=== PATIENT | male | born 1950 | race Caucasian/White ===

== ENCOUNTER → 2017-12-06 10:11 | Outpatient (CLI) | payer MEDICARE, OTHER, SELFPAY ==
[2017-12-06 12:35] LABS: Absolute Lymphocyte Count 1.95 X10^3/ul (0.83-4.51); Absolute Neutrophil Count 5.1 X10^3/uL (2.0-7.7); Basophil# 0.02 X10^3/uL; Basophil% 0.3 % (0-1); Eosinophil# 0.15 X10^3/uL; Eosinophils% 1.9 % (0-5); Hematocrit 46.5 % (40-54); Lymphocyte # 1.95 X10^3/ul (4.0); Lymphocyte % 24.8 % (19-41); Mean Corp Hgb Conc 34.4 g/gl (32-36); Mean Corpuscular Hgb 31.6 pg (27.0-32.0); Mean Corpuscular Volume 91.7 fL (80-94); Mean Platelet Vol. 9.8 fl (6.2-12.0); Monocyte# 0.65 X10^3/uL; Monocyte% 8.3 % (0-10); Neutrophil # 5.06 X10^3/uL (2.7-7.7); Neutrophil % 64.4 % (47-70); Platelet Count 223 K/mm3 (150-450); RBC Distribution Width CV 13.1 % (11.6-14.6); RBC Distribution Width SD 43.1 fl (35.1-43.9); Red Blood Count 5.07 M/mm3 (4.6-6.2); White Blood Count 7.9 K/mm3 (4.4-11.0)
[2017-12-06 12:36] LABS: POSITIVE COUNT NO; POSITIVE DIFFERENTIAL NO; POSITIVE MORPHOLOGY NO
[2017-12-06 13:27] LABS: Anion Gap 11 (5-15); BUN 14 mg/dL (7-18); BUN/Creat Ratio 10.4 RATIO (10-20); Chloride 105 mmol/L (98-107); Creatinine, Serum 1.35 mg/dL (0.70-1.30); EST Glomerular Filtration Rate 56 mL/min (>60); Est Glom Filt Rate - Afr Amer 68 mL/min (>60); Glucose 169 mg/dL (74-106); Potassium 3.3 mmol/L (3.5-5.1); Sodium Level 140 mmol/L (136-145)
== END ==
PROVIDERS: Family Provider Family Medicine; PCP Family Medicine; Visit Provider Family Medicine
DX: I10 Essential (primary) hypertension (principal); E87.6 Hypokalemia; F41.9 Anxiety disorder, unspecified
CPT/HCPCS: 36415; 80048; 84443; 85025

== ENCOUNTER → 2017-12-28 10:31 | Outpatient (CLI) | payer MEDICARE, OTHER, SELFPAY ==
[2017-12-28 12:27] LABS: Anion Gap 7 (5-15); BUN 14 mg/dL (7-18); BUN/Creat Ratio 11.6 RATIO (10-20); Calcium,Total 8.7 mg/dL (8.5-10.1); Chloride 104 mmol/L (98-107); Creatinine, Serum 1.21 mg/dL (0.70-1.30); EST Glomerular Filtration Rate 64 mL/min (>60); Est Glom Filt Rate - Afr Amer 77 mL/min (>60); Glucose 127 mg/dL (74-106); Potassium 3.7 mmol/L (3.5-5.1); Sodium Level 138 mmol/L (136-145)
== END ==
PROVIDERS: Family Provider Family Medicine; PCP Family Medicine; Visit Provider Family Medicine
DX: E87.6 Hypokalemia (principal)
CPT/HCPCS: 36415; 80048

== ENCOUNTER → 2018-03-26 09:56 | Outpatient (CLI) | payer MEDICARE, OTHER, SELFPAY ==
[2018-03-26 12:13] LABS: Absolute Lymphocyte Count 1.78 X10^3/ul (0.83-4.51); Absolute Neutrophil Count 5.9 X10^3/uL (2.0-7.7); Basophil# 0.01 X10^3/uL; Basophil% 0.1 % (0-1); Eosinophil# 0.16 X10^3/uL; Eosinophils% 1.8 % (0-5); Hematocrit 46.6 % (40-54); Hemoglobin 15.9 g/dl (13.0-16.5); Lymphocyte # 1.78 X10^3/ul (4.0); Lymphocyte % 20.3 % (19-41); Mean Corp Hgb Conc 34.1 g/gl (32-36); Mean Corpuscular Hgb 31.2 pg (27.0-32.0); Mean Corpuscular Volume 91.4 fL (80-94); Mean Platelet Vol. 9.7 fl (6.2-12.0); Monocyte% 10.2 % (0-10); Neutrophil # 5.91 X10^3/uL (2.7-7.7); Neutrophil % 67.3 % (47-70); Platelet Count 228 K/mm3 (150-450); RBC Distribution Width CV 12.6 % (11.6-14.6); RBC Distribution Width SD 41.7 fl (35.1-43.9); White Blood Count 8.8 K/mm3 (4.4-11.0)
[2018-03-26 12:24] LABS: POSITIVE COUNT NO; POSITIVE DIFFERENTIAL NO; POSITIVE MORPHOLOGY NO
[2018-03-26 13:00] LABS: Anion Gap 11 (5-15); BUN 16 mg/dL (7-18); BUN/Creat Ratio 11.9 RATIO (10-20); Calcium,Total 9.2 mg/dL (8.5-10.1); Chloride 100 mmol/L (98-107); Cholesterol 152 mg/dL (200); Creatinine, Serum 1.34 mg/dL (0.70-1.30); EST Glomerular Filtration Rate 57 mL/min (>60); Est Glom Filt Rate - Afr Amer 68 mL/min (>60); Glucose 116 mg/dL (74-106); High Density Lipoprotein 35 mg/dL; Potassium 3.5 mmol/L (3.5-5.1); Sodium Level 139 mmol/L (136-145); Thyroid Stim Hormone (TSH) 1.18 uIU/mL (0.358-3.74); Triglycerides 138 mg/dL; Very Low Density Lipoprotein 28 mg/dL (5-40)
== END ==
PROVIDERS: Family Provider Family Medicine; PCP Family Medicine; Visit Provider Family Medicine
DX: I12.9 Hypertensive chronic kidney disease with stage 1 through stage 4 chronic kidney disease, or unspecified chronic kidney disease (principal); N18.9 Chronic kidney disease, unspecified; R25.1 Tremor, unspecified
CPT/HCPCS: 36415; 80048; 80061; 84443; 85025

== ENCOUNTER → 2018-12-16 13:08 | Outpatient (CLI) | payer MEDICARE, OTHER, SELFPAY | PROVIDERS: Family Provider Family Medicine; PCP Family Medicine; Visit Provider Family Medicine | DX: N39.0 Urinary tract infection, site not specified (principal); N40.0 Benign prostatic hyperplasia without lower urinary tract symptoms | CPT/HCPCS: 87086; 87088 ==

== ENCOUNTER → 2019-04-21 | Outpatient (CLI) | payer MEDICARE, OTHER, SELFPAY ==
[2019-04-21 12:35] LABS: Absolute Lymphocyte Count 1.81 X10^3/ul (0.83-4.51); Absolute Neutrophil Count 3.9 X10^3/uL (2.0-7.7); Basophil# 0.01 X10^3/uL; Basophil% 0.2 % (0-1); Eosinophil# 0.21 X10^3/uL; Eosinophils% 3.2 % (0-5); Hematocrit 46.1 % (40-54); Hemoglobin 15.6 g/dl (13.0-16.5); Lymphocyte # 1.81 X10^3/ul (4.0); Lymphocyte % 27.9 % (19-41); Mean Corp Hgb Conc 33.8 g/gl (32-36); Mean Corpuscular Hgb 30.5 pg (27.0-32.0); Mean Corpuscular Volume 90.2 fL (80-94); Mean Platelet Vol. 9.9 fl (6.2-12.0); Monocyte# 0.54 X10^3/uL; Monocyte% 8.3 % (0-10); Neutrophil # 3.91 X10^3/uL (2.7-7.7); Neutrophil % 60.2 % (47-70); Platelet Count 245 K/mm3 (150-450); RBC Distribution Width CV 12.6 % (11.6-14.6); RBC Distribution Width SD 40.6 fl (35.1-43.9); Red Blood Count 5.11 M/mm3 (4.6-6.2); White Blood Count 6.5 K/mm3 (4.4-11.0)
[2019-04-21 12:36] LABS: ALB/GLOB Ratio 0.8 RATIO (0.9-2.4); AST(SGOT) 20 U/L (15-37); Alanine Aminotransfer ALT/SGPT 28 U/L (16-61); Albumin, Serum 3.4 g/dL (3.2-5.0); Alkaline Phosphatase 90 U/L (45-117); Anion Gap 12 (5-15); BUN 18 mg/dL (7-18); BUN/Creat Ratio 14.5 RATIO (10-20); Calcium,Total 9.1 mg/dL (8.5-10.1); Chloride 103 mmol/L (98-107); Creatinine, Serum 1.24 mg/dL (0.70-1.30); EST Glomerular Filtration Rate 62 mL/min (>60); Est Glom Filt Rate - Afr Amer 75 mL/min (>60); Globulin 4.1 g/dL (2.2-4.2); Glucose 117 mg/dL (74-106); Magnesium 2.1 mg/dL (1.6-2.6); Potassium 3.4 mmol/L (3.5-5.1); Protein, Total 7.5 g/dL (6.4-8.2); Sodium Level 140 mmol/L (136-145); T4 Free Direct 1.17 ng/dL (0.76-1.46); Thyroid Stim Hormone (TSH) 0.99 uIU/mL (0.358-3.74)
[2019-04-21 12:46] LABS: POSITIVE COUNT NO; POSITIVE DIFFERENTIAL NO; POSITIVE MORPHOLOGY NO
== END | disposition home or self-care (01) ==
LOC: BFHLAB 09:36
PROVIDERS: Family Provider Family Medicine; PCP Family Medicine; Visit Provider Family Medicine
DX: R73.01 Impaired fasting glucose (principal); I10 Essential (primary) hypertension; R00.2 Palpitations
CPT/HCPCS: 36415; 80053; 83735; 84439; 84443; 85025

== ENCOUNTER → 2019-06-11 | Outpatient (CLI) | payer MEDICARE, OTHER, SELFPAY ==
--- NOTE | 2019-06-11 11:49 | RAD_ITS ---
STUDY: X-RAY - ABDOMEN/PELVIS REASON FOR EXAM: Male, 69 years old. Severe constipation TECHNIQUE: Two AP supine views of the abdomen and pelvis. COMPARISON: January 29, 2015 FINDINGS: Normal visualized lung bases. There is a moderate amount of colonic fecal material. There is no demonstrated free abdominal air. The visualized liver, spleen and kidneys are grossly normal in size and morphology. Normal soft tissue structures. There are diffuse degenerative changes of the visualized lumbar spine. RAD/Abdomen Single View IMPRESSION: Moderate constipation. No evidence of free air. Electronically Signed: Finesse Joe DO at 12:16 EDT Tel , Service support ,
== END | disposition home or self-care (01) ==
PROVIDERS: Family Provider Family Medicine; PCP Family Medicine; Referring Provider Family Medicine; Visit Provider Family Medicine
DX: K59.09 Other constipation (principal); K62.89 Other specified diseases of anus and rectum
CPT/HCPCS: 74018

== ENCOUNTER 2019-06-14 15:20 | Emergency (ER) | payer MEDICARE, OTHER, SELFPAY ==
[2019-06-14 15:21] VITALS: BP 152/69; PULSE 62; RESP 17; TEMP 36.8; O2SAT 98; BMI 29.9
--- NOTE | 2019-06-14 15:42 | CT_ITS ---
STUDY: CT ABDOMEN AND PELVIS WITHOUT CONTRAST REASON FOR EXAM: Male, 69 years old. Lower abdominal pain and constipation for 9 days. RADIATION DOSAGE (If Supplied By Facility): CTDIvol = ( 11.06 ) mGy, DLP = ( 566.31 ) mGycm TECHNIQUE: Transaxial images were obtained from the dome of the diaphragm to the symphysis pubis without oral contrast, and without intravenous contrast. Sagittal and coronal images were reconstructed. Individualized dose optimization techniques were used for this CT. COMPARISON: Prior abdomen and pelvic CT exam of January 26, 2015 FINDINGS: Mild areas of interstitial prominence at the bases that are probably chronic in nature. Since 2014 a fatty mass of the posterior right pleura has been apparently removed. Normal liver. Normal gallbladder and extrahepatic biliary system. There are multiple benign calcified granulomata of the spleen. Normal pancreas. Normal bilateral adrenal glands. Normal size of the right kidney without hydronephrosis or stones. Stable cysts and one nonobstructing calcification in the upper pole of the left kidney. Otherwise normal left kidney without hydronephrosis. Normal visualized stomach. Normal small intestine. Generalized wall thickening of the proximal sigmoid colon with minimal pericolonic stranding not apparent on prior exam the same area. There does not appear to be proximal distention or a substantial amount of proximal solid stool. The appendix is visualized and appears normal. Mild calcified plaque of the aorta. Normal inferior vena cava. Normal retroperitoneum. Normal urinary bladder. Normal abdominal wall. There are diffuse degenerative changes of the visualized lumbar spine. CT/Abdomen/Pelvis without Cont IMPRESSION: Generalized wall thickening of the proximal sigmoid colon with minimal pericolonic edema with extensive diverticulosis in the area. Findings support earlier mild diverticulitis. Otherwise negative for evidence of perforation or bowel obstruction. A normal appendix is identified. No additional acute abdominal or pelvic findings. Calcified granulomata of the spleen. Simple cysts and one small nonobstructing calcification in the upper pole of the left kidney without hydronephrosis. Normal right kidney without hydronephrosis or stones. Unremarkable liver, gallbladder, pancreas. Electronically Signed: Marylin Bianchi MD at 17:06 EDT , Service support ,
[2019-06-14 15:58] LABS: Absolute Lymphocyte Count 2.06 X10^3/uL (0.83-4.51); Basophil# 0.02 X10^3/uL; Basophil% 0.2 % (0-1); Hematocrit 45.2 % (40-54); Hemoglobin 15.4 g/dL (13.0-16.5); Lymphocyte # 2.06 X10^3/ul (4.0); Lymphocyte % 20.5 % (19-41); Mean Corp Hgb Conc 34.1 g/dL (32-36); Mean Corpuscular Hgb 31.2 pg (27.0-32.0); Mean Corpuscular Volume 91.7 fL (80-94); Mean Platelet Vol. 9.2 fl (6.2-12.0); Monocyte# 0.81 X10^3/uL; Monocyte% 8.1 % (0-10); NRBC Flagged by Analyzer 0 % (0-5); Neutrophil # 7.03 X10^3/uL (2.7-7.7); Neutrophil % 69.9 % (47-70); Platelet Count 221 K/mm3 (150-450); RBC Distribution Width CV 12.2 % (11.6-14.6); RBC Distribution Width SD 41.1 fl (35.1-43.9); Red Blood Count 4.93 M/mm3 (4.6-6.2); White Blood Count 10.1 K/mm3 (4.4-11.0)
[2019-06-14] MEDS: 0.9% Normal Saline 1,000 ML 1000 ML IV (15:59)
[2019-06-14 16:25] LABS: Anion Gap 8 (5-15); BUN 19 mg/dL (7-18); Calcium,Total 8.7 mg/dL (8.5-10.1); Chloride 106 mmol/L (98-107); Creatinine, Serum 1.27 mg/dL (0.70-1.30); EST Glomerular Filtration Rate 60 mL/min (>60); Est Glom Filt Rate - Afr Amer 73 mL/min (>60); Estimated Creatinine Clearance 50.24 ml/min; Glucose 154 mg/dL (74-106); Sodium Level 138 mmol/L (136-145)
--- NOTE | 2019-06-14 17:11 | ED.DCSUM_ITS ---
- ER Visit Summary Date of Service: 06/14/19 Chief Complaint: Constipation History of Present Illness: The patient is a [address] Don Rodriguez. He reports that he has had constipation since June 05. When asked further about this he reports he has not had a solid bowel movement since then. He is having liquid stools 6 times in the morning daily since then. He also reports that he is on multiple different stool softeners and stimulants. States these had similar problems for 30 years. He does have a history of diverticulitis. Patient reports that he has aching lower abdominal pain is 9 to 10 hours and 4- 10 currently. Is worsened by nothing included by passing gas. He had nausea without vomiting. Physical Examination: Vitals: Stable. Afebrile. General: Well-nourished and well-developed. Head: Normocephalic atraumatic. Neck: Supple, no lymphadenopathy. No JVD. Nontender. Cardiovascular: Regular rate and rhythm. No murmurs. Respiratory: No respiratory distress. Clear to auscultation bilaterally. Abdominal: Soft, mild diffuse lower abdominal tenderness to palpation, nondistended, normal bowel sounds. No guarding, rebound, or peritoneal signs. Back: Nontender. Extremities: Nontender, no edema. Skin: Normal color, no rash. Neurologic: Alert and oriented ?3. Cranial nerves II through XII are intact. Normal strength and sensation. Psych: Normal affect. Test Results: CBC is normal. Chem-7 shows a glucose of 154 and BUN of 19. Clinical Impression(s) from Imaging Studies Abdomen/Pelvis CT 06/14/19 15:42 IMPRESSION: Generalized wall thickening of the proximal sigmoid colon with minimal pericolonic edema with extensive diverticulosis in the area. Findings support earlier mild diverticulitis. Otherwise negative for evidence of perforation or bowel obstruction. A normal appendix is identified. No additional acute abdominal or pelvic findings. Calcified granulomata of the spleen. Simple cysts and one small nonobstructing calcification in the upper pole of the left kidney without hydronephrosis. Normal right kidney without hydronephrosis or stones. Unremarkable liver, gallbladder, pancreas. Electronically Signed: Marylin Bianchi MD at 17:06 EDT , Service support , Emergency Department Course and Treatment: Patient was treated with Augmentin p.o. He refused pain and nausea medications. Treatment Plan: Patient reports he has an appointment to office copy selector, whose name he cannot remember, and 10 days. He is will be discharged on Augmentin. Instructed to follow-up with Dr. Don Rodriguez in a week for another exam. Return to the emergency department for any worsening symptoms. Disposition: To home in improved and stable condition. Impression: 1. Diverticulitis. This note was generated with [employer] dictation software. It may contain incorrect words, spelling, and punctuation that were not noted in review of the chart prior to signing ED Disposition - Plan for ED Patient: Disposition: Home or Assisted Living Instructions: Diverticulitis Prescriptions: Amox/Clavulanate Tablet [Augmentin Tablet] 875 mg PO Q12H #20 tab Prescription Printed Referrals: Don Rodriguez MD [Primary Care Provider] - 1 Week
[2019-06-14] MEDS: Amox/Clavulanate 875 MG Tablet PO (17:20)
[2019-06-14 17:26] VITALS: BP 121/69; PULSE 84; RESP 18
== END 2019-06-14 17:28 | disposition home or self-care (01) ==
LOC: ED 17:08
PROVIDERS: Emergency Provider Emergency Medicine; Family Provider Family Medicine; PCP Family Medicine
DX: K57.32 Diverticulitis of large intestine without perforation or abscess without bleeding (principal); I10 Essential (primary) hypertension
CPT/HCPCS: 74176; 80048; 85025; 96360; 99284; J7030; A4216

== ENCOUNTER 2019-09-03 00:58 | Inpatient (IN) | payer MEDICARE, OTHER, SELFPAY ==
[2019-09-03] VITALS (9 sets, daily range): BP systolic 136–174; BP diastolic 81–91; PULSE 75–94; RESP 18–24; TEMP 32–37.1; O2SAT 95–98; BMI 31.8; BMI 31.3
--- NOTE | 2019-09-03 01:36 | ED.VIS.GEN ---
History of Present Illness Chief Complaint: Complaint Informant: Patient Onset: Today Context: Gradual Onset Narrative: Patient is a 69-year-old male with history of chronic neck pain and BPH presenting with decreased urination. Patient notes all day today he is not peeing very much. He states the last time he remembers urinating was earlier this afternoon. Since then patient does drink at least 28 ounces of fluid. He states he does not really feel the need to urinate. He states he feels bloated in his flanks. He denies any history of kidney failure. He notes he had a neck injection of steroids earlier today for pain management. He notes his neck is feeling fine. He denies any other complaints at this time. Past Medical History - Allergies and Home Meds Allergies/Adverse Reactions: Allergies gabapentin [From Neurontin] Adverse Reaction (Verified 09/03/19 04:15) muscle stiffness ofloxacin [From Floxin] Adverse Reaction (Verified 09/03/19 04:15) Unknown pt is not sure - states this was a long time ago Past Medical History: - - Hypertension, chronic pain, GERD, BPH, anxiety, Surgical History: - - c-scope [address] Patterson he notes, no marked findings. Lives: With Family Smoking Status: Never smoker - Family History Maternal Family History: Reports: Cancer - Mother w/ brain CA 62 y/o. Paternal Family History: Reports: Cancer - Father w/ prostate CA 67 y/o. Review of Systems All systems negative except as indicated Gastrointestinal: Reports: - - Flank discomfort Genitourinary: Reports: - - Increased urine output Musculoskeletal: Reports: - Physical Exam Vital Signs/Narrative: Vital Signs Temp Pulse Resp BP Pulse Ox 09/03/19 01:00 89.6 F L 84 18 174/88 H 98 Inital Vital Signs reviewed: Yes General: Well nourished, Well developed, No Acute Distress Head: Normocephalic, Atraumatic Eyes: Perrl, EOMI ENT: No rhinorrhea, Dry mucous membranes Neck: Supple, Nontender Cardiovascular: Regular rate, Regular rhythm, No murmurs Respiratory: No distress, CTA bilaterally, Chest nontender Abdomen: Soft, Nontender, Nondistended, Normal bowel sounds, - - No palpable/distended bladder appreciated. Negative for: Tender Back: Nontender, Normal Inspection. Negative for: CVA tenderness Extremities: Nontender, No edema Skin: Normal color, No rash Neurological: Alert, Oriented x3, Cranial nerves II-XII grossly intact, Normal Strength, Normal Sensation, - - Patient has mildly stuttering speech which appears to be his baseline, mild tremor present Psychological: Normal affect, Normal Mood Diagnostic/Tx/Re-eval Clinical Impression(s) from Imaging Studies Abdomen/Pelvis CT 09/03/19 03:06 IMPRESSION: Mild chronic bilateral perinephric fat infiltration is slightly accentuated compared to previous studies and might represent an active inflammatory process. No other visible evidence for acute pathology of the kidneys. Small renal cysts. Small nonobstructive left renal calculus. No demonstrated ureteral calculus or hydronephrosis. Colonic diverticulosis. Mild chronic fatty infiltration adjacent to the sigmoid colon there is an residual from previous diverticulitis. Recurrent acute diverticulitis is thought to be less likely. Contracted gallbladder, probably due to the patient's nonfasting state. Electronically Signed: Kartik Molina MD at 4:07 EST , Service support , Laboratory Data 09/03/19 09/03/19 09/03/19 01:35 01:35 01:53 WBC 15.6 H RBC 4.88 Hgb 15.3 Hct 44.3 MCV 90.8 MCH 31.4 MCHC 34.5 RDW Std Deviation 40.3 RDW Coeff of Leonel 12.2 Plt Count 217 MPV 9.2 Immature Gran % (Auto) 0.500 Neut % (Auto) 85.6 H Lymph % (Auto) 6.6 [place] % (Auto) 7.2 Eos % (Auto) 0.0 Baso % (Auto) 0.1 Absolute Neuts (auto) 13.3 H Absolute Lymphs (auto) 1.02 Nucleated RBC % 0 Sodium 136 Potassium 4.8 Chloride 104 Carbon Dioxide 23.0 Anion Gap 9 BUN 43 H Creatinine 2.92 H Estim Creat Clear Calc 21.85 Est GFR (MDRD) Af Amer 28 L Est GFR (MDRD) Non-Af 23 L BUN/Creatinine Ratio 14.7 Glucose 216 H Calcium 9.0 Urine Color Yellow Urine Clarity Sl. Cloudy Urine pH 6.0 Ur Specific [place] 1.005 Urine Protein 30 H Urine Glucose (UA) Normal Urine Ketones Negative Urine Occult Blood 50 H Urine Nitrite Negative Urine Bilirubin Negative Urine Urobilinogen Normal Ur Leukocyte Esterase Negative Urine RBC 0-5 SEEN Urine WBC 0-5 SEEN Ur Squamous Epith Cells 0-5 SEEN Amorphous Sediment 1+ Urine Bacteria RARE Urine Mucus 0 SEEN - Medical Decision Making Patient is evaluated for decreased urine output. He does not have symptoms consistent with acute urinary retention is not having pain or the sensation that he needs to urinate. Bladder scan performed which shows 75 mL's of urine. Patient is able to urinate out a small amount. No signs of infection in the urine. CBC does show leukocytosis however patient has had multiple steroid shots within the last 2 weeks which could have raised it. He does not have any other symptoms consistent with infection such as fever, myalgias or malaise. Patient's creatinine is significantly elevated. It is more than doubled his baseline. Patient is given IV fluids. I suspect his decreased urine output has been from acute kidney injury. Patient is on triamterene/HCTZ and was n.p.o. yesterday for a procedure. It is possible that that pushed him into acute kidney injury. Patient will be admitted for further evaluation of this. He is agreeable to this plan. Patient is given IV Ativan as he is very anxious about being admitted and normally takes it at home. Patient is accepted by medicine physician, Dr. Khanna. As patient's BUN/creatinine ratio is less than [address] he [address] a [address] the abdomen pelvis to rule out signs of obstructive uropathy. This is obtained but does not show signs of obstruction. Patient is stable for the general medical floor at time of disposition. ED Disposition - Plan for ED Patient: Disposition: Acute Care Hospital [facility] Diagnosis: PALMIRA (acute kidney injury)
[2019-09-03 01:45] LABS: Absolute Lymphocyte Count 1.02 X10^3/uL (0.83-4.51); Absolute Neutrophil Count 13.3 X10^3/uL (2.0-7.7); Basophil# 0.02 X10^3/uL; Basophil% 0.1 % (0-1); Hematocrit 44.3 % (40-54); Hemoglobin 15.3 g/dL (13.0-16.5); Lymphocyte # 1.02 X10^3/ul (4.0); Lymphocyte % 6.6 % (19-41); Mean Corp Hgb Conc 34.5 g/dL (32-36); Mean Corpuscular Hgb 31.4 pg (27.0-32.0); Mean Corpuscular Volume 90.8 fL (80-94); Mean Platelet Vol. 9.2 fl (6.2-12.0); Monocyte# 1.12 X10^3/uL; Monocyte% 7.2 % (0-10); NRBC Flagged by Analyzer 0 % (0-5); Neutrophil # 13.31 X10^3/uL (2.7-7.7); Neutrophil % 85.6 % (47-70); Platelet Count 217 K/mm3 (150-450); RBC Distribution Width CV 12.2 % (11.6-14.6); RBC Distribution Width SD 40.3 fl (35.1-43.9); Red Blood Count 4.88 M/mm3 (4.6-6.2); White Blood Count 15.6 K/mm3 (4.4-11.0)
[2019-09-03 01:57] LABS: Mucous, Urine 0 SEEN /hpf (<or=2+)
[2019-09-03 02:00] LABS: Color, Urine Yellow (Yellow); Glucose, Dipstick Normal (Normal); Ketone-Dipstick Negative (Negative); Leukocyte Esterase-Dipstick Negative /ul (Negative); Nitrite-Dipstick Negative (Negative); Occult Blood-Urine 50 /ul (Negative); Protein-Dipstick 30 mg/dl (Negative); Specific Gravity, Urine 1.005 (1.002-1.030); Urine Bilirubin Dipstick Negative (Negative); Urine Clarity Sl. Cloudy (Clear); Urine Urobilinogen Normal (Normal)
[2019-09-03 02:02] LABS: Anion Gap 9 (5-15); BUN 43 mg/dL (7-18); BUN/Creat Ratio 14.7 RATIO (10-20); Chloride 104 mmol/L (98-107); Creatinine, Serum 2.92 mg/dL (0.70-1.30); EST Glomerular Filtration Rate 23 mL/min (>60); Est Glom Filt Rate - Afr Amer 28 mL/min (>60); Estimated Creatinine Clearance 21.85 ml/min; Glucose 216 mg/dL (74-106); Potassium 4.8 mmol/L (3.5-5.1); Sodium Level 136 mmol/L (136-145)
[2019-09-03 02:06] LABS: Amorphous Sediment 1+; Bacteria RARE /hpf (None Seen); Red Blood Cells-Urine 0-5 SEEN /hpf (0-5); Squamous Epithelial Cells - UA 0-5 SEEN /hpf (0-5); White Blood Cells 0-5 SEEN /hpf (0-5)
--- NOTE | 2019-09-03 02:51 | HP.PCM_ITS ---
Problem List (1) PALMIRA (acute kidney injury) Status: Acute History of Present Illness Date of Admission: 09/03/19 Chief Complaint: Decreased urine output The patient is a 69 year old M with a significant history of GERD; BPH; hypertension; chronic pain and anxiety who presented to emergency department with decreased urine output that started a day before his presentation. Patient was kept n.p.o. for cortisone shot in his neck. After the cortisone shots he did not urinate except when his bowels was moving at which time he also urinated. At the the Emergency department his creatinine was elevated likewise his white count. He reported typically his creatinine and other labs has been elevated after he receives cortisone shots. Two weeks ago he also received cortisone shot in his bilateral hips. Bladder scanned at the emergency department showed only 75 mL of urine. Past Medical History Past Medical History (Chronic Problems): Chronic Problems Hypertension (Chronic) GERD (gastroesophageal reflux disease) (Chronic) Obesity (BMI 30.0-34.9) (Chronic) Chronic constipation (Chronic) BPH (benign prostatic hyperplasia) (Chronic) Allergies gabapentin [From Neurontin] Adverse Reaction (Verified 06/14/19 15:20) Unknown ofloxacin [From Floxin] Adverse Reaction (Verified 06/14/19 15:20) Unknown Home Medications: Ambulatory Orders Medication Instructions Recorded Lorazepam [Ativan] 0.5 mg PO DAILY 03/09/14 Metoprolol Tartrate [Lopressor 50 mg PO BID 03/09/14 (Beta Alejandro)] Potassium Chloride [K-Dur] 20 meq PO BID 03/09/14 Prelief 2 tab PO DAILY 03/09/14 Tamsulosin HCl [Flomax] 0.4 mg PO DAILY 01/26/15 Docusate Sodium [Colace] 200 mg PO QHS 01/27/15 Dexlansoprazole [Dexilant] 30 mg PO DAILY 09/03/19 Triamterene/Hydrochlorothiazid 1 tab PO DAILY 09/03/19 [Triamterene-Hctz 75-50 mg Tab] traMADol [Ultram (G)] 50 mg PO BID PRN PRN 09/03/19 Surgical History: - - c-scope [address] Patterson he notes, no marked findings. Psychiatric History: No pertinent psych hx Lives: Alone Smoking Status: Current some day smoker Tobacco Use: Cigars - *Family History Maternal History Items: Cancer - Mother w/ brain CA 62 y/o. Paternal History Items: Cancer - Father w/ prostate CA 67 y/o. Review of Systems Constitutional: Denies: Fever, Fatigue HEENT: Denies: Head Aches, Sinus Congestion, Sinus Drainage Cardiovascular: Denies: Chest Pain, Palpitations Respiratory: Denies: Cough, Shortness of breath at rest, Sputum production Gastrointestinal: Denies: Abdominal Pain, Nausea, Vomiting Genitourinary: Reports: Frequency - Decreased frequency of urination. Denies: Dysuria Musculoskeletal: Reports: Joint Pain, Neck Pain. Denies: Joint Tenderness Skin: Denies: Rash, Wounds Neurological: Denies: Numbness, Tingling, Focal weakness Psychiatric: Reports: Anxiety, Depression. Denies: Homicidal Ideations, Suicidal Ideations Hematologic/ Lymphatic: Denies: Easy Bruising, Easy Bleeding VTE Information - Inpt Only VTE Present on Admission: No VTE Mechan Device Prophylaxis: None VTE Pharm Prophylaxis ordered?: Yes Patient Problems: Active and Suspected Problems PALMIRA (acute kidney injury) (Acute) - Physical Exam Vitals/I&O's: Vital Signs Temp Pulse Resp BP Pulse Ox 89.6 F L 84 18 174/88 H 98 09/03/19 01:00 09/03/19 01:00 09/03/19 01:00 09/03/19 01:00 09/03/19 01:00 Oxygen Delivery Method Room Air Weight: 89.6 kg Body Mass Index (BMI) 31.8 Intake and Output for Last 24 Hours 09/01/19 09/02/19 09/03/19 23:59 23:59 23:59 Output Total 70 / 70 Balance -70 / -70 General: Alert, Oriented x3, Cooperative HEENT: Atraumatic, PERRLA, EOMI, Normocephalic Neck: Supple, No JVD, Negative Carotid Bruits Lungs: Clear to auscultation, Normal air movement Cardiovascular: Regular rate, No murmurs Abdomen: Bowel Sounds Present, Soft, Non Tender Extremities: No edema, Capillary Refill Less than 3 Seconds Skin: No rashes, No breakdown Musculoskeletal: No Tenderness to Palpation of Joints or Extremities Neurological: Cranial nerves II-XII grossly intact Psych/Mental Status: Normal Affect, Appropriate Laboratory Results 09/03/19 01:35: WBC 15.6 H, RBC 4.88, Hgb 15.3, Hct 44.3, MCV 90.8, MCH 31.4, MCHC 34.5, RDW Std Deviation 40.3, RDW Coeff of Leonel 12.2, Plt Count 217, MPV 9.2, Immature Gran % (Auto) 0.500, Neut % (Auto) 85.6 H, Lymph % (Auto) 6.6 L, [place] % (Auto) 7.2, Eos % (Auto) 0.0, Baso % (Auto) 0.1, Absolute Neuts (auto) 13.3 H, Absolute Lymphs (auto) 1.02, Nucleated RBC % 0 09/03/19 01:35: Sodium 136, Potassium 4.8, Chloride 104, Carbon Dioxide 23.0, Anion Gap 9, BUN 43 H, Creatinine 2.92 H, Estim Creat Clear Calc 21.85, Est GFR (MDRD) Af Amer 28 L, Est GFR (MDRD) Non-Af 23 L, BUN/Creatinine Ratio 14.7, Glucose 216 H, Calcium 9.0 09/03/19 01:53: Urine Color Yellow, Urine Clarity Sl. Cloudy, Urine pH 6.0, Ur Specific [place] 1.005, Urine Protein 30 H, Urine Glucose (UA) Normal, Urine Ketones Negative, Urine Occult Blood 50 H, Urine Nitrite Negative, Urine Bilirubin Negative, Urine Urobilinogen Normal, Ur Leukocyte Esterase Negative, Urine RBC 0-5 SEEN, Urine WBC 0-5 SEEN, Ur Squamous Epith Cells 0-5 SEEN, Amorphous Sediment 1+, Urine Bacteria RARE, Urine Mucus 0 SEEN Assessment/Plan All Active Problems PALMIRA (acute kidney injury) (Acute) The patient is a 69 year old M with a significant history of GERD; BPH; hypertension; chronic pain and anxiety who presented to emergency department with decreased urine output and found to have severely elevated creatinine consistent with PALMIRA. PALMIRA On presentation was 2.92. Review of old records shows a creatinine baseline around 1.24-1.37. His BUN was also severely elevated at 43. BUN over creatinine is 14.7. Pointing towards intrinsic renal; or post renal. Discussed emergency department doctor to get a CAT scan of his abdomen and pelvis without contrast. Received normal saline bolus in the emergency department. Continue patient on normal saline infusion. Trend BMP. Avoid nephrotoxins. Hold home triamterene/hydrochlorothiazide. Hold home potassium supplementation. Check urine electrolytes. Hypertension Presentation his blood pressure was not within goal Lopressor continued Treatment triamterene/hydrochlorothiazide held secondary to PALMIRA. PRN hydralazine ordered. Chronic pain Ultram continued GERD PPI continued Anxiety disorder Lorazepam continued Tobacco abuse Counselled DVT prophylaxis Subcutaneous Lovenox Code Visit Inpatient E&M: 31608 Init Hosp L3
--- NOTE | 2019-09-03 03:06 | CT_ITS ---
STUDY: CT ABDOMEN AND PELVIS WITHOUT CONTRAST REASON FOR EXAM: Male, 69 years old. Difficulty urinating. Abdominal pressure.. New onset renal failure with elevated creatinine. History of hypertension and diverticulosis. RADIATION DOSAGE (If Supplied By Facility): CTDIvol = ( 13.86 ) mGy, DLP = ( 734.00 ) mGycm TECHNIQUE: Transaxial images were obtained from the dome of the diaphragm to the symphysis pubis without oral contrast, and without intravenous contrast. Sagittal and coronal images were reconstructed. Individualized dose optimization techniques were used for this CT. COMPARISON: 06/14/2019. 01/26/2015. FINDINGS: There is mild chronic atelectasis or fibrosis in the visualized lung bases. There is partial demonstration of an approximately 5 cm subpleural lipoma in the posterior right lower lung field. There is a calcified granuloma in the visualized lower left hilar region. The visualized portions of the heart are within normal limits. Normal liver. The gallbladder is contracted, which is probably due to the patient's nonfasting state, but which might be due to gallbladder disease. There calcified granulomas in the spleen. Normal pancreas. Normal bilateral adrenal glands. There is mild chronic bilateral perinephric fat infiltration which is slightly increased compared to the previous studies and may represent an active inflammatory process. There is a small peripelvic cyst in the lower pole of the right kidney. Otherwise, normal right kidney, with no demonstrated urinary calculus or hydronephrosis.. There is a 6 mm nonobstructive left upper pole renal calculus. There are left renal cortical cysts. Otherwise, normal left kidney with no demonstrated ureteral calculus or hydronephrosis. Normal visualized stomach. Normal small intestine. There are multiple colonic diverticula consistent with diverticulosis. There is mild infiltration of fat around the mid sigmoid colon which was also present on previous study and may represent residual changes from previous diverticulitis. Acute/active diverticulitis is thought to be less likely. The appendix is visualized on axial images 105-118 and it appears normal. There is minimal atherosclerotic calcification of the abdominal aorta, without a demonstrated aneurysm. Normal inferior vena cava. There is no demonstrated retroperitoneal lymphadenopathy. Normal urinary bladder. Normal abdominal wall. There are diffuse degenerative changes of the visualized lumbar spine. CT/Abdomen/Pelvis without Cont IMPRESSION: Mild chronic bilateral perinephric fat infiltration is slightly accentuated compared to previous studies and might represent an active inflammatory process. No other visible evidence for acute pathology of the kidneys. Small renal cysts. Small nonobstructive left renal calculus. No demonstrated ureteral calculus or hydronephrosis. Colonic diverticulosis. Mild chronic fatty infiltration adjacent to the sigmoid colon there is an residual from previous diverticulitis. Recurrent acute diverticulitis is thought to be less likely. Contracted gallbladder, probably due to the patient's nonfasting state. Electronically Signed: Kartik Molina MD at 4:07 EST , Service support ,
[2019-09-03] MEDS: 0.9% Normal Saline 1,000 ML 999 ML IV (03:15)
[2019-09-03] MEDS: LORazepam 2 MG/ML Syringe 0.5 MG IV (03:40)
[2019-09-03] MEDS: 0.9% Normal Saline 1,000 ML 75 ML IV (04:20)
[2019-09-03 04:39] LABS: Urine Sodium 46 mmol/L (Not Establ.)
[2019-09-03 08:31] LABS: Urine Chloride 46 mmol/L (Not Establ.); Urine Sodium 48 mmol/L (Not Establ.)
[2019-09-03 08:43] LABS: Protein:Creat Ratio 363 mg/g CRE (0-200)
[2019-09-03] MEDS: Tamsulosin HCl 0.4 MG Capsule PO (09:22)
[2019-09-03] MEDS: Pantoprazole Sodium 20 MG Tablet PO (09:23)
[2019-09-03] MEDS: Docusate Sodium 100 MG Capsule 200 MG PO (09:23)
[2019-09-03] MEDS: Metoprolol Tartrate 50 MG Tablet PO ×2 (09:23→21:24)
[2019-09-03] MEDS: LORazepam 0.5 MG Tablet PO (09:24)
[2019-09-03] MEDS: Enoxaparin 30 MG/0.3 ML Syringe SC (09:25)
--- NOTE | 2019-09-03 09:25 | CASEMGMT ---
RN EVI Face to Face with patient for initial transition planning/care coordination assessment. RN CM introduced self and role at [facility]. Patient lying in bed, alert and oriented. Patient willing to participate in assessment and is able to answer all questions appropriately. Care providers, pharmacy, and demographics verified. Patient wishes to discharge home, denies need for home health at this time. Patient states he has no further needs or concerns at this time. CM to follow for discharge planning needs that may arise. PCP: Michael Specialists: laure Lawson [facility] Pres[facility] Benefit: yes Living Will/HPOA: yes but would like to update LNOK: Friend Yamilka Living Arrangements: Patient lives alone in 2 story home and is able to ambulate stairs and is independent. Transportation: self/friend DME/HHC: Patient denies any DME or previous HHC. Disposition Plan: Patient to discharge home with support from friend and follow-up plans in place. Kae GRAYSON, RN, CM
--- NOTE | 2019-09-03 11:35 | PN_ITS ---
Patient Problems: Active and Suspected Problems PALMIRA (acute kidney injury) (Acute) Subjective: The patient had about 3-4 times loose bowel movement after taking laxative. 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 Denies prior history of kidney failure, fever or chills, bilateral renal angle pain or lower enteric symptoms. Denies previous history of kidney stones or urology procedure Vitals/I&O's: Vital Signs Temp Pulse Resp BP Pulse Ox 98.2 F 94 18 148/87 H 98 09/03/19 09:09 09/03/19 09:23 09/03/19 09:09 09/03/19 09:09 09/03/19 09:09 Oxygen Delivery Method Room Air Weight: 194 lb 0.108 oz Body Mass Index (BMI) 31.3 Intake and Output for Last 24 Hours 09/01/19 09/02/19 09/03/19 23:59 23:59 23:59 Intake Total 1423.75 / 1423.75 Output Total 270 / 270 Balance 1153.75 / 1153.75 General: Alert, Oriented x3, Cooperative HEENT: Atraumatic, PERRLA, EOMI, Normocephalic Neck: Supple, No JVD, Negative Carotid Bruits Lungs: Clear to auscultation, Normal air movement, No rhonchi, No wheeze, No rales Cardiovascular: Regular rate, Regular Rhythm, Normal S1, Normal S2, No murmurs Abdomen: Bowel Sounds Present, Soft, Non Tender, Non-Distended, - - No renal angle pain. No suprapubic tenderness. Extremities: No edema, Capillary Refill Less than 3 Seconds Skin: No rashes, No breakdown Musculoskeletal: No Tenderness to Palpation of Joints or Extremities Neurological: Cranial nerves II-XII grossly intact, Deep Tendon Reflexes 2+/4 and Symmetrical, Neuro grossly intact Psych/Mental Status: Normal Affect, Appropriate Laboratory Results 09/03/19 01:35: WBC 15.6 H, RBC 4.88, Hgb 15.3, Hct 44.3, MCV 90.8, MCH 31.4, MCHC 34.5, RDW Std Deviation 40.3, RDW Coeff of Leonel 12.2, Plt Count 217, MPV 9.2, Immature Gran % (Auto) 0.500, Neut % (Auto) 85.6 H, Lymph % (Auto) 6.6 L, [place] % (Auto) 7.2, Eos % (Auto) 0.0, Baso % (Auto) 0.1, Absolute Neuts (auto) 13.3 H, Absolute Lymphs (auto) 1.02, Nucleated RBC % 0 09/03/19 01:35: Sodium 136, Potassium 4.8, Chloride 104, Carbon Dioxide 23.0, Anion Gap 9, BUN 43 H, Creatinine 2.92 H, Estim Creat Clear Calc 21.85, Est GFR (MDRD) Af Amer 28 L, Est GFR (MDRD) Non-Af 23 L, BUN/Creatinine Ratio 14.7, Glucose 216 H, Calcium 9.0 09/03/19 01:53: Urine Color Yellow, Urine Clarity Sl. Cloudy, Urine pH 6.0, Ur Specific [place] 1.005, Urine Protein 30 H, Urine Glucose (UA) Normal, Urine Ketones Negative, Urine Occult Blood 50 H, Urine Nitrite Negative, Urine Bilirubin Negative, Urine Urobilinogen Normal, Ur Leukocyte Esterase Negative, Urine RBC 0-5 SEEN, Urine WBC 0-5 SEEN, Ur Squamous Epith Cells 0-5 SEEN, Amorphous Sediment 1+, Urine Bacteria RARE, Urine Mucus 0 SEEN 09/03/19 04:15: Ur Random Sodium 46 09/03/19 07:56: Urine Creatinine 50.20 09/03/19 07:56: U Random Total Protein 18.0 H, Urine Creatinine 49.60, Protein/Creatinin Ratio 363 H 09/03/19 07:56: Ur Random Sodium 48, Urine Potassium 23.0, Urine Chloride 46 Current Medications Acetaminophen (Tylenol) 650 mg PO Q6H PRN PRN PRN Reason: Pain Score 1-3/Temp > 100.7 F Dextrose (D50w Syringe) 0 gm IV X1 PRN; Protocol PRN Reason: Hypoglycemia Docusate Sodium (Colace) 200 mg PO QHS [facility] Last Admin: 09/03/19 09:23 Dose: 200 mg Documented by: Enoxaparin Sodium (Lovenox) 30 mg SC DAILY@1000 [facility] Last Admin: 09/03/19 09:25 Dose: 30 mg Documented by: Glucagon () 1 mg IM .X1 PRN PRN Reason: Hypoglycemia Hydralazine HCl (Apresoline Iv) 10 mg IV Q4H PRN PRN PRN Reason: SBP > 160 Sodium Chloride () 1,000 mls @ 125 mls/hr IV .Q8H [facility] Stop: 09/04/19 04:05 Last Infusion: 09/03/19 08:39 Dose: 125 mls/hr Documented by: Ceftriaxone Sodium (Rocephin) 1 gm in 50 mls @ 100 mls/hr IV Q24 [facility] Lorazepam (Ativan) 0.5 mg PO DAILY [facility] Last Admin: 09/03/19 09:24 Dose: 0.5 mg Documented by: Metoprolol Tartrate (Lopressor (Beta Alejandro)) 50 mg PO BID [facility] Last Admin: 09/03/19 09:23 Dose: 50 mg Documented by: Ondansetron HCl (Zofran) 4 mg IV Q8H PRN PRN PRN Reason: NAUSEA/VOMITING Pantoprazole Sodium (Protonix) 20 mg PO DAILY [facility] Last Admin: 09/03/19 09:23 Dose: 20 mg Documented by: Polyethylene Glycol (Miralax) 17 gm PO DAILY@1600 [facility] Sodium Chloride () 10 - 40 ml IV UD PRN PRN Reason: SALINE FLUSH Sodium Chloride ([place] Nasal [place]) 2 spray NASAL TID [facility] Tamsulosin HCl (Flomax) 0.4 mg PO DAILY [facility] Last Admin: 09/03/19 09:22 Dose: 0.4 mg Documented by: Tramadol HCl (Ultram) 50 mg PO BID PRN PRN PRN Reason: Pain Score 1-10/10 STROKE Vital Signs/Narrative: Vital Signs Temp Pulse Resp BP Pulse Ox 09/03/19 09:23 94 09/03/19 09:09 98.2 F 94 18 148/87 H 98 Medical Necessity - Tobacco Use Smoking Status: Current some day smoker Tobacco Use: Cigars Assessment/Plan All Active Problems PALMIRA (acute kidney injury) (Acute) The patient is a 69 year old M with a significant history of GERD; BPH; hypertension; chronic pain and anxiety was admitted with oliguria, elevated creatinine, BUN/creatinine 43/2.92 consistent with acute kidney injury. Denies lower urinary tract symptoms. No renal angle pain. Acute kidney injury, multiple etiologies: Urine lites were ordered. creatinine baseline around 1.24-1.37. Currently BUN/creatinine 43/2.92. It seems patient did not had significant diarrhea to account for hypovolemia related prerenal acute kidney injury and BUN/creatinine ratio not more than 20/1. Urine sodium 48. Patient also on triamterene/HCTZ 75-50 mg 1 tablet daily at home. This all points to multiple etiologies of acute kidney injury, prerenal/diuretic/ATN. Patient also has acute on chronic bilateral perinephric stranding reported on CT abdomen. UA shows microscopic hematuria and proteinuria got no significant leukocytes. Urine protein creatinine ratio 330 mg/g of creatinine. Diuretic is being held. Hypertension Pressure 148/87. Lopressor continued Treatment triamterene/hydrochlorothiazide held secondary to PALMIRA. PRN hydralazine ordered. Chronic pain Ultram continued GERD PPI continued Anxiety disorder Lorazepam continued Tobacco abuse Counselled DVT prophylaxis Subcutaneous Lovenox
[2019-09-03] MEDS: Ceftriaxone 1 GM/50 ML BAG IV (11:41)
--- NOTE | 2019-09-03 11:58 | CON.PCM_ITS ---
Problem List (1) PALMIRA (acute kidney injury) Status: Acute Consultation - Renal 09/03/19 PCP/ Referring MD: Requesting physician: Dr Martin Primary care physician: Don Rodriguez MD Reason for Consultation:: PALMIRA - History of Present Illness History of Present Illness: The patient is a 69 year old M who presented to the hospital with complaints of decreased urine output. Renal consulted for acute renal failure. He has no known history of kidney disease. Baseline creatinine is around 1.2. Apparently he did not void at all all day yesterday and presented to the ER. Was found to have acute renal failure with a creatinine of 2.9. Denies any urinary complaints. He did have constipation few days ago and took a laxative. Had multiple bowel movements yesterday. Denies taking any NSAIDs. Breathing is acceptable. No respiratory complaints. - Allergies Allergies: Allergies gabapentin [From Neurontin] Adverse Reaction (Verified 09/03/19 04:15) muscle stiffness ofloxacin [From Floxin] Adverse Reaction (Verified 09/03/19 04:15) Unknown pt is not sure - states this was a long time ago - Current Medications Current Medications: Current Medications Acetaminophen (Tylenol) 650 mg PO Q6H PRN PRN PRN Reason: Pain Score 1-3/Temp > 100.7 F Dextrose (D50w Syringe) 0 gm IV X1 PRN; Protocol PRN Reason: Hypoglycemia Docusate Sodium (Colace) 200 mg PO QHS [facility] Last Admin: 09/03/19 09:23 Dose: 200 mg Documented by: Enoxaparin Sodium (Lovenox) 30 mg SC DAILY@1000 [facility] Last Admin: 09/03/19 09:25 Dose: 30 mg Documented by: Glucagon () 1 mg IM .X1 PRN PRN Reason: Hypoglycemia Hydralazine HCl (Apresoline Iv) 10 mg IV Q4H PRN PRN PRN Reason: SBP > 160 Sodium Chloride () 1,000 mls @ 125 mls/hr IV .Q8H [facility] Stop: 09/04/19 04:05 Last Infusion: 09/03/19 11:44 Dose: 0 mls/hr Documented by: Ceftriaxone Sodium (Rocephin) 1 gm in 50 mls @ 100 mls/hr IV Q24 [facility] Last Admin: 09/03/19 11:41 Dose: 100 mls/hr Documented by: Lorazepam (Ativan) 0.5 mg PO DAILY [facility] Last Admin: 09/03/19 09:24 Dose: 0.5 mg Documented by: Metoprolol Tartrate (Lopressor (Beta Alejandro)) 50 mg PO BID [facility] Last Admin: 09/03/19 09:23 Dose: 50 mg Documented by: Ondansetron HCl (Zofran) 4 mg IV Q8H PRN PRN PRN Reason: NAUSEA/VOMITING Pantoprazole Sodium (Protonix) 20 mg PO DAILY [facility] Last Admin: 09/03/19 09:23 Dose: 20 mg Documented by: Polyethylene Glycol (Miralax) 17 gm PO DAILY@1600 [facility] Sodium Chloride () 10 - 40 ml IV UD PRN PRN Reason: SALINE FLUSH Sodium Chloride ([place] Nasal [place]) 2 spray NASAL TID [facility] Tamsulosin HCl (Flomax) 0.4 mg PO DAILY [facility] Last Admin: 09/03/19 09:22 Dose: 0.4 mg Documented by: Tramadol HCl (Ultram) 50 mg PO BID PRN PRN PRN Reason: Pain Score 1-10/10 - Past Medical History Past Medical History (Chronic Problems): Chronic Problems Hypertension (Chronic) GERD (gastroesophageal reflux disease) (Chronic) Obesity (BMI 30.0-34.9) (Chronic) Chronic constipation (Chronic) BPH (benign prostatic hyperplasia) (Chronic) - Past Surgical History Surgical History: - - c-scope [address] Patterson he notes, no marked findings. - Social History Smoking Status: Current some day smoker - Family History Maternal History Items: Cancer - Mother w/ brain CA 62 y/o. Paternal History Items: Cancer - Father w/ prostate CA 67 y/o. Review of Systems Constitutional: Denies: Chills, Fever, Weight Change HEENT: Denies: Head Aches, Sinus Congestion, Sinus Drainage Cardiovascular: Denies: Chest Pain, Palpitations Respiratory: Denies: Cough, Shortness of breath at rest, Sputum production Gastrointestinal: Denies: Abdominal Pain, Nausea, Vomiting Genitourinary: Denies: Dysuria Musculoskeletal: Denies: Joint Pain, Joint Tenderness Skin: Denies: Rash, Wounds Neurological: Denies: Numbness, Tingling, Focal weakness Psychiatric: Denies: Anxiety, Depression, Homicidal Ideations, Suicidal Ideations Hematologic/ Lymphatic: Denies: Easy Bruising, Easy Bleeding Patient Problems: Active and Suspected Problems PALMIRA (acute kidney injury) (Acute) - Physical Exam Vitals/I&O's: Vital Signs Temp Pulse Resp BP Pulse Ox 98.2 F 94 18 148/87 H 98 09/03/19 09:09 09/03/19 09:23 09/03/19 09:09 09/03/19 09:09 09/03/19 09:09 Oxygen Delivery Method Room Air Weight: 88 kg Body Mass Index (BMI) 31.3 Intake and Output for Last 24 Hours 09/01/19 09/02/19 09/03/19 23:59 23:59 23:59 Intake Total 1809.17 / 1809.17 Output Total 1230 / 1230 Balance 579.17 / 579.17 General: Alert, Oriented x3, Cooperative HEENT: Atraumatic, PERRLA, EOMI, Normocephalic Neck: Supple, No JVD, Negative Carotid Bruits Lungs: Clear to auscultation, Normal air movement Cardiovascular: Regular rate, No murmurs Abdomen: Bowel Sounds Present, Soft, Non Tender Extremities: No edema, Capillary Refill Less than 3 Seconds Skin: No rashes, No breakdown Musculoskeletal: No Tenderness to Palpation of Joints or Extremities Neurological: Cranial nerves II-XII grossly intact Psych/Mental Status: Normal Affect, Appropriate Laboratory Results 09/03/19 01:35: WBC 15.6 H, RBC 4.88, Hgb 15.3, Hct 44.3, MCV 90.8, MCH 31.4, MCHC 34.5, RDW Std Deviation 40.3, RDW Coeff of Leonel 12.2, Plt Count 217, MPV 9.2, Immature Gran % (Auto) 0.500, Neut % (Auto) 85.6 H, Lymph % (Auto) 6.6 L, [place] % (Auto) 7.2, Eos % (Auto) 0.0, Baso % (Auto) 0.1, Absolute Neuts (auto) 13.3 H, Absolute Lymphs (auto) 1.02, Nucleated RBC % 0 09/03/19 01:35: Sodium 136, Potassium 4.8, Chloride 104, Carbon Dioxide 23.0, Anion Gap 9, BUN 43 H, Creatinine 2.92 H, Estim Creat Clear Calc 21.85, Est GFR (MDRD) Af Amer 28 L, Est GFR (MDRD) Non-Af 23 L, BUN/Creatinine Ratio 14.7, Glucose 216 H, Calcium 9.0 09/03/19 01:53: Urine Color Yellow, Urine Clarity Sl. Cloudy, Urine pH 6.0, Ur Specific [place] 1.005, Urine Protein 30 H, Urine Glucose (UA) Normal, Urine Ketones Negative, Urine Occult Blood 50 H, Urine Nitrite Negative, Urine Bilirubin Negative, Urine Urobilinogen Normal, Ur Leukocyte Esterase Negative, Urine RBC 0-5 SEEN, Urine WBC 0-5 SEEN, Ur Squamous Epith Cells 0-5 SEEN, Amorphous Sediment 1+, Urine Bacteria RARE, Urine Mucus 0 SEEN 09/03/19 04:15: Ur Random Sodium 46 09/03/19 07:56: Urine Creatinine 50.20 09/03/19 07:56: U Random Total Protein 18.0 H, Urine Creatinine 49.60, Protein/Creatinin Ratio 363 H 09/03/19 07:56: Ur Random Sodium 48, Urine Potassium 23.0, Urine Chloride 46 Current Medications Acetaminophen (Tylenol) 650 mg PO Q6H PRN PRN PRN Reason: Pain Score 1-3/Temp > 100.7 F Dextrose (D50w Syringe) 0 gm IV X1 PRN; Protocol PRN Reason: Hypoglycemia Docusate Sodium (Colace) 200 mg PO QHS [facility] Last Admin: 09/03/19 09:23 Dose: 200 mg Documented by: Enoxaparin Sodium (Lovenox) 30 mg SC DAILY@1000 [facility] Last Admin: 09/03/19 09:25 Dose: 30 mg Documented by: Glucagon () 1 mg IM .X1 PRN PRN Reason: Hypoglycemia Hydralazine HCl (Apresoline Iv) 10 mg IV Q4H PRN PRN PRN Reason: SBP > 160 Sodium Chloride () 1,000 mls @ 125 mls/hr IV .Q8H [facility] Stop: 09/04/19 04:05 Last Infusion: 09/03/19 11:44 Dose: 0 mls/hr Documented by: Ceftriaxone Sodium (Rocephin) 1 gm in 50 mls @ 100 mls/hr IV Q24 [facility] Last Admin: 09/03/19 11:41 Dose: 100 mls/hr Documented by: Lorazepam (Ativan) 0.5 mg PO DAILY [facility] Last Admin: 09/03/19 09:24 Dose: 0.5 mg Documented by: Metoprolol Tartrate (Lopressor (Beta Alejandro)) 50 mg PO BID [facility] Last Admin: 09/03/19 09:23 Dose: 50 mg Documented by: Ondansetron HCl (Zofran) 4 mg IV Q8H PRN PRN PRN Reason: NAUSEA/VOMITING Pantoprazole Sodium (Protonix) 20 mg PO DAILY [facility] Last Admin: 09/03/19 09:23 Dose: 20 mg Documented by: Polyethylene Glycol (Miralax) 17 gm PO DAILY@1600 [facility] Sodium Chloride () 10 - 40 ml IV UD PRN PRN Reason: SALINE FLUSH Sodium Chloride ([place] Nasal [place]) 2 spray NASAL TID [facility] Tamsulosin HCl (Flomax) 0.4 mg PO DAILY [facility] Last Admin: 09/03/19 09:22 Dose: 0.4 mg Documented by: Tramadol HCl (Ultram) 50 mg PO BID PRN PRN PRN Reason: Pain Score 1-10/10 Assessment/Plan All Active Problems PALMIRA (acute kidney injury) (Acute) Acute renal failure. Baseline creatinine is around 1.2. Urinalysis shows microscopic hematuria. No significant leukocytes. Urine protein creatinine ratio is around 330 mg/g of creatinine. CT of the abdomen without any hydronephrosis. Continue fluids for now. Depending on creatinine levels tomorrow, we will order further work-up. ? Pyelonephritis. CT abdomen shows bilateral perinephric stranding. No hydronephrosis. Urine culture sent. Currently on ceftriaxone.
[2019-09-03] MEDS: Sodium Chloride 0.65% 1 SPRAY SPRAY.BTL 2 SPRAY NASAL ×2 (12:50→21:24)
[2019-09-03] MEDS: 0.9% Normal Saline 1,000 ML 125 ML IV ×2 (14:31→22:13)
[2019-09-03] MEDS: Polyethylene Glycol 3350 17 GM PACKET PO (15:07)
--- NOTE | 2019-09-03 16:25 | CASEMGMT ---
Social Work Note SW received referral for advanced directives. SW will follow up with pt tomorrow regarding advanced directives. 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
[2019-09-03] MEDS: Senna/Docusate Sodium 1 Tablet 2 TABLET PO (22:12)
[2019-09-04] VITALS (8 sets, daily range): BP systolic 115–155; BP diastolic 71–93; PULSE 80–93; RESP 16–18; TEMP 36.6–37.1; O2SAT 95–100
[2019-09-04 05:49] LABS: Absolute Lymphocyte Count 1.53 X10^3/uL (0.83-4.51); Absolute Neutrophil Count 7.2 X10^3/uL (2.0-7.7); Eosinophil# 0.01 X10^3/uL; Eosinophils% 0.1 % (0-5); Hematocrit 38.7 % (40-54); Lymphocyte # 1.53 X10^3/ul (4.0); Lymphocyte % 16.3 % (19-41); Mean Corp Hgb Conc 33.6 g/dL (32-36); Mean Corpuscular Hgb 31.3 pg (27.0-32.0); Mean Platelet Vol. 9.5 fl (6.2-12.0); Monocyte# 0.63 X10^3/uL; Monocyte% 6.7 % (0-10); NRBC Flagged by Analyzer 0 % (0-5); Neutrophil # 7.16 X10^3/uL (2.7-7.7); Neutrophil % 76.5 % (47-70); Platelet Count 175 K/mm3 (150-450); RBC Distribution Width CV 12.9 % (11.6-14.6); RBC Distribution Width SD 43.8 fl (35.1-43.9); Red Blood Count 4.16 M/mm3 (4.6-6.2); White Blood Count 9.4 K/mm3 (4.4-11.0)
[2019-09-04] MEDS: Sodium Chloride 0.65% 1 SPRAY SPRAY.BTL 2 SPRAY NASAL ×2 (06:05→11:20)
[2019-09-04 06:15] LABS: Anion Gap 6 (5-15); BUN 34 mg/dL (7-18); BUN/Creat Ratio 19.4 RATIO (10-20); Calcium,Total 8.3 mg/dL (8.5-10.1); Chloride 110 mmol/L (98-107); Creatinine, Serum 1.75 mg/dL (0.70-1.30); EST Glomerular Filtration Rate 41 mL/min (>60); Est Glom Filt Rate - Afr Amer 50 mL/min (>60); Estimated Creatinine Clearance 36.46 ml/min; Glucose 132 mg/dL (74-106); Potassium 3.6 mmol/L (3.5-5.1); Sodium Level 144 mmol/L (136-145)
--- NOTE | 2019-09-04 09:10 | PN.RENAL_ITS ---
Patient Problems: Active and Suspected Problems PALMIRA (acute kidney injury) (Acute) Subjective: no new complaints no abdomen pain some sinus congestion which he says is from dry air - Physical Exam Vitals/I&O's: Vital Signs Temp Pulse Resp BP Pulse Ox 98.7 F 86 18 146/93 H 96 09/04/19 04:00 09/04/19 04:00 09/04/19 04:00 09/04/19 04:00 09/04/19 07:23 Oxygen Delivery Method Room Air Weight: 88 kg Body Mass Index (BMI) 31.3 Intake and Output for Last 24 Hours 09/02/19 09/03/19 09/04/19 23:59 23:59 23:59 Intake Total 3102.92 / 3702.92 2100 / 2100 Output Total 2430 / 3280 1300 / 1300 Balance 672.92 / 422.92 800 / 800 General: Alert, Oriented x3, Cooperative HEENT: Atraumatic, PERRLA, EOMI, Normocephalic Neck: Supple, No JVD, Negative Carotid Bruits Lungs: Clear to auscultation, Normal air movement Cardiovascular: Regular rate, No murmurs Abdomen: Bowel Sounds Present, Soft, Non Tender Extremities: No edema, Capillary Refill Less than 3 Seconds Skin: No rashes, No breakdown Musculoskeletal: No Tenderness to Palpation of Joints or Extremities Neurological: Cranial nerves II-XII grossly intact Psych/Mental Status: Normal Affect, Appropriate Laboratory Results 09/04/19 05:00: WBC 9.4, RBC 4.16 L, Hgb 13.0, Hct 38.7 L, MCV 93.0, MCH 31.3, MCHC 33.6, RDW Std Deviation 43.8, RDW Coeff of [place]onel 12.9, Plt Count 175, MPV 9.5, Immature Gran % (Auto) 0.400, Neut % (Auto) 76.5 H, Lymph % (Auto) 16.3 L, [place] % (Auto) 6.7, Eos % (Auto) 0.1, Baso % (Auto) 0.0, Absolute Neuts (auto) 7.2, Absolute Lymphs (auto) 1.53, Nucleated RBC % 0 09/04/19 05:00: Sodium 144, Potassium 3.6, Chloride 110 H, Carbon Dioxide 28.0, Anion Gap 6, BUN 34 H, Creatinine 1.75 H, Estim Creat Clear Calc 36.46, Est GFR (MDRD) Af Amer 50 L, Est GFR (MDRD) Non-Af 41 L, BUN/Creatinine Ratio 19.4, Glucose 132 H, Calcium 8.3 L Current Medications Acetaminophen (Tylenol) 650 mg PO Q6H PRN PRN PRN Reason: Pain Score 1-3/Temp > 100.7 F Dextrose (D50w Syringe) 0 gm IV X1 PRN; Protocol PRN Reason: Hypoglycemia Docusate Sodium (Colace) 200 mg PO QHS [facility] Last Admin: 09/03/19 09:23 Dose: 200 mg Documented by: Enoxaparin Sodium (Lovenox) 30 mg SC DAILY@1000 [facility] Last Admin: 09/03/19 09:25 Dose: 30 mg Documented by: Glucagon () 1 mg IM .X1 PRN PRN Reason: Hypoglycemia Hydralazine HCl (Apresoline Iv) 10 mg IV Q4H PRN PRN PRN Reason: SBP > 160 Hydralazine HCl (Apresoline) 50 mg PO TID [facility] Hydralazine HCl (Apresoline) 50 mg PO X1 [facility] Stop: 09/04/19 09:16 Ceftriaxone Sodium (Rocephin) 1 gm in 50 mls @ 100 mls/hr IV Q24 [facility] Last Infusion: 09/03/19 12:15 Dose: Infused Documented by: Lorazepam (Ativan) 0.5 mg PO DAILY [facility] Last Admin: 09/03/19 09:24 Dose: 0.5 mg Documented by: Metoprolol Tartrate (Lopressor (Beta Alejandro)) 50 mg PO BID [facility] Last Admin: 09/03/19 21:24 Dose: 50 mg Documented by: Ondansetron HCl (Zofran) 4 mg IV Q8H PRN PRN PRN Reason: NAUSEA/VOMITING Pantoprazole Sodium (Protonix) 20 mg PO DAILY [facility] Last Admin: 09/03/19 09:23 Dose: 20 mg Documented by: Polyethylene Glycol (Miralax) 17 gm PO DAILY@1600 [facility] Last Admin: 09/03/19 15:07 Dose: 17 gm Documented by: Senna/Docusate Sodium (Senokot-S, Sravanthi-Colace) 2 tablet PO DAILY PRN PRN PRN Reason: Constipation Last Admin: 09/03/19 22:12 Dose: 2 tablet Documented by: Sodium Chloride () 10 - 40 ml IV UD PRN PRN Reason: SALINE FLUSH Sodium Chloride ([place] Nasal [place]) 2 spray NASAL TID [facility] Last Admin: 09/04/19 06:05 Dose: 2 spray Documented by: Tamsulosin HCl (Flomax) 0.4 mg PO DAILY [facility] Last Admin: 09/03/19 09:22 Dose: 0.4 mg Documented by: Tramadol HCl (Ultram) 50 mg PO BID PRN PRN PRN Reason: Pain Score 1-10/10 Medical Necessity - Tobacco Use Smoking Status: Current some day smoker Tobacco Use: Cigars Assessment/Plan All Active Problems PALMIRA (acute kidney injury) (Acute) Acute renal failure. Baseline creatinine is around 1.2. Urinalysis shows microscopic hematuria. No significant leukocytes. Urine protein creatinine ratio is around 330 mg/g of creatinine. CT of the abdomen without any hydronephrosis. creatinine is significantly better. patient says he has been voiding quite a bit. PALMIRA was likely volume depletion mediated. no further work up needed ? Pyelonephritis. CT abdomen shows bilateral perinephric stranding. No hydronephrosis. Urine culture sent. Currently on ceftriaxone. d/w Dr Martin
[2019-09-04] MEDS: LORazepam 0.5 MG Tablet PO (09:27)
[2019-09-04] MEDS: hydrALAZINE 50 MG Tablet PO ×2 (09:27→14:41)
[2019-09-04] MEDS: Pantoprazole Sodium 20 MG Tablet PO (09:28)
[2019-09-04] MEDS: 0.9% Saline Lock 10 ML Syringe IV (09:28)
[2019-09-04] MEDS: Tamsulosin HCl 0.4 MG Capsule PO (09:28)
[2019-09-04] MEDS: Metoprolol Tartrate 50 MG Tablet PO (09:28)
--- NOTE | 2019-09-04 09:38 | DCINST_ITS ---
- Discharge Diagnoses Current Active Problems: Current Active and Chronic Problems PALMIRA (acute kidney injury) (Acute) You will use the following diet at home:: Cardiac Your food should be the consistency of: Regular Discharge Activity: Return to Normal Activity Call your doctor if you observe: Fever of 101 or Higher, Numbness or Tingling, Inability to urinate, Shortness of breath, Dizziness, Fainting spells, Swelling in the ankles, Chest pain, Increased palpitations (irregular heartbeat), Calf discomfort, Uncontrolled pain Allergies/Adverse Reactions: Allergies gabapentin [From Neurontin] Adverse Reaction (Verified 09/03/19 04:15) muscle stiffness ofloxacin [From Floxin] Adverse Reaction (Verified 09/03/19 04:15) Unknown pt is not sure - states this was a long time ago Medications to take at Discharge Lorazepam [Ativan] 0.5 mg PO DAILY 03/09/14 Metoprolol Tartrate [Lopressor (beta alicia)] 50 mg PO BID 03/09/14 Prelief 2 tab PO DAILY 03/09/14 Tamsulosin HCl [Flomax] 0.4 mg PO DAILY 01/26/15 Docusate Sodium [Colace] 200 mg PO QHS 01/27/15 Dexlansoprazole [Dexilant] 30 mg PO DAILY 09/03/19 Sennosides/Docusate Sodium [Docusate Sodium-Senna Tablet] 2 tablet PO DAILY PRN 09/03/19 traMADol [Ultram] 50 mg PO BID PRN PRN 09/03/19 Polyethylene Glycol 3350 [Miralax] 17 gm PO DAILY@1600 packet 09/04/19 Potassium Chloride [K-Dur] 20 meq PO BID #0 09/04/19 Triamterene/Hydrochlorothiazid [Triamterene-Hctz 75-50 mg Tab] 1 tab PO DAILY #0 09/04/19 hydrALAZINE [Apresoline] 50 mg PO TID #30 tab 09/04/19 The following prescriptions were given: hydrALAZINE [Apresoline] 50 mg PO TID #30 tab Transmission Status: Pending to [id number] Orders to be completed after discharge: Basic Metabolic Profile (BMP) Time Frame: 09/08/19, Location: Laboratory Primary Care Physician: Don Rodriguez MD [Primary Care Provider] - Please follow up with your Primary Care Physician in: [place] 1-2 week Test Results: Test results from this visit will be discussed in further detail at your follow- up appointment, if applicable. Please Follow Up With: Kevin Holm MD When: with BMP on 09/08/19
--- NOTE | 2019-09-04 09:43 | NURSING ---
Patient very anxious screaming while trying to restart IV. Contacted MD after 1 IV start failed attempt, Dr. Martin says to leave the IV out and will switch antibiotics to PO.
--- NOTE | 2019-09-04 10:21 | CASEMGMT ---
Social Work Note SW met with pt to complete advanced directives. Pt state that he would like to take documents home to complete as he is not sure who he wants to put as HCPOA. SW provided pt with advanced directives documents and social service rac card. Pt denied additional needs or concerns at this time. Kae Escobedo FIBERGLASS BONDING MACHINE TENDER, SLABBER LIGHT
[2019-09-04] MEDS: Cephalexin 500 MG Capsule PO (11:19)
--- NOTE | 2019-09-04 11:42 | PCM.DC.SUM ---
Discharge Date and Diagnosis - Problem List Patient Problems: Active and Suspected Problems PALMIRA (acute kidney injury) (Acute) Date of Admission: 09/03/19 Date of Discharge: 09/04/19 - Primary Discharge Diagnosis Active and Suspected Problems PALMIRA (acute kidney injury) (Acute) - Secondary Discharge Diagnosis Chronic Problems Hypertension (Chronic) GERD (gastroesophageal reflux disease) (Chronic) Obesity (BMI 30.0-34.9) (Chronic) Chronic constipation (Chronic) BPH (benign prostatic hyperplasia) (Chronic) Hospital Course and Treatment Summary of Care Provided: T [] The patient is a 69 year old M with a significant history of GERD; BPH; hypertension; chronic pain and anxiety was admitted with oliguria, elevated creatinine, BUN/creatinine 43/2.92 consistent with acute kidney injury. Denies lower urinary tract symptoms. No renal angle pain. Acute kidney injury, multiple etiologies: Patient was admitted on MedSurg floor. Patient baseline creatinine around 1.24-1.37. During hospital course BUN/creatinine 43/2.92 improved to 34/1.75. It seems patient did not had significant diarrhea to account for hypovolemia related prerenal acute kidney injury and BUN/creatinine ratio not more than 20/1. Urine sodium 48. Patient also on triamterene/HCTZ 75-50 mg 1 tablet daily at home. This all points to multiple etiologies of acute kidney injury, prerenal/diuretic/ATN. CT abdomen reported acute on chronic bilateral perinephric stranding but clinically it seems chronic bilateral perinephric stranding as patient does not have fever, renal angle pain or UTI symptoms. UA shows microscopic hematuria and proteinuria got no significant leukocytes. Urine protein creatinine ratio 330 mg/g of creatinine. 09/04/2019: Preliminary urine culture no growth. Empiric antibiotic ceftriaxone discontinued. Kidney function improved as mentioned above. Seen by spice room worker. Advised to hold triamterene/HCTZ until renal function returns to normal. Repeat BMP on 09/08/2019 as an outpatient and follow-up with spice room worker. Hypertension Pressure 148/87. Lopressor continued Hydralazine 50 mg p.o. 3 times daily replaced for HCTZ/triamterene. Advised to hold hydralazine if systolic blood pressure less than 120 mmHg. Hold HCTZ/triamterene until kidney function returns to baseline and he STAYS stable. It was discussed with the patient in the room in detail. Chronic pain Ultram continued GERD PPI continued Anxiety disorder Lorazepam continued Tobacco abuse Counselled DVT prophylaxis Subcutaneous Lovenox Discharge medication reconciliation done. Discharge follow-up instructions completed. Discharge process discussed with the patient and all questions were answered to patient's satisfaction . patient was admitted as inpatient but was discharged because of sooner recovery than expected. UTI/pyelonephritis ruled out. Patient wants to go home Total time spent, exact 35 minutes on discharge meds reconciliation, examination, review of imaging and blood test and discussion with the patient on follow-up instructions. Patient Problems: Active and Suspected Problems PALMIRA (acute kidney injury) (Acute) Subjective: No fever or chills. Patient does not have dysuria/burning micturition or with her lower ureter symptoms. No renal angle pain. Preliminary urine culture negative. Objective: General: Alert, Oriented x3, Cooperative HEENT: Atraumatic, PERRLA, EOMI, Normocephalic Neck: Supple, No JVD, Negative Carotid Bruits Lungs: Clear to auscultation, Normal air movement, No rhonchi, No wheeze, No rales Cardiovascular: Regular rate, Regular Rhythm, Normal S1, Normal S2, No murmurs Abdomen: Bowel Sounds Present, Soft, Non Tender, Non-Distended, - - No renal angle pain. No suprapubic tenderness. Extremities: No edema, Capillary Refill Less than 3 Seconds Skin: No rashes, No breakdown Musculoskeletal: No Tenderness to Palpation of Joints or Extremities Neurological: Cranial nerves II-XII grossly intact, Deep Tendon Reflexes 2+/4 and Symmetrical, Neuro grossly intact Psych/Mental Status: Normal affect appropriate, mild anxiety - Physical Exam Vitals/I&O's: Vital Signs Temp Pulse Resp BP Pulse Ox 98.7 F 93 18 140/77 H 95 09/04/19 09:25 09/04/19 09:28 09/04/19 09:25 09/04/19 09:25 09/04/19 09:25 Oxygen Delivery Method Room Air Weight: 194 lb 0.108 oz Body Mass Index (BMI) 31.3 Intake and Output for Last 24 Hours 09/02/19 09/03/19 09/04/19 23:59 23:59 23:59 Intake Total 3102.92 / 3702.92 2100 / 2100 Output Total 2430 / 3280 1300 / 1300 Balance 672.92 / 422.92 800 / 800 General: Alert, Oriented x3, Cooperative HEENT: Atraumatic, PERRLA, EOMI, Normocephalic Neck: Supple, No JVD, Negative Carotid Bruits Lungs: Clear to auscultation, Normal air movement, No rhonchi, No wheeze, No rales Cardiovascular: Regular rate, Regular Rhythm, Normal S1, Normal S2, No murmurs Abdomen: Bowel Sounds Present, Soft, Non Tender, Non-Distended Extremities: No edema, Capillary Refill Less than 3 Seconds Skin: No rashes, No breakdown Musculoskeletal: No Tenderness to Palpation of Joints or Extremities Neurological: Cranial nerves II-XII grossly intact Psych/Mental Status: Normal Affect, Appropriate Laboratory Results 09/04/19 05:00: WBC 9.4, RBC 4.16 L, Hgb 13.0, Hct 38.7 L, MCV 93.0, MCH 31.3, MCHC 33.6, RDW Std Deviation 43.8, RDW Coeff of Leonel 12.9, Plt Count 175, MPV 9.5, Immature Gran % (Auto) 0.400, Neut % (Auto) 76.5 H, Lymph % (Auto) 16.3 L, Overton % (Auto) 6.7, Eos % (Auto) 0.1, Baso % (Auto) 0.0, Absolute Neuts (auto) 7.2, Absolute Lymphs (auto) 1.53, Nucleated RBC % 0 09/04/19 05:00: Sodium 144, Potassium 3.6, Chloride 110 H, Carbon Dioxide 28.0, Anion Gap 6, BUN 34 H, Creatinine 1.75 H, Estim Creat Clear Calc 36.46, Est GFR (MDRD) Af Amer 50 L, Est GFR (MDRD) Non-Af 41 L, BUN/Creatinine Ratio 19.4, Glucose 132 H, Calcium 8.3 L Current Medications Acetaminophen (Tylenol) 650 mg PO Q6H PRN PRN PRN Reason: Pain Score 1-3/Temp > 100.7 F Dextrose (D50w Syringe) 0 gm IV X1 PRN; Protocol PRN Reason: Hypoglycemia Docusate Sodium (Colace) 200 mg PO QHS [facility] Last Admin: 09/03/19 09:23 Dose: 200 mg Documented by: Enoxaparin Sodium (Lovenox) 30 mg SC DAILY@1000 [facility] Last Admin: 09/04/19 09:30 Dose: Not Given Documented by: Glucagon () 1 mg IM .X1 PRN PRN Reason: Hypoglycemia Hydralazine HCl (Apresoline Iv) 10 mg IV Q4H PRN PRN PRN Reason: SBP > 160 Hydralazine HCl (Apresoline) 50 mg PO TID [facility] Ceftriaxone Sodium (Rocephin) 1 gm in 50 mls @ 100 mls/hr IV Q24 [facility] Last Admin: 09/04/19 09:27 Dose: 100 mls/hr Documented by: Lorazepam (Ativan) 0.5 mg PO DAILY [facility] Last Admin: 09/04/19 09:27 Dose: 0.5 mg Documented by: Metoprolol Tartrate (Lopressor (Beta Alejandro)) 50 mg PO BID [facility] Last Admin: 09/04/19 09:28 Dose: 50 mg Documented by: Ondansetron HCl (Zofran) 4 mg IV Q8H PRN PRN PRN Reason: NAUSEA/VOMITING Pantoprazole Sodium (Protonix) 20 mg PO DAILY [facility] Last Admin: 09/04/19 09:28 Dose: 20 mg Documented by: Polyethylene Glycol (Miralax) 17 gm PO DAILY@1600 [facility] Last Admin: 09/03/19 15:07 Dose: 17 gm Documented by: Senna/Docusate Sodium (Senokot-S, Sravanthi-Colace) 2 tablet PO DAILY PRN PRN PRN Reason: Constipation Last Admin: 09/03/19 22:12 Dose: 2 tablet Documented by: Sodium Chloride () 10 - 40 ml IV UD PRN PRN Reason: SALINE FLUSH Last Admin: 09/04/19 09:28 Dose: 10 ml Documented by: Sodium Chloride ([place] Nasal [place]) 2 spray NASAL TID [facility] Last Admin: 09/04/19 06:05 Dose: 2 spray Documented by: Tamsulosin HCl (Flomax) 0.4 mg PO DAILY [facility] Last Admin: 09/04/19 09:28 Dose: 0.4 mg Documented by: Tramadol HCl (Ultram) 50 mg PO BID PRN PRN PRN Reason: Pain Score 1-10/10 Discharge Activity: Return to Normal Activity Call your doctor if you observe: Fever of 101 or Higher, Numbness or Tingling, Inability to urinate, Shortness of breath, Dizziness, Fainting spells, Swelling in the ankles, Chest pain, Increased palpitations (irregular heartbeat), Calf discomfort, Uncontrolled pain Home Medications: Medications to take at Discharge Lorazepam [Ativan] 0.5 mg PO DAILY 03/09/14 Metoprolol Tartrate [Lopressor (beta alejandro)] 50 mg PO BID 03/09/14 Prelief 2 tab PO DAILY 03/09/14 Tamsulosin HCl [Flomax] 0.4 mg PO DAILY 01/26/15 Docusate Sodium [Colace] 200 mg PO QHS 01/27/15 Dexlansoprazole [Dexilant] 30 mg PO DAILY 09/03/19 Sennosides/Docusate Sodium [Docusate Sodium-Senna Tablet] 2 tablet PO DAILY PRN 09/03/19 traMADol [Ultram] 50 mg PO BID PRN PRN 09/03/19 Polyethylene Glycol 3350 [Miralax] 17 gm PO DAILY@1600 packet 09/04/19 Potassium Chloride [K-Dur] 20 meq PO BID #0 09/04/19 Triamterene/Hydrochlorothiazid [Triamterene-Hctz 75-50 mg Tab] 1 tab PO DAILY #0 09/04/19 hydrALAZINE [Apresoline] 50 mg PO TID #30 tab 09/04/19 Following Prescrptions Were Given to Patient: hydrALAZINE [Apresoline] 50 mg PO TID #30 tab Transmission Status: Received by [id number] Other Amb Orders: Basic Metabolic Profile (BMP) Time Frame: 09/08/19, Location: Laboratory Primary Care Physician: Don Rodriguez MD [Primary Care Provider] - Please follow up with your Primary Care Physician in: [place] 1-2 week Please Follow Up With: Kevin Holm MD When: with BMP on 09/08/19 Medical Necessity - Tobacco Use Smoking Status: Current some day smoker Tobacco Use: Cigars Meaningful Use Info Meaningful Use Diagnoses (Choose all that apply): None applicable Code Visit Inpatient E&M: 64265 [facility]
--- NOTE | 2019-09-04 16:10 | NURSING ---
Dr. Martin updated and aware that per [facility] office- states Dr. Heredia does not have any office in [place] on Sunday. Dr. Martin states that next week is fine. Said nurse transfered to Brunilda at office voicemail indicates she handles office appointments for discharged hospital patients. Voicemail message left to call [facility] with number provided and also pt home number which was provided. requested call back tonight before offices closes otherwise will need to call pt home number as pt is being discharge tonight.
--- NOTE | 2019-09-04 16:42 | NURSING ---
spoke with Brunilda at [employer] office- states she will call pt home number tomorrow to set up md appt.
== END 2019-09-04 18:01 | disposition home or self-care (01) | DRG 684 ==
LOC: ED 01:58 → MS3 03:50
PROVIDERS: Admitting Provider Hospitalist; Emergency Provider Emergency Medicine; Family Provider Family Medicine; PCP Family Medicine; Visit Provider Internal Medicine
DX: N17.9 Acute kidney failure, unspecified (principal); I10 Essential (primary) hypertension; K21.9 Gastro-esophageal reflux disease without esophagitis; E66.9 Obesity, unspecified; K59.09 Other constipation; N40.0 Benign prostatic hyperplasia without lower urinary tract symptoms; G89.29 Other chronic pain; F41.9 Anxiety disorder, unspecified; D72.829 Elevated white blood cell count, unspecified; Z79.899 Other long term (current) drug therapy; F17.290 Nicotine dependence, other tobacco product, uncomplicated; Z68.31 Body mass index [BMI] 31.0-31.9, adult
CPT/HCPCS: 36415; 74176; 80048; 81001; 82436; 82570; 84133; 84156; 84300; 85025; 87086; 97161; 99285; J7030; A4216

== ENCOUNTER → 2019-09-08 | Outpatient (CLI) | payer MEDICARE, OTHER, SELFPAY ==
[2019-09-03 04:13] VITALS: BMI 31.3
[2019-09-08 12:08] LABS: Anion Gap 8 (5-15); BUN 24 mg/dL (7-18); BUN/Creat Ratio 21.6 RATIO (10-20); Calcium,Total 8.8 mg/dL (8.5-10.1); Chloride 113 mmol/L (98-107); Creatinine, Serum 1.11 mg/dL (0.70-1.30); EST Glomerular Filtration Rate 70 mL/min (>60); Est Glom Filt Rate - Afr Amer 85 mL/min (>60); Glucose 141 mg/dL (74-106); Potassium 3.7 mmol/L (3.5-5.1); Sodium Level 144 mmol/L (136-145)
== END | disposition home or self-care (01) ==
LOC: LAB 10:43
PROVIDERS: Family Provider Family Medicine; PCP Family Medicine; Referring Provider Internal Medicine; Visit Provider Internal Medicine
DX: N17.9 Acute kidney failure, unspecified (principal)
CPT/HCPCS: 36415; 80048

== ENCOUNTER → 2019-11-18 14:08 | Outpatient (CLI) | payer MEDICARE, OTHER, SELFPAY ==
[2019-09-03 04:13] VITALS: BMI 31.3
[2019-11-18 15:23] LABS: Color, Urine Yellow (Yellow); Glucose, Dipstick Normal (Normal); Ketone-Dipstick Negative (Negative); Leukocyte Esterase-Dipstick Negative /ul (Negative); Nitrite-Dipstick Negative (Negative); Occult Blood-Urine Negative /ul (Negative); Protein-Dipstick Negative (Negative); Urine Bilirubin Dipstick Negative (Negative); Urine Clarity Clear (Clear); Urine Urobilinogen Normal (Normal)
[2019-11-18 15:33] LABS: Protein, Urine (Random) 15.8 mg/dL (<11.9); Protein:Creat Ratio 163 mg/g CRE (0-200)
[2019-11-18 15:42] LABS: Anion Gap 7 (5-15); BUN 20 mg/dL (7-18); BUN/Creat Ratio 12.5 RATIO (10-20); CPK Total, Creatine Kinase 112 U/L (39-308); Calcium,Total 9.4 mg/dL (8.5-10.1); Chloride 102 mmol/L (98-107); EST Glomerular Filtration Rate 46 mL/min (>60); Est Glom Filt Rate - Afr Amer 56 mL/min (>60); Glucose 93 mg/dL (74-106); Potassium 3.3 mmol/L (3.5-5.1); Sodium Level 136 mmol/L (136-145)
[2019-11-21 12:08] LABS: PROEL- A/G Ratio 0.9 (0.7-1.7); PROEL- Albumin 3.5 g/dL (2.9-4.4); PROEL- Alpha-1 Globulin 0.2 g/dL (0.0-0.4); PROEL- Beta Globulin 1.1 g/dL (0.7-1.3); PROEL- Gamma Globulin 1.4 g/dL (0.4-1.8); PROEL- Globulin, Total 3.7 g/dL (2.2-3.9); PROEL- TOTAL PROTEIN 7.2 g/dL (6.0-8.5); PROELU- Alpha-1-Globulin,Ur 6.4 % (.); PROELU- Alpha-2-Globulin,Ur 17.5 % (.); PROELU- Beta Globulin, Ur 20.1 % (.); Total Protein, Ur 7.5 mg/dL (Not Estab.)
[2019-11-21 13:21] LABS: Myoglobin, Serum 46 ng/mL (28-72)
== END ==
PROVIDERS: PCP Family Medicine; Referring Provider Internal Medicine; Visit Provider Internal Medicine
DX: N18.2 Chronic kidney disease, stage 2 (mild) (principal); R80.9 Proteinuria, unspecified; M79.10 Myalgia, unspecified site
CPT/HCPCS: 36415; 80048; 81002; 82550; 82570; 83874; 84156; 84165; 84166

== ENCOUNTER → 2019-11-21 08:33 | Outpatient (CLI) | payer MEDICARE, OTHER, SELFPAY ==
[2019-09-03 04:13] VITALS: BMI 31.3
[2019-11-21 09:06] LABS: 24HR. UA Prot. Total Volume 2500 mL; Urine Protein (24 Hour) 11.4 mg/dL (<11.9)
[2019-11-21 09:38] LABS: Creatinine, Serum 1.35 mg/dL (0.70-1.30); EST Glomerular Filtration Rate 56 mL/min (>60); Est Glom Filt Rate - Afr Amer 68 mL/min (>60)
[2019-11-21 09:46] LABS: Creat.Clear Total Volume 2500 mL; Creatinine Clearance 77 ml/min (100-200); Creatinine Serum Creat 1.4 mg/dL (0.8-1.3); Creatinine Urine 59.6 mg/dL (NO RANGE EST.); EST Glomerular Filtration Rate 56 mL/min (>60); Est Glom Filt Rate - Afr Amer 68 mL/min (>60)
== END ==
LOC: LAB 08:35
PROVIDERS: PCP Family Medicine; Referring Provider Internal Medicine; Visit Provider Internal Medicine
DX: N18.2 Chronic kidney disease, stage 2 (mild) (principal); R80.9 Proteinuria, unspecified; M79.10 Myalgia, unspecified site
CPT/HCPCS: 36415; 81050; 82565; 82575; 84156

== ENCOUNTER → 2019-11-25 09:43 | Outpatient (CLI) | payer MEDICARE, OTHER, SELFPAY ==
[2019-09-03 04:13] VITALS: BMI 31.3
[2019-11-10 13:03] LABS: Anion Gap 6 (5-15); BUN 16 mg/dL (7-18); Calcium,Total 9.1 mg/dL (8.5-10.1); Chloride 110 mmol/L (98-107); Creatinine, Serum 1.14 mg/dL (0.70-1.30); EST Glomerular Filtration Rate 68 mL/min (>60); Est Glom Filt Rate - Afr Amer 82 mL/min (>60); Glucose 100 mg/dL (74-106); Potassium 3.8 mmol/L (3.5-5.1); Sodium Level 140 mmol/L (136-145)
--- NOTE | 2019-11-25 09:47 | US_ITS ---
STUDY: RENAL ULTRASOUND - COMPLETE REASON FOR EXAM: Male, 69 years old. RENAL CYSTS TECHNIQUE: Ultrasound evaluation of the kidneys was performed with real-time and static franco-scale imaging. COMPARISON: CT abdomen and pelvis dated 09/03/2019. Renal ultrasound dated 12/25/2015 FINDINGS: RIGHT KIDNEY: Normal location of the right kidney, which is normal in size. The right kidney measures 12.1 cm. There is a normal cortex of the right kidney. The renal cortex measures 1.2 cm. Stable simple appearing midpole cyst measuring 1.2 x 1.2 x 0.9 cm. There are no right renal calculi. There is no right hydronephrosis. DISTAL RIGHT URETER: There is non-visualization of the distal right ureter. There is no demonstrated right ureterovesical junction calculus. There is a visualized right ureteral jet. LEFT KIDNEY: Normal location of the left kidney, which is normal in size. The left kidney measures 10.4 cm. There is diffuse thinning of the renal cortex. The renal cortex measures 0.9 cm. Several simple-appearing cysts, largest measuring 1.7 x 1.7 x 1.9 cm. There are no left renal calculi. There is no left hydronephrosis. DISTAL LEFT URETER: There is non-visualization of the distal left ureter. There is no demonstrated left ureterovesical junction calculus. There is a visualized left ureteral jet. BLADDER: Grossly within normal limits US/Kidney and Bladder IMPRESSION: Simple appearing bilateral renal cysts. Mild parenchymal thinning of the left kidney. No acute findings. Electronically Signed: Finesse Joe DO at 11:46 EST Tel , Service support ,
== END ==
PROVIDERS: Family Provider Family Medicine; PCP Family Medicine; Referring Provider Internal Medicine; Visit Provider Internal Medicine
DX: N28.1 Cyst of kidney, acquired (principal); N18.2 Chronic kidney disease, stage 2 (mild)
CPT/HCPCS: 36415; 76770; 80048

== ENCOUNTER → 2020-02-18 14:41 | Outpatient (CLI) | payer MEDICARE, OTHER, SELFPAY ==
[2019-09-03 04:13] VITALS: BMI 31.3
[2020-02-18 15:52] LABS: Hematocrit 45.1 % (40-54); Hemoglobin 15.3 g/dL (13.0-16.5); Mean Corp Hgb Conc 33.9 g/dL (32-36); Mean Corpuscular Hgb 29.6 pg (27.0-32.0); Mean Corpuscular Volume 87.2 fL (80-94); Mean Platelet Vol. 8.9 fl (6.2-12.0); Platelet Count 275 K/mm3 (150-450); RBC Distribution Width CV 12.2 % (11.6-14.6); Red Blood Count 5.17 M/mm3 (4.6-6.2); White Blood Count 9.4 K/mm3 (4.4-11.0)
[2020-02-18 16:04] LABS: Protein, Urine (Random) 13.6 mg/dL (<11.9); Protein:Creat Ratio 142 mg/g CRE (0-200)
[2020-02-18 16:33] LABS: Albumin, Serum 3.2 g/dL (3.2-5.0); BUN 14 mg/dL (7-18); BUN/Creat Ratio 10.9 RATIO (10-20); Calcium,Total 8.9 mg/dL (8.5-10.1); Chloride 103 mmol/L (98-107); Creatinine, Serum 1.29 mg/dL (0.70-1.30); EST Glomerular Filtration Rate 59 mL/min (>60); Est Glom Filt Rate - Afr Amer 71 mL/min (>60); Glucose 132 mg/dL (74-106); Phosphorus 3.4 mg/dL (2.5-4.9); Potassium 3.2 mmol/L (3.5-5.1); Sodium Level 137 mmol/L (136-145)
[2020-02-18 16:35] LABS: PTHIN 48.8 pg/mL (18.4-80.1)
== END ==
PROVIDERS: PCP Family Medicine; Referring Provider Internal Medicine Nephrology; Visit Provider Internal Medicine Nephrology
DX: N18.2 Chronic kidney disease, stage 2 (mild) (principal)
CPT/HCPCS: 36415; 80069; 82306; 82570; 83970; 84156; 85027

== ENCOUNTER → 2020-07-27 11:57 | Outpatient (CLI) | payer MEDICARE, OTHER, SELFPAY ==
[2019-09-03 04:13] VITALS: BMI 31.3
[2020-07-27 12:57] LABS: Hematocrit 47.2 % (40-54); Mean Corp Hgb Conc 33.9 g/dL (32-36); Mean Corpuscular Hgb 30.8 pg (27.0-32.0); Mean Corpuscular Volume 90.8 fL (80-94); Mean Platelet Vol. 9.1 fl (6.2-12.0); Platelet Count 264 K/mm3 (150-450); RBC Distribution Width CV 12.4 % (11.6-14.6); White Blood Count 8.7 K/mm3 (4.4-11.0)
[2020-07-27 13:19] LABS: PTHIN 19.3 pg/mL (18.4-80.1)
[2020-07-27 13:24] LABS: Vitamin D,25 Hydroxy 42.2 ng/mL
[2020-07-27 13:36] LABS: Protein, Urine (Random) 15.8 mg/dL (<11.9); Protein:Creat Ratio 204 mg/g CRE (0-200)
[2020-07-27 13:37] LABS: Albumin, Serum 3.3 g/dL (3.2-5.0); BUN 18 mg/dL (7-18); Calcium,Total 9.5 mg/dL (8.5-10.1); Chloride 103 mmol/L (98-107); EST Glomerular Filtration Rate 64 mL/min (>60); Est Glom Filt Rate - Afr Amer 77 mL/min (>60); Glucose 119 mg/dL (74-106); PSA,Total - Annual Screen 0.98 ng/mL (0.00-4.00); Phosphorus 2.7 mg/dL (2.5-4.9); Potassium 3.2 mmol/L (3.5-5.1); Sodium Level 136 mmol/L (136-145)
== END ==
PROVIDERS: PCP Family Medicine; Referring Provider Internal Medicine Nephrology; Visit Provider Internal Medicine Nephrology
DX: R53.83 Other fatigue (principal); R68.82 Decreased libido; N52.9 Male erectile dysfunction, unspecified; N18.2 Chronic kidney disease, stage 2 (mild); Z80.42 Family history of malignant neoplasm of prostate; Z12.5 Encounter for screening for malignant neoplasm of prostate
CPT/HCPCS: 36415; 80069; 82306; 82570; 83970; 84153; 84156; 84403; 85027; G0103

== ENCOUNTER 2020-11-24 13:00 | Outpatient (RCR) | payer MEDICARE, OTHER, SELFPAY ==
[2019-09-03 04:13] VITALS: BMI 31.3
== END 2020-11-28 23:59 ==
LOC: DC 13:00
PROVIDERS: PCP Family Medicine; Visit Provider Family Medicine
DX: Z71.3 Dietary counseling and surveillance (principal); E11.9 Type 2 diabetes mellitus without complications
CPT/HCPCS: G0108

== ENCOUNTER 2020-12-23 13:00 | Outpatient (RCR) | payer MEDICARE, OTHER, SELFPAY ==
[2019-09-03 04:13] VITALS: BMI 31.3
== END 2020-12-23 23:59 | disposition home or self-care (01) ==
LOC: DC 13:00
PROVIDERS: PCP Family Medicine; Visit Provider Family Medicine
DX: E11.9 Type 2 diabetes mellitus without complications (principal)
CPT/HCPCS: 97802; 97803; G0108

== ENCOUNTER → 2021-01-20 12:19 | Outpatient (CLI) | payer MEDICARE, OTHER, SELFPAY ==
[2021-01-20 10:55] VITALS: BMI 31.2
[2021-01-20 13:39] LABS: Hematocrit 48.3 % (40-54); Mean Corp Hgb Conc 33.1 g/dL (32-36); Mean Corpuscular Volume 90.6 fL (80-94); Mean Platelet Vol. 9.3 fl (6.2-12.0); Platelet Count 300 K/mm3 (150-450); RBC Distribution Width CV 12.4 % (11.6-14.6); RBC Distribution Width SD 40.4 fl (35.1-43.9); Red Blood Count 5.33 M/mm3 (4.6-6.2); White Blood Count 9.1 K/mm3 (4.4-11.0)
[2021-01-20 13:51] LABS: Protein, Urine (Random) 17.6 mg/dL (<11.9); Protein:Creat Ratio 217 mg/g CRE (0-200)
[2021-01-20 14:30] LABS: ALB/GLOB Ratio 0.8 RATIO (0.9-2.4); AST(SGOT) 26 U/L (15-37); Alanine Aminotransfer ALT/SGPT 47 U/L (16-61); Albumin, Serum 3.5 g/dL (3.2-5.0); Alkaline Phosphatase 85 U/L (45-117); Anion Gap 7 (5-15); BUN 22 mg/dL (7-18); BUN/Creat Ratio 18.2 RATIO (10-20); Calcium,Total 9.3 mg/dL (8.5-10.1); Chloride 103 mmol/L (98-107); Creatinine, Serum 1.21 mg/dL (0.70-1.30); EST Glomerular Filtration Rate 63 mL/min (>60); Est Glom Filt Rate - Afr Amer 76 mL/min (>60); Globulin 4.5 g/dL (2.2-4.2); Glucose 103 mg/dL (74-106); Potassium 3.2 mmol/L (3.5-5.1); Sodium Level 136 mmol/L (136-145); Thyroid Stim Hormone (TSH) 1.24 uIU/mL (0.358-3.74)
[2021-01-20 16:17] LABS: Vitamin B12 294 pg/mL (211-911)
[2021-01-22 20:07] LABS: Free Kappa Light Chains 32.2 mg/L (3.3-19.4); Free Lambda Light Chains 17.8 mg/L (5.7-26.3)
== END ==
PROVIDERS: PCP Family Medicine; Referring Provider Psychiatry & Neurology Neurology; Visit Provider Psychiatry & Neurology Neurology
DX: I12.9 Hypertensive chronic kidney disease with stage 1 through stage 4 chronic kidney disease, or unspecified chronic kidney disease (principal); N18.31 Chronic kidney disease, stage 3a; G62.9 Polyneuropathy, unspecified; N17.9 Acute kidney failure, unspecified; G25.0 Essential tremor
CPT/HCPCS: 80053; 82570; 82607; 82746; 83883; 84156; 84443; 85027

== ENCOUNTER → 2021-02-28 15:49 | Outpatient (CLI) | payer MEDICARE, OTHER, SELFPAY ==
[2021-01-20 10:55] VITALS: BMI 31.2
[2021-02-28 17:06] LABS: Vitamin B12 427 pg/mL (211-911)
[2021-02-28 17:18] LABS: Thyroid Stim Hormone (TSH) 0.91 uIU/mL (0.358-3.74)
[2021-03-02 16:09] LABS: Free Kappa Light Chains 28.5 mg/L (3.3-19.4); Free Lambda Light Chains 15.6 mg/L (5.7-26.3)
== END ==
PROVIDERS: PCP Family Medicine; Referring Provider Psychiatry & Neurology Neurology; Visit Provider Psychiatry & Neurology Neurology
DX: G62.9 Polyneuropathy, unspecified (principal); G25.0 Essential tremor
CPT/HCPCS: 36415; 82607; 82746; 83883; 84443

== ENCOUNTER → 2021-03-16 13:48 | Outpatient (CLI) | payer MEDICARE, OTHER, SELFPAY ==
[2021-01-20 10:55] VITALS: BMI 31.2
[2021-03-21 16:08] LABS: Albumin 3.5 g/dL (2.9-4.4); Alpha-1-Globulins 0.2 g/dL (0.0-0.4); Gamma Globulin 1.2 g/dL (0.4-1.8); Immunoglobulin A 225 mg/dL (61-437); Immunoglobulin G 1222 mg/dL (603-1613); Immunoglobulin M 54 mg/dL (20-172)
== END ==
PROVIDERS: PCP Family Medicine; Referring Provider Psychiatry & Neurology Neurology; Visit Provider Psychiatry & Neurology Neurology
DX: G62.9 Polyneuropathy, unspecified (principal)
CPT/HCPCS: 36415; 82784; 84165; 86334; 86335

== ENCOUNTER → 2021-04-06 12:45 | Outpatient (CLI) | payer MEDICARE, OTHER, SELFPAY ==
[2021-01-20 10:55] VITALS: BMI 31.2
--- NOTE | 2021-04-06 13:00 | RAD_ITS ---
EXAM: XR BONE SURVEY, COMPLETE : 1950 CLINICAL INDICATION: SKELETAL SURVEY TECHNIQUE: Multiple views of the bones of the axial and appendicular skeleton. This report was created using [employer] report [employer] technology. COMPARISON: None. FINDINGS: BONES/JOINTS: There are degenerative changes in the cervical spine with disc space narrowing and osteophyte formation. There are degenerative changes in the lumbar spine with disc space narrowing and osteophyte formation. SOFT TISSUES: Unremarkable. OTHER FINDINGS: There is an ill-defined opacity in the right mid lung which may represent pneumonia however a mass lesion cannot be excluded. RAD/Bone Survey Comp(Axial&Append) IMPRESSION: 1. Ill-defined opacity in the right mid lung and the possibility of a mass cannot be excluded. Further evaluation with CT scan of the chest may be beneficial. 2. Degenerative changes in the spine with disc space narrowing and osteophyte formation. No acute osseous abnormalities are identified. at 0925 Reported and signed by: Anselmo Dooley MD Electronically Signed: Anselmo Dooley MD at 9:24 EDT Tel , Service support ,
== END ==
PROVIDERS: PCP Family Medicine; Referring Provider Family Medicine; Visit Provider Family Medicine
DX: R80.3 Bence Jones proteinuria (principal); R77.1 Abnormality of globulin
CPT/HCPCS: 77075

== ENCOUNTER 2021-12-27 15:05 | Outpatient (CLI) | payer MEDICARE, OTHER, SELFPAY ==
[2021-12-27 16:53] LABS: Hematocrit 46.4 % (40-54); Hemoglobin 16.3 g/dL (13.0-16.5); Mean Corp Hgb Conc 35.1 g/dL (32-36); Mean Corpuscular Volume 88.2 fL (80-94); Mean Platelet Vol. 9.3 fl (6.2-12.0); Platelet Count 267 K/mm3 (150-450); RBC Distribution Width CV 12.2 % (11.6-14.6); RBC Distribution Width SD 39.1 fl (35.1-43.9); Red Blood Count 5.26 M/mm3 (4.6-6.2); White Blood Count 11.3 K/mm3 (4.4-11.0)
[2021-12-27 17:15] LABS: Protein, Urine (Random) 9.6 mg/dL (<11.9); Protein:Creat Ratio 132 mg/g CRE (0-200)
[2021-12-27 17:24] LABS: Anion Gap 8 (5-15); BUN 20 mg/dL (7-18); BUN/Creat Ratio 16.3 RATIO (10-20); Calcium,Total 9.4 mg/dL (8.5-10.1); Chloride 102 mmol/L (98-107); Creatinine, Serum 1.23 mg/dL (0.70-1.30); EST Glomerular Filtration Rate 62 mL/min (>60); Est Glom Filt Rate - Afr Amer 75 mL/min (>60); Glucose 127 mg/dL (74-106); Potassium 3.4 mmol/L (3.5-5.1); Sodium Level 136 mmol/L (136-145)
[2021-12-27 17:29] LABS: Vitamin D,25 Hydroxy 28.9 ng/mL
[2021-12-28 08:48] LABS: PTHIN 34.5 pg/mL (18.4-80.1)
== END 2021-12-27 23:59 | disposition home or self-care (01) ==
LOC: LAB 15:07
PROVIDERS: PCP Family Medicine; Visit Provider Internal Medicine Nephrology
DX: N18.31 Chronic kidney disease, stage 3a (principal)
CPT/HCPCS: 36415; 80048; 82306; 82570; 83970; 84156; 85027

== ENCOUNTER → 2022-12-07 | Outpatient (CLI) | payer MEDICARE, OTHER, SELFPAY ==
[2022-12-07 16:53] LABS: Absolute Lymphocyte Count 2.89 X10^3/uL (0.83-4.51); Basophil# 0.03 X10^3/uL; Basophil% 0.3 % (0-1); Eosinophil# 0.22 X10^3/uL; Eosinophils% 2.2 % (0-5); Hematocrit 45.6 % (40-54); Hemoglobin 15.6 g/dL (13.0-16.5); Lymphocyte # 2.89 X10^3/ul (0.83-4.51); Lymphocyte % 28.6 % (19-41); Mean Corp Hgb Conc 34.2 g/dL (32-36); Mean Corpuscular Hgb 30.8 pg (27.0-32.0); Mean Corpuscular Volume 89.9 fL (80-94); Monocyte# 0.88 X10^3/uL; Monocyte% 8.7 % (0-10); NRBC Flagged by Analyzer 0 % (0-5); Neutrophil # 6.04 X10^3/uL (2.7-7.7); Neutrophil % 59.8 % (47-70); Platelet Count 276 K/mm3 (150-450); RBC Distribution Width CV 12.3 % (11.6-14.6); RBC Distribution Width SD 40.1 fl (35.1-43.9); Red Blood Count 5.07 M/mm3 (4.6-6.2); White Blood Count 10.1 K/mm3 (4.4-11.0)
[2022-12-07 18:18] LABS: ALB/GLOB Ratio 0.8 RATIO (0.9-2.4); AST(SGOT) 27 U/L (15-37); Alanine Aminotransfer ALT/SGPT 39 U/L (16-61); Albumin, Serum 3.3 g/dL (3.2-5.0); Alkaline Phosphatase 93 U/L (45-117); Anion Gap 10 (5-15); BUN 21 mg/dL (7-18); BUN/Creat Ratio 17.4 RATIO (10-20); Calcium,Total 9.2 mg/dL (8.5-10.1); Chloride 102 mmol/L (98-107); Creatinine, Serum 1.21 mg/dL (0.70-1.30); EST Glomerular Filtration Rate 63 mL/min (>60); Est Glom Filt Rate - Afr Amer 76 mL/min (>60); Globulin 4.1 g/dL (2.2-4.2); Glucose 125 mg/dL (74-106); PSA,Total - Annual Screen 2.66 ng/mL (0.00-4.00); Potassium 3.8 mmol/L (3.5-5.1); Protein, Total 7.4 g/dL (6.4-8.2); Sodium Level 137 mmol/L (136-145)
[2022-12-07 18:40] LABS: Hepatitis C Antibody Non-Reactive (Nonreactive); Vitamin D,25 Hydroxy 32.7 ng/mL
== END | disposition home or self-care (01) ==
LOC: POLAB3 16:38
PROVIDERS: PCP Family Medicine; Visit Provider Family Medicine Geriatric Medicine
DX: R53.83 Other fatigue (principal); E55.9 Vitamin D deficiency, unspecified; Z12.5 Encounter for screening for malignant neoplasm of prostate
CPT/HCPCS: 36415; 80053; 82306; 84153; 84443; 85025; 86803; G0103

== ENCOUNTER → 2023-01-16 | Outpatient (CLI) | payer MEDICARE, OTHER, SELFPAY ==
--- NOTE | 2023-01-16 16:26 | RAD_ITS ---
INDICATION: NECK PAIN EXAMINATION/TECHNIQUE: X-RAY - XR Spine Cervical 4 or 5 Views COMPARISON: None. FINDINGS: VERTEBRAE: Preserved vertebral body height. No fracture. 3 mm C7-T1 anterolisthesis. Straightening of the typical cervical lordosis. Mild mid to lower cervical facet arthrosis. DISCS: Endplate disease and disc space narrowing at all levels. NECK SOFT TISSUES: No prevertebral soft tissue widening. LUNG APICES: Clear. RAD/Cerv Spine 2 or 3 Views IMPRESSION: Diffuse degenerative change detailed above, including 3 mm C7-T1 anterolisthesis. Electronically Signed: Abdon Valencia MD at 20:43 EDT ,
--- NOTE | 2023-01-16 16:47 | RAD_ITS ---
INDICATION: CONSTIPATION EXAMINATION/TECHNIQUE: X-RAY - XR Abdomen W/ Decub and/or Erect Views COMPARISON: 09/03/2019 CT abdomen/pelvis FINDINGS: BOWEL GAS PATTERN: Non-obstructive. Gas projects over the rectum. No bowel or stomach distention. FREE AIR: None. ORGANOMEGALY: Not seen. CALCIFICATIONS: No abnormal calcifications observed. LOWER CHEST: No acute abnormal finding. RAD/Abd Inc Decub and/or Erect IMPRESSION: Non-obstructive bowel gas pattern. Electronically Signed: Abdon Valencia MD at 20:51 EDT ,
== END | disposition home or self-care (01) ==
LOC: RAD 16:25
PROVIDERS: PCP Family Medicine Geriatric Medicine; Visit Provider Family Medicine Geriatric Medicine
DX: K59.00 Constipation, unspecified (principal); M54.2 Cervicalgia
CPT/HCPCS: 72040; 74019

== ENCOUNTER → 2023-03-05 | Outpatient (CLI) | payer MEDICARE, OTHER, SELFPAY ==
[2023-03-05 18:07] LABS: Absolute Neutrophil Count 8.9 X10^3/uL (2.0-7.7); Basophil# 0.02 X10^3/uL; Basophil% 0.2 % (0-1); Eosinophil# 0.08 X10^3/uL; Eosinophils% 0.6 % (0-5); Hemoglobin 14.8 g/dL (13.0-16.5); Lymphocyte % 19.3 % (19-41); Mean Corp Hgb Conc 32.9 g/dL (32-36); Mean Corpuscular Hgb 30.3 pg (27.0-32.0); Mean Corpuscular Volume 92.2 fL (80-94); Mean Platelet Vol. 9.4 fl (6.2-12.0); Monocyte# 1.01 X10^3/uL; Monocyte% 8.1 % (0-10); NRBC Flagged by Analyzer 0 % (0-5); Neutrophil # 8.87 X10^3/uL (2.7-7.7); Neutrophil % 71.4 % (47-70); Platelet Count 246 K/mm3 (150-450); RBC Distribution Width CV 12.9 % (11.6-14.6); RBC Distribution Width SD 43.5 fl (35.1-43.9); Red Blood Count 4.88 M/mm3 (4.6-6.2); White Blood Count 12.4 K/mm3 (4.4-11.0)
[2023-03-05 18:57] LABS: ALB/GLOB Ratio 0.8 RATIO (0.9-2.4); AST(SGOT) 24 U/L (15-37); Alanine Aminotransfer ALT/SGPT 37 U/L (16-61); Albumin, Serum 3.4 g/dL (3.2-5.0); Alkaline Phosphatase 85 U/L (45-117); Anion Gap 11 (5-15); BUN 21 mg/dL (7-18); BUN/Creat Ratio 18.8 RATIO (10-20); Calcium,Total 8.7 mg/dL (8.5-10.1); Chloride 100 mmol/L (98-107); Cholesterol 153 mg/dL (200); Creatinine, Serum 1.12 mg/dL (0.70-1.30); EST Glomerular Filtration Rate 69 mL/min (>60); Est Glom Filt Rate - Afr Amer 83 mL/min (>60); Globulin 4.3 g/dL (2.2-4.2); Glucose 120 mg/dL (74-106); High Density Lipoprotein 41 mg/dL; Potassium 3.1 mmol/L (3.5-5.1); Protein, Total 7.7 g/dL (6.4-8.2); Sodium Level 134 mmol/L (136-145); Thyroid Stim Hormone (TSH) 1.26 uIU/mL (0.358-3.74); Triglycerides 146 mg/dL; Very Low Density Lipoprotein 29 mg/dL (5-40)
== END | disposition home or self-care (01) ==
LOC: POLAB3 14:32
PROVIDERS: PCP Family Medicine Geriatric Medicine; Visit Provider Family Medicine Geriatric Medicine
DX: E11.65 Type 2 diabetes mellitus with hyperglycemia (principal); I10 Essential (primary) hypertension; E55.9 Vitamin D deficiency, unspecified; E78.5 Hyperlipidemia, unspecified
CPT/HCPCS: 36415; 80053; 80061; 82306; 84443; 85025

== ENCOUNTER → 2023-03-19 | Outpatient (CLI) | payer MEDICARE, OTHER, SELFPAY ==
--- NOTE | 2023-03-19 11:37 | RAD_ITS ---
INDICATION: OVERFLOW DIARRHEA EXAMINATION/TECHNIQUE: X-RAY - XR Abdomen W/ Decub and/or Erect Views: 4 image upright and supine abdominal radiograph COMPARISON: CT September 03, 2019, June 14, 2019, January 26, 2015 FINDINGS: BOWEL GAS PATTERN: General paucity of small bowel gas which is commonly seen when fluid-filled. Air-filled transverse colon with multiple small air-fluid levels on upright imaging, measuring up to 6.8 cm at the distal transverse colon. [Rectal gas is also noted.. No significant dense colonic stool. FREE AIR: No pneumoperitoneum. ORGANOMEGALY: Not seen. CALCIFICATIONS: No concerning calcifications. LOWER CHEST: No acute pathology. BONES AND SOFT TISSUES: No acute pathology. Moderate lumbar spondylosis with dextrocurvature RAD/Abd Inc Decub and/or Erect IMPRESSION: Nonspecific bowel gas pattern, compatible with diffuse fluid and dysmotility. Findings can be seen with infectious or inflammatory enteritis or colitis with diarrhea or developing ileus. CT could evaluate for recurrent diverticulitis or acute process as clinically indicated. Otherwise radiographic follow-up is recommended. Electronically Signed: Frederick Oliveira MD at 9:46 EDT ,
[2023-03-19 13:33] LABS: Absolute Lymphocyte Count 1.81 X10^3/uL (0.83-4.51); Basophil# 0.05 X10^3/uL; Basophil% 0.5 % (0-1); Eosinophil# 0.12 X10^3/uL; Eosinophils% 1.3 % (0-5); Hematocrit 48.8 % (40-54); Hemoglobin 15.8 g/dL (13.0-16.5); Lymphocyte # 1.81 X10^3/ul (0.83-4.51); Lymphocyte % 19.9 % (19-41); Mean Corp Hgb Conc 32.4 g/dL (32-36); Mean Corpuscular Hgb 30.4 pg (27.0-32.0); Mean Corpuscular Volume 93.8 fL (80-94); Mean Platelet Vol. 9.5 fl (6.2-12.0); Monocyte# 1.04 X10^3/uL; Monocyte% 11.4 % (0-10); NRBC Flagged by Analyzer 0 % (0-5); Neutrophil # 6.04 X10^3/uL (2.7-7.7); Neutrophil % 66.4 % (47-70); Platelet Count 238 K/mm3 (150-450); RBC Distribution Width SD 44.6 fl (35.1-43.9); White Blood Count 9.1 K/mm3 (4.4-11.0)
[2023-03-19 13:56] LABS: ALB/GLOB Ratio 0.6 RATIO (0.9-2.4); AST(SGOT) 18 U/L (15-37); Alanine Aminotransfer ALT/SGPT 28 U/L (16-61); Albumin, Serum 3.1 g/dL (3.2-5.0); Alkaline Phosphatase 110 U/L (45-117); Anion Gap 9 (5-15); BUN 16 mg/dL (7-18); BUN/Creat Ratio 13.2 RATIO (10-20); Calcium,Total 9.3 mg/dL (8.5-10.1); Chloride 104 mmol/L (98-107); Creatinine, Serum 1.21 mg/dL (0.70-1.30); EST Glomerular Filtration Rate 63 mL/min (>60); Est Glom Filt Rate - Afr Amer 76 mL/min (>60); Glucose 184 mg/dL (74-106); Potassium 3.4 mmol/L (3.5-5.1); Protein, Total 8.1 g/dL (6.4-8.2); Sodium Level 135 mmol/L (136-145)
== END | disposition home or self-care (01) ==
PROVIDERS: PCP Family Medicine Geriatric Medicine; Visit Provider Family Medicine Geriatric Medicine
DX: R10.9 Unspecified abdominal pain (principal); R19.7 Diarrhea, unspecified; E87.6 Hypokalemia
CPT/HCPCS: 36415; 74019; 80053; 85025

== ENCOUNTER → 2023-03-20 | Outpatient (CLI) | payer MEDICARE, OTHER, SELFPAY | END | disposition home or self-care (01) | LOC: LAB 12:03 → LABSPEC 12:03 | PROVIDERS: PCP Family Medicine Geriatric Medicine; Referring Provider Family Medicine Geriatric Medicine; Visit Provider Family Medicine Geriatric Medicine | DX: R19.7 Diarrhea, unspecified (principal) | CPT/HCPCS: 82274; 83630; 87177; 87209; 87493 ==

== ENCOUNTER → 2023-03-21 | Outpatient (CLI) | payer MEDICARE, OTHER, SELFPAY ==
--- NOTE | 2023-03-21 09:53 | CT_ITS ---
STUDY: CT ABDOMEN AND PELVIS WITH CONTRAST REASON FOR EXAM: Male, 72 years old. ABD PAIN, history of diverticulitis RADIATION DOSAGE (If Supplied By Facility): CTDIvol = ( 15.77 ) mGy, DLP = ( 1069.91 ) mGycm TECHNIQUE: Transaxial images were obtained from the dome of the diaphragm to the symphysis pubis with oral contrast. Oral and amp; IV Gastrografin and amp; 100mL Isovue-370 was administered. Sagittal and coronal images were reconstructed. Individualized dose optimization techniques were used for this CT. COMPARISON: 09.03 CT scan abdomen and pelvis on the CT scan abdomen and pelvis with IV contrast January 26, 2015. FINDINGS: Since prior study there is a focus of greater groundglass opacity and interstitial thickening in the right lung base. There is a small subpleural bleb. The visualized portions of the heart are within normal limits. There is a small benign-appearing cyst within the caudate measuring 4.7 mm stable since prior studies. Normal gallbladder and extrahepatic biliary system. There are multiple benign calcified granulomata of the spleen. Normal pancreas. Normal bilateral adrenal glands. Right renal cortical thinning. There are multiple small cysts right kidney. There is a small cyst lower pole right kidney measuring 7.8 mm. There is a cyst measuring 7.1 mm. There is a cyst measuring 3 mm. It is similar to prior allowing for the interval passage of time of over 8 years since January 26, 2015. There is visualized left renal cortical thinning. There are cysts of the left kidney measuring 2 and 1.3 cm. There are at least 2 punctate nonobstructive calcifications. In the lower pole there are cysts measuring 8.3 and 6.6 mm. These are all similar to the prior study allowing for differences in technique and time passage. There is a undigested tablet within the distal stomach. There is contrast within the small bowel and normal caliber loops. There is contrast within the colon. There is a tortuous appearance of the descending colon and sigmoid. There is diverticulosis. There is mild wall thickening of a diverticulum within the left side of the sigmoid colon which may represent mild diverticulitis. . The appendix is visualized and appears normal. There is minimal calcification of the aorta. Normal inferior vena cava. Normal retroperitoneum. The bladder is partially decompressed. Normal visualized prostate gland. Normal abdominal wall. There is advanced degenerative change of the thoracolumbar spine. There is a relative straightening of the physiologic lordosis. There is multilevel disc space narrowing endplate sclerosis spondylosis vacuum phenomenon and posterior osteophytosis. At the level of L1-L2 there is disc space narrowing left lateral disc osteophyte moderate neural foramina narrowing mild central stenosis. At L2-3, L3-L4, L4-L5, and L5-S1 there is a broad disc osteophyte moderate neural foramina narrowing moderate to severe central stenosis. CT/Abdomen/Pelvis WITH Contrast IMPRESSION: There is mild inflammation/edema of the diverticula within the left lateral sigmoid colon suggesting mild diverticulitis. There are air-fluid levels present suggesting the patient may have diarrhea. Stable bilateral kidneys bilateral renal cortical thinning. Bilateral renal cysts. Stable small hepatic cysts. Advanced degenerative change of the lower lumbar spine as detailed above. Electronically Signed: Emma Toribio MD at 12:34 EDT ,
== END | disposition home or self-care (01) ==
LOC: CT 09:49
PROVIDERS: PCP Family Medicine Geriatric Medicine; Referring Provider Family Medicine Geriatric Medicine; Visit Provider Family Medicine Geriatric Medicine
DX: R10.9 Unspecified abdominal pain (principal)
CPT/HCPCS: 74177; Q9967

== ENCOUNTER → 2023-04-05 | Outpatient (CLI) | payer MEDICARE, OTHER, SELFPAY ==
--- NOTE | 2023-04-05 11:40 | RAD_ITS ---
STUDY: X-RAY - ABDOMEN/PELVIS REASON FOR EXAM: Male, 72 years old. OVERFLOW DIARRHEA TECHNIQUE: 3 AP supine views of the abdomen and pelvis. COMPARISON: Abdominal x-ray dated March 19, 2023 FINDINGS: Normal visualized lung bases. There is an unremarkable bowel gas pattern. Normal soft tissue structures. There are diffuse degenerative changes of the visualized lumbar spine. RAD/Abd Inc Decub and/or Erect IMPRESSION: 1. No demonstrated acute process of the abdomen and pelvis. Electronically Signed: Albert Malloy MD at 12:54 EDT ,
== END | disposition home or self-care (01) ==
LOC: RAD 11:25
PROVIDERS: PCP Family Medicine Geriatric Medicine; Referring Provider Family Medicine Geriatric Medicine; Visit Provider Family Medicine Geriatric Medicine
DX: R19.7 Diarrhea, unspecified (principal)
CPT/HCPCS: 74019

== ENCOUNTER → 2023-05-24 | Outpatient (CLI) | payer MEDICARE, OTHER, SELFPAY | END | disposition home or self-care (01) | LOC: POLAB3 14:39 | PROVIDERS: PCP Family Medicine Geriatric Medicine; Visit Provider Family Medicine Geriatric Medicine | DX: N39.0 Urinary tract infection, site not specified (principal) | CPT/HCPCS: 87086 ==

== ENCOUNTER → 2023-06-04 | Outpatient (CLI) | payer MEDICARE, OTHER, SELFPAY ==
[2023-06-04 17:58] LABS: Absolute Lymphocyte Count 1.87 X10^3/uL (0.83-4.51); Absolute Neutrophil Count 7.8 X10^3/uL (2.0-7.7); Basophil# 0.02 X10^3/uL; Basophil% 0.2 % (0-1); Eosinophil# 0.08 X10^3/uL; Eosinophils% 0.8 % (0-5); Hematocrit 45.6 % (40-54); Hemoglobin 15.6 g/dL (13.0-16.5); Lymphocyte # 1.87 X10^3/ul (0.83-4.51); Lymphocyte % 17.8 % (19-41); Mean Corp Hgb Conc 34.2 g/dL (32-36); Mean Corpuscular Hgb 30.7 pg (27.0-32.0); Mean Corpuscular Volume 89.8 fL (80-94); Mean Platelet Vol. 9.1 fl (6.2-12.0); Monocyte# 0.72 X10^3/uL; Monocyte% 6.8 % (0-10); NRBC Flagged by Analyzer 0 % (0-5); Neutrophil # 7.79 X10^3/uL (2.7-7.7); Platelet Count 218 K/mm3 (150-450); RBC Distribution Width CV 12.3 % (11.6-14.6); RBC Distribution Width SD 40.9 fl (35.1-43.9); Red Blood Count 5.08 M/mm3 (4.6-6.2); White Blood Count 10.5 K/mm3 (4.4-11.0)
[2023-06-04 18:18] LABS: Vitamin D,25 Hydroxy 30.2 ng/mL
[2023-06-04 18:33] LABS: ALB/GLOB Ratio 0.7 RATIO (0.9-2.4); AST(SGOT) 17 U/L (15-37); Alanine Aminotransfer ALT/SGPT 27 U/L (16-61); Albumin, Serum 2.9 g/dL (3.2-5.0); Alkaline Phosphatase 90 U/L (45-117); Anion Gap 6 (5-15); BUN 21 mg/dL (7-18); BUN/Creat Ratio 17.6 RATIO (10-20); Calcium,Total 8.7 mg/dL (8.5-10.1); Chloride 96 mmol/L (98-107); Cholesterol 162 mg/dL (200); Creatinine, Serum 1.19 mg/dL (0.70-1.30); EST Glomerular Filtration Rate 64 mL/min (>60); Est Glom Filt Rate - Afr Amer 77 mL/min (>60); Globulin 4.2 g/dL (2.2-4.2); Glucose 235 mg/dL (74-106); High Density Lipoprotein 47 mg/dL; Protein, Total 7.1 g/dL (6.4-8.2); Sodium Level 132 mmol/L (136-145); Thyroid Stim Hormone (TSH) 0.94 uIU/mL (0.358-3.74); Triglycerides 193 mg/dL; Very Low Density Lipoprotein 39 mg/dL (5-40)
== END | disposition home or self-care (01) ==
PROVIDERS: PCP Family Medicine Geriatric Medicine; Visit Provider Family Medicine Geriatric Medicine
DX: E11.65 Type 2 diabetes mellitus with hyperglycemia (principal); E55.9 Vitamin D deficiency, unspecified; I10 Essential (primary) hypertension
CPT/HCPCS: 36415; 80053; 80061; 82306; 84443; 85025

== ENCOUNTER → 2023-08-24 | Outpatient (CLI) | payer MEDICARE, OTHER, SELFPAY ==
[2023-08-24 13:19] LABS: Absolute Neutrophil Count 6.7 X10^3/uL (2.0-7.7); Basophil# 0.03 X10^3/uL; Basophil% 0.3 % (0-1); Eosinophil# 0.18 X10^3/uL; Eosinophils% 1.8 % (0-5); Hematocrit 45.1 % (40-54); Hemoglobin 15.2 g/dL (13.0-16.5); Lymphocyte % 21.2 % (19-41); Mean Corp Hgb Conc 33.7 g/dL (32-36); Mean Corpuscular Hgb 31.1 pg (27.0-32.0); Mean Corpuscular Volume 92.2 fL (80-94); Mean Platelet Vol. 9.6 fl (6.2-12.0); Monocyte# 0.83 X10^3/uL; Monocyte% 8.4 % (0-10); NRBC Flagged by Analyzer 0 % (0-5); Neutrophil # 6.72 X10^3/uL (2.7-7.7); Neutrophil % 67.8 % (47-70); Platelet Count 276 K/mm3 (150-450); RBC Distribution Width CV 13.1 % (11.6-14.6); RBC Distribution Width SD 44.5 fl (35.1-43.9); Red Blood Count 4.89 M/mm3 (4.6-6.2); White Blood Count 9.9 K/mm3 (4.4-11.0)
[2023-08-24 13:33] LABS: ALB/GLOB Ratio 0.7 RATIO (0.9-2.4); AST(SGOT) 18 U/L (15-37); Alanine Aminotransfer ALT/SGPT 32 U/L (16-61); Albumin, Serum 3.3 g/dL (3.2-5.0); Alkaline Phosphatase 112 U/L (45-117); Anion Gap 7 (5-15); BUN 17 mg/dL (7-18); BUN/Creat Ratio 12.7 RATIO (10-20); Calcium,Total 9.4 mg/dL (8.5-10.1); Chloride 101 mmol/L (98-107); Creatinine, Serum 1.34 mg/dL (0.70-1.30); EST Glomerular Filtration Rate 56 mL/min (>60); Est Glom Filt Rate - Afr Amer 67 mL/min (>60); Globulin 4.7 g/dL (2.2-4.2); Glucose 285 mg/dL (74-106); Potassium 3.4 mmol/L (3.5-5.1); Sodium Level 134 mmol/L (136-145)
== END | disposition home or self-care (01) ==
LOC: POLAB3 11:34
PROVIDERS: PCP Family Medicine Geriatric Medicine; Visit Provider Family Medicine Geriatric Medicine
DX: K57.32 Diverticulitis of large intestine without perforation or abscess without bleeding (principal)
CPT/HCPCS: 36415; 80053; 85025

== ENCOUNTER → 2023-09-03 | Outpatient (CLI) | payer MEDICARE, OTHER, SELFPAY ==
[2023-09-03 15:43] LABS: Absolute Lymphocyte Count 2.44 X10^3/uL (0.83-4.51); Absolute Neutrophil Count 7.6 X10^3/uL (2.0-7.7); Basophil# 0.05 X10^3/uL; Basophil% 0.4 % (0-1); Eosinophil# 0.15 X10^3/uL; Eosinophils% 1.3 % (0-5); Hematocrit 43.4 % (40-54); Hemoglobin 14.7 g/dL (13.0-16.5); Lymphocyte # 2.44 X10^3/ul (0.83-4.51); Lymphocyte % 21.7 % (19-41); Mean Corp Hgb Conc 33.9 g/dL (32-36); Mean Corpuscular Hgb 31.1 pg (27.0-32.0); Mean Corpuscular Volume 91.9 fL (80-94); Mean Platelet Vol. 9.6 fl (6.2-12.0); Monocyte# 0.93 X10^3/uL; Monocyte% 8.3 % (0-10); NRBC Flagged by Analyzer 0 % (0-5); Neutrophil # 7.63 X10^3/uL (2.7-7.7); Neutrophil % 67.8 % (47-70); Platelet Count 267 K/mm3 (150-450); RBC Distribution Width CV 12.8 % (11.6-14.6); RBC Distribution Width SD 42.8 fl (35.1-43.9); Red Blood Count 4.72 M/mm3 (4.6-6.2); White Blood Count 11.3 K/mm3 (4.4-11.0)
[2023-09-03 16:03] LABS: Vitamin D,25 Hydroxy 38.2 ng/mL
[2023-09-03 16:08] LABS: ALB/GLOB Ratio 0.7 RATIO (0.9-2.4); AST(SGOT) 10 U/L (15-37); Alanine Aminotransfer ALT/SGPT 24 U/L (16-61); Albumin, Serum 3.1 g/dL (3.2-5.0); Alkaline Phosphatase 103 U/L (45-117); Anion Gap 10 (5-15); BUN 19 mg/dL (7-18); BUN/Creat Ratio 15.6 RATIO (10-20); Calcium,Total 8.8 mg/dL (8.5-10.1); Chloride 101 mmol/L (98-107); Cholesterol 168 mg/dL (200); Creatinine, Serum 1.22 mg/dL (0.70-1.30); EST Glomerular Filtration Rate 62 mL/min (>60); Est Glom Filt Rate - Afr Amer 75 mL/min (>60); Globulin 4.7 g/dL (2.2-4.2); Glucose 205 mg/dL (74-106); High Density Lipoprotein 35 mg/dL; Potassium 3.3 mmol/L (3.5-5.1); Protein, Total 7.8 g/dL (6.4-8.2); Sodium Level 136 mmol/L (136-145); Thyroid Stim Hormone (TSH) 1.28 uIU/mL (0.358-3.74); Triglycerides 303 mg/dL; Very Low Density Lipoprotein 61 mg/dL (5-40)
== END | disposition home or self-care (01) ==
LOC: POLAB3 14:17
PROVIDERS: PCP Family Medicine Geriatric Medicine; Visit Provider Family Medicine Geriatric Medicine
DX: E11.65 Type 2 diabetes mellitus with hyperglycemia (principal); E78.5 Hyperlipidemia, unspecified; E55.9 Vitamin D deficiency, unspecified; I10 Essential (primary) hypertension
CPT/HCPCS: 36415; 80053; 80061; 82306; 84443; 85025

== ENCOUNTER → 2023-09-10 | Outpatient (CLI) | payer MEDICARE, OTHER, SELFPAY ==
--- NOTE | 2023-09-10 15:30 | RAD_ITS ---
INDICATION: ABDOMINAL PAIN EXAMINATION/TECHNIQUE: X-RAY - XR Abdomen 1 View COMPARISON: None FINDINGS: BOWEL GAS PATTERN: Non-obstructive. No bowel or stomach distention. FREE AIR: Not assessed on a single supine view. ORGANOMEGALY: Not seen. CALCIFICATIONS: No abnormal calcifications observed. BONES AND SOFT TISSUES: No acute pathology. RAD/Abdomen Single View IMPRESSION: Non-obstructive bowel gas pattern. Electronically Signed: John Lin MD at 0:26 EST ,
[2023-09-10 16:36] LABS: Anion Gap 10 (5-15); BUN 18 mg/dL (7-18); BUN/Creat Ratio 13.7 RATIO (10-20); Calcium,Total 8.9 mg/dL (8.5-10.1); Chloride 104 mmol/L (98-107); Creatinine, Serum 1.31 mg/dL (0.70-1.30); EST Glomerular Filtration Rate 57 mL/min (>60); Est Glom Filt Rate - Afr Amer 69 mL/min (>60); Glucose 225 mg/dL (74-106); Potassium 3.4 mmol/L (3.5-5.1); Sodium Level 138 mmol/L (136-145)
== END | disposition home or self-care (01) ==
PROVIDERS: PCP Family Medicine Geriatric Medicine; Referring Provider Family Medicine Geriatric Medicine; Visit Provider Family Medicine Geriatric Medicine
DX: R10.9 Unspecified abdominal pain (principal); E87.6 Hypokalemia
CPT/HCPCS: 36415; 74018; 80048

== ENCOUNTER 2023-09-15 12:51 | Emergency (ER) | payer MEDICARE, OTHER, SELFPAY ==
[2023-09-15 12:53] VITALS: BP 138/85; PULSE 97; RESP 18; TEMP 36.6; O2SAT 100; BMI 31.0
--- NOTE | 2023-09-15 13:17 | CT_ITS ---
STUDY: CT ABDOMEN AND PELVIS WITH CONTRAST REASON FOR EXAM: Male, 73 years old. Upper and LLQ abd pain RADIATION DOSAGE (If Supplied By Facility): CTDIvol = ( 16.69 ) mGy, DLP = ( 898.65 ) mGycm TECHNIQUE: IV 100mL Isovue-370 was administered. Transaxial images were obtained from the dome of the diaphragm to the symphysis pubis. Multiplanar coronal and sagittal images were reformatted. Individualized Dose Optimization Techniques Were Used For This CT. COMPARISON: Prior study dated: 03/21/2023. FINDINGS: Mild stranding/scarring in the right lower lung unchanged. The visualized portions of the heart are within normal limits. 5 mm cyst in the caudate lobe unchanged. Normal gallbladder and extrahepatic biliary system. There are multiple benign calcified granulomata of the spleen. Normal pancreas. Normal bilateral adrenal glands. Density in the gastric pylorus is again seen unchanged. Normal in caliber small bowel loops. Calcific density which may represent undissolved pill or ingested material small bowel loops seen. Sensitive diverticulosis of segment of the sigmoid colon with thickening and mild adjacent stranding concerning for recurrent mild diverticulitis. Difficult to exclude underlying lesion. The colon otherwise is somewhat fluid-filled. The appendix is visualized and appears normal. There is mild atherosclerotic calcification of the abdominal aorta, without a demonstrated aneurysm. No retroperitoneal adenopathy. Bilateral renal cysts are again seen more and larger on the left side unchanged. Punctate calcifications/nonobstructing stones in the upper pole of the left kidney are again seen unchanged. No evidence of hydronephrosis. Normal urinary bladder. Slightly prominent prostate. Correlation with PSA level is recommended. Normal abdominal wall. Multilevel degenerative changes of the spine unchanged. CT/Abdomen/Pelvis W IV Cont ONLY IMPRESSION: 1. Extensive diverticulosis of short segment of the sigmoid colon with mild stranding suggestive of recurrent mild diverticulitis. Difficult to exclude underlying lesion. 2. Punctate nonobstructing stones in the upper pole of the left kidney without evidence of hydronephrosis. 3. Otherwise no focal acute inflammatory process. 4. Additional nonacute changes as described above. Electronically Signed: Louis Haney MD at 15:19 EST ,
--- NOTE | 2023-09-15 13:19 | EDS_ITS ---
HPI HPI - GI History of Present Illness Chief Complaint: Abd Pain Informant: patient and spouse/S.O. Narrative Narrative: This 73-year-old patient states he has been having abdominal pain for 1 to 2 months. He states when it started, he was having less bowel movements and having lower abdominal discomfort he saw his doctor and was clinically diagnosed with diverticulitis, which he has had before, placed on a 10-day course of antibiotics which helped. Shortly after that he started having upper abdominal discomfort, he states that has been the case now almost daily for the past month, within minutes of food and especially drinks like Pepsi hitting his stomach. He states this occurred last night as well as this morning. It is more stomach and upper abdomen, not lower. Denies any lower abdominal pains recently. States these are 2 different pains this does not feel like diverticulitis necessarily right now. Denies any fevers, chills, nausea, vomiting, bright red blood per rectum, melena. He states almost 1 week ago, he drank what sounds like a bottle of GoLytely, his bowels have been better since then and looser. No urinary issues. No history of any prior abdominal surgeries. Had a routine colonoscopy by Dr. Anton in the past, is scheduled for another routine follow-up about 1 month from now. [facility] Medical History (Updated 09/15/23 @ 15:[address] Chidi Baker MD) Anxiety CKD (chronic kidney disease) Degeneration of cervical intervertebral disc Diabetes Diastasis recti Diverticulitis ED (erectile dysfunction) Essential hypertension Hypokalemia Tremor Home Medications Prelief 2 tablet PO DAILY decrease acid in urine 03/09/14 [History Last Taken 09/02/19 08:00] metoprolol tartrate 50 mg tablet 50 mg PO BID hypertension 03/09/14 [History Last Taken 09/02/19 14:30] tamsulosin 0.4 mg capsule 0.4 mg PO DAILY urinary issues 01/26/15 [History Last Taken 09/02/19 14:30] docusate sodium 100 mg capsule 200 mg PO QHS constipation 01/27/15 [History Last Taken 09/02/19 23:00] dexlansoprazole 30 mg capsule,biphase delayed release 30 mg PO DAILY stomach 09/03/19 [History Last Taken 09/02/19 08:00] potassium chloride 20 mEq tablet,extended release(part/cryst) 20 meq PO BID supplement ##0 09/04/19 [Rx Last Taken 09/02/19 14:30] triamterene 75 mg-hydrochlorothiazide 50 mg tablet 1 tab PO DAILY hypertension ##0 09/04/19 [Rx Last Taken 09/02/19 08:00] linaclotide 290 mcg capsule (Linzess) 290 mcg PO DAILY 01/19/21 [History Last Taken Unknown] lorazepam 1 mg tablet (Ativan) 1 mg PO BID 01/19/21 [History Last Taken Unknown] melatonin 5 mg capsule 5 mg PO QHS 01/19/21 [History Last Taken Unknown] saw palmetto 450 mg capsule 450 mg PO BID 01/19/21 [History Last Taken Unknown] hydroxyzine pamoate 25 mg capsule 25 mg PO BID PRN itching #60 caps 02/28/21 [Rx Last Taken Unknown] loratadine 10 mg tablet 10 mg PO DAILY #30 tabs 02/28/21 [Rx Last Taken Unknown] amoxicillin 875 mg-potassium clavulanate 125 mg tablet 1 tab PO BID #20 tabs 09/15/23 [Rx Last Taken Unknown] dicyclomine 10 mg capsule 20 mg (2 x 10 mg) PO Q6H PRN PRN abdominal pain #20 CAPSULES 09/15/23 [Rx Last Taken Unknown] sucralfate 1 gram tablet 1 g PO TID 10 days #30 tabs 09/15/23 [Rx Last Taken Unknown] Allergy/AdvReac Type Severity Reaction Status Date / Time sulfamethoxazole AdvReac Unknown Headache Verified 09/15/23 12:52 [From Bactrim] trimethoprim [From Bactrim] AdvReac Unknown Headache Verified 09/15/23 12:52 gabapentin [From Neurontin] AdvReac muscle Verified 09/15/23 12:52 stiffness ofloxacin [From Floxin] AdvReac Unknown Verified 09/15/23 12:52 Family History Mother Brain cancer Father Colon cancer Diabetes Surgical History History of cataract surgery Social History Smoking Status: Current every day smoker tobacco type: cigarettes Tobacco: How many years used: 4 how long ago did patient quit smoking: has been about 6 years second hand exposure: No alcohol intake: current alcohol intake frequency: holidays/special occasions only substance use type: does not use ROS ROS ED Constitutional Constitutional ED: Denies chills or fever(s) Eyes Eyes: Denies change in vision or diplopia ENT ENT ED: Denies rhinorrhea or sore throat Cardiovascular Cardiovascular: Denies chest pain or palpitations Respiratory/Chest Respiratory/Chest: Denies cough or dyspnea Gastrointestinal Gastrointestinal: Reports as per HPI, abdominal pain and cramping; Denies eduardo rrhea, hematemesis, hematochezia, melena, nausea or vomiting Genitourinary Genitourinary ED: Denies dysuria or hematuria Musculoskeletal Musculoskeletal: Denies back pain or neck pain Integumentary Denies abscess or rash Neurologic Neurologic: Denies headache(s), paresthesias or weakness Psychiatric Psychiatric: Denies anxiety or suicidal thoughts EXAM Physical Exam Const Vital Signs: 09/15/23 12:53 Temperature 97.8 F Temperature Source Temporal Pulse Rate 97 Respiratory Rate 18 Blood Pressure 138/85 H Blood Pressure Mean 102 Pulse Ox 100 Oxygen Delivery Method Room Air Positive well nourished and well developed General Appearance ED: well developed and NAD HEENT Reports moist mucous membranes normocephalic and atraumatic Eyes PERRL and EOMs intact bilaterally Neck full ROM and supple Resp normal respiratory effort and clear to auscultation bilaterally Cardio regular rate, regular rhythm and no murmurs GI non-distended GI Narrative: Mild left upper quadrant and left lower quadrant abdominal tenderness without guarding or rebound Auscultation: normoactive bowel sounds Palpation: soft Back/Spine no CVA tenderness General Back: other FROM Extremity normal to inspection General Extremety ED: Negative for edema, pulses abnormal or tenderness General Extremity: Negative for edema or pulses abnormal Neuro oriented x3, CN's II-XII intact bilaterally and no sensory deficits noted Sensorium / Orientation: awake and alert Motor Exam: strength 5/5 throughout Skin no rashes or lesions noted and no wounds MDM MDM MDM Narrative Medical decision making narrative: Patient seems to be having pain in his upper abdomen in his lower abdomen, unknown if the 2 are related, certainly possible that they could be if he has extensive diverticulosis which is noted on the CT. I reviewed the images and the report, he has a mild leukocytosis I agree with the report of the CT, which shows possibly mild diverticulitis in the sigmoid colon, but otherwise negative for anything acute. Since he is having discomfort soon after meals, I think that is probably unrelated in the upper abdomen since he has no CT findings of anything colonic there. Given this I am going to add sucralfate to his Dexilant, and put him on another course of antibiotics to treat the mild diverticulitis. This does not sound like a diverticulitis outpatient failure to me. However, on further questioning, he states that after his initial course of antibiotics, he had several days where he was having trouble going to the bathroom still and told that his diverticulitis was persistent and then put on a 2 antibiotic regimen which I presume was Cipro and Flagyl. He does not remember the antibiotics, he is a fairly poor historian and difficult to get details and timing out of these events, but it sounds like this was all a month or so ago as an outpatient. He then states he is on Linzess, when I asked him if he has irritable bowel syndrome he states he thinks he does, he understands that emergent testing is unlikely to show anything acute when he comes irritable bowel syndrome, I am happy to put him on dicyclomine use as needed in addition to the above prescriptions. He is comfortable with that plan. Lab Data Attestation: I reviewed the patient's lab results. Labs: Laboratory Results - last 24 hr 09/15/23 13:35 WBC 11.5 H RBC 4.95 Hgb 15.1 Hct 46.0 MCV 92.9 MCH 30.5 MCHC 32.8 RDW Std Deviation 42.7 RDW Coeff of Leonel 12.6 Plt Count 285 MPV 9.0 Immature Gran % (Auto) 0.300 Neut % (Auto) 73.4 H Lymph % (Auto) 17.3 L [place] % (Auto) 7.1 Eos % (Auto) 1.6 Baso % (Auto) 0.3 Absolute Neuts (auto) 8.5 H Absolute Lymphs (auto) 2.00 Nucleated RBC % 0 Sodium 136 Potassium 3.4 L Chloride 103 Carbon Dioxide 25.0 Anion Gap 8 BUN 16 Creatinine 1.24 Estim Creat Clear Calc 48.59 Est GFR (MDRD) Af Amer 74 Est GFR (MDRD) Non-Af 61 BUN/Creatinine Ratio 12.9 Glucose 151 H Calcium 9.0 Total Bilirubin 0.30 AST 24 ALT 38 Alkaline Phosphatase 78 Total Protein 7.3 Albumin 3.1 L Globulin 4.2 Albumin/Globulin Ratio 0.7 L Lipase 47 Radiography Diagnostic Testing: Clinical Impression(s) from Imaging Studies Abdomen/Pelvis CT 09/15/23 13:17 IMPRESSION: 1. Extensive diverticulosis of short segment of the sigmoid colon with mild stranding suggestive of recurrent mild diverticulitis. Difficult to exclude underlying lesion. 2. Punctate nonobstructing stones in the upper pole of the left kidney without evidence of hydronephrosis. 3. Otherwise no focal acute inflammatory process. 4. Additional nonacute changes as described above. Electronically Signed: Louis Haney MD at 15:19 EST , Discharge Plan Triage Chief Complaint: Abd Pain ED Provider: Chidi Baker Dx/Rx/DC Orders Clinical Impression: Acute upper abdominal pain, Diverticulitis large intestine Instructions: Abdominal Pain Prescriptions: New sucralfate 1 gram tablet 1 g PO TID 10 Days Qty: 30 0RF amoxicillin-pot clavulanate 875-125 mg tablet 1 tab PO BID Qty: 20 0RF dicyclomine 10 mg capsule 20 mg PO Q6H PRN PRN (Reason: abdominal pain) Qty: 20 0RF No Action lorazepam [Ativan] 1 mg tablet 1 mg PO BID Linzess 290 mcg capsule 290 mcg PO DAILY melatonin 5 mg capsule 5 mg PO QHS saw palmetto 450 mg capsule 450 mg PO BID Rx Instructions: give with food (meal/snack) hydroxyzine pamoate 25 mg capsule 25 mg PO BID PRN (Reason: itching) Qty: 60 1RF loratadine 10 mg tablet 10 mg PO DAILY Qty: 30 1RF metoprolol tartrate 50 MG tablet 50 mg PO BID Patient Comments: Blood Pressure, Heart Prelief 2 tablet PO DAILY tamsulosin 0.4 MG capsule 0.4 mg PO DAILY Patient Comments: Enlarge prostate docusate sodium 100 MG capsule 200 mg PO QHS Patient Comments: stool softner, constipation dexlansoprazole 30 MG capsule,biphase delayed releas 30 mg PO DAILY triamterene-hydrochlorothiazid 75 MG-50MG tablet 1 tab PO DAILY Qty: 0 0RF Rx Instructions: Hold for 5-7 days until BUN/Cr stable and baseline. Repeat BMP on 09/04/19 potassium chloride 20 MEQ tablet 20 meq PO BID Qty: 0 0RF Patient Comments: potassium supplement Rx Instructions: hold now and start once HCTZ/triamterene is resumed. Repeat BMP on 09/04/19 Primary Care Provider: Stuart Hawkins Chi Referrals: Stuart Hawkins Chi, MD [Primary Care Provider] - 3-5 Days if not improving Babak Anton MD [Non-Staff] - Disposition Disposition: Home, Self Care
[2023-09-15 13:43] LABS: Absolute Neutrophil Count 8.5 X10^3/uL (2.0-7.7); Basophil# 0.04 X10^3/uL; Basophil% 0.3 % (0-1); Eosinophil# 0.18 X10^3/uL; Eosinophils% 1.6 % (0-5); Hemoglobin 15.1 g/dL (13.0-16.5); Lymphocyte % 17.3 % (19-41); Mean Corp Hgb Conc 32.8 g/dL (32-36); Mean Corpuscular Hgb 30.5 pg (27.0-32.0); Mean Corpuscular Volume 92.9 fL (80-94); Monocyte# 0.82 X10^3/uL; Monocyte% 7.1 % (0-10); NRBC Flagged by Analyzer 0 % (0-5); Neutrophil # 8.47 X10^3/uL (2.7-7.7); Neutrophil % 73.4 % (47-70); Platelet Count 285 K/mm3 (150-450); RBC Distribution Width CV 12.6 % (11.6-14.6); RBC Distribution Width SD 42.7 fl (35.1-43.9); Red Blood Count 4.95 M/mm3 (4.6-6.2); White Blood Count 11.5 K/mm3 (4.4-11.0)
[2023-09-15 13:59] LABS: ALB/GLOB Ratio 0.7 RATIO (0.9-2.4); AST(SGOT) 24 U/L (15-37); Alanine Aminotransfer ALT/SGPT 38 U/L (16-61); Albumin, Serum 3.1 g/dL (3.2-5.0); Alkaline Phosphatase 78 U/L (45-117); Anion Gap 8 (5-15); BUN 16 mg/dL (7-18); BUN/Creat Ratio 12.9 RATIO (10-20); Chloride 103 mmol/L (98-107); Creatinine, Serum 1.24 mg/dL (0.70-1.30); EST Glomerular Filtration Rate 61 mL/min (>60); Est Glom Filt Rate - Afr Amer 74 mL/min (>60); Estimated Creatinine Clearance 48.59 ml/min; Globulin 4.2 g/dL (2.2-4.2); Glucose 151 mg/dL (74-106); Lipase 47 U/L (13-75); Potassium 3.4 mmol/L (3.5-5.1); Protein, Total 7.3 g/dL (6.4-8.2); Sodium Level 136 mmol/L (136-145)
[2023-09-15 15:48] VITALS: BP 133/95; PULSE 81; RESP 16; O2SAT 97
== END 2023-09-15 15:50 | disposition home or self-care (01) ==
PROVIDERS: Emergency Provider Emergency Medicine; PCP Family Medicine Geriatric Medicine; Visit Provider Emergency Medicine
DX: R10.10 Upper abdominal pain, unspecified (principal); E11.22 Type 2 diabetes mellitus with diabetic chronic kidney disease; K57.32 Diverticulitis of large intestine without perforation or abscess without bleeding; N18.9 Chronic kidney disease, unspecified; F17.210 Nicotine dependence, cigarettes, uncomplicated; I12.9 Hypertensive chronic kidney disease with stage 1 through stage 4 chronic kidney disease, or unspecified chronic kidney disease; F41.9 Anxiety disorder, unspecified; Z79.899 Other long term (current) drug therapy
CPT/HCPCS: 74177; 80053; 83690; 85025; 99283; Q9967; A4216

== ENCOUNTER 2023-12-12 15:44 | Outpatient (CLI) | payer MEDICARE, OTHER, SELFPAY ==
[2023-12-12 16:23] LABS: Absolute Lymphocyte Count 2.58 X10^3/uL (0.83-4.51); Absolute Neutrophil Count 7.6 X10^3/uL (2.0-7.7); Basophil# 0.04 X10^3/uL; Basophil% 0.4 % (0-1); Eosinophil# 0.26 X10^3/uL; Eosinophils% 2.3 % (0-5); Hematocrit 44.3 % (40-54); Hemoglobin 14.8 g/dL (13.0-16.5); Lymphocyte # 2.58 X10^3/ul (0.83-4.51); Lymphocyte % 22.7 % (19-41); Mean Corp Hgb Conc 33.4 g/dL (32-36); Mean Corpuscular Volume 89.7 fL (80-94); Mean Platelet Vol. 9.6 fl (6.2-12.0); Monocyte# 0.79 X10^3/uL; Monocyte% 6.9 % (0-10); NRBC Flagged by Analyzer 0 % (0-5); Neutrophil # 7.64 X10^3/uL (2.7-7.7); Neutrophil % 67.2 % (47-70); Platelet Count 266 K/mm3 (150-450); RBC Distribution Width SD 42.4 fl (35.1-43.9); Red Blood Count 4.94 M/mm3 (4.6-6.2); White Blood Count 11.4 K/mm3 (4.4-11.0)
[2023-12-12 16:54] LABS: Vitamin D,25 Hydroxy 31.7 ng/mL
[2023-12-12 17:07] LABS: ALB/GLOB Ratio 0.8 RATIO (0.9-2.4); AST(SGOT) 16 U/L (15-37); Alanine Aminotransfer ALT/SGPT 34 U/L (16-61); Albumin, Serum 3.4 g/dL (3.2-5.0); Alkaline Phosphatase 90 U/L (45-117); Anion Gap 7 (5-15); BUN 22 mg/dL (7-18); BUN/Creat Ratio 16.8 RATIO (10-20); Calcium,Total 9.2 mg/dL (8.5-10.1); Chloride 102 mmol/L (98-107); Cholesterol 170 mg/dL (200); Creatinine, Serum 1.31 mg/dL (0.70-1.30); EST Glomerular Filtration Rate 57 mL/min (>60); Est Glom Filt Rate - Afr Amer 69 mL/min (>60); Globulin 4.4 g/dL (2.2-4.2); Glucose 132 mg/dL (74-106); High Density Lipoprotein 37 mg/dL; Potassium 3.6 mmol/L (3.5-5.1); Protein, Total 7.8 g/dL (6.4-8.2); Sodium Level 136 mmol/L (136-145); Thyroid Stim Hormone (TSH) 1.24 uIU/mL (0.358-3.74); Triglycerides 213 mg/dL; Very Low Density Lipoprotein 43 mg/dL (5-40)
--- OUTSIDE RECORDS SUMMARY | 2023-12-12 19:08 | XMS RPT_ITS | CCD ---
Author Name Unknown Address [address] [place] [address] Organization [facility] Care Team Providers Care Customer Service Teller Name Role Phone JAMMIE SHANNON Admitting Unavailable JAMMIE SHANNON Attending Unavailable JAMMIE SHANNON Primary Care Unavailable BEVERLY CHANDRA MD Referring Unavailable BEVERLY CHANDRA MD Consulting Unavailable PROVIDER, UNKNOWN Consulting Unavailable PROVIDER, UNKNOWN Consulting Unavailable Problems Problem Classification Problem Date Documented Date Episodic/Chronic E Codes: Machinery (1 source) Contact with other specified machinery, initial encounter; Translations: [Contact with other specified machinery, initial encounter] Onset: 3 Episodic Essential hypertension (1 source) Essential (primary) hypertension; Translations: [Essential (primary) hypertension] Onset: 3 Chronic Open wounds of extremities (3 sources) 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, initial encounter; Translations: [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, initial encounter] Onset: 3 Chronic Results Test Name Value Interpretation Reference Range Facil ity Encounters Encounter Date Encounter Type Care Provider Facility Start: 01-30-2023 End: 01-30-2023 Emergency department patient visit JAMMIE SHANNON [facility] Payers Date Payer Category Payer Unknown [id number] Medicare [id number] Medicare [id number] Summary Purpose Family History No Family History Records Found Advance Directives No Advanced Directives Records Found Additional Source Comments (unrecognized sect ion and content) No Status Records Found INFORMATION SOURCE (unrecogn ized section and content) FOR RECORDS PERTAINING TO PATIENTS WHO ARE OR HAVE BEEN ENROLLED IN A CHEMICAL DEPENDENCY/SUBSTANCEABUSE PROGRAM, SOME INFORMATION MAY BE OMITTED. This clinical summary was aggregated from multiple sources. Caution should be exercised in using it in the provision of clinical care. This summary normalizes information from multiple sources, and as a consequence, information in this document may materially change the coding, format and clinical context of patient data. In addition, data may be omitted in some cases. CLINICAL DECISIONS SHOULD BE BASED ON THE PRIMARY CLINICAL RECORDS. [facility] [employer] [facility]. provides no warranty or guarantee of the accuracy or completeness of information in this document.
== END 2023-12-12 23:59 | disposition home or self-care (01) ==
LOC: LAB 15:47
PROVIDERS: PCP Family Medicine Geriatric Medicine; Visit Provider Family Medicine Geriatric Medicine
DX: E11.65 Type 2 diabetes mellitus with hyperglycemia (principal); I10 Essential (primary) hypertension; E78.5 Hyperlipidemia, unspecified
CPT/HCPCS: 36415; 80053; 80061; 82306; 84443; 85025

== ENCOUNTER → 2024-01-08 | Outpatient (CLI) | payer MEDICARE, OTHER, SELFPAY ==
--- NOTE | 2024-01-08 16:51 | RAD_ITS ---
STUDY: X-RAY - LUMBAR SPINE REASON FOR EXAM: Male, 73 years old. LUMBAR DISC DISEASE LOW BACK PAIN TECHNIQUE: 5 view(s) of the lumbar spine were obtained. COMPARISON: None FINDINGS: There is reversal of the normal lumbar lordosis. Moderate dextroscoliosis is present. No visualized fracture or compression deformity. Moderate to severe disc space narrowing is present at all visualized levels with paravertebral and anterior endplate osteophytes. The soft tissue structures are unremarkable. RAD/L/S Spine Min 4 Views IMPRESSION: Degenerative changes of the spine, as detailed above. Electronically Signed: Albert Malloy MD at 9:48 EDT ,
== END | disposition home or self-care (01) ==
LOC: RAD 16:49
PROVIDERS: PCP Family Medicine Geriatric Medicine; Referring Provider Family Medicine Geriatric Medicine; Visit Provider Family Medicine Geriatric Medicine
DX: M51.9 Unspecified thoracic, thoracolumbar and lumbosacral intervertebral disc disorder (principal); M54.50 Low back pain, unspecified
CPT/HCPCS: 72110

== ENCOUNTER → 2024-03-26 | Outpatient (CLI) | payer MEDICARE, OTHER, SELFPAY ==
--- NOTE | 2024-03-26 10:58 | RAD_ITS ---
INDICATION: DIVERTICULITIS/ABD PAIN EXAMINATION/TECHNIQUE: X-RAY - XR Abdomen W/ Decub and/or Erect Views: 4 image upright and supine abdominal radiograph COMPARISON: September 15, 2023 CT FINDINGS: BOWEL GAS PATTERN: No gastric or small bowel distention. Large colonic stool and fluid burden with small layering air-fluid levels throughout the colon on upright view. . FREE AIR: No pneumoperitoneum. ORGANOMEGALY: Not seen. CALCIFICATIONS: No concerning calcifications. LOWER CHEST: No acute pathology. BONES AND SOFT TISSUES: Moderate spondylosis with lateral curvature of the thoracolumbar spine with scattered bridging osteophytes RAD/Abd Inc Decub and/or Erect IMPRESSION: Large colonic burden of stool and layering fluid without negrita distention. Cannot exclude acute infectious or inflammatory colitis. CT could further evaluate as clinically indicated. Nonobstructive bowel gas pattern. Electronically Signed: Frederick Oliveira MD at 18:55 EDT ,
[2024-03-26 11:39] LABS: Absolute Neutrophil Count 5.9 X10^3/uL (2.0-7.7); Basophil# 0.04 X10^3/uL; Basophil% 0.4 % (0-1); Eosinophil# 0.33 X10^3/uL; Eosinophils% 3.5 % (0-5); Hematocrit 43.8 % (40-54); Lymphocyte % 24.4 % (19-41); Mean Corpuscular Hgb 29.6 pg (27.0-32.0); Mean Corpuscular Volume 92.6 fL (80-94); Mean Platelet Vol. 9.1 fl (6.2-12.0); Monocyte# 0.83 X10^3/uL; Monocyte% 8.8 % (0-10); NRBC Flagged by Analyzer 0 % (0-5); Neutrophil # 5.89 X10^3/uL (2.7-7.7); Neutrophil % 62.4 % (47-70); Platelet Count 256 K/mm3 (150-450); RBC Distribution Width CV 12.8 % (11.6-14.6); RBC Distribution Width SD 43.5 fl (35.1-43.9); Red Blood Count 4.73 M/mm3 (4.6-6.2); White Blood Count 9.4 K/mm3 (4.4-11.0)
[2024-03-26 12:17] LABS: ALB/GLOB Ratio 0.7 RATIO (0.9-2.4); AST(SGOT) 30 U/L (15-37); Alanine Aminotransfer ALT/SGPT 29 U/L (16-61); Albumin, Serum 3.1 g/dL (3.2-5.0); Alkaline Phosphatase 84 U/L (45-117); Anion Gap 6 (5-15); BUN 18 mg/dL (7-18); BUN/Creat Ratio 12.4 RATIO (10-20); Calcium,Total 8.9 mg/dL (8.5-10.1); Chloride 101 mmol/L (98-107); Creatinine, Serum 1.45 mg/dL (0.70-1.30); EST Glomerular Filtration Rate 51 mL/min (>60); Est Glom Filt Rate - Afr Amer 61 mL/min (>60); Globulin 4.3 g/dL (2.2-4.2); Glucose 132 mg/dL (74-106); Potassium 3.9 mmol/L (3.5-5.1); Protein, Total 7.4 g/dL (6.4-8.2); Sodium Level 134 mmol/L (136-145)
== END | disposition home or self-care (01) ==
LOC: RAD 10:53
PROVIDERS: PCP Family Medicine Geriatric Medicine; Referring Provider Family Medicine Geriatric Medicine; Visit Provider Family Medicine Geriatric Medicine
DX: K57.32 Diverticulitis of large intestine without perforation or abscess without bleeding (principal); K56.41 Fecal impaction; R10.9 Unspecified abdominal pain; Z23 Encounter for immunization; I10 Essential (primary) hypertension
CPT/HCPCS: 36415; 74019; 80053; 85025

== ENCOUNTER → 2024-04-02 | Outpatient (CLI) | payer MEDICARE, OTHER, SELFPAY ==
--- NOTE | 2024-04-02 16:09 | CT_ITS ---
INDICATION: ABD PAIN EXAMINATION: CT ABDOMEN AND PELVIS WITH CONTRAST - CT Abdomen And Pelvis W/ Contrast Injection TECHNIQUE: Helically acquired images were obtained of the abdomen and pelvis following IV contrast. A radiation dose optimization technique was used for this scan. IV Contrast dosage and agent: 100 mL Isovue-370 Oral contrast: Gastrografin. COMPARISON: September 15, 2023, January 26, 2015. FINDINGS: LOWER CHEST: Patchy right lateral basilar groundglass attenuation. No effusion. No cardiomegaly or pericardial effusion. LIVER: Homogeneous. No focal mass. GALLBLADDER AND BILIARY TREE: No gallbladder distention. Minimal chronic gallbladder fundal wall mineralization without significant change from January 26, 2015 . No intra- or extrahepatic biliary ductal dilation. PANCREAS: No focal cystic or solid mass. SPLEEN: Calcified sequela of prior granulomatous disease. ADRENAL GLANDS: No nodules. KIDNEYS AND URETERS: 2 mm and 1 mm left renal nonobstructive stones. No hydronephrosis. Lobulated renal cortex with multiple bilateral renal cysts, no specific imaging follow-up required. No perinephric inflammation. PERITONEUM: No organized free fluid collection. No free air. BOWEL: No acute gastric finding. No small bowel distention or focal wall thickening. Normal appendix. Oral contrast extends to rectum. Sigmoid diverticulosis with surrounding colonic wall thickening and adjacent inflammatory stranding. . LYMPH NODES: No enlarged mesenteric or retroperitoneal lymph nodes. VESSELS: Aortic atherosclerosis without ectasia.. URINARY BLADDER: Unremarkable. REPRODUCTIVE ORGANS: No pelvic masses. ABDOMINAL WALL: No discrete abdominal or pelvic wall hernia. BONES: No lytic or blastic abnormality. Right lumbar facet arthropathy. Multilevel posterior disc protrusions and facet arthropathy, with up to moderate spinal canal stenosis at L3-4. CT/Abdomen/Pelvis WITH Contrast IMPRESSION: Acute uncomplicated diverticulitis at the sigmoid colon. CT or colonoscopy follow-up is recommended in 6 weeks after treatment to ensure resolution of wall thickening and exclude underlying neoplasm Chronic right lateral basilar atelectasis or scarring without significant interval change from prior exams Minimal chronic gallbladder fundal wall mineralization. Electronically Signed: Frederick Oliveira MD at 19:35 EDT ,
[2024-04-02 17:07] LABS: Absolute Lymphocyte Count 2.22 X10^3/uL (0.83-4.51); Basophil# 0.04 X10^3/uL; Basophil% 0.4 % (0-1); Eosinophil# 0.27 X10^3/uL; Eosinophils% 2.9 % (0-5); Hematocrit 43.3 % (40-54); Hemoglobin 14.2 g/dL (13.0-16.5); Lymphocyte # 2.22 X10^3/ul (0.83-4.51); Lymphocyte % 23.7 % (19-41); Mean Corp Hgb Conc 32.8 g/dL (32-36); Mean Corpuscular Hgb 29.9 pg (27.0-32.0); Mean Corpuscular Volume 91.2 fL (80-94); Mean Platelet Vol. 9.1 fl (6.2-12.0); Monocyte# 0.82 X10^3/uL; Monocyte% 8.8 % (0-10); NRBC Flagged by Analyzer 0 % (0-5); Neutrophil # 5.98 X10^3/uL (2.7-7.7); Neutrophil % 63.8 % (47-70); Platelet Count 268 K/mm3 (150-450); RBC Distribution Width CV 12.8 % (11.6-14.6); RBC Distribution Width SD 42.5 fl (35.1-43.9); Red Blood Count 4.75 M/mm3 (4.6-6.2); White Blood Count 9.4 K/mm3 (4.4-11.0)
[2024-04-02 17:31] LABS: ALB/GLOB Ratio 0.8 RATIO (0.9-2.4); AST(SGOT) 20 U/L (15-37); Alanine Aminotransfer ALT/SGPT 37 U/L (16-61); Albumin, Serum 3.3 g/dL (3.2-5.0); Alkaline Phosphatase 95 U/L (45-117); Anion Gap 8 (5-15); BUN 22 mg/dL (7-18); Calcium,Total 9.5 mg/dL (8.5-10.1); Chloride 100 mmol/L (98-107); Creatinine, Serum 1.57 mg/dL (0.70-1.30); EST Glomerular Filtration Rate 46 mL/min (>60); Est Glom Filt Rate - Afr Amer 56 mL/min (>60); Globulin 4.4 g/dL (2.2-4.2); Glucose 185 mg/dL (74-106); Potassium 3.9 mmol/L (3.5-5.1); Protein, Total 7.7 g/dL (6.4-8.2); Sodium Level 135 mmol/L (136-145)
== END | disposition home or self-care (01) ==
PROVIDERS: PCP Family Medicine Geriatric Medicine; Referring Provider Family Medicine Geriatric Medicine; Visit Provider Family Medicine Geriatric Medicine
DX: I10 Essential (primary) hypertension (principal); K57.32 Diverticulitis of large intestine without perforation or abscess without bleeding; R10.9 Unspecified abdominal pain
CPT/HCPCS: 36415; 74177; 80053; 85025; Q9967

== ENCOUNTER → 2024-04-09 | Outpatient (CLI) | payer MEDICARE, OTHER, SELFPAY | END | disposition home or self-care (01) | LOC: LABSPEC 17:11 | PROVIDERS: PCP Family Medicine Geriatric Medicine; Visit Provider Family Medicine Geriatric Medicine | DX: N39.0 Urinary tract infection, site not specified (principal); R33.9 Retention of urine, unspecified | CPT/HCPCS: 87086 ==

== ENCOUNTER → 2024-04-14 | Outpatient (CLI) | payer MEDICARE, OTHER, SELFPAY ==
[2024-04-14 15:27] LABS: Bacteria 0 SEEN /hpf (None Seen); Mucous, Urine 0 SEEN /hpf (<or=2+); Red Blood Cells-Urine 0 SEEN /hpf (0-5); Squamous Epithelial Cells - UA 0 SEEN /hpf (0-5); White Blood Cells 0 SEEN /hpf (0-5)
[2024-04-14 15:47] LABS: Absolute Lymphocyte Count 2.33 X10^3/uL (0.83-4.51); Absolute Neutrophil Count 9.4 X10^3/uL (2.0-7.7); Basophil# 0.04 X10^3/uL; Basophil% 0.3 % (0-1); Eosinophil# 0.26 X10^3/uL; Hematocrit 44.7 % (40-54); Hemoglobin 14.7 g/dL (13.0-16.5); Lymphocyte # 2.33 X10^3/ul (0.83-4.51); Lymphocyte % 17.9 % (19-41); Mean Corp Hgb Conc 32.9 g/dL (32-36); Mean Corpuscular Hgb 29.7 pg (27.0-32.0); Mean Corpuscular Volume 90.3 fL (80-94); Mean Platelet Vol. 8.8 fl (6.2-12.0); Monocyte# 0.97 X10^3/uL; Monocyte% 7.4 % (0-10); NRBC Flagged by Analyzer 0 % (0-5); Neutrophil # 9.35 X10^3/uL (2.7-7.7); Neutrophil % 71.8 % (47-70); Platelet Count 274 K/mm3 (150-450); RBC Distribution Width CV 13.1 % (11.6-14.6); RBC Distribution Width SD 42.6 fl (35.1-43.9); Red Blood Count 4.95 M/mm3 (4.6-6.2)
[2024-04-14 16:14] LABS: Color, Urine Yellow (Yellow); Glucose, Dipstick Normal (Normal); Ketone-Dipstick Negative (Negative); Leukocyte Esterase-Dipstick Negative /ul (Negative); Nitrite-Dipstick Negative (Negative); Occult Blood-Urine Negative /ul (Negative); Protein-Dipstick Negative (Negative); Urine Bilirubin Dipstick Negative (Negative); Urine Clarity Sl. Cloudy (Clear); Urine Urobilinogen Normal (Normal); Urine pH 6.5 (5.0 - 8.0)
[2024-04-14 20:37] LABS: ALB/GLOB Ratio 0.8 RATIO (0.9-2.4); AST(SGOT) 29 U/L (15-37); Alanine Aminotransfer ALT/SGPT 38 U/L (16-61); Albumin, Serum 3.3 g/dL (3.2-5.0); Alkaline Phosphatase 70 U/L (45-117); Anion Gap 9 (5-15); BUN 14 mg/dL (7-18); BUN/Creat Ratio 11.4 RATIO (10-20); CPK Total, Creatine Kinase 57 U/L (39-308); Calcium,Total 9.2 mg/dL (8.5-10.1); Chloride 97 mmol/L (98-107); Creatinine, Serum 1.23 mg/dL (0.70-1.30); EST Glomerular Filtration Rate 61 mL/min (>60); Est Glom Filt Rate - Afr Amer 74 mL/min (>60); Globulin 4.3 g/dL (2.2-4.2); Glucose 137 mg/dL (74-106); Potassium 4.1 mmol/L (3.5-5.1); Protein, Total 7.6 g/dL (6.4-8.2); Sodium Level 133 mmol/L (136-145); Troponin-I HS 5 pg/mL (3.0-78.0)
[2024-04-16 04:07] LABS: Myoglobin, Serum 43 ng/mL (28-72)
== END | disposition home or self-care (01) ==
LOC: LAB 14:45
PROVIDERS: PCP Family Medicine Geriatric Medicine; Referring Provider Family Medicine Geriatric Medicine; Visit Provider Family Medicine Geriatric Medicine
DX: E78.5 Hyperlipidemia, unspecified (principal); R07.9 Chest pain, unspecified; R35.0 Frequency of micturition; R33.9 Retention of urine, unspecified
CPT/HCPCS: 36415; 80053; 81001; 82550; 83874; 84484; 85025

== ENCOUNTER → 2024-04-16 | Outpatient (CLI) | payer MEDICARE, OTHER, SELFPAY ==
--- NOTE | 2024-04-16 12:26 | EKG12_ITS ---
Test Reason : CP Blood Pressure : / mmHG Vent. Rate : 079 BPM Atrial Rate : 079 BPM P-R Int : 146 ms QRS Dur : 074 ms QT Int : 376 ms P-R-T Axes : 055 016 050 degrees QTc Int : 431 ms Normal sinus rhythm Normal ECG Confirmed by YESSICA HUNG, CLAIR ([id number]), marketing editor OLIVIA MAXWELL ([id number]) on 04/17/2024 8:25:54 AM Referred By: Stuart Hawkins Confirmed By:CLAIR JAUN MD
== END | disposition home or self-care (01) ==
PROVIDERS: PCP Family Medicine Geriatric Medicine; Referring Provider Family Medicine Geriatric Medicine; Visit Provider Family Medicine Geriatric Medicine
DX: R07.9 Chest pain, unspecified (principal)
CPT/HCPCS: 93005

== ENCOUNTER → 2024-04-22 | Outpatient (CLI) | payer MEDICARE, OTHER, SELFPAY ==
--- NOTE | 2024-04-22 15:31 | US_ITS ---
STUDY: ULTRASOUND - URINARY BLADDER REASON FOR EXAM: Male, 73 years old. URINARY RETENTION TECHNIQUE: Ultrasound evaluation of the urinary bladder was performed with real-time and static ruano-scale imaging. COMPARISON: None. FINDINGS: There is no right UVJ calculus. There is a visualized right ureteral jet. There is no left UVJ calculus. There is a visualized left ureteral jet. The distended volume of the urinary bladder is 130.6 ml. The empty volume of the urinary bladder is 3.4 ml. The bladder wall is within normal limits. The bladder wall measures 3 mm. There is no demonstrated bladder wall mass lesion. There are no demonstrated bladder calculi. US/Post Void Residual Bladder IMPRESSION: Normal ultrasound of the urinary bladder. Electronically Signed: Deon Moses MD at 10:07 EDT ,
== END | disposition home or self-care (01) ==
LOC: US 15:28
PROVIDERS: PCP Family Medicine Geriatric Medicine; Referring Provider Family Medicine Geriatric Medicine; Visit Provider Family Medicine Geriatric Medicine
DX: R33.9 Retention of urine, unspecified (principal)
CPT/HCPCS: 51798

== ENCOUNTER → 2024-06-09 | Outpatient (CLI) | payer MEDICARE, OTHER, SELFPAY ==
[2024-06-09 14:11] LABS: Absolute Lymphocyte Count 2.19 X10^3/uL (0.83-4.51); Absolute Neutrophil Count 5.9 X10^3/uL (2.0-7.7); Basophil# 0.03 X10^3/uL; Basophil% 0.3 % (0-1); Eosinophil# 0.28 X10^3/uL; Eosinophils% 3.1 % (0-5); Hematocrit 43.3 % (40-54); Hemoglobin 14.5 g/dL (13.0-16.5); Lymphocyte # 2.19 X10^3/ul (0.83-4.51); Lymphocyte % 24.1 % (19-41); Mean Corp Hgb Conc 33.5 g/dL (32-36); Mean Corpuscular Hgb 30.2 pg (27.0-32.0); Mean Corpuscular Volume 90.2 fL (80-94); Monocyte# 0.72 X10^3/uL; Monocyte% 7.9 % (0-10); NRBC Flagged by Analyzer 0 % (0-5); Neutrophil # 5.86 X10^3/uL (2.7-7.7); Neutrophil % 64.4 % (47-70); Platelet Count 228 K/mm3 (150-450); RBC Distribution Width CV 12.8 % (11.6-14.6); RBC Distribution Width SD 42.5 fl (35.1-43.9); White Blood Count 9.1 K/mm3 (4.4-11.0)
[2024-06-09 14:51] LABS: ALB/GLOB Ratio 0.7 RATIO (0.9-2.4); AST(SGOT) 23 U/L (15-37); Alanine Aminotransfer ALT/SGPT 34 U/L (16-61); Albumin, Serum 3.1 g/dL (3.2-5.0); Alkaline Phosphatase 87 U/L (45-117); Anion Gap 7 (5-15); BUN 22 mg/dL (7-18); BUN/Creat Ratio 17.6 RATIO (10-20); Calcium,Total 9.1 mg/dL (8.5-10.1); Chloride 100 mmol/L (98-107); Creatinine, Serum 1.25 mg/dL (0.70-1.30); EST Glomerular Filtration Rate 60 mL/min (>60); Est Glom Filt Rate - Afr Amer 73 mL/min (>60); Globulin 4.5 g/dL (2.2-4.2); Glucose 125 mg/dL (74-106); Potassium 3.6 mmol/L (3.5-5.1); Protein, Total 7.6 g/dL (6.4-8.2); Sodium Level 133 mmol/L (136-145); Thyroid Stim Hormone (TSH) 1.07 uIU/mL (0.358-3.74)
[2024-06-09 15:00] LABS: Vitamin D,25 Hydroxy 39.4 ng/mL
== END | disposition home or self-care (01) ==
PROVIDERS: PCP Family Medicine Geriatric Medicine; Visit Provider Family Medicine Geriatric Medicine
DX: E11.65 Type 2 diabetes mellitus with hyperglycemia (principal); I10 Essential (primary) hypertension; E55.9 Vitamin D deficiency, unspecified
CPT/HCPCS: 36415; 80053; 82306; 84443; 85025

== ENCOUNTER → 2024-09-15 | Outpatient (CLI) | payer MEDICARE, OTHER, SELFPAY ==
--- NOTE | 2024-09-15 11:56 | MRI_ITS ---
STUDY: MRI LUMBAR SPINE WITHOUT CONTRAST REASON FOR EXAM: Male, 74 years old. LOW BACK PAIN,RT SCIATICA, worsening pain TECHNIQUE: Standardized fat and water weighted pulse sequences were obtained in the sagittal and axial planes. COMPARISON: None FINDINGS: Extensive rectosigmoid diverticulosis is present. No visualized acute fracture or compression deformity. No marrow edema or aggressive abnormality is seen. Numerous small left renal cysts are present which do not requiring additional imaging or assessment. Normal lumbar lordosis. There is no substantial scoliosis. Normal conus medullaris that terminates at the T12-L1 level. T12-L1: Mild to moderate disc space narrowing with diffuse disc desiccation and minimal annular bulging. Mild anterior endplate spurring. Normal bilateral facet joints. Normal central canal and bilateral lateral recesses. Normal bilateral intervertebral neural foramina. L1-2: Severe disc space narrowing with diffuse disc bulge/disc spur complex. Mild endplate degenerative changes. Small Schmorl''s node. Normal bilateral facet joints. Normal central canal and bilateral lateral recesses. Normal bilateral intervertebral neural foramina. L2-3: Moderate Modic endplate degenerative signal. Severe disc space narrowing with a diffuse disc bulge/osteophyte complex as well as a superimposed subligamentous midline disc extrusion contributing to mild central canal stenosis. Mild facet joint hypertrophy. Mild bilateral foraminal stenosis. L3-4: Diffuse disc desiccation with moderate disc space narrowing and Modic endplate degenerative signal. Diffuse disc bulge/spur complex with bilateral lateral recess stenosis and nerve root compression mild central canal stenosis. Mild to moderate asymmetric facet joint and ligamenta flava hypertrophy. Normal right neural foramen. Moderate left foraminal stenosis with nerve root compression. L4-5: Diffuse disc desiccation with moderate disc space narrowing and broad-based disc herniation combined with moderate facet joint and ligamenta flava hypertrophy causing mild central canal stenosis. Bilateral lateral recess stenosis with nerve root compression. Severe right foraminal stenosis with nerve root compression. Mild left foraminal stenosis L5-S1: Diffuse disc desiccation with mild posterior disc space narrowing and annular bulging. Superimposed right paracentral disc protrusion causing right lateral recess stenosis with nerve root compression. Mild left and moderate right facet joint hypertrophy and ligamenta flava hypertrophy. Right foraminal disc protrusion contributes to moderate right foraminal stenosis with nerve root compression. Mild central canal stenosis. Mild left foraminal stenosis. Normal visualized sacral ala. There is mild paraspinal muscular atrophy. MRI/Spine Lumbar (Routine) IMPRESSION: Multilevel degenerative changes, as described above. Electronically Signed: Albert Malloy MD at 9:58 EST ,
== END | disposition home or self-care (01) ==
LOC: MRI 11:29
PROVIDERS: PCP Family Medicine Geriatric Medicine; Referring Provider Family Medicine Geriatric Medicine; Visit Provider Family Medicine Geriatric Medicine
DX: M54.41 Lumbago with sciatica, right side (principal)
CPT/HCPCS: 72148

== ENCOUNTER → 2024-11-17 | Outpatient (CLI) | payer MEDICARE, OTHER, SELFPAY ==
--- NOTE | 2024-11-17 15:02 | CT_ITS ---
EXAM: CT ABDOMEN AND PELVIS WITH INTRAVENOUS CONTRAST CLINICAL INDICATION: ABD PAIN, PAIN ACROSS LOW ABD, HX-DIVERTICULITIS TECHNIQUE: Helically acquired images were obtained of the abdomen and pelvis with intravenous contrast. This CT exam was performed using one or more of the following dose reduction techniques: automated exposure control, adjustment of the mA and/or kV according to patient size, and/or use of iterative reconstruction technique. CONTRAST: 100ML ISOVUE 300 COMPARISON: 04/02/2024. FINDINGS: LOWER THORAX: Atelectasis right of the pneumonia in the bilateral lung bases. No cardiomegaly. No significant pericardial effusion. ABDOMEN: LIVER: No significant abnormality. Homogeneous. No focal mass. GALLBLADDER AND BILE DUCTS: No significant abnormality. No calcified gallstones. No gallbladder distention or wall edema. No intra- or extrahepatic biliary ductal dilation. PANCREAS: No significant abnormality. No focal cystic or solid mass. SPLEEN: Splenic granulomas. Otherwise, the spleen appears normal. ADRENALS: No significant abnormality. No nodules. KIDNEYS AND URETERS: Multiple bilateral renal cysts are present which no follow-up is indicated. Left upper pole renal calyceal stones measuring up to 3 mm are present without evidence of ureteral stone or hydronephrosis. Normal renal size and position. STOMACH AND BOWEL: Colonic diverticulosis. Mild sigmoid colon wall thickening and trace pericolonic inflammatory stranding is present suggesting acute sigmoid diverticulitis. Distention of the colon proximal to the sigmoid region with air-fluid levels. PELVIS: APPENDIX: No evidence of acute appendicitis. BLADDER: No significant abnormality. REPRODUCTIVE: Prostatomegaly with prostate calcifications. ABDOMEN and PELVIS: INTRAPERITONEAL SPACE: No significant abnormality. No evidence of abscess, perforation, free fluid, or free air. BONES/JOINTS: Osseous degenerative changes. Pmuf-jr-eldaymaj multilevel spinal canal and neural foraminal stenosis due to degenerative changes. No suspicious lytic or blastic abnormality. SOFT TISSUES: No significant abnormality. No discrete abdominal or pelvic wall hernia. VASCULATURE: No significant abnormality. Abdominal aorta is non-dilated. LYMPH NODES: No significant abnormality. No enlarged lymph nodes. CT/Abdomen/Pelvis WITH Contrast IMPRESSION: 1. Acute sigmoid diverticulitis. Given distention of the colon proximal to this location, an underlying mass cannot be entirely excluded. Consider direct visualization after resolution of acute symptoms. 2. Atelectasis right of the pneumonia in the bilateral lung bases. 3. Multiple bilateral renal cysts are present which no follow-up is indicated. Left upper pole renal calyceal stones measuring up to 3 mm are present without evidence of ureteral stone or hydronephrosis. 4. Prostatomegaly with prostate calcifications. 5. Svrb-ga-fjmfammd multilevel spinal canal and neural foraminal stenosis due to degenerative changes. Electronically Signed: Dev Garcia DO at 18:16 EST ,
== END | disposition home or self-care (01) ==
LOC: CT 15:00
PROVIDERS: PCP Family Medicine Geriatric Medicine; Referring Provider Family Medicine Geriatric Medicine; Visit Provider Family Medicine Geriatric Medicine
DX: R10.30 Lower abdominal pain, unspecified (principal)
CPT/HCPCS: 74177; Q9967

== ENCOUNTER → 2024-11-17 | Outpatient (CLI) | payer MEDICARE, OTHER, SELFPAY ==
--- NOTE | 2024-11-17 13:40 | RAD_ITS ---
EXAM: XR ABDOMEN, 2 VIEWS CLINICAL INDICATION: ABD PAIN TECHNIQUE: Frontal view of the abdomen/pelvis with upright view of the abdomen. COMPARISON: Lumbar spine, 11/07/[address] abdomen and pelvis, 11/17/2024. FINDINGS: LOWER THORAX: No acute pathology. INTRAPERITONEAL SPACE: No free air identified. GASTROINTESTINAL TRACT: Colonic gaseous distention correlated with prior CT to include colonic air-fluid levels. No distinct evidence of small bowel obstruction. ORGANS: Normal as visualized. No organomegaly. No abnormal calcifications. BONES/JOINTS: Degenerative changes in the spine with apex right curvature and degenerative changes of the hips. SOFT TISSUES: No acute pathology. RAD/Abd Inc Decub and/or Erect IMPRESSION: Colonic gaseous distention correlated with prior CT to include colonic air-fluid levels. No distinct evidence of small bowel obstruction. Electronically Signed: Dev Garcia DO at 21:58 EST ,
[2024-11-17 14:54] LABS: Absolute Lymphocyte Count 1.91 X10^3/uL (0.83-4.51); Absolute Neutrophil Count 6.4 X10^3/uL (2.0-7.7); Basophil# 0.03 X10^3/uL; Basophil% 0.3 % (0-1); Eosinophil# 0.14 X10^3/uL; Eosinophils% 1.5 % (0-5); Hematocrit 41.6 % (40-54); Hemoglobin 14.1 g/dL (13.0-16.5); Lymphocyte # 1.91 X10^3/ul (0.83-4.51); Lymphocyte % 20.7 % (19-41); Mean Corp Hgb Conc 33.9 g/dL (32-36); Mean Corpuscular Volume 91.4 fL (80-94); Mean Platelet Vol. 8.9 fl (6.2-12.0); Monocyte# 0.72 X10^3/uL; Monocyte% 7.8 % (0-10); NRBC Flagged by Analyzer 0 % (0-5); Neutrophil # 6.39 X10^3/uL (2.7-7.7); Neutrophil % 69.2 % (47-70); Platelet Count 284 K/mm3 (150-450); RBC Distribution Width CV 13.2 % (11.6-14.6); RBC Distribution Width SD 43.6 fl (35.1-43.9); Red Blood Count 4.55 M/mm3 (4.6-6.2); White Blood Count 9.2 K/mm3 (4.4-11.0)
[2024-11-17 16:03] LABS: ALB/GLOB Ratio 0.8 RATIO (0.9-2.4); AST(SGOT) 16 U/L (15-37); Alanine Aminotransfer ALT/SGPT 33 U/L (16-61); Albumin, Serum 3.3 g/dL (3.2-5.0); Alkaline Phosphatase 80 U/L (45-117); Anion Gap 9 (5-15); BUN 23 mg/dL (7-18); BUN/Creat Ratio 16.1 RATIO (10-20); Calcium,Total 9.4 mg/dL (8.5-10.1); Chloride 101 mmol/L (98-107); Creatinine, Serum 1.43 mg/dL (0.70-1.30); EST Glomerular Filtration Rate 52 mL/min (>60); Est Glom Filt Rate - Afr Amer 62 mL/min (>60); Glucose 171 mg/dL (74-106); Potassium 3.4 mmol/L (3.5-5.1); Protein, Total 7.3 g/dL (6.4-8.2); Sodium Level 135 mmol/L (136-145)
== END | disposition home or self-care (01) ==
PROVIDERS: PCP Family Medicine Geriatric Medicine; Referring Provider Family Medicine Geriatric Medicine; Visit Provider Family Medicine Geriatric Medicine
DX: R10.9 Unspecified abdominal pain (principal); I10 Essential (primary) hypertension
CPT/HCPCS: 36415; 74019; 80053; 85025

== ENCOUNTER → 2024-11-24 | Outpatient (CLI) | payer MEDICARE, OTHER, SELFPAY | END | disposition home or self-care (01) | LOC: POLAB3 15:25 | PROVIDERS: PCP Family Medicine Geriatric Medicine; Visit Provider Family Medicine Geriatric Medicine | DX: R68.83 Chills (without fever) (principal) | CPT/HCPCS: 87631 ==

== ENCOUNTER → 2024-11-27 | Outpatient (CLI) | payer MEDICARE, OTHER, SELFPAY ==
--- NOTE | 2024-11-27 10:44 | MRI_ITS ---
PROCEDURE: SPINE CERVICAL (ROUTINE) REASON FOR EXAM: Pain. TECHNIQUE: Cervical spine MRI without intravenous gadolinium-based contrast. COMPARISON: None. FINDINGS: Vertebrae: Cervical vertebral body heights are preserved. Bone marrow signal is unremarkable. Spinal Cord: Normal in signal. C2-3: Unremarkable C3-4: Disc bulging, facet and uncovertebral hypertrophy resulting in moderate bilateral neural foraminal stenosis. Partial effacement of the anterior thecal sac. C4-5: Grade 1 anterolisthesis, disc bulging, and facet and uncovertebral hypertrophy resulting in mild right moderate left neural foraminal stenosis as well as anterior contact of the cord. C5-6: Right paramidline disc protrusion indenting the anterior right hemicord. Facet and uncovertebral hypertrophy. Mild right and moderate left neural foraminal stenosis. C6-7: Disc bulging and facet/uncovertebral hypertrophy resulting in severe bilateral neural foraminal stenosis an effacement of the anterior thecal sac with anterior contact of the cord. C7-T1: Grade 1 anterolisthesis. No significant central or neural foraminal stenosis. Postcontrast images: No suspicious contrast enhancement. MRI/Spine Cervical (Routine) IMPRESSION: Multilevel spondylosis. Multilevel spondylolisthesis. Reading Location: [id number]
== END | disposition home or self-care (01) ==
LOC: MRI 10:40
PROVIDERS: PCP Family Medicine Geriatric Medicine; Referring Provider Orthopaedic Surgery Orthopaedic Surgery of the Spine; Visit Provider Orthopaedic Surgery Orthopaedic Surgery of the Spine
DX: G95.9 Disease of spinal cord, unspecified (principal)
CPT/HCPCS: 72141

== ENCOUNTER → 2024-12-03 | Outpatient (CLI) | payer MEDICARE, OTHER, SELFPAY | END | disposition home or self-care (01) | LOC: POLAB3 16:53 | PROVIDERS: PCP Family Medicine Geriatric Medicine; Visit Provider Family Medicine Geriatric Medicine | DX: N39.0 Urinary tract infection, site not specified (principal) | CPT/HCPCS: 87086 ==

== ENCOUNTER → 2024-12-15 | Outpatient (CLI) | payer MEDICARE, OTHER, SELFPAY ==
[2024-12-15 16:17] LABS: Absolute Lymphocyte Count 1.95 X10^3/uL (0.83-4.51); Absolute Neutrophil Count 7.9 X10^3/uL (2.0-7.7); Basophil# 0.03 X10^3/uL; Basophil% 0.3 % (0-1); Eosinophil# 0.13 X10^3/uL; Eosinophils% 1.2 % (0-5); Hemoglobin 14.3 g/dL (13.0-16.5); Lymphocyte # 1.95 X10^3/ul (0.83-4.51); Lymphocyte % 18.1 % (19-41); Mean Corp Hgb Conc 33.3 g/dL (32-36); Mean Corpuscular Hgb 30.4 pg (27.0-32.0); Mean Corpuscular Volume 91.5 fL (80-94); Mean Platelet Vol. 9.1 fl (6.2-12.0); Monocyte# 0.71 X10^3/uL; Monocyte% 6.6 % (0-10); NRBC Flagged by Analyzer 0 % (0-5); Neutrophil # 7.92 X10^3/uL (2.7-7.7); Neutrophil % 73.3 % (47-70); Platelet Count 270 K/mm3 (150-450); RBC Distribution Width CV 12.6 % (11.6-14.6); RBC Distribution Width SD 42.7 fl (35.1-43.9); White Blood Count 10.8 K/mm3 (4.4-11.0)
[2024-12-15 17:32] LABS: Vitamin D,25 Hydroxy 28.5 ng/mL
[2024-12-15 17:36] LABS: ALB/GLOB Ratio 0.7 RATIO (0.9-2.4); AST(SGOT) 21 U/L (15-37); Alanine Aminotransfer ALT/SGPT 30 U/L (16-61); Albumin, Serum 2.9 g/dL (3.2-5.0); Alkaline Phosphatase 40 U/L (45-117); Anion Gap 10 (5-15); BUN 16 mg/dL (7-18); BUN/Creat Ratio 11.9 RATIO (10-20); Calcium,Total 8.9 mg/dL (8.5-10.1); Chloride 100 mmol/L (98-107); Creatinine, Serum 1.34 mg/dL (0.70-1.30); EST Glomerular Filtration Rate 56 mL/min (>60); Est Glom Filt Rate - Afr Amer 67 mL/min (>60); Globulin 4.1 g/dL (2.2-4.2); Glucose 182 mg/dL (74-106); Potassium 3.5 mmol/L (3.5-5.1); Sodium Level 135 mmol/L (136-145)
== END | disposition home or self-care (01) ==
LOC: LAB 15:26
PROVIDERS: PCP Family Medicine Geriatric Medicine; Referring Provider Family Medicine Geriatric Medicine; Visit Provider Family Medicine Geriatric Medicine
DX: E11.69 Type 2 diabetes mellitus with other specified complication (principal); I10 Essential (primary) hypertension; E55.9 Vitamin D deficiency, unspecified
CPT/HCPCS: 36415; 80053; 82306; 84443; 85025

== ENCOUNTER → 2024-12-17 | Outpatient (CLI) | payer MEDICARE, OTHER, SELFPAY ==
--- NOTE | 2024-12-17 08:02 | RAD_ITS ---
PROCEDURE: BARIUM ENEMA NO AIR CONT REASON FOR EXAM: Incomplete colonoscopy. TECHNIQUE: A marketing analytics manager film was obtained. Following this, barium was introduced retrograde through the rectum. The entire colon was opacified imaging was performed. COMPARISON: None. FINDINGS: There is evidence of sigmoid diverticulosis. There is evidence of thickening of the wall of the sigmoid colon with findings suggestive of possible mucosal thickening. Mild diverticulitis should be ruled out. No evidence of obstruction. No mass lesion is seen. RAD/Barium Enema No Air Cont IMPRESSION: Sigmoid diverticulosis. Thickening of the sigmoid wall suggestive of possible mild diverticulitis. Reading Location: [facility]
== END | disposition home or self-care (01) ==
LOC: RAD 07:50
PROVIDERS: PCP Family Medicine Geriatric Medicine; Referring Provider Internal Medicine Gastroenterology; Visit Provider Internal Medicine Gastroenterology
DX: K56.690 Other partial intestinal obstruction (principal)
CPT/HCPCS: 74270

== ENCOUNTER → 2025-01-14 | Outpatient (CLI) | payer MEDICARE, OTHER, SELFPAY ==
[2025-01-14 15:25] LABS: Absolute Lymphocyte Count 1.89 X10^3/uL (0.83-4.51); Absolute Neutrophil Count 6.8 X10^3/uL (2.0-7.7); Basophil# 0.03 X10^3/uL; Basophil% 0.3 % (0-1); Eosinophil# 0.12 X10^3/uL; Eosinophils% 1.2 % (0-5); Hematocrit 40.1 % (40-54); Hemoglobin 13.9 g/dL (13.0-16.5); Lymphocyte # 1.89 X10^3/ul (0.83-4.51); Lymphocyte % 19.6 % (19-41); Mean Corp Hgb Conc 34.7 g/dL (32-36); Mean Corpuscular Hgb 31.2 pg (27.0-32.0); Mean Corpuscular Volume 90.1 fL (80-94); Mean Platelet Vol. 8.9 fl (6.2-12.0); Monocyte# 0.75 X10^3/uL; Monocyte% 7.8 % (0-10); NRBC Flagged by Analyzer 0 % (0-5); Neutrophil % 70.6 % (47-70); Platelet Count 269 K/mm3 (150-450); RBC Distribution Width CV 12.4 % (11.6-14.6); Red Blood Count 4.45 M/mm3 (4.6-6.2); White Blood Count 9.6 K/mm3 (4.4-11.0)
[2025-01-14 15:40] LABS: International Normalized Ratio 0.9; Prothrombin Time (Protime)PT. 12.1 SECONDS (11.7-14.9)
[2025-01-14 18:57] LABS: ALB/GLOB Ratio 1.2 RATIO (0.9-2.4); AST(SGOT) 19 U/L (<=37); Alanine Aminotransfer ALT/SGPT 19 U/L (<=46); Albumin, Serum 3.8 g/dL (3.4-4.8); Alkaline Phosphatase 81 U/L (40-129); Anion Gap 17 (5-15); BUN 17 mg/dL (4-19); BUN/Creat Ratio 15.7 RATIO (10-20); Calcium,Total 9.3 mg/dL (7.6-11.0); Chloride 97 mmol/L (98-108); Creatinine, Serum 1.05 mg/dL (0.70-1.20); EST Glomerular Filtration Rate 75 (>60); Globulin 3.2 g/dL (2.2-4.2); Glucose 123 mg/dL (70-99); Potassium 3.6 mmol/L (3.3-5.1); Sodium Level 135 mmol/L (133-145)
== END | disposition home or self-care (01) ==
LOC: POLAB3 15:05
PROVIDERS: PCP Family Medicine Geriatric Medicine; Visit Provider Family Medicine Geriatric Medicine
DX: Z01.818 Encounter for other preprocedural examination (principal); I10 Essential (primary) hypertension
CPT/HCPCS: 36415; 80053; 85025; 85610

== ENCOUNTER 2025-02-04 14:32 | Observation (INO) | payer MEDICARE, OTHER, SELFPAY ==
[2025-01-23 15:19] LABS: Partial Thromboplast Time 26.7 Seconds (24.1-36.2)
[2025-01-23 16:19] LABS: Magnesium 1.7 mg/dL (1.5-2.2)
[2025-01-23 16:34] LABS: Hepatitis B Surface Antibody Nonreactive; Hepatitis C Antibody Nonreactive (Nonreactive)
[2025-01-23 17:10] LABS: HIV Nonreactive (Nonreactive)
[2025-01-23 18:24] LABS: Hemoglobin A1c 7.2 % (<=5.6)
[2025-01-25 08:07] LABS: Hepatitis A AB, Total Negative (Negative)
[2025-02-04] VITALS (16 sets, daily range): BP systolic 119–164; BP diastolic 65–88; PULSE 74–97; RESP 16–18; TEMP 36.1–36.9; O2SAT 94–100; BMI 29.2; BMI 30.9
[2025-02-04] MEDS: 0.9% Normal Saline (1000mL) 1,000 ML 15 ML IV ×2 (10:13→14:25)
[2025-02-04] MEDS: Magnesium 2 GM for ERAS IV (10:13)
[2025-02-04] MEDS: Insulin Lispro 100 UNIT/ML INSULN.PEN SC ×3 (10:13→21:38)
[2025-02-04] MEDS: Acetaminophen 500 MG Tablet 1000 MG PO (10:14)
--- NOTE | 2025-02-04 10:40 | PRE.ANES_ITS ---
ASA Classification* ASA Classification ASA Classification: 2 Assessment & Plan Anesthesia* Anesthesia Assessment Anesthesia Assessment: Discussed sedation and/or anesthesia options, risks, benefits, and alternatives with patient/parents/legal guardian/POA. Questions invited. The patient/parents/legal guardian/POA seems to understand and agrees to proceed with anesthesia plan. Reviewed the physical assessment, medical history, allergy history and patient home medications list prior to surgery/procedure/anesthetic and documented any changes. Performed airway and anesthesia risk assessments. Anesthesia Type Anesthesia Type: General Anesthesia Focused Assessment* Temperature: 97.8 F Pulse Rate: 76 Blood Pressure: 141/88 Respiratory Rate: 17 Pulse Ox: 98 Airway Assessment Mouth opens: >3 cm Mallampati Score: II Focused Labs Anesthesia Preop lab: CBC WBC 9.6 K/mm3 (4.4-11.0) 01/14/25 15:10 01/14/25 RBC 4.45 M/mm3 (4.6-6.2) L 01/14/25 15:10 01/14/25 Hgb 13.9 g/dL (13.0-16.5) 01/14/25 15:10 01/14/25 Hct 40.1 % (40-54) 01/14/25 15:10 01/14/25 Plt Count 269 K/mm3 (150-450) 01/14/25 15:10 01/14/25 CHEMISTRY Potassium 3.6 mmol/L (3.3-5.1) 01/14/25 15:10 01/14/25 Sodium 135 mmol/L (133-145) 01/14/25 15:10 01/14/25 Magnesium 1.7 mg/dL (1.5-2.2) 01/23/25 14:28 01/23/25 Phosphorus 2.7 mg/dL (2.5-4.9) 07/27/20 12:04 07/27/20 BUN 17 mg/dL (4-19) 01/14/25 15:10 01/14/25 Creatinine 1.05 mg/dL (0.70-1.20) 01/14/25 15:10 01/14/25 Glucose 123 mg/dL (70-99) H 01/14/25 15:10 01/14/25 TSH 1.070 uIU/mL (0.358-3.740) 12/15/24 15:32 0205/22 COAG PT 12.1 SECONDS (11.7-14.9) 01/14/25 15:10 Pre-Assessment Diagnosis/Proposed Procedure Planned Operative Procedure(s): ANTERIOR CERVICAL DISC FUSION C4-5 C5-6 C6-7 Anesthesia History 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 When Was Last Pacemaker Check QUESTION #4 FULL TEXT: You/Your Family Experience fever (hyperthermia) with Anesthesia Last Oral Intake Last Oral intake: Last Oral Intake NPO since 07:00 02/04/25 10:19 Meds taken in AM with sips of No 02/04/25 10:19 water? Meds patient instructed to take am of surgery PONV PONV - landscape architect and planner: PONV - landscape architect and planner Female No 01/21/25 09:19 HX of Motion Sickness No 01/21/25 09:19 HX of N/V After Surgery No 01/21/25 09:19 Non-Smoker Yes 01/21/25 09:19 Duration of Surgery greater Yes 01/21/25 09:19 than 60 minutes Number of Risk Factors 2 01/21/25 09:19 PONV Score Moderate Risk 01/21/25 09:19 Height & Weight Height & Weight: Anesthesia: Height & Weight Height 5 ft 6 in 02/04/25 10:19 Weight: 82 kg 02/04/25 10:19 Body Mass Index (BMI) 29.2 02/04/25 10:19 Respiratory Assessment Respiratory Assessment - landscape architect and planner: Respiratory Tract Infection Hx - landscape architect and planner Hx Respiratory Tract Infection No 01/21/25 09:19 STOP Sleep Apnea STOP Sleep Apnea - landscape architect and planner: STOP Sleep Apnea - landscape architect and planner Hx Hypertension Yes: CONTROLLED WITH MED 01/21/25 09:19 Hx Sleep Apnea No 01/21/25 09:19 CPAP BIPAP Do you snore loudly (louder No 01/21/25 09:19 than talking or can be heard Do you often feel tired/ No 01/21/25 09:19 fatigued/ sleepy during daytime? Has anyone observed you stop No 01/21/25 09:19 breathing during sleep? STOP Results Negative 01/21/25 09:19 QUESTION #5 FULL TEXT : Do you snore loudly (louder than talking or can be heard through closed doors)? 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 Specify any problems Hx of Preganancy in last 3 N/A 01/21/25 09:19 Months Nurse Filling Out Transfusion DSCHRIBER 01/21/25 09:19 & Questions: Date: 01/21/25 01/21/25 09:19 Time: 09:21 01/21/25 09:19 Patient unable to answer at this time (ie. confused, unrespo /Reproduction History /Reproductive History - landscape architect and planner: /Reproductive Hx- landscape architect and planner Hx Now No 01/21/25 09:19 Gestational Age (in weeks): EDC: Hx Hx Para Hx Section SAB No 01/21/25 09:19 Active Medications Active Medications: Current Medications Generic Name Dose Route Start Last Admin Trade Name Freq PRN Reason Stop Dose Admin Acetaminophen 1,000 mg 02/04/25 11:50 02/04/25 10:14 Acetaminophen 500 Mg Tablet PO 02/04/25 11:51 1,000 mg X1 ONE Administration Dexamethasone Sodium Phosphate 8 mg 02/04/25 11:50 Dexamethasone 10 Mg/Ml Vial IV 02/04/25 11:51 X1 ONE Dexamethasone Sodium Phosphate 4 mg 02/04/25 11:50 Dexamethasone 4 Mg/Ml Vial IV 02/04/25 11:51 X1 ONE Cefazolin Sodium 2 gm/ N/A 20 mls @ 400 mls/hr 02/04/25 11:50 IV 02/04/25 11:52 PREOP ONE Tranexamic Acid 1,000 mg/ 110 mls @ 440 mls/hr 02/04/25 11:50 Sodium Chloride IV 02/04/25 12:04 X1 ONE Tranexamic Acid 1,000 mg/ 110 mls @ 440 mls/hr 02/04/25 11:50 Sodium Chloride IV 02/04/25 12:04 X1 ONE Magnesium Sulfate 2 gm/ 104 mls @ 208 mls/hr 02/04/25 11:50 02/04/25 10:13 Dextrose IV 02/04/25 12:19 208 mls/hr X1 ONE Administration Sodium Chloride 1,000 mls @ 15 mls/hr 02/04/25 09:50 02/04/25 10:13 IV 15 mls/hr .Q48H LEEANNE Administration Insulin Human Lispro 1 - 6 unit 02/04/25 11:50 02/04/25 10:13 Insulin Lispro 100 Unit/Ml Insuln.Pen SC 02/04/25 18:00 2 u Q4H PRN PRN Administration BG>/= 180, SEE PROTOCOL Protocol PFSH Medical History Stuttering Wears hearing aid Wears glasses Complete edentulism, class III Depression Alcohol use Walker as ambulation aid Arthritis Prostate disease Easy bruising Back pain Injury of head and neck Dietary restriction Difficulty swallowing Chronic constipation Gastric reflux Former smoker Leg cramps History of pain when walking History of edema Vertigo Diabetes Hypokalemia Tremor Degeneration of cervical intervertebral disc Diverticulitis Essential hypertension Anxiety Home Medications ?Medication ?Instructions ?Recorded ?Last Taken ?Type metoprolol tartrate 50 mg tablet 50 mg PO BID hyperten ike 03/09/14 02/04/25 History tamsulosin 0.4 mg capsule 0.8 mg PO QHS urinary issues 01/26/15 02/03/25 History dexlansoprazole 30 mg 30 mg PO DAILY stomach 09/0302/04/25 History capsule,biphase delayed release potassium chloride 20 mEq 20 meq PO BID supplement ##0 09/04/19 02/03/25 Rx tablet,extended release(part/cryst) linaclotide 290 mcg capsule 290 mcg PO DAILY 01/19/21 02/03/25 History (Linzess) lorazepam 1 mg tablet (Ativan) 1 mg PO BID 01/19/21 History melatonin 5 mg capsule 5 mg PO QHS 01/19/21 5 History saw palmetto 450 mg capsule 450 mg PO BID 01/19/2106/22 History lactulose 10 gram/15 mL oral 20 g PO BID 11/07/2406/22 History solution (Constulose) metformin 500 mg tablet 500 mg PO BID 11/07/2402/03 History polyethylene glycol 3350 17 4 g PO BID 11/07/24 History gram/dose oral powder (Miralax) primidone 125 mg tablet 125 mg PO QHS 11/07/2402/03 History tramadol 50 mg tablet 50 mg PO BID PRN pain Unknown History hydrocodone-acetaminophen 5-325mg 1 tab PO BID 5 02/03/25 History 5mg-325mg sennosides 8.6 mg-docusate sodium 4 tab-cap PO QHS 02/03/25 History 50 mg capsule (Senna Plus) triamterene 75 1 tab PO DAILY hypertension 02/04/25 02/03/25 History mg-hydrochlorothiazide 50 mg tablet Allergy/AdvReac Type Severity Reaction Status Date / Time sulfamethoxazole (From AdvReac Unknown Headache Verified 02/04/25 10:10 Bactrim) trimethoprim (From Bactrim) AdvReac Unknown Headache Verified 02/04/25 10:10 gabapentin (From Neurontin) AdvReac muscle Verified 02/04/25 10:10 stiffness ofloxacin (From Floxin) AdvReac Unknown Verified 02/04/25 10:10 Family History Mother Brain cancer Father Colon cancer Diabetes Surgical History Hx of colonoscopy History of cataract surgery Social History Smoking Status: Current every day smoker tobacco type: cigarettes Tobacco: How many years used: 4 how long ago did patient quit smoking: has been about 6 years second hand exposure: No alcohol intake: current alcohol intake frequency: holidays/special occasions only substance use type: does not use Review of Systems (Anesthesia) ROS Narrative System reviewed and no additional complaints, except as documented.
--- NOTE | 2025-02-04 10:46 | PCM.HP.BLA ---
History and Physical Date of Admission: 02/04/25 MR#: [id number] Acct: [id number] Name: BRIANA ARIZMENDI Rep #: [id number] : 1950 Provider: Dr. Jasbir Grullon MD Age/Sex: 74/M [place] [facility] [place] Status: Signed Intake Vital Signs 12/01/2508:29 01/02/2513:12 01/29/2513:13 Height 5 ft 6 in 5 ft 6 in 56 ft Weight: 183 lb 8 oz BMI 0.3 Intake Visit Reasons: cervical spine Chief Complaint: Pre op Accompanied by: fiance Is patient in pain?: Yes Pain scale (1-10): 6 Allergies sulfamethoxazole (From Bactrim) Adverse Reaction (Unknown, Verified 01/29/25 13:19) Headachetrimethoprim (From Bactrim) Adverse Reaction (Unknown, Verified 01/29/25 13:19) Headachegabapentin (From Neurontin) Adverse Reaction (Verified 01/29/25 13:19) muscle stiffnessofloxacin (From Floxin) Adverse Reaction (Verified 01/29/25 13:19) Unknown Medications ?Medication ?Instructions ?Recorded ?Confirmed ?Type metoprolol tartrate 50 mg tablet 50 mg PO BID hypertension 03/09/14 01/29/25 History tamsulosin 0.4 mg capsule 0.8 mg PO QHS urinary issues 01/26/15 01/29/25 History dexlansoprazole 30 mg 30 mg PO DAILY stomach 09/03/19 01/29/25 History capsule,biphase delayed release potassium chloride 20 mEq 20 meq PO BID supplement ##0 09/04/19 01/29/25 Rx tablet,extended release(part/cryst) triamterene 75 1 tab PO DAILY hypertension ##0 09/04/19 01/29/25 Rx mg-hydrochlorothiazide 50 mg tablet linaclotide 290 mcg capsule 290 mcg PO DAILY 01/19/21 01/29/25 History (Linzess) lorazepam 1 mg tablet (Ativan) 1 mg PO BID 01/19/21 01/29/25 History melatonin 5 mg capsule 5 mg PO QHS 01/19/21 01/29/25 History saw palmetto 450 mg capsule 450 mg PO BID 01/19/21 01/29/25 History lactulose 10 gram/15 mL oral 20 g PO BID 11/07/24 01/29/25 History solution (Constulose) metformin 500 mg tablet 500 mg PO BID 11/07/24 01/29/25 History polyethylene glycol 3350 17 4 g PO BID 11/07/24 01/29/25 History gram/dose oral powder (Miralax) primidone 125 mg tablet 125 mg PO QHS 11/07/24 01/29/25 History tramadol 50 mg tablet 50 mg PO BID PRN pain 11/07/24 01/29/25 History hydrocodone-acetaminophen 5-325mg 1 tab PO BID 01/21/25 01/29/25 History 5mg-325mg sennosides 8.6 mg-docusate sodium 4 tab-cap PO QHS 01/21/25 01/29/25 History 50 mg capsule (Senna Plus) Have you fallen in the past year?: No PFSH Medical History Stuttering Wears hearing aid Wears glasses Complete edentulism, class III Depression Alcohol use Walker as ambulation aid Arthritis Prostate disease Easy bruising Back pain Injury of head and neck Dietary restriction Difficulty swallowing Chronic constipation Gastric reflux Former smoker Leg cramps History of pain when walking History of edema Vertigo Diabetes Hypokalemia Tremor Degeneration of cervical intervertebral disc Diverticulitis Essential hypertension Anxiety Surgical History Hx of colonoscopy History of cataract surgery Family History Mother Brain cancerFather Colon cancer Diabetes Social History Smoking Status: Former smoker Tobacco: How many years used: 4 how long ago did patient quit smoking: has been about 6 years second hand exposure: No alcohol intake: current alcohol intake frequency: holidays/special occasions only substance use type: does not use HPI cervical spine Details: This documentation accurately reflects the service provided and the decisions made by me, Dr. Jasbir Grullon MD 01/29/25 5023. Part of today?s visit was documented by Yan Gaston MA, acting as scribe. BRIANA ARIZMENDI is a 74 year old M here today for pre op visit. Patient has surgery on 02/04/2025. He has some questions about the surgery, and what he can and can't do. 12/02/24: BRIANA ARIZMENDI is a 74 year old M here today for MRI review of the neck. Patient has noticed that he has been getting headaches more frequently and states he gets them at least 5 days a week. He takes Tylenol for pain with occasional Tramadol. He notes that his low back is more painful than his neck. Denies any recent falls, states his lumbar spine is starting to bother him more. Does not take any blood thinners. Denies heart problems. 11/07/24: BRIANA ARIZMENDI is a 74 year old M here today NEW patient referred by Dr. Hawkins for low back and right leg pain. He states that the pain originally started in 2002 then had done PT and had went away. The pain then came back about 12 years ago but the last few years it has gotten worse. He does see Dr. Lawson for injections and his last injection was in August of 2024. He states the last 2 injections haven't helped at all. He states that Dr. Lawson told him that he wouldn't do any more injections until he saw us. He did see his PCP for the pain and was given an injections and 3 medications which were gabapentin, baclofen, and prednisone which did help but only for a short period of time. The injection with Dr. Hawkins was on 10/19/24. He does have an MRI in the system that was done on 09/15/24. He said when the pain gets severe it feels like a hot lawanda coming up through the leg. He occasionally gets numbness in his right foot but none in either leg. He denies previous back surgery. Patient also notices neck pain that improves with epidural injections in the neck along with right upper extremity radiation along with difficulty with dexterity and balance. He has known tremors for which she takes medications. He denies any falls Ortho Exam General General: Yes no acute distress Neurologic: Yes alert and Yes oriented x3 Psychologic: Yes reasonable and appropriate Spine SPINE TESTING CERVICAL THORACIC LUMBAR Musculoskeletal Strength 0=absent - 5=normal Details: Examination of the neck and back shows midline paraspinal tenderness. Neurologic evaluation of upper and lower extremity shows 5 x 5 power normal shows normal sensations in all dermatomes. Nilesh's negative. Romberg's is positive. Tandem gait shows severe imbalance. 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 Scoliosis type: other secondary scoliosis Spinal stenosis of lumbar region with neurogenic claudication M48.062 Cervical myelopathy G95.9 Cervical radiculopathy M54.12 Time Spent (min) 35 Assessment and Plan Assessment and Plan (1) Lumbar scoliosis: Status: Acute Qualifiers: Scoliosis type: other secondary scoliosis Qualified Code(s): M41.56 - Other secondary scoliosis, lumbar region (2) Spinal stenosis of lumbar region with neurogenic claudication: Status: Acute (3) Cervical myelopathy: Status: Acute (4) Cervical radiculopathy: Status: Acute Plan Again reviewed imaging in detail today with patient. These show lumbar scoliosis with concavity to the left. Severe disc height loss and degeneration noticed especially from L2-S1 on MRI causing severe central and foraminal stenosis. Cervical MRI done recently shows C4-7 disc degeneration with severe stenosis and cord indentation without any cord signal changes. Again explained that the MRI does show spinal cord compression and he is showing signs of myelopathy with progressive dexterity and balance issues. Explained that he does have degenerative changes in the lumbar spine as well that may need surgical intervention. Due to the spinal cord pressure and his function that it is affected recommended he address the cervical spine problems prior to moving forward with the lumbar spine surgery. Recommend C4-7 ACDF for decompression. Discussed all the risks and benefits of the surgical procedure. The risks include but are not limited to infection, bleeding, hematoma formation, need for further surgery, dysphagia, dysphonia, recurrent laryngeal nerve injury, visceral injury, pneumonia, atelectasis, DVT, pulm embolism, cardiopulmonary event, hardware failure, pseudoarthrosis, adjacent segment degeneration, persistent pain, spinal cord injury, nerve root injury, persistent weakness and numbness, persistent difficulty with balance. Patient understands and agrees to proceed with surgery. Consent was signed. All restrictions after surgery were discussed. Goal of the surgery is to halt the progression of myelopathy and hopefully improve on the axial and radicular pain from the neck. Patient was in agreement.
--- NOTE | 2025-02-04 10:55 | PCM.POST.ANE ---
Anesthesia: Postop Eval I Current Vital Signs Temperature: 96.9 F Pulse Rate: 97 Blood Pressure: 130/77 Respiratory Rate: 16 Pulse Ox: 100 Oxygen Delivery Method: Venturi Mask Oxygen Flow Rate (L/min): 8 Assessment Airway patent: Yes Spontaneous unlabored respirations: Yes Mental status: Calm nausea: No Vomiting: No Anesthesia Complication: No Fluid Hydration Crystalloid volume administer (ml): 1,800 Total IV fluid infused: 1,800 Progress Note Anesthesia document: Postop Eval 1 completed: Yes
--- NOTE | 2025-02-04 11:02 | RAD_ITS ---
PROCEDURE: CERVICAL SPINE IN THE OR WITH MOBILE C-ARM 02/04/2025 REASON FOR EXAM: ANTERIOR FUSION C4-5,C5-6 AND C6-7 TECHNIQUE: 9 IMAGES of the cervical spine. COMPARISON: Cervical spine MR dated 11/27/2024. Plain films of the cervical spine dated 12/02/2024 FINDINGS: Vertebra: Limited. C2 through 6 are normal in height. Multilevel spondylosis. C1-C2: Atlantoaxial articulation is maintained. Alignment: Unremarkable. Discs: Disc space narrowing at C3-4, C4-5, and C5-6. A localizer needle is seen anteriorly at C4-C5. Facets: Unremarkable. Soft tissues: Prevertebral soft tissues are normal. Other: Images 2-9 show placement of anterior fusion plate and screws spanning the C4 through T1 levels. Interbody fusions have been performed at C4-5, C5-6, and C6-7. RAD/Cerv Spine 2 or 3 Views IMPRESSION: Status post ACDF as documented above with surgical instrumentation. For more c omplete detail of the procedure please see the operative reports. Reading Location: [place] [address]
[2025-02-04 11:07] LABS: Bedside Glucose 235 mg/dL (74-106)
[2025-02-04] MEDS: Cefazolin 2 GM in Syringe 10 ML IV ×2 (11:41→19:26)
[2025-02-04] MEDS: TRANEXAMIC ACID 1,000 MG in 0.9% Normal Saline (100mL Bag) 100 ML 440 MG IV ×2 (11:50→14:00)
[2025-02-04] MEDS: dexAMETHasone 10 MG/ML Vial 8 MG IV (12:05)
[2025-02-04 14:20] LABS: Bedside Glucose 167 mg/dL (74-106)
--- NOTE | 2025-02-04 14:32 | OP.PCM_ITS ---
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 [employer] Specialists: Louisa José Tasks completed by patient clerical assistant: Closing, Removing tissue, Implanting device, Hemostasis: Electrocautery and Retracting Type of Anesthesia: General RN Documented Start/Stop Times: Operation Date: 02/04/25 11:50 Case Time Into Pre-Op 02/04/25 09:47 Out of Pre-Op 02/04/25 11:28 Anesthesia Start 02/04/25 11:32 Into Room 02/04/25 11:32 Procedure Start 02/04/25 12:05 Procedure End 02/04/25 14:24 Procedure Start Time: 12:05 Procedure Stop Time: 14:24 Select all DRAINS/GRAFTS/IMPLANTS that apply: Drains Drain details: Sarah , Graft Graft details: Structural allograft corticocancellous strut and Implanted device Implanted device details: Medtronic Moorpark Elite plate instrumentation Estimated Blood Loss: 30 cc Specimen collected: No Description of surgery: Preoperative diagnosis: C4-7 disc degeneration with stenosis, radiculomyelopathy Postoperative diagnosis: Same Name of procedure: C4-7 anterior cervical discectomy and fusion with plate instrumentation - Anterior cervical fusion C4-5, CPT code 59707 - Anterior plate instrumentation C4-7, CPT code 40611/59 - Anterior cervical fusion C5-6, CPT code 62888/51 - Anterior cervical fusion C6-7, CPT code 60795/51 -C4-5 structural allograft bone with DBX, CPT code 59718 -C5-6 structural allograft bone with DBX, CPT code 47651 -C6-7 structural allograft bone with DBX, CPT code 11459 Attending surgeon: Jasbir Grullon M.D. Anesthesia: Gen. endotracheal Estimated blood loss: 30 mL Complications: None Instrumentation used: Medtronic Moorpark Elite plate, LASR corticocancellous block Indications: The patient is a pleasant 74-year-old gentleman who presented with neck pain, difficulty with dexterity and balance. MRI showed C4-7 disc degeneration with central and foraminal stenosis with cord compression without cord signal changes. In order to halt the progression of myelopathy, the patient requested surgical treatment. All risks and benefits of the procedure were explained to the patient. The risks include but are not limited to infection, bleeding, injury to nerves and vessels, vertebral artery injury, spinal cord injury, paralysis, vocal cord paralysis, injury to esophagus, pseudoarthrosis, need for further procedures, adjacent segment degeneration. Procedure: The patient was identified in the preoperative suite using unique patient identifiers. Skin was marked consent was taken and all questions were answered. The patient was then brought back to the operative room and a timeout was performed. General endotracheal anesthesia was given. Intraoperative neuro monitoring leads were applied. The patient was carefully positioned supine on a regular OR table. A lateral view with a C-arm was done to identify the level and to define the incision. The anterior neck was then prepped and draped in the usual fashion. A final timeout was then performed. A transverse skin incision was taken to the left of midline. Subcutaneous tissue was then divided with Bovie. Platysma was identified and cut along the incision with scissors. The fascial interval between the sternocleidomastoid and the larynx was developed. Omohyoid was identified and retracted. The esophagus with the larynx was retracted medially to reach the prevertebral fascia. Marker x-ray was performed with bent spinal needle and disc space and levels were confirmed. Longus coli muscle was elevated on both sides at and above and below C4-7 discs. Self-retaining retractors were then placed. A long handle knife was then used to perform annulotomy at C4-5. Disc fragments were removed with the pituitary. [place] pins were placed in C4 and C5 for disc distraction. Curettes and bur was utilized to remove cartilage from the endplates. Discectomy was performed laterally up to the uncovertebral joints. Posterior osteophytes were thinned down with the bur and adequate decompression in the central and foraminal areas were performed and PLL was thinned out. Once the disc space was prepared, trials of various sizes were utilized. Thorough irrigation was given. 6 mm LASR cortical cancellous allograft bone large footprint was then fashioned in such a way that concavities were burred out inferiorly and superiorly and half cc of DBX (demineralized bone matrix) was squeezed into the cancellous portion. The graft was then inserted into the C4-5 disc space. The retractors were then repositioned and the procedure was repeated for C5-6 and C6-7 discs with complete discectomy. Graft sizes were 6 mm at with large footprint at C5-6 and C6-7. The grafts were found to be in good apposition with good pullout strength. A 57 mm Medtronic Moorpark Elite plate was then fixed to C4-7 with 16 mm screws. A lateral x-ray was then taken to check the length of the screws. Both AP and lateral x-rays showed good positioning of plate and screws. The locking mechanism over the screw heads was then turned. Thorough irrigation was again given. Hemostasis was achieved. A Sarah drain was then inserted. Closure was done with 3-0 Vicryl for the platysma and subcutaneous tissue layers and 4-0 Monocryl for the skin. Closure was done around the drain. Steri-Strips were ap plied and dressing was done with 4 x 4 gauze and Tegaderm. A cervical collar was then applied. The patient was then woken up from anesthesia extubated and taken to PACU in stable condition. From here, the patient will be transitioned to the floor. Intraoperative neuro monitoring was performed throughout this procedure. Motor evoked potentials were run periodically. All potentials remained at baseline throughout the procedure. I was present for the entire surgery and performed the surgery myself. Client Relations Associate Louisa José PA-C. My physician assistant dean was a vital part of this case. They were important in appropriate retraction during the case, and protection of soft tissues during the procedure. Their intimate knowledge of the case and my steps aided in safe and expedient completion of the procedure as well as appropriate position of the patient during the surgery. They were also vital in assisting with closure under my direct supervision. Surgical Findings: See operative note Complications Complications: No
--- NOTE | 2025-02-04 14:49 | PCM.POST.ANE ---
Anesthesia: Postop Eval I Current Vital Signs Temperature: 97.6 F Pulse Rate: 74 Blood Pressure: 126/76 Respiratory Rate: 18 Pulse Ox: 97 Oxygen Delivery Method: Room Air Assessment Airway patent: Yes Spontaneous unlabored respirations: Yes Mental status: Awake nausea: No Vomiting: No Anesthesia Complication: No Fluid Hydration Crystalloid volume administer (ml): 800 Total IV fluid infused: 800 Progress Note Anesthesia document: Postop Eval 1 completed: Yes
[2025-02-04 15:40] LABS: Bedside Glucose 190 mg/dL (74-106)
[2025-02-04] MEDS: Ketorolac 15 MG/ML Vial IV (15:40)
--- NOTE | 2025-02-04 16:24 | POSTOPAN2_ITS ---
Anesthesia Postop Eval I Sum Postop Eval Completion status Anesthesia document: Postop Eval 1 completed: Yes Anesthesia Postop Eval I Summary Anesthesia Postop Eval I Summary: Anesthesia Postop Eval I: Assessment Summary Airway patent Yes 02/04/25 14:50 [email or web address] Spontaneous unlabored Yes 02/04/25 14:50 [email or web address] respirations Mental status Awake 02/04/25 14:50 [email or web address] nausea No 02/04/25 14:50 [email or web address] Vomiting No 02/04/25 14:50 [email or web address] Anesthesia Postop Eval I: Fluid Summary Crystalloid volume administer 800 02/04/25 14:50 [email or web address] (ml) Colloids volume administered ( ml) Blood Product volume administered (ml) Total IV fluid infused 800 02/04/25 14:50 [email or web address] Anesthesia Postop Eval I: Summary Notes Anesthesia Complication No 02/04/25 14:50 [email or web address] Anesthesia Complication Comment: Post-operative progress note Anesthesia: Postop Eval II Evaluation Mental status: Awake Pain Level: 0 nausea: No Vomiting: No
--- NOTE | 2025-02-04 16:24 | PCM.POSTANE2 ---
Anesthesia Postop Eval I Sum Postop Eval Completion status Anesthesia document: Postop Eval 1 completed: Yes Anesthesia Postop Eval I Summary Anesthesia Postop Eval I Summary: Anesthesia Postop Eval I: Assessment Summary Airway patent Yes 02/04/25 14:50 [email or web address] Spontaneous unlabored Yes 02/04/25 14:50 [email or web address] respirations Mental status Awake 02/04/25 14:50 [email or web address] nausea No 02/04/25 14:50 [email or web address] Vomiting No 02/04/25 14:50 [email or web address] Anesthesia Postop Eval I: Fluid Summary Crystalloid volume administer 800 02/04/25 14:50 [email or web address] (ml) Colloids volume administered ( ml) Blood Product volume administered (ml) Total IV fluid infused 800 02/04/25 14:50 [email or web address] Anesthesia Postop Eval I: Summary Notes Anesthesia Complication No 02/04/25 14:50 [email or web address] Anesthesia Complication Comment: Post-operative progress note Anesthesia: Postop Eval II Evaluation Mental status: Awake Pain Level: 0 nausea: No Vomiting: No
--- NOTE | 2025-02-04 16:31 | PN.HOSP_ITS ---
Subjective Subjective 74-year-old male presents to the hospital for an elective C4-7 ACDF for disc degeneration and stenosis with radiculomyelopathy. He is still waking up from anesthesia so is on 4 L nasal cannula this will be able to be weaned once he is upstairs. Objective Data Objective Data Vital Signs: Vital Signs Temp Pulse Resp BP Pulse Ox O2 Del Method O2 Flow Rate 98.4 F 84 16 123/72 H 99 Nasal Cannula 4 02/04/25 15:46 02/04/25 15:46 02/04/25 15:46 02/04/25 15:46 02/04/25 15:46 02/04/25 15:46 02/04/25 15:46 Oxygen Flow Rate (L/min) 4 Oxygen Delivery Method Nasal Cannula Weight: 180 lb 12.465 oz Body Mass Index (BMI) 29.2 Intake & Output: Intake and Output for Last 24 Hours 02/03/25 02/04/25 02/05/25 03:59 03:59 03:59 Intake Total 1240 / 1240 Balance 1240 / 1240 Lab / Micro Data Labs: Laboratory Results - last 24 hr 02/04/25 10:01: POC Glucose 235 H 02/04/25 14:02: POC Glucose 167 H 02/04/25 15:09: POC Glucose 190 H Micro: Microbiology 01/23/25 14:28 Swab (Method) Nasal Screen MRSA/MSSA - Final Radiography Diagnostic Testing: Radiology Impression Cervical Spine X-Ray 02/04/25 11:02 IMPRESSION: Status post ACDF as documented above with surgical instrumentation. For more complete detail of the procedure please see the operative reports. Reading Location: [place] [address] Physical Exam Narrative General: Alert but drowsy from anesthesia still, Oriented x3, Cooperative, No apparent distress HEENT: Atraumatic, PERRLA, EOMI, Normocephalic Oral: Moist Mucosa Neck: Supple, No JVD Lungs: Diminished, Normal air movement, No rhonchi, No wheeze, No rales Cardiovascular: Regular rate, Regular Rhythm, Normal S1, Normal S2, No murmurs Abdomen: Soft, Non Tender, Non-Distended, No Hepato-splenomegaly Extremities: No edema, Capillary Refill Less than 3 Seconds Skin: Anterior neck dressing intact Musculoskeletal: No Tenderness to Palpation of Joints or Extremities Neurological: No focal neurological deficits, Motor Exam 5/5 strength throughout, Sensory exam intact to light touch and pain Psych/Mental Status: Flat Assessment & Plan Assessment/Plan (1) Cervical radiculopathy: (2) Cervical myelopathy: PLAN: Plan 1. Cervical radiculopathy and myelopathy status post C4-7 ACDF on 02/04/2025 ? Pain management per primary ? PT/OT ? Discharge planning per primary 2. Essential hypertension ? Blood pressures are stable ? Resume his home blood pressure medications ? Will check a BMP in the morning 3. DM2 ? Hold metformin ? Continue with insulin ? Accu-Cheks ACHS ? Will monitor and make adjustments as necessary 4. GERD/chronic constipation ? Stable ? Continue with PPI ? Continue with lactulose 5. Anxiety/depression ? Stable ? Continue with Ativan 6. BPH with obstruction ? Stable ? Continue with Flomax DVT: Per primary Charges/Coding Visit Charges Office Visits / Consults: 67132 OV L3 New 30min
[2025-02-04] MEDS: HYDROcodone Bitartrate/Apap 5/325 Tablet PO ×2 (16:36→21:24)
[2025-02-04] MEDS: Methocarbamol 500 MG Tablet 1000 MG PO ×2 (19:26→22:53)
--- NOTE | 2025-02-04 20:29 | NURSING ---
Pt walked a full lap in the cutler. tolerated well.
[2025-02-04] MEDS: 0.9% Saline Lock 10 ML Syringe IV (21:25)
[2025-02-04] MEDS: dexAMETHasone 4 MG/ML Vial IV (21:25)
[2025-02-04] MEDS: Lactulose 20 GM/30 ML UDC PO (21:25)
[2025-02-04] MEDS: Tamsulosin HCl 0.4 MG Capsule 0.8 MG PO (21:27)
[2025-02-04] MEDS: Metoprolol Tartrate 50 MG Tablet PO (21:28)
[2025-02-04] MEDS: Senna/Docusate Sodium 1 Tablet 2 TABLET PO (21:28)
[2025-02-04 22:17] LABS: Bedside Glucose 249 mg/dL (74-106)
--- NOTE | 2025-02-04 22:52 | NURSING ---
Pt walked 3 laps in the cutler. tolerated well
[2025-02-05] MEDS: 0.9% Saline Lock 10 ML Syringe IV ×4 (00:36→13:53)
[2025-02-05] MEDS: Ketorolac 15 MG/ML Vial IV ×2 (00:36→06:34)
[2025-02-05 00:41] VITALS: BP 118/76; PULSE 76; RESP 18; TEMP 36.9; O2SAT 99
[2025-02-05 04:02] VITALS: BP 143/87; PULSE 82; RESP 18; TEMP 36.8; O2SAT 99
[2025-02-05] MEDS: Cefazolin 2 GM in Syringe 10 ML IV (04:04)
--- NOTE | 2025-02-05 04:22 | NURSING ---
pt walked 2 laps in the cutler. tolerated well
--- NOTE | 2025-02-05 05:00 | RAD_ITS ---
PROCEDURE: CERV SPINE 2 OR 3 VIEWS N/A REASON FOR EXAM: S/P CERVICAL FUSION TECHNIQUE: 2 views of the cervical spine. COMPARISON: None available FINDINGS: Vertebrae: Postsurgical changes status post C4-C7 with intervertebral disc spacer placement at C4-C5, C5-C6, and C6-C7. disc spaces: There is loss of intervertebral disc height at C3-C4. Alignment: Straightening of the normal lordosis of the cervical spine soft tissues: No overlying soft tissue swelling Other: None RAD/Cerv Spine 2 or 3 Views IMPRESSION: *Multilevel degenerative changes throughout the cervical spine. *Postsurgical changes status post C4-C7 with intervertebral disc spacer placeme nt at C4-C5, C5-C6, and C6-C7. *No acute fracture or traumatic malalignment. Reading Location: [id number]
[2025-02-05] MEDS: dexAMETHasone 4 MG/ML Vial IV ×2 (06:34→13:51)
[2025-02-05] MEDS: Insulin Lispro 100 UNIT/ML INSULN.PEN SC ×2 (06:39→12:28)
[2025-02-05 06:40] LABS: Hematocrit 37.8 % (40-54); Hemoglobin 12.9 g/dL (13.0-16.5); Mean Corp Hgb Conc 34.1 g/dL (32-36); Mean Corpuscular Hgb 31.2 pg (27.0-32.0); Mean Corpuscular Volume 91.3 fL (80-94); Platelet Count 250 K/mm3 (150-450); RBC Distribution Width CV 13.1 % (11.6-14.6); RBC Distribution Width SD 43.1 fl (35.1-43.9); Red Blood Count 4.14 M/mm3 (4.6-6.2); White Blood Count 11.2 K/mm3 (4.4-11.0)
[2025-02-05 07:00] LABS: Bedside Glucose 196 mg/dL (74-106)
[2025-02-05 07:03] LABS: Anion Gap 15 (5-15); BUN 13 mg/dL (4-19); BUN/Creat Ratio 11.3 RATIO (10-20); Calcium,Total 8.3 mg/dL (7.6-11.0); Carbon Dioxide 20.1 mmol/L (21.0-32.0); Chloride 99 mmol/L (98-108); Creatinine, Serum 1.12 mg/dL (0.70-1.20); EST Glomerular Filtration Rate 69 (>60); Estimated Creatinine Clearance 60.75 ml/min (50-250); Glucose 199 mg/dL (70-99); Potassium 3.4 mmol/L (3.3-5.1); Sodium Level 134 mmol/L (133-145)
[2025-02-05 07:23] VITALS: O2SAT 99
[2025-02-05 08:59] VITALS: PULSE 97
[2025-02-05] MEDS: Triamterene 75MG/Hctz 50MG Tablet 1 TABLET PO (08:59)
[2025-02-05] MEDS: Metoprolol Tartrate 50 MG Tablet PO (08:59)
[2025-02-05] MEDS: Methocarbamol 500 MG Tablet 1000 MG PO ×2 (08:59→13:51)
[2025-02-05] MEDS: Lactulose 20 GM/30 ML UDC PO (08:59)
[2025-02-05] MEDS: HYDROcodone Bitartrate/Apap 5/325 Tablet PO ×2 (08:59→13:50)
[2025-02-05] MEDS: Senna/Docusate Sodium 1 Tablet 2 TABLET PO (09:00)
[2025-02-05] MEDS: Meloxicam 15 MG Tablet PO (09:00)
[2025-02-05] MEDS: Pantoprazole Sodium 20 MG Tablet PO (09:02)
[2025-02-05 09:05] VITALS: BP 149/83; PULSE 96; RESP 18; TEMP 36.6; O2SAT 98
--- NOTE | 2025-02-05 11:48 | CASEMGMT ---
JESUS STEVE Assessment Face to Face with patient for initial transition planning/care coordination assessment. JESUS STEVE introduced self and role at [facility], pt voices understanding. Pt is A&Ox4 and is resting comfortably in the chair and is calm. Pt SO/Fiance @ bedside. Care providers, pharmacy, and demographics verified. Admitting dx: Anterior cervical Fusion C4-5, C5-6, and C6-7 LACE Strata: 2 PCP: Ross Specialists: Mitchel (Ortho), History with Dr Lawson (PM) Preferred Pharmacy: [facility] during this stay Insurance: [place] A/B, [employer] Commercial Prescription Benefit: Yes LNOK: Yamilka Goddard (SO/Fiance) Living Arrangements: Pt lives with his SO in a 2 story home with a FFSU and 2 steps to enter. Pt states that he plans to sleep in his recliner once he gets home ADLs/IADLs: Pt reports that he is independent. Pt has been cleared by PT, see notes. Transportation: Self, SO. Denies concerns DME: Functioning BGM with sufficient supplies. C-Collar. Rollator. Cane. Shower chair. Grab bars. BP Machine and pulse ox. Pt states that the orthopedic Dr is setting up a professional to come to the pt home after DC to set up a bone stimulater. Pt reports that he has the number to call to get this established and denies needs. HHC/SNF: Denies Hx or needs. Pt states that he has been to OP therapy before through [facility] (PT) Pt?s goal: Home Plan: home with pt SO and to f/u with Dr Grullon as an OP and start OP PT subsequently, if warranted. Pt states that he already has his f/u appt scheduled. Pt states that he feels safe with this plan and denies any acute HHC needs. Pt denies further questions or concerns at this time. Report given to MSSushil LEE CM. Tono Moran RN, CM
[2025-02-05 12:20] LABS: Bedside Glucose 198 mg/dL (74-106)
--- NOTE | 2025-02-05 13:30 | CASEMGMT ---
JESUS STEVE NOTE: DC order is in. JESUS STEVE to room. Pt sitting up in chair, jessie @ bedside. They are aware to f/u with Dr Grullon in 2 weeks. Per jessie, pt already has an appt w/Dr Grullon 02/19. They are aware Rx's have been sent to [facility] retail pharmacy and they will pick them up on the way out of the hospital. Pt had several medications about medications he has taken while @ [facility] and home meds. RNDeya, aware and will talk w/pt about questions. Pt and jessie deny having any further discharge questions/concern/needs. Estella GRAYSON RN CM
--- NOTE | 2025-02-05 13:46 | PN.ORTHO_ITS ---
Subjective Subjective POD 1 C4-7 ACDF. Patient is doing well postoperatively with his pain well- managed. Patient denies any new dressing changes throughout the night. Patient has been up and walking with physical therapy who has cleared him for home discharge. Patient denies any dysphagia. Seen with Dr. Grullon. Objective Data Objective Data Vital Signs: Vital Signs Temp Pulse Resp BP Pulse Ox O2 Del Method O2 Flow Rate 98 F 96 18 149/83 H 98 Room Air 4 02/05/25 09:05 02/05/25 09:05 02/05/25 09:05 02/05/25 09:05 02/05/25 09:05 02/05/25 09:05 02/04/25 15:46 Oxygen Flow Rate (L/min) 4 Oxygen Delivery Method Room Air Weight: 192 lb Body Mass Index (BMI) 30.9 Intake & Output: Intake and Output for Last 24 Hours 02/03/25 02/04/25 02/05/25 23:59 23:59 23:59 Intake Total 1864 / 1864 992.75 / 992.75 Output Total 300 / 300 Balance 1564 / 1564 992.75 / 992.75 Lab / Micro Data 02/05/25 05:36 02/05/25 05:36 Labs: Laboratory Results - last 24 hr 02/04/25 14:02: POC Glucose 167 H 02/04/25 15:09: POC Glucose 190 H 02/04/25 21:34: POC Glucose 249 H 02/05/25 05:36: WBC 11.2 H, RBC 4.14 L, Hgb 12.9 L, Hct 37.8 L, MCV 91.3, MCH 31.2, MCHC 34.1, RDW Std Deviation 43.1, RDW Coeff of Leonel 13.1, Plt Count 250, MPV 9.0, Sodium 134, Potassium 3.4, Chloride 99, Carbon Dioxide 20.1 L, Anion Gap 15, BUN 13, Creatinine 1.12, Estim Creat Clear Calc 60.75, Est GFR (MDRD) Non-Af 69, BUN/Creatinine Ratio 11.3, Glucose 199 H, Calcium 8.3 02/05/25 06:39: POC Glucose 196 H 02/05/25 12:02: POC Glucose 198 H Micro: Microbiology 01/23/25 14:28 Swab (Method) Nasal Screen MRSA/MSSA - Final Radiography Diagnostic Testing: Radiology Impression Cervical Spine X-Ray 02/04/25 11:02 IMPRESSION: Status post ACDF as documented above with surgical instrumentation. For more complete detail of the procedure please see the operative reports. Reading Location: [facility] Cervical Spine X-Ray 02/05/25 05:00 IMPRESSION: *Multilevel degenerative changes throughout the cervical spine. *Postsurgical changes status post C4-C7 with intervertebral disc spacer placement at C4-C5, C5-C6, and C6-C7. *No acute fracture or traumatic malalignment. Reading Location: [facility] Physical Exam Narrative Neurological exam of the upper extremities shows 5X5 power. Normal sensation across all dermatomes. Physical examination of the neck shows surgical dressing with mild saturation. Dressing removed and drain removed. New gauze and Tegaderm was applied over the incision. Cervical collar was reapplied. Const alert, oriented x3 and no apparent distress Assessment & Plan Assessment/Plan (1) Status post cervical spinal fusion: PLAN: Plan Postop day 1 C4-7 ACDF. Patient is doing well postoperatively with his pain well-managed. Obtained and reviewed x-rays today which show hardware and bone graft in good position. Patient has been up with therapy who is cleared him for home discharge. Reviewed how to adjust the cervical collar as well as how to adjust the height. Home meds include hydrocodone?acetaminophen, meloxicam, methocarbamol, senna. OARRS reviewed. Reviewed restrictions of no bending, lifting, twisting until 3 months postop. Encouraged the patient and the proper use of the incentive spirometer. He will follow-up in the clinic in 2 weeks. Patient is in agreement.
[2025-02-05 14:43] VITALS: BP 138/73; PULSE 88; RESP 18; TEMP 36.8; O2SAT 98
--- NOTE | 2025-02-18 15:09 | PCM.PN.ORT ---
Documented by User: JEN Corrales 02/18/25 15:15 Subjective Subjective Patient is 2 weeks out C4-7 ACDF. Obtained x-rays today which show hardware and bone graft in good position. Patient hospitalized on February 15 due to a bowel obstruction. Objective Data Objective Data Vital Signs: Vital Signs Temp Pulse Resp BP Pulse Ox O2 Del Method O2 Flow Rate 98.3 F 88 18 138/73 H 98 Room Air 4 02/05/25 14:43 02/05/25 14:43 02/05/25 14:43 02/05/25 14:43 02/05/25 14:43 02/05/25 14:43 02/04/25 15:46 Oxygen Flow Rate (L/min) 4 Oxygen Delivery Method Room Air Weight: 192 lb Body Mass Index (BMI) 30.9 Lab / Micro Data 02/05/25 05:36 02/05/25 05:36 Micro: Microbiology 01/23/25 14:28 Swab (Method) Nasal Screen MRSA/MSSA - Final Physical Exam Narrative Neurological exam of the upper extremities shows 5X5 power. Normal sensation across all dermatomes. Remove dressing from surgical incision. Okay to keep the incision open. Const alert, oriented x3 and no apparent distress Assessment & Plan Assessment/Plan (1) Status post cervical spinal fusion: PLAN: Plan 2 weeks postop C4-7 ACDF. Patient hospitalized for bowel obstruction. Obtained reviewed x-rays today which show hardware and bone graft in good position. No dysphagia. From an orthopedic standpoint, okay for the patient to have the collar removed for procedures, start weaning off over the next 2 weeks. Okay to keep the incision open and dry. No bending, lifting, twisting. Okay to start gentle range of motion of the neck. Patient to start outpatient physical therapy after discharge. Follow up in 4 weeks for 6-week follow-up in the clinic. Documented by User: Dr. Jasbir Grullon MD 02/18/25 15:40 Subjective Subjective Patient is 2 weeks out C4-7 ACDF. Obtained x-rays today which show hardware and bone graft in good position. Patient hospitalized on February 15 due to a bowel obstruction. Denies any neck pain. Has been n.p.o. for abdominal procedure, but says that there is no pain with swallowing. Has been able to walk around with good balance. Objective Data Lab / Micro Data 02/05/25 05:36 02/05/25 05:36 Physical Exam Narrative Neurological exam of the upper extremities shows 5X5 power. Normal sensation across all dermatomes. Removed dressing from surgical incision. Okay to keep the incision open. Assessment & Plan Assessment/Plan (1) Status post cervical spinal fusion:
== END 2025-02-05 14:57 | disposition home or self-care (01) ==
LOC: SDC 17:13 → MS3 17:13
PROVIDERS: Anesthesiology; Student in an Organized Health Care Education/Training Program; Admitting Provider Orthopaedic Surgery Orthopaedic Surgery of the Spine; PCP Family Medicine Geriatric Medicine; Referring Provider Orthopaedic Surgery Orthopaedic Surgery of the Spine; Visit Provider Orthopaedic Surgery Orthopaedic Surgery of the Spine
PROC: (CPT 22551; principal; 2025-02-04 11:20)
DX: M48.02 Spinal stenosis, cervical region (principal); E11.9 Type 2 diabetes mellitus without complications; M50.020 Cervical disc disorder with myelopathy, mid-cervical region, unspecified level; M50.120 Mid-cervical disc disorder, unspecified level; M41.56 Other secondary scoliosis, lumbar region; M48.062 Spinal stenosis, lumbar region with neurogenic claudication; I10 Essential (primary) hypertension; K21.9 Gastro-esophageal reflux disease without esophagitis; Z79.84 Long term (current) use of oral hypoglycemic drugs; Z79.899 Other long term (current) drug therapy; Z87.891 Personal history of nicotine dependence; N40.1 Benign prostatic hyperplasia with lower urinary tract symptoms; N13.8 Other obstructive and reflux uropathy
CPT/HCPCS: 22551; 22845; 22552 ×2; 20931; 00670; 36415; 72040; 76000; 80048; 82962; 83036; 83735; 85027; 85730; 86703; 86706; 86708; 86803; 86850; 86900; 86901; 87081; 94668; 96374; 96375; 96376; 97161; 97166; 99221; C1713; A4216; G0378; J2405

== ENCOUNTER → 2025-02-10 | Outpatient (CLI) | payer MEDICARE, OTHER, SELFPAY | END | disposition home or self-care (01) | PROVIDERS: PCP Family Medicine Geriatric Medicine; Referring Provider Family Medicine Geriatric Medicine; Visit Provider Family Medicine Geriatric Medicine | DX: R05.9 Cough, unspecified (principal); R06.2 Wheezing | CPT/HCPCS: 87631 ==

== ENCOUNTER 2025-02-15 08:04 | Inpatient (IN) | payer MEDICARE, OTHER, SELFPAY ==
[2025-02-15] VITALS (9 sets, daily range): BP systolic 129–169; BP diastolic 79–113; PULSE 94–114; RESP 16–20; TEMP 36.4–37.2; O2SAT 95–99; BMI 29.3; BMI 27.6
--- NOTE | 2025-02-15 08:18 | EKG12_ITS ---
Test Reason : ABD PAIN Blood Pressure : */* mmHG Vent. Rate : 95 BPM Atrial Rate : 95 BPM P-R Int : 150 ms QRS Dur : 76 ms QT Int : 364 ms P-R-T Axes : 61 12 71 degrees QTcB Int : 457 ms Sinus rhythm with Premature atrial complexes Otherwise normal ECG Confirmed by YESSICA HUNG, CLAIR ([id number]), television news video editor DAISY SURESH ([id number]) on 02/18/2025 7:57:01 AM Referred By: Confirmed By: CLAIR JUAN MD
--- NOTE | 2025-02-15 08:18 | CT_ITS ---
PROCEDURE: ABDOMEN/PELVIS W IV CONT ONLY 02/15/2025 REASON FOR EXAM: DISTENTION, NO FLATUS, PRIOR HX SBO TECHNIQUE: Abdomen and pelvis CT with intravenous contrast. Coronal and Sagittal reconstruction series were provided. PATIENT PREPARATION: Per protocol ORAL CONTRAST TYPE: None. CONTRAST: Isovue 370 VOLUME: 100 mL One or more dose reduction techniques were used (e.g., Automated exposure control, adjustment of the mA and/or kV according to patient size, use of iterative reconstruction technique. RADIATION DOSE SUMMARY: CTDlvol: 20 mGy DLP: 1000 mGycm COMPARISON: Barium enema fluoroscopic examination 12/17/2024. FINDINGS: Lung bases: Right posterior pleural lesion, most compatible with pleural lipoma. Bibasilar atelectasis. The heart is normal in size with coronary artery calcifications. Liver: The liver is normal in size with focal hepatic mass, likely a cyst. The major portal veins are patent. No biliary ductal dilation. Gallbladder: No radiopaque stones within the gallbladder. Spleen: Unremarkable. Pancreas: Unremarkable. Adrenals: No adrenal mass. Kidneys: Nonobstructing left upper pole renal calculi. Bilateral renal cysts and additional hypodensities, too small to characterize. No hydronephrosis. Bladder: Mildly distended and unremarkable. Reproductive Organs: Dystrophic calcifications within the prostate. Bowel: Diffuse dilation of the visualized lower esophagus. Diffuse dilation of the mid and distal small bowel and throughout the large bowel. No discrete transition point. No pneumatosis or ascites. Normal appendix. Mild distal colonic diverticulosis. Lymph nodes: No suspicious lymph node enlargement. Vasculature: Mild diffuse atherosclerotic calcifications are noted. Bones: Thoracolumbar spondylosis. Right inguinal hernia containing ascites and fat. CT/Abdomen/Pelvis W IV Cont ONLY IMPRESSION: 1. Small and large bowel dilation without discrete transition point, which may be secondary to recent reported surgery or developing bowel obstruction. No pneumatosis or ascites. 2. Nonobstructing left lower pole renal calculi. Reading Location: [id number]
--- NOTE | 2025-02-15 08:28 | EX.ED.DYSGE1 ---
HPI History of Present Illness Chief Complaint: Abd Pain Detail of Chief Complaint: Abdominal distention and discomfort Informant: patient and spouse/S.O. Onset/Context/Timing Onset: Yesterday Context: Sudden Onset Timing: Continuous Quality: Distention, discomfort, no BM x 3 days and no flatus x 24 hours Location: GI Current Severity: Moderate Maximum Severity: Moderate Worsened by: History of prior partial small bowel obstructions Relieved by: Nothing Associated Symptoms Associated Symptoms: Nausea and discomfort Narrative Narrative: Patient is a 74-year-old male. He has history of recurrent diverticulitis. He had recent surgery by Dr. Haile for cervical myopathy and underwent C4-C7 ACDF for decompression. Patient presents because of abdominal discomfort distention that has gotten worse since yesterday. He has not had a bowel movement or flatus for greater than 24 hours. He does have history of prior obstruction treated with NG. He has never had surgery. He reports he was referred to general surgery. I do not see any note authored by a general surgeon. 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 He denies fever, chills night sweats. He denies HEENT symptoms. He denies cardiac or respiratory symptoms. He does endorse nausea without vomiting. He denies dysuria, frequency, urgency or hematuria. He is presently in a c-collar. He has neck pain due to the recent surgery performed by Dr. Haile. Prior similar symptoms: Yes Recent Illness/Hospitalization: Yes [facility] Medical History Stuttering Wears hearing aid Wears glasses Complete edentulism, class III Depression Alcohol use Walker as ambulation aid Arthritis Prostate disease Easy bruising Back pain Injury of head and neck Dietary restriction Difficulty swallowing Chronic constipation Gastric reflux Former smoker Leg cramps History of pain when walking History of edema Vertigo Diabetes Hypokalemia Tremor Degeneration of cervical intervertebral disc Diverticulitis Essential hypertension Anxiety Home Medications ?Medication ?Instructions ?Recorded ?Last Taken ?Type metoprolol tartrate 50 mg tablet 50 mg PO BID hypertension 03/09/14 02/04/25 History tamsulosin 0.4 mg capsule 0.8 mg PO QHS urinary issues 01/26/15 02/03/25 History dexlansoprazole 30 mg 30 mg PO DAILY stomach 09/03/19 02/04/25 History capsule,biphase delayed release potassium chloride 20 mEq 20 meq PO BID supplement ##0 09/04/19 02/03/25 Rx tablet,extended release(part/cryst) linaclotide 290 mcg capsule 290 mcg PO DAILY 01/19/21 02/03/25 History (Linzess) lorazepam 1 mg tablet (Ativan) 1 mg PO BID 01/19/21 02/04/25 History melatonin 5 mg capsule 5 mg PO QHS 01/19/21 02/03/25 History saw palmetto 450 mg capsule 450 mg PO BID 01/19/21 02/03/25 History lactulose 10 gram/15 mL oral 20 g PO BID 11/07/24 02/03/25 History solution (Constulose) metformin 500 mg tablet 500 mg PO BID 11/07/24 02/03/25 History polyethylene glycol 3350 17 4 g PO BID 11/07/24 02/03/25 History gram/dose oral powder (Miralax) primidone 125 mg tablet 125 mg PO QHS 11/07/24 02/03/25 History triamterene 75 1 tab PO DAILY hypertension 02/04/25 02/03/25 History mg-hydrochlorothiazide 50 mg tablet hydrocodone-acetaminophen 5-325mg 1 tab PO Q6H PRN pain 7 days #28 02/05/25 Unknown Rx 5mg-325mg tabs meloxicam 15 mg tablet 15 mg PO DAILY #30 tabs 02/05/25 Unknown Rx methocarbamol 500 mg tablet 750 mg (1.5 x 500 mg) PO TID PRN 02/05/25 Unknown Rx pain/spasms #60 tabs sennosides 8.6 mg-docusate sodium 2 tab PO BID PRN constipation #30 02/05/25 Unknown Rx 50 mg tablet (Stimulant Laxative tabs Plus) Allergy/AdvReac Type Severity Reaction Status Date / Time sulfamethoxazole (From AdvReac Unknown Headache Verified 02/15/25 08:05 Bactrim) trimethoprim (From Bactrim) AdvReac Unknown Headache Verified 02/15/25 08:05 gabapentin (From Neurontin) AdvReac muscle Verified 02/15/25 08:05 stiffness ofloxacin (From Floxin) AdvReac Unknown Verified 02/15/25 08:05 Family History Mother Brain cancer Father Colon cancer Diabetes Surgical History Hx of colonoscopy History of cataract surgery Social History Smoking Status: Current every day smoker tobacco type: cigarettes Tobacco: How many years used: 4 how long ago did patient quit smoking: has been about 6 years second hand exposure: No alcohol intake: current alcohol intake frequency: holidays/special occasions only substance use type: does not use ROS ROS ED Constitutional Constitutional ED: Denies chills, fever(s), subjective, sweats or weight loss Eyes Eyes: Denies blurry vision or change in vision ENT ENT ED: Denies ear pain or rhinorrhea Cardiovascular Cardiovascular: Denies chest pain, orthopnea, palpitations or paroxysmal nocturnal dyspnea Respiratory/Chest Respiratory/Chest: Reports dyspnea; Denies cough, dyspnea on exertion, orthopnea or paroxysmal nocturnal dyspnea Gastrointestinal Gastrointestinal: Reports abdominal pain, constipation and nausea; Denies diarrhea, melena or vomiting Genitourinary Genitourinary ED: Denies dysuria, hematuria or urinary frequency Musculoskeletal Musculoskeletal: Reports neck pain; Denies back pain Integumentary Denies rash Neurologic Neurologic: Denies paresthesias Hematologic/Lymphatic Hematologic/Lymphatic: Reports systems reviewed and no addt'l complaints, except as documented EXAM Physical Exam Const Vital Signs: 02/15/25 08:06 Temperature 97.6 F L Temperature Source Oral Pulse Rate 114 H Respiratory Rate 18 Blood Pressure 150/113 H Blood Pressure Mean 125 Pulse Ox 98 Oxygen Delivery Method Room Air Positive well nourished and well developed Constitutional Narrative: BMI is 29.4. Blood pressure and heart rate are elevated 150/113 and 114 respectively. He is afebrile. He appears uncomfortable. His abdomen is quite prominent. General Appearance ED: well developed; Negative for pallor HEENT Reports dry mucous membranes Negative for trauma or tenderness Mouth ED: Yes dry mucous membranes Mouth: dry mucous membranes Eyes PERRL; Negative for EOMs intact bilaterally General Eye ED: Negative for pale conjunctiva or scleral icterus Neck No supple Neck Narrative: Patient c-collar was not removed. Trachea is midline. There is no dysphonia. Chest Wall inspection of chest normal and palpation of chest normal Resp normal respiratory effort and clear to auscultation bilaterally Cardio regular rhythm, S1 normal heart sound, S2 normal heart sound and no murmurs Rate: tachycardic GI GI Narrative: Abdomen is distended firm tympanitic with minimal discomfort. There is no guarding or peritoneal findings. Unable to appreciate hepatosplenomegaly or mass due to the amount of distention. Back/Spine no CVA tenderness Neuro oriented x3 and CN's II-XII intact bilaterally Sensorium / Orientation: alert Psych mental status grossly normal Skin no rashes or lesions noted and skin turgor normal General Skin Exam: Negative for jaundice or pallor MDM MDM MDM Narrative Medical decision making narrative: History and physical consistent with partial or complete obstruction. Will obtain CBC to assess H&H as well as white count. Electrolyte panel assess renal function, CO2 anion gap and glucose. CT of the abdomen pelvis was obtained to determine if he does have an obstruction versus an ileus and if there is a transition point. There is an office visit by Dr. Rustam Leach on January 02 for chronic constipation. Because of the anal stenosis recommendation was to follow-up with colorectal surgeon. He also has tortuosity of his colon. This then raises concern for volvulus. History & Record Review Additional record(s) reviewed:: Prior inpatient record (Documented HPI narrative), Prior outpatient record (Documented MDM narrative), Prior ED visit (His most recent ER visit was in 2008 teen. He was seen for constipation. Note authored by Dr. Goins was reviewed.) and Prior labs Lab Data Attestation: I reviewed the patient's lab results. Lab results narrative: Electrolyte panel reveals a sodium of 127 with a chloride of 88. Patient is not on a thiazide or loop diuretic. BUN and creatinine are 21 and 1.29. Glucose is elevated at 302 with a normal CO2. Anion gap slightly elevated. This would not explain a sodium of 127. 10 days ago his sodium and chloride were 134 and 99 respectively. He had a normal anion gap at that time. His creatinine is slightly elevated from baseline. It was 1.12. Since he is on no diuretic will obtain urine osmolarity, serum osmolality, Labs: Laboratory Results - last 24 hr 02/15/25 08:40 WBC 13.9 H RBC 4.92 Hgb 15.1 Hct 44.5 MCV 90.4 MCH 30.7 MCHC 33.9 RDW Std Deviation 43.8 RDW Coeff of Leonel 13.2 Plt Count 339 MPV 8.5 Immature Gran % (Auto) 0.600 Neut % (Auto) 80.2 H Lymph % (Auto) 11.5 L [place] % (Auto) 7.3 Eos % (Auto) 0.1 Baso % (Auto) 0.3 Absolute Neuts (auto) 11.2 H Absolute Lymphs (auto) 1.60 Nucleated RBC % 0 Sodium 127 L Potassium 4.3 Chloride 88 L Carbon Dioxide 21.7 Anion Gap 17 H BUN 21 H Creatinine 1.29 H Estim Creat Clear Calc 51.43 Est GFR (MDRD) Non-Af 59 L BUN/Creatinine Ratio 16.4 Glucose 302 H Calcium 9.8 Total Bilirubin 0.59 AST 20 ALT 11 Alkaline Phosphatase 107 Total Protein 7.5 Albumin 3.9 Globulin 3.6 Albumin/Globulin Ratio 1.1 Radiography Chest X-Ray - ED: 1 View and Read by ED Physician (NG is in proper position. There is no evidence of pneumoperitoneum. He has significant gas noted.) Diagnostic Testing: Clinical Impression(s) from Imaging Studies Abdomen/Pelvis CT 02/15/25 08:18 IMPRESSION: 1. Small and large bowel dilation without discrete transition point, which may be secondary to recent reported surgery or developing bowel obstruction. No pneumatosis or ascites. 2. Nonobstructing left lower pole renal calculi. Reading Location: [facility] CT of the abdomen pelvis reveals atelectasis lower lobes. Patient has what appears to be an obstruction distal small bowel. There are some narrowing near the sigmoid colon and evidence of diverticulosis without evidence of diverticulitis. Awaiting formal read, 0929. EKG Initial EKG: Attestation: I personally reviewed and interpreted this EKG as follows: Interpretation: Sinus Rhythm (Rate is 95. There is premature atrial beats noted. NM interval 250 ms. QS duration is 76 ms. QT durations 364 ms. [place] is normal. There is no ischemic changes noted.) Management Discussion w/another healthcare provider: Hospitalist (Case was discussed with Dr. Baca. He will admit with consult to surgery.) and Flap Maker (Case was discussed with surgeon on-call, Dr. Saldaña. He will be in to see patient. Recommends NG. I asked for the patient to be admitted to medicine.) Discharge Plan Dx/Rx/DC Orders Clinical Impression: Partial bowel obstruction, Essential tremor, Elevated serum creatinine, Acute hyponatremia, High anion gap metabolic acidosis, Sinus tachycardia seen on planograph operator Disposition Disposition: Acute Care Hospital [facility]
[2025-02-15] MEDS: Morphine 4 MG/ML Syringe IV ×2 (08:37→10:01)
[2025-02-15] MEDS: Ondansetron 4 MG/2 ML Vial IV ×2 (08:37→10:23)
[2025-02-15] MEDS: 0.9% Normal Saline (1000mL) 1,000 ML 250 ML IV (08:37)
[2025-02-15 09:04] LABS: ALB/GLOB Ratio 1.1 RATIO (0.9-2.4); AST(SGOT) 20 U/L (<=37); Alanine Aminotransfer ALT/SGPT 11 U/L (<=46); Albumin, Serum 3.9 g/dL (3.4-4.8); Alkaline Phosphatase 107 U/L (40-129); Anion Gap 17 (5-15); BUN 21 mg/dL (4-19); BUN/Creat Ratio 16.4 RATIO (10-20); Calcium,Total 9.8 mg/dL (7.6-11.0); Carbon Dioxide 21.7 mmol/L (21.0-32.0); Chloride 88 mmol/L (98-108); Creatinine, Serum 1.29 mg/dL (0.70-1.20); EST Glomerular Filtration Rate 59 (>60); Estimated Creatinine Clearance 51.43 ml/min (50-250); Globulin 3.6 g/dL (2.2-4.2); Glucose 302 mg/dL (70-99); Potassium 4.3 mmol/L (3.3-5.1); Protein, Total 7.5 g/dL (5.9-8.4); Sodium Level 127 mmol/L (133-145); Total Bilirubin 0.59 mg/dL (0.00-1.30)
[2025-02-15 09:06] LABS: Absolute Neutrophil Count 11.2 X10^3/uL (2.0-7.7); Basophil# 0.04 X10^3/uL; Basophil% 0.3 % (0-1); Eosinophil# 0.01 X10^3/uL; Eosinophils% 0.1 % (0-5); Hematocrit 44.5 % (40-54); Hemoglobin 15.1 g/dL (13.0-16.5); Lymphocyte % 11.5 % (19-41); Mean Corp Hgb Conc 33.9 g/dL (32-36); Mean Corpuscular Hgb 30.7 pg (27.0-32.0); Mean Corpuscular Volume 90.4 fL (80-94); Mean Platelet Vol. 8.5 fl (6.2-12.0); Monocyte# 1.01 X10^3/uL; Monocyte% 7.3 % (0-10); NRBC Flagged by Analyzer 0 % (0-5); Neutrophil # 11.17 X10^3/uL (2.7-7.7); Neutrophil % 80.2 % (47-70); Platelet Count 339 K/mm3 (150-450); RBC Distribution Width CV 13.2 % (11.6-14.6); RBC Distribution Width SD 43.8 fl (35.1-43.9); Red Blood Count 4.92 M/mm3 (4.6-6.2); White Blood Count 13.9 K/mm3 (4.4-11.0)
--- NOTE | 2025-02-15 10:20 | RAD_ITS ---
PROCEDURE: ABDOMEN SINGLE VIEW (PORTABLE) 02/15/2025 REASON FOR EXAM: NG INSERTION TECHNIQUE: Single view abdomen. COMPARISON: CT abdomen pelvis earlier same day. FINDINGS: Support devices: Interval NG tube with side hole and tip overlying the expected body of the stomach. Bowel gas: Unchanged diffuse dilation of the visualized small and large bowel loops of the upper abdomen. Bones: There are degenerative changes of the spine. Other: The heart is normal in size. Bibasilar atelectasis. RAD/Abdomen Single View (Portable) IMPRESSION: Interval NG tube placement as described. Reading Location: [id number]
--- NOTE | 2025-02-15 10:23 | PCM.HP.STD ---
HPI - General General Date of Admission: 02/15/25 Date of Service: 02/15/25 HPI Narrative BRIANA ARIZMENDI, is a 74 M came to ED with feeling of abdominal discomfort mainly in the central location for last 2 to 3 days but got worse after he had had dinner of corn beef. He feels bloating, distended mainly in the center and discomfort. There was mild nausea but no vomiting. He said he had some BM yesterday night but was not complete emptying sensation. Patient is stated that he is taking MiraLAX and Dulcolax oral and usually have mild constipation. Denies fever or chills. Denies any blood in the stool or mucus. Patient had CT abdomen in ER which shows small or large bowel dilatation without discrete transition point. NG tube was inserted. History of bowel obstruction in the past which was treated with NG tube. 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 [facility] Medical History Stuttering Wears hearing aid Wears glasses Complete edentulism, class III Depression Alcohol use Walker as ambulation aid Arthritis Prostate disease Easy bruising Back pain Injury of head and neck Dietary restriction Difficulty swallowing Chronic constipation Gastric reflux Former smoker Leg cramps History of pain when walking History of edema Vertigo Diabetes Hypokalemia Tremor Degeneration of cervical intervertebral disc Diverticulitis Essential hypertension Anxiety Home Medications ?Medication ?Instructions ?Recorded ?Last Taken ?Type metoprolol tartrate 50 mg tablet 50 mg PO BID hypertension 03/09/14 02/04/25 History tamsulosin 0.4 mg capsule 0.8 mg PO QHS urinary issues 01/26/15 02/03/25 History dexlansoprazole 30 mg 30 mg PO DAILY stomach 09/03/19 02/04/25 History capsule,biphase delayed release potassium chloride 20 mEq 20 meq PO BID supplement ##0 09/04/19 02/03/25 Rx tablet,extended release(part/cryst) linaclotide 290 mcg capsule 290 mcg PO DAILY 01/19/21 02/03/25 History (Linzess) lorazepam 1 mg tablet (Ativan) 1 mg PO BID 01/19/21 02/04/25 History melatonin 5 mg capsule 5 mg PO QHS 01/19/21 02/03/25 History saw palmetto 450 mg capsule 450 mg PO BID 01/19/21 02/03/25 History lactulose 10 gram/15 mL oral 20 g PO BID 11/07/24 02/03/25 History solution (Constulose) metformin 500 mg tablet 500 mg PO BID 11/07/24 02/03/25 History polyethylene glycol 3350 17 4 g PO BID 11/07/24 02/03/25 History gram/dose oral powder (Miralax) primidone 125 mg tablet 125 mg PO QHS 11/07/24 02/03/25 History triamterene 75 1 tab PO DAILY hypertension 02/04/25 02/03/25 History mg-hydrochlorothiazide 50 mg tablet hydrocodone-acetaminophen 5-325mg 1 tab PO Q6H PRN pain 7 days #28 02/05/25 Unknown Rx 5mg-325mg tabs meloxicam 15 mg tablet 15 mg PO DAILY #30 tabs 02/05/25 Unknown Rx methocarbamol 500 mg tablet 750 mg (1.5 x 500 mg) PO TID PRN 02/05/25 Unknown Rx pain/spasms #60 tabs sennosides 8.6 mg-docusate sodium 2 tab PO BID PRN constipation #30 02/05/25 Unknown Rx 50 mg tablet (Stimulant Laxative tabs Plus) Allergy/AdvReac Type Severity Reaction Status Date / Time sulfamethoxazole (From AdvReac Unknown Headache Verified 02/15/25 08:05 Bactrim) trimethoprim (From Bactrim) AdvReac Unknown Headache Verified 02/15/25 08:05 gabapentin (From Neurontin) AdvReac muscle Verified 02/15/25 08:05 stiffness ofloxacin (From Floxin) AdvReac Unknown Verified 02/15/25 08:05 Family History Mother Brain cancer Father Colon cancer Diabetes Surgical History Hx of colonoscopy History of cataract surgery Social History Smoking Status: Current every day smoker tobacco type: cigarettes Tobacco: How many years used: 4 how long ago did patient quit smoking: has been about 6 years second hand exposure: No alcohol intake: current alcohol intake frequency: holidays/special occasions only substance use type: does not use ROS ROS Narrative Constitutional: Reports fatigue and weakness. No fever. HEENT: Reports systems reviewed and no addt'l complaints, except as documented Respiratory/Chest: No acute shortness of breath or respiratory distress or wheezing. CVS: No chest pain pressure or tightness. Gastrointestinal: As described in HPI. Musculoskeletal: Recent cervical surgery. Wearing hard collar.Denies acute joint pain. No acute injury Neurologic: Denies seizure-like symptoms. skin: No ulcer. No rash Endocrinology: Reports systems reviewed and no addt'l complaints, except as documented Hematologic/Lymphatic: Reports systems reviewed and no addt'l complaints, except as documented Rest 14 ROS are negative except as mentioned in HPI Vital Signs Vital Signs Vital Signs: 02/15/25 08:06 Temperature 97.6 F L Temperature Source Oral Pulse Rate 114 H Respiratory Rate 18 Blood Pressure 150/113 H Blood Pressure Mean 125 Pulse Ox 98 Oxygen Delivery Method Room Air Weight Weight: 182 lb Body Mass Index (BMI) 29.3 Physical Exam Narrative General: Alert, Oriented x3, Cooperative HEENT: Wearing hard collar. Lateral cervical surgical dressing is dry. Atraumatic, PERRLA, EOMI, Normocephalic Oral: No Gingival or Mucosal Lesions/ Ulcerations Neck: Supple, No JVD, Negative Carotid Bruits Chest wall/Lungs: Air entry diminished in bilateral lung bases. No crepitation/rhonchi Cardiovascular: Regular rate, Regular Rhythm, Normal S1, Normal S2, No M/G/R Abdomen: Bowel Sounds hyper. No tenderness but abdomen distended. No discrete surgical incision scar. : No dysuria. No renal angle tenderness. No suprapubic tenderness. Extremities: No edema, Capillary Refill Less than 3 Seconds Skin: No rashes, No breakdown Musculoskeletal: No Tenderness to Palpation of Joints or Extremities Neurological: Cranial nerves II-XII grossly intact, DTR 2+/4. No acute focal neurological deficit. Psych/Mental Status: Normal Affect, Appropriate. Results Lab / Micro Data 02/15/25 08:40 02/15/25 08:40 Labs: Laboratory Results - last 24 hr 02/15/25 08:40: WBC 13.9 H, RBC 4.92, Hgb 15.1, Hct 44.5, MCV 90.4, MCH 30.7, MCHC 33.9, RDW Std Deviation 43.8, RDW Coeff of Leonel 13.2, Plt Count 339, MPV 8.5, Immature Gran % (Auto) 0.600, Neut % (Auto) 80.2 H, Lymph % (Auto) 11.5 L, [place] % (Auto) 7.3, Eos % (Auto) 0.1, Baso % (Auto) 0.3, Absolute Neuts (auto) 11.2 H, Absolute Lymphs (auto) 1.60, Nucleated RBC % 0, Sodium 127 L, Potassium 4.3, Chloride 88 L, Carbon Dioxide 21.7, Anion Gap 17 H, BUN 21 H, Creatinine 1.29 H, Estim Creat Clear Calc 51.43, Est GFR (MDRD) Non-Af 59 L, BUN/Creatinine Ratio 16.4, Glucose 302 H, Calcium 9.8, Total Bilirubin 0.59, AST 20, ALT 11, Alkaline Phosphatase 107, Total Protein 7.5, Albumin 3.9, Globulin 3.6, Albumin/Globulin Ratio 1.1 Imaging Radiology Impression Abdomen/Pelvis CT 02/15/25 08:18 IMPRESSION: 1. Small and large bowel dilation without discrete transition point, which may be secondary to recent reported surgery or developing bowel obstruction. No pneumatosis or ascites. 2. Nonobstructing left lower pole renal calculi. Reading Location: [facility] Assessment & Plan Assessment/Plan (1) Partial bowel obstruction: PLAN: Plan This is 74-year-old gentleman being admitted for abdominal distention, discomfort and nausea CT findings suggestive of partial small bowel and large bowel obstruction. 1. Small and large bowel partial obstruction with dilatation: CT abdomen initially reviewed and shows diffuse dilatation of his small and large bowel with air and fluid. No discrete transition point. No ascites. Colonic diverticulosis. ED physician consulted surgeon Dr. Saldaña. NG tube inserted and x-ray reviewed shows tube lying in the body of the stomach. NPO. IV fluid support. Monitor intake and output and abdominal exam 2. 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 Patient had elective cervical spine surgery on 02/04 and was electively admitted and discharged on 02/05. No acute issues. Wearing hard collar. Continue PT and OT 3. Essential hypertension: BP 150/113. BP elevated hold oral but IV antihypertensive medication ordered 4. DM2: Glucose 302. ? Hold metformin. Accu-Chek every 6 hours with Humalog sliding scale coverage and hypoglycemia protocol. 5. CKD stage IIIa, hyponatremia and hypochloremia with increased anion gap probably due to third volume spacing from bowel distention/partial obstruction: IV fluid normal saline ordered. Usually creatinine stays around 1.05-1.12. BUN/creatinine elevated 21/1.29. On IV fluid resuscitation. Does not meet criteria for [place]. 6. GERD/chronic constipation. As mentioned above. Does not need IV PPI 7. BPH with chronic bladder outlet obstruction: Hold Flomax. 8. Chronic anxiety/depression. DVT prophylaxis: Lovenox 40 mL subcu daily Living will/advanced directive/end of life care: Patient does not living will or advanced directive. His present in the ED is power of contract attorney for health. After discussion of benefits/risks procedures involved with full code, DNR CC arrest and DNR CC, the patient opted for DNR CC arrest with no intubation Patient doesn't want artificial life support including intubation, tube feed, ventilator and/chest compression, central venous catheter, vasopressor and DC shock if needed Total time spent in [id number] encounter in discussion of advanced directive 17 minutes. Laboratory Results 02/15/25 08:40: WBC 13.9 H, RBC 4.92, Hgb 15.1, Hct 44.5, MCV 90.4, MCH 30.7, MCHC 33.9, RDW Std Deviation 43.8, RDW Coeff of Leonel 13.2, Plt Count 339, MPV 8.5, Immature Gran % (Auto) 0.600, Neut % (Auto) 80.2 H, Lymph % (Auto) 11.5 L, [place] % (Auto) 7.3, Eos % (Auto) 0.1, Baso % (Auto) 0.3, Absolute Neuts (auto) 11.2 H, Absolute Lymphs (auto) 1.60, Nucleated RBC % 0, Sodium 127 L, Potassium 4.3, Chloride 88 L, Carbon Dioxide 21.7, Anion Gap 17 H, BUN 21 H, Creatinine 1.29 H, Estim Creat Clear Calc 51.43, Est GFR (MDRD) Non-Af 59 L, BUN/Creatinine Ratio 16.4, Glucose 302 H, Calcium 9.8, Total Bilirubin 0.59, AST 20, ALT 11, Alkaline Phosphatase 107, Total Protein 7.5, Albumin 3.9, Globulin 3.6, Albumin/Globulin Ratio 1.1 02/15/25 09:35: Serum Osmolality Pending Clinical Impression(s) from Imaging Studies Abdomen/Pelvis CT 02/15/25 08:18 IMPRESSION: 1. Small and large bowel dilation without discrete transition point, which may be secondary to recent reported surgery or developing bowel obstruction. No pneumatosis or ascites. 2. Nonobstructing left lower pole renal calculi. Reading Location: [id number] Charges/Coding Visit Charges Inpatient E&M: 47632 Init Hosp L3 Procedures Hospitalists Procedures: 52898 Advncd Care Plan 30 Min
[2025-02-15 11:57] LABS: Osmolality, Serum 284 mOsm/KG (280-301)
[2025-02-15 12:05] LABS: Magnesium 2.3 mg/dL (1.5-2.2)
[2025-02-15] MEDS: KCL 20MEQ in 0.9% NS 20 MEQ/1,000 ML IV.SOLN. 75 MEQ IV (12:32)
[2025-02-15 12:42] LABS: Bedside Glucose 265 mg/dL (74-106)
[2025-02-15] MEDS: Insulin Glargine-YFGN 100 UNIT/ML Pen 15 UNIT SC (13:22)
[2025-02-15] MEDS: Enoxaparin 40 MG/0.4 ML Syringe SC (13:23)
[2025-02-15] MEDS: proCHLORPERazine 10 MG/2 ML Vial 5 MG IV (13:23)
[2025-02-15] MEDS: Insulin Lispro 100 UNIT/ML INSULN.PEN SC ×2 (13:49→18:36)
--- NOTE | 2025-02-15 17:00 | EX.PCM.CON.S ---
Assessment & Plan Assessment/Plan (1) Bowel obstruction: QUALIFIERS: Intestinal obstruction type: unspecified Intestinal obstruction extent: complete Qualified Code(s): K56.601 - Complete intestinal obstruction, unspecified as to cause PLAN: The patient appears to be having colonic obstruction due to his diverticulitis or diverticular stricture. The patient has liquid stool in his colon and small bowel and his colon and small bowel are both dilated down to the sigmoid colon where the area of diverticulum is located. There is some stool distal to this. The patient is very apprehensive about decompressive transverse colostomy. I discussed the risks of perforation and the patient understands that he does not want to proceed with surgery just yet. He reports that he had an obstruction several years ago that resolved with conservative measures. Patient is not having any focal pain. He has an NG tube in place and he says he is less distended than he was earlier this morning. I will give him through the night to see how he does clinically and repeat a KUB in the morning. If he is not having any bowel function and it does not look like he could be bowel prepped I would recommend transverse loop colostomy for decompression of his colon. I will get a second opinion from Dr Leach who saw this patient in the past tomorrow morning. Wali Saldaña MD Pager: [facility] [address] [place] [address], [address] [place] [address] Office: HPI Consult Data Date of Consult: 02/15/25 HPI Narrative HPI Narrative: BRIANA ARIZMENDI, is a 74 M who presents with abdominal distention and pain. Patient reports he is doing well until 3 days ago when he stopped passing gas. He has been having nausea but no vomiting. His abdomen is become more distended. He presented with distention and pain and a CT scan revealed possible colonic obstruction. The patient had attempted colonoscopy recently but it was unable to be completed due to tortuosity of the colon. Patient had barium enema which showed possible narrowing at the sigmoid colon [facility] Medical History Stuttering Wears hearing aid Wears glasses Complete edentulism, class III Depression Alcohol use Walker as ambulation aid Arthritis Prostate disease Easy bruising Back pain Injury of head and neck Dietary restriction Difficulty swallowing Chronic constipation Gastric reflux Former smoker Leg cramps History of pain when walking History of edema Vertigo Diabetes Hypokalemia Tremor Degeneration of cervical intervertebral disc Diverticulitis Essential hypertension Anxiety Home Medications ?Medication ?Instructions ?Recorded ?Last Taken ?Type metoprolol tartrate 50 mg tablet 50 mg PO BID hypertension 03/09/14 02/04/25 History tamsulosin 0.4 mg capsule 0.8 mg PO QHS urinary issues 01/26/15 02/03/25 History dexlansoprazole 30 mg 30 mg PO DAILY stomach 09/03/19 02/04/25 History capsule,biphase delayed release linaclotide 290 mcg capsule 290 mcg PO DAILY bowels 01/19/21 02/03/25 History (Linzess) lorazepam 1 mg tablet (Ativan) 1 mg PO BID anxiety 01/19/21 02/04/25 History melatonin 5 mg capsule 5 mg PO QHS 01/19/21 02/03/25 History saw palmetto 450 mg capsule 450 mg PO BID 01/19/21 02/03/25 History lactulose 10 gram/15 mL oral 20 g PO BID bowels 11/07/24 02/03/25 History solution (Constulose) metformin 500 mg tablet 500 mg PO BID blood glucose 11/07/24 02/03/25 History polyethylene glycol 3350 17 4 g PO BID 11/07/24 02/03/25 History gram/dose oral powder (Miralax) primidone 125 mg tablet 125 mg PO QHS seizures 11/07/24 02/03/25 History triamterene 75 1 tab PO DAILY hypertension 02/04/25 02/03/25 History mg-hydrochlorothiazide 50 mg tablet hydrocodone-acetaminophen 5-325mg 1 tab PO Q6H PRN pain 7 days #28 02/05/25 Unknown Rx 5mg-325mg tabs meloxicam 15 mg tablet 15 mg PO DAILY #30 tabs 02/05/25 Unknown Rx methocarbamol 500 mg tablet 750 mg (1.5 x 500 mg) PO TID PRN 02/05/25 Unknown Rx pain/spasms #60 tabs sennosides 8.6 mg-docusate sodium 2 tab PO BID PRN constipation #30 02/05/25 Unknown Rx 50 mg tablet (Stimulant Laxative tabs Plus) potassium chloride 20 mEq 20 meq PO TID supplement 02/15/25 Unknown History tablet,extended release(part/cryst) Allergy/AdvReac Type Severity Reaction Status Date / Time sulfamethoxazole (From AdvReac Unknown Headache Verified 02/15/25 08:05 Bactrim) trimethoprim (From Bactrim) AdvReac Unknown Headache Verified 02/15/25 08:05 gabapentin (From Neurontin) AdvReac muscle Verified 02/15/25 08:05 stiffness ofloxacin (From Floxin) AdvReac Unknown Verified 02/15/25 08:05 Family History Mother Brain cancer Father Colon cancer Diabetes Surgical History Hx of colonoscopy History of cataract surgery Social History Smoking Status: Current every day smoker tobacco type: cigarettes Tobacco: How many years used: 4 how long ago did patient quit smoking: has been about 6 years second hand exposure: No alcohol intake: current alcohol intake frequency: holidays/special occasions only substance use type: does not use ROS Constitutional Constitutional: Denies anorexia, chills, fatigue or fever(s) Eyes Eyes: Denies blurry vision ENT HEENT: Denies abnormal hearing Cardiovascular Cardiovascular: Denies chest pain Respiratory/Chest Respiratory/Chest: Denies cough or dyspnea Gastrointestinal Gastrointestinal: Reports abdominal pain, constipation and nausea; Denies vomiting Musculoskeletal Musculoskeletal: Denies abnormal gait Integumentary Integumentary: Denies jaundice Neurologic Neurologic: Denies abnormal gait Physical Exam Const alert and oriented x3 HEENT normocephalic Resp normal respiratory effort Cardio Rate: regular rate Rhythm: regular rhythm GI Inspection: abdominal distention Palpation: tender Lab / Micro Data 02/15/25 08:40 02/15/25 08:40 Labs: Laboratory Results - last 24 hr 02/15/25 08:40: WBC 13.9 H, RBC 4.92, Hgb 15.1, Hct 44.5, MCV 90.4, MCH 30.7, MCHC 33.9, RDW Std Deviation 43.8, RDW Coeff of Leonel 13.2, Plt Count 339, MPV 8.5, Immature Gran % (Auto) 0.600, Neut % (Auto) 80.2 H, Lymph % (Auto) 11.5 L, [place] % (Auto) 7.3, Eos % (Auto) 0.1, Baso % (Auto) 0.3, Absolute Neuts (auto) 11.2 H, Absolute Lymphs (auto) 1.60, Nucleated RBC % 0, Sodium 127 L, Potassium 4.3, Chloride 88 L, Carbon Dioxide 21.7, Anion Gap 17 H, BUN 21 H, Creatinine 1.29 H, Estim Creat Clear Calc 51.43, Est GFR (MDRD) Non-Af 59 L, BUN/Creatinine Ratio 16.4, Glucose 302 H, Calcium 9.8, Magnesium 2.3 H, Total Bilirubin 0.59, AST 20, ALT 11, Alkaline Phosphatase 107, Total Protein 7.5, Albumin 3.9, Globulin 3.6, Albumin/Globulin Ratio 1.1 02/15/25 09:35: Serum Osmolality 284 02/15/25 12:24: POC Glucose 265 H Imaging Radiology Impression Abdomen/Pelvis CT 02/15/25 08:18 IMPRESSION: 1. Small and large bowel dilation without discrete transition point, which may be secondary to recent reported surgery or developing bowel obstruction. No pneumatosis or ascites. 2. Nonobstructing left lower pole renal calculi. Reading Location: [facility] KUB X-Ray 02/15/25 10:20 IMPRESSION: Interval NG tube placement as described. Reading Location: [facility]
[2025-02-15] MEDS: Lorazepam 2 MG/ML WCH Syringe 0.5 MG IV (18:32)
[2025-02-15] MEDS: Morphine 2 MG/ML Syringe IV ×2 (18:32→23:22)
[2025-02-15] MEDS: 0.9% Saline Lock 10 ML Syringe IV (18:33)
[2025-02-15 18:34] LABS: Bedside Glucose 249 mg/dL (74-106)
[2025-02-15 23:30] LABS: Bedside Glucose 152 mg/dL (74-106)
[2025-02-16] MEDS: KCL 20MEQ in 0.9% NS 20 MEQ/1,000 ML IV.SOLN. 75 MEQ IV (02:12)
[2025-02-16 02:50] VITALS: BP 150/89; PULSE 112; RESP 19; TEMP 36.6; O2SAT 95
[2025-02-16] MEDS: Insulin Lispro 100 UNIT/ML INSULN.PEN SC ×3 (05:21→18:27)
[2025-02-16 05:41] LABS: Bedside Glucose 219 mg/dL (74-106)
[2025-02-16 06:00] VITALS: BMI 27.7
[2025-02-16 07:43] LABS: Absolute Lymphocyte Count 1.02 X10^3/uL (0.83-4.51); Absolute Neutrophil Count 11.7 X10^3/uL (2.0-7.7); Basophil# 0.04 X10^3/uL; Basophil% 0.3 % (0-1); Eosinophil# 0.01 X10^3/uL; Eosinophils% 0.1 % (0-5); Hematocrit 40.9 % (40-54); Hemoglobin 14.2 g/dL (13.0-16.5); Lymphocyte # 1.02 X10^3/ul (0.83-4.51); Lymphocyte % 7.3 % (19-41); Mean Corp Hgb Conc 34.7 g/dL (32-36); Mean Corpuscular Hgb 31.1 pg (27.0-32.0); Mean Corpuscular Volume 89.7 fL (80-94); Monocyte# 1.04 X10^3/uL; Monocyte% 7.5 % (0-10); NRBC Flagged by Analyzer 0.2 % (0-5); Neutrophil % 84.3 % (47-70); POSITIVE COUNT YES; Platelet Count 370 K/mm3 (150-450); RBC Distribution Width CV 13.3 % (11.6-14.6); RBC Distribution Width SD 43.6 fl (35.1-43.9); Red Blood Count 4.56 M/mm3 (4.6-6.2); White Blood Count 13.9 K/mm3 (4.4-11.0)
[2025-02-16 08:18] LABS: Thyroid Stim Hormone (TSH) 0.845 uIU/mL (0.300-4.200)
[2025-02-16 08:19] LABS: Anion Gap 13 (5-15); BUN 31 mg/dL (4-19); BUN/Creat Ratio 23.4 RATIO (10-20); Calcium,Total 8.8 mg/dL (7.6-11.0); Carbon Dioxide 21.4 mmol/L (21.0-32.0); Chloride 97 mmol/L (98-108); Creatinine, Serum 1.31 mg/dL (0.70-1.20); EST Glomerular Filtration Rate 57 (>60); Estimated Creatinine Clearance 52.74 ml/min (50-250); Glucose 192 mg/dL (70-99); Potassium 4.9 mmol/L (3.3-5.1); Sodium Level 132 mmol/L (133-145)
[2025-02-16 08:27] LABS: Differential Comment SCANNED; Differential Indicated SCAN CRITERIA MET
[2025-02-16 08:52] VITALS: BP 158/94; PULSE 117; RESP 18; TEMP 36.8; O2SAT 93
[2025-02-16] MEDS: Insulin Glargine-YFGN 100 UNIT/ML Pen 15 UNIT SC ×2 (09:57→18:49)
--- NOTE | 2025-02-16 10:05 | CASEMGMT ---
JESUS STEVE Assessment Face to Face with patient for initial transition planning/care coordination assessment. JESUS STEVE introduced self and role at [facility], pt voices understanding. Pt is A&Ox4 and is resting comfortably in the chair and is calm. Pt SO/Fiance @ bedside. Care providers, pharmacy, and demographics verified. Admitting dx: pSBO SANTOSH Strata: 2 PCP: Ross Specialists: Mitchel (Ortho), History with Dr Lawson (PM) Preferred [facility]acy: [facility] Insurance: [facility] A/B, [employer] Prescription Benefit: Yes LNOK: Yamilka Goddard (SO/Fiance) Living Arrangements: Pt lives with his SO in a 2 story home with a FFSU and 2 steps to enter. ADLs/IADLs: Pt reports that he is independent. Pt did well with PT, see notes. Transportation: Self, SO now. Denies concerns DME: Functioning BGM with sufficient supplies. C-Collar. Rollator. Cane. Shower chair. Grab bars. BP Machine and pulse ox, bone stimulater. HHC/SNF: Denies Hx or needs. Pt states that he has been to OP therapy before through Rudy (PT) Pt?s goal: Home Plan: TBD. Anticipate eventual DC home with SO once the pt is medically ready. General surgery is consulted and following. Pt states that he prefers and feels safe returning home with his SO once he is medically stable. Pt is uncertain about HHC or OP Tx needs at this time. Pt denies further questions now. Report given to MS3 JESUS STEVE. Tono Moran RN, CM
--- NOTE | 2025-02-16 10:37 | PN.SURG_ITS ---
Subjective Subjective Patient says he feels less distended and more comfortable but he is not passing any flatus or bowel movements Objective Data Objective Data Vital Signs: Vital Signs Temp Pulse Resp BP Pulse Ox O2 Del Method 97.8 F 112 H 19 H 150/89 H 95 Room Air 02/16/25 02:50 02/16/25 02:50 02/16/25 02:50 02/16/25 02:50 02/16/25 02:50 02/16/25 07:19 Oxygen Delivery Method Room Air Weight: 182 lb 15.739 oz Body Mass Index (BMI) 27.7 Intake & Output: Intake and Output for Last 24 Hours 02/14/25 02/15/25 02/16/25 23:59 23:59 23:59 Intake Total 1060 / 1060 1000 / 1000 Output Total 850 / 850 150 / 150 Balance 210 / 210 850 / 850 Lab / Micro Data 02/16/25 06:57 02/16/25 06:57 Labs: Laboratory Results - last 24 hr 02/15/25 08:40: Magnesium 2.3 H 02/15/25 09:35: Serum Osmolality 284 02/15/25 12:24: POC Glucose 265 H 02/15/25 18:14: POC Glucose 249 H 02/15/25 23:13: POC Glucose 152 H 02/16/25 05:17: POC Glucose 219 H 02/16/25 06:57: WBC 13.9 H, RBC 4.56 L, Hgb 14.2, Hct 40.9, MCV 89.7, MCH 31.1, MCHC 34.7, RDW Std Deviation 43.6, RDW Coeff of Leonel 13.3, Plt Count 370, MPV 9.0, Immature Gran % (Auto) 0.500, Neut % (Auto) 84.3 H, Lymph % (Auto) 7.3 L, [place] % (Auto) 7.5, Eos % (Auto) 0.1, Baso % (Auto) 0.3, Absolute Neuts (auto) 11.7 H, Absolute Lymphs (auto) 1.02, Nucleated RBC % 0.2, Differential Comment SCANNED, Sodium 132 L, Potassium 4.9, Chloride 97 L, Carbon Dioxide 21.4, Anion Gap 13, BUN 31 H, Creatinine 1.31 H, Estim Creat Clear Calc 52.74, Est GFR (MDRD) Non-Af 57 L, BUN/Creatinine Ratio 23.4 H, Glucose 192 H, Calcium 8.8, TSH 0.845 Radiography Diagnostic Testing: Radiology Impression KUB X-Ray 02/15/25 10:20 IMPRESSION: Interval NG tube placement as described. Reading Location: [facility] Physical Exam Const oriented x3 and no apparent distress Resp normal respiratory effort GI non-tender Inspection: abdominal distention Assessment & Plan Assessment/Plan (1) Bowel obstruction: QUALIFIERS: Intestinal obstruction type: unspecified Intestinal obstruction extent: complete Qualified Code(s): K56.601 - Complete intestinal obstruction, unspecified as to cause PLAN: The patient continues to be obstructed. I recommended that he have a transverse loop decompressive colostomy but the patient was adamant against this. I did warn the patient that if he perforated he may have sepsis and it may be fatal and he may have to have a complete colectomy. The patient understands and does not want to proceed with surgery he wanted a second opinion from Dr. Leach. Dr. Leach did see the patient he is ordering a fleets enema and we will give him 1 more day to try to pass things. My suspicion is that he has a diverticular stricture that is clogged up from constipated stool. We will continue to observe in order fleets enema and Dulcolax to try to soften up the stool that is stuck to see if he will pass it. Wali Saldaña MD Pager: [facility] [address] [place] [address], [address] [place] [address] Office:
--- NOTE | 2025-02-16 11:24 | PN.HOSP_ITS ---
Reason for Visit Reason for Visit: Diagnoses Partial intestinal obstruction, unspecified as to cause (02/15/25) Complete intestinal obstruction, unspecified as to cause (02/15/25) Objective Data Objective Data Vital Signs: Vital Signs Temp Pulse Resp BP Pulse Ox O2 Del Method 97.8 F 112 H 19 H 150/89 H 95 Room Air 02/16/25 02:50 02/16/25 02:50 02/16/25 02:50 02/16/25 02:50 02/16/25 02:50 02/16/25 07:19 Oxygen Delivery Method Room Air Weight: 182 lb 15.739 oz Body Mass Index (BMI) 27.7 Intake & Output: Intake and Output for Last 24 Hours 02/14/25 02/15/25 02/16/25 23:59 23:59 23:59 Intake Total 1060 / 1060 1000 / 1000 Output Total 850 / 850 150 / 150 Balance 210 / 210 850 / 850 Lab / Micro Data 02/16/25 06:57 02/16/25 06:57 Labs: Laboratory Results - last 24 hr 02/15/25 08:40: Magnesium 2.3 H 02/15/25 09:35: Serum Osmolality 284 02/15/25 12:24: POC Glucose 265 H 02/15/25 18:14: POC Glucose 249 H 02/15/25 23:13: POC Glucose 152 H 02/16/25 05:17: POC Glucose 219 H 02/16/25 06:57: WBC 13.9 H, RBC 4.56 L, Hgb 14.2, Hct 40.9, MCV 89.7, MCH 31.1, MCHC 34.7, RDW Std Deviation 43.6, RDW Coeff of Leonel 13.3, Plt Count 370, MPV 9.0, Immature Gran % (Auto) 0.500, Neut % (Auto) 84.3 H, Lymph % (Auto) 7.3 L, [place] % (Auto) 7.5, Eos % (Auto) 0.1, Baso % (Auto) 0.3, Absolute Neuts (auto) 11.7 H, Absolute Lymphs (auto) 1.02, Nucleated RBC % 0.2, Differential Comment SCANNED, Sodium 132 L, Potassium 4.9, Chloride 97 L, Carbon Dioxide 21.4, Anion Gap 13, BUN 31 H, Creatinine 1.31 H, Estim Creat Clear Calc 52.74, Est GFR (MDRD) Non-Af 57 L, BUN/Creatinine Ratio 23.4 H, Glucose 192 H, Calcium 8.8, TSH 0.845 Physical Exam Narrative Seen and examined. Patient abdomen is still distended. Denies any abdominal pain. Not passing flatus or moving bowels Physical exam General: Alert, Oriented x3, Cooperative HEENT: Wearing hard collar. Lateral cervical surgical dressing is dry. Atraumatic, PERRLA, EOMI, Normocephalic Oral: No Gingival or Mucosal Lesions/ Ulcerations Neck: Supple, No JVD, Negative Carotid Bruits Chest wall/Lungs: Air entry diminished in bilateral lung bases. No crepitation/rhonchi Cardiovascular: Regular rate, Regular Rhythm, Normal S1, Normal S2, No M/G/R Abdomen: Bowel Sounds absent. No tenderness but abdomen distended. No discrete surgical incision scar. : No dysuria. No renal angle tenderness. No suprapubic tenderness. Extremities: No edema, Capillary Refill Less than 3 Seconds Skin: No rashes, No breakdown Musculoskeletal: No Tenderness to Palpation of Joints or Extremities Neurological: Cranial nerves II-XII grossly intact, DTR 2+/4. No acute focal neurological deficit. Psych/Mental Status: Flat affect Assessment & Plan Assessment/Plan (1) Partial bowel obstruction: PLAN: Plan This is 74-year-old gentleman being admitted for abdominal distention, discomfort and nausea CT findings suggestive of partial small bowel and large bowel obstruction. 1. Small and large bowel partial obstruction with dilatation: CT abdomen initially reviewed and shows diffuse dilatation of his small and large bowel with air and fluid. No discrete transition point. No ascites. Colonic diverticulosis. ED physician consulted surgeon Dr. Saldaña. NG tube inserted and x-ray reviewed shows tube lying in the body of the stomach. NPO. IV fluid support. Monitor intake and output and abdominal exam 02/16: Overall it seems it is not going to resolve with conservative method but after discussion with Dr. Saldaña, patient does not want colostomy. He wanted second opinion with Dr. Leach. He will try Fleet enema and give 1 more day for conservative treatment to work otherwise prognosis is bad. 2. 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 Patient had elective cervical spine surgery on 02/04 and was electively admitted and discharged on 02/05. No acute issues. Wearing hard collar. Continue PT and OT 02/17: Patient walked around the nursing station with the help of PT. 3. Essential hypertension: BP 150/113. BP elevated hold oral but IV antihypertensive medication ordered 4. DM2: Glucose 302. ? Hold metformin. Accu-Chek every 6 hours with Humalog sliding scale coverage and hypoglycemia protocol. 02/16: Glucoses better 192 in BMP. 5. CKD stage IIIa, hyponatremia and hypochloremia with increased anion gap probably due to third volume spacing from bowel distention/partial obstruction: IV fluid normal saline ordered. Usually creatinine stays around 1.05-1.12. BUN/creatinine elevated /.. On IV fluid resuscitation. Does not meet criteria for [place]A. 6. GERD/chronic constipation. As mentioned above. Does not need IV PPI 7. BPH with chronic bladder outlet obstruction: Hold Flomax. 8. Chronic anxiety/depression. DVT prophylaxis: Lovenox 40 mg subcu daily Living will/advanced directive/end of life care: Patient does not living will or advanced directive. His present in the ED is power of environmental attorney for health. After discussion of benefits/risks procedures involved with full code, DNR CC arrest and DNR CC, the patient opted for DNR CC arrest with no intubation Patient doesn't want artificial life support including intubation, tube feed, ventilator and/chest compression, central venous catheter, vasopressor and DC shock if needed Laboratory Results 02/15/25 08:40: Magnesium 2.3 H 02/15/25 09:35: Serum Osmolality 284 02/15/25 12:24: POC Glucose 265 H 02/15/25 18:14: POC Glucose 249 H 02/15/25 23:13: POC Glucose 152 H 02/16/25 05:17: POC Glucose 219 H 02/16/25 06:57: WBC 13.9 H, RBC 4.56 L, Hgb 14.2, Hct 40.9, MCV 89.7, MCH 31.1, MCHC 34.7, RDW Std Deviation 43.6, RDW Coeff of Leonel 13.3, Plt Count 370, MPV 9.0, Immature Gran % (Auto) 0.500, Neut % (Auto) 84.3 H, Lymph % (Auto) 7.3 L, [place] % (Auto) 7.5, Eos % (Auto) 0.1, Baso % (Auto) 0.3, Absolute Neuts (auto) 11.7 H, Absolute Lymphs (auto) 1.02, Nucleated RBC % 0.2, Differential Comment SCANNED, Sodium 132 L, Potassium 4.9, Chloride 97 L, Carbon Dioxide 21.4, Anion Gap 13, BUN 31 H, Creatinine 1.31 H, Estim Creat Clear Calc 52.74, Est GFR (MDRD) Non-Af 57 L, BUN/Creatinine Ratio 23.4 H, Glucose 192 H, Calcium 8.8, TSH 0.845 Clinical Impression(s) from Imaging Studies Abdomen/Pelvis CT 02/15/25 08:18 IMPRESSION: 1. Small and large bowel dilation without discrete transition point, which may be secondary to recent reported surgery or developing bowel obstruction. No pneumatosis or ascites. 2. Nonobstructing left lower pole renal calculi. Reading Location: [id number] Charges/Coding Visit Charges Inpatient E&M: 72139 Subs Hosp L2
[2025-02-16 11:31] LABS: Bedside Glucose 195 mg/dL (74-106)
[2025-02-16] MEDS: Contrast Allergy Safety Check IV (12:24)
--- NOTE | 2025-02-16 12:47 | PCM.PN.SRG ---
Subjective Subjective I was asked to see patient this morning as a second opinion regarding his abdominal distention and concern for diverticular stricture and impending colon obstruction. I saw the patient several months ago in the office regarding diverticulitis. It sounds as though he has had several episodes of diverticulitis in his lifetime and this seems to average at least once or twice per year. Review of his chart at that time revealed that his last colonoscopy was unable to be performed due to significant tortuosity. It was also noted at that time that he may have anal stenosis as well. A barium enema was performed and showed tortuosity of the colon and questionable thickening. More recently the patient underwent a cervical fusion less than 2 weeks ago. He does admit to having been constipated during this past week and a half. Clinically the patient states that he is feeling a bit better today versus yesterday on admission. He denies any passage of flatus or bowel movements however but states that his abdomen is less tender and less distended. He states that his tenderness is somewhat generalized. He does not endorse any significant left lower quadrant pain. Review of his CT scan yesterday does show tortuous colon along with dilation of small and large bowel. He does have stool in the distal rectum.. There was no mention on CT scan of active diverticulitis. There is certainly concern for colonic obstruction secondary to stricture and may be exacerbated by constipation. Patient was offered diverting loop colostomy yesterday as well as this morning by Dr. Saldaña, and patient is very adamant about not wanting any type of colostomy. He has told that he would rather of sepsis rather than have a colostomy. I was asked to see the patient as the patient requested a second opinion. During my lengthy discussion with him, it sounds as though he is still quite adamantly not wanting to discuss the option of colostomy. Objective Data Objective Data Vital Signs: Vital Signs Temp Pulse Resp BP Pulse Ox O2 Del Method 98.2 F 117 H 18 158/94 H 93 Room Air 02/16/25 08:52 02/16/25 08:52 02/16/25 08:52 02/16/25 08:52 02/16/25 08:52 02/16/25 08:52 Oxygen Delivery Method Room Air Weight: 182 lb 15.739 oz Body Mass Index (BMI) 27.7 Intake & Output: Intake and Output for Last 24 Hours 02/14/25 02/15/25 02/16/25 23:59 23:59 23:59 Intake Total 1060 / 1060 1000 / 1000 Output Total 850 / 850 150 / 150 Balance 210 / 210 850 / 850 Lab / Micro Data 02/16/25 06:57 02/16/25 06:57 Labs: Laboratory Results - last 24 hr 02/15/25 18:14: POC Glucose 249 H 02/15/25 23:13: POC Glucose 152 H 02/16/25 05:17: POC Glucose 219 H 02/16/25 06:57: WBC 13.9 H, RBC 4.56 L, Hgb 14.2, Hct 40.9, MCV 89.7, MCH 31.1, MCHC 34.7, RDW Std Deviation 43.6, RDW Coeff of Leonel 13.3, Plt Count 370, MPV 9.0, Immature Gran % (Auto) 0.500, Neut % (Auto) 84.3 H, Lymph % (Auto) 7.3 L, [place] % (Auto) 7.5, Eos % (Auto) 0.1, Baso % (Auto) 0.3, Absolute Neuts (auto) 11.7 H, Absolute Lymphs (auto) 1.02, Nucleated RBC % 0.2, Differential Comment SCANNED, Sodium 132 L, Potassium 4.9, Chloride 97 L, Carbon Dioxide 21.4, Anion Gap 13, BUN 31 H, Creatinine 1.31 H, Estim Creat Clear Calc 52.74, Est GFR (MDRD) Non-Af 57 L, BUN/Creatinine Ratio 23.4 H, Glucose 192 H, Calcium 8.8, TSH 0.845 02/16/25 11:13: POC Glucose 195 H Physical Exam Narrative The patient alert and oriented x 3. He is in no acute distress Abdomen is moderately distended. There is mild diffuse tenderness to palpation. No rebound or guarding or other peritoneal signs. He does not exhibit any evidence to suggest an acute abdomen at present Assessment & Plan Assessment/Plan (1) Bowel obstruction: QUALIFIERS: Intestinal obstruction type: unspecified Intestinal obstruction extent: complete Qualified Code(s): K56.601 - Complete intestinal obstruction, unspecified as to cause PLAN: The patient is a 74-year-old male with a lengthy history of diverticulitis and has a known tortuous colon which was unable to be fully evaluated at most recent colonoscopy due to the tortuosity. Patient presented yesterday with concerns for constipation versus obstruction. He did recently have a cervical neck surgery less than 2 weeks ago and does admit to constipation. Given his history of tortuous colon and diverticulitis, certainly diverticular stricture leading to colonic obstruction is our greatest concern. We did offer him the option of a diverting loop colostomy yesterday as well as today from our surgical team. Patient remains quite adamant about not wanting to proceed with colostomy. He states that he was hospitalized about 5 or 10 years ago with a very similar situation and he states that after several days in the hospital, this eventually resolved. We did discuss at great length the risks of perforation given the scenario of a possible colonic obstruction. We were very explicit in terms of informing him that should a colonic perforation occur, this would almost certainly lead to sepsis as well as the possibility of . Again patient has previously stated that he would rather than have a colostomy. Given the fact that he had a recent surgery and was prescribed narcotic pain medicine and this in light of the fact that he has already an issue with chronic constipation, I feel that there may be a possibility that he is just so constipated that is presenting as a possible obstructive picture. Since he is clinically stable, I am recommending that we start with Dulcolax suppositories and possibly proceed to a fleets enema in hopes that this may resolve his situation. If this does not result in resolution of this obstructive picture, we will continue to advise colostomy even further. We did offer him the option of transfer to a tertiary center with colorectal surgery services as another option should he wish for a third opinion. He is not interested in transfer at this time. Hopefully this will resolve with conservative measures. We will give this at least another day to see if conservative measures will be effective. Patient is understanding of this and understands the risks of not proceeding with surgery at this time.
[2025-02-16 14:07] VITALS: PULSE 117
[2025-02-16] MEDS: Metoprolol Tartrate 50 MG Tablet PO ×2 (14:07→23:00)
[2025-02-16] MEDS: Enoxaparin 40 MG/0.4 ML Syringe SC (14:08)
[2025-02-16] MEDS: Bisacodyl 10 MG Suppository RC (14:09)
[2025-02-16] MEDS: Phenol/Sodium Phenolate 180ML 3 SPRAY MUCOUS MEM (14:11)
[2025-02-16 16:32] LABS: Bedside Glucose 190 mg/dL (74-106)
--- NOTE | 2025-02-16 16:34 | PCM.PN.BLA ---
Progress Note Patient seen and reexamined this afternoon. He seems clinically stable. He has still not received Dulcolax suppository. He does however state that he did pass flatus this afternoon. Will plan to continue to observe closely. Will proceed with Dulcolax suppository as well as a fleets enema this evening as well.
[2025-02-16] MEDS: Fleet Enema 133 ML RC (18:27)
[2025-02-16 22:59] VITALS: BP 131/90; PULSE 103; RESP 18; TEMP 36.9; O2SAT 98
[2025-02-16 23:00] VITALS: PULSE 103
[2025-02-16] MEDS: Primidone 250 MG Tablet 125 MG PO (23:00)
[2025-02-16] MEDS: Tamsulosin HCl 0.4 MG Capsule 0.8 MG PO (23:04)
[2025-02-17 01:55] LABS: Bedside Glucose 100 mg/dL (74-106)
[2025-02-17 03:10] VITALS: BP 122/84; PULSE 89; RESP 16; TEMP 36.6; O2SAT 95
[2025-02-17 05:38] VITALS: BMI 27.1
[2025-02-17 06:53] LABS: Bedside Glucose 76 mg/dL (74-106)
--- NOTE | 2025-02-17 07:12 | PCM.PN.SRG ---
Subjective Subjective Patient reports that he started passing flatus yesterday afternoon. He then received Dulcolax suppository and reported that he filled the bowl with stool and then he received a fleets enema and said that he had another runny bowel movement. He denies abdominal pain. He denies any nausea. Objective Data Objective Data Vital Signs: Vital Signs Temp Pulse Resp BP Pulse Ox O2 Del Method 97.9 F 89 16 122/84 H 95 Room Air 02/17/25 03:10 02/17/25 03:10 02/17/25 03:10 02/17/25 03:10 02/17/25 03:10 02/17/25 03:10 Oxygen Delivery Method Room Air Weight: 179 lb 3.773 oz Body Mass Index (BMI) 27.1 Intake & Output: Intake and Output for Last 24 Hours 02/15/25 02/16/25 02/17/25 23:59 23:59 23:59 Intake Total 1060 / 1060 2040 / 2040 40 / 40 Output Total 850 / 850 150 / 150 150 / 150 Balance 210 / 210 1890 / 1890 -110 / -110 Lab / Micro Data 02/16/25 06:57 02/16/25 06:57 Labs: Laboratory Results - last 24 hr 02/16/25 06:57: WBC 13.9 H, RBC 4.56 L, Hgb 14.2, Hct 40.9, MCV 89.7, MCH 31.1, MCHC 34.7, RDW Std Deviation 43.6, RDW Coeff of Leonel 13.3, Plt Count 370, MPV 9.0, Immature Gran % (Auto) 0.500, Neut % (Auto) 84.3 H, Lymph % (Auto) 7.3 L, [place] % (Auto) 7.5, Eos % (Auto) 0.1, Baso % (Auto) 0.3, Absolute Neuts (auto) 11.7 H, Absolute Lymphs (auto) 1.02, Nucleated RBC % 0.2, Differential Comment SCANNED, Sodium 132 L, Potassium 4.9, Chloride 97 L, Carbon Dioxide 21.4, Anion Gap 13, BUN 31 H, Creatinine 1.31 H, Estim Creat Clear Calc 52.74, Est GFR (MDRD) Non-Af 57 L, BUN/Creatinine Ratio 23.4 H, Glucose 192 H, Calcium 8.8, TSH 0.845 02/16/25 11:13: POC Glucose 195 H 02/16/25 16:14: POC Glucose 190 H 02/16/25 23:55: POC Glucose 100 02/17/25 05:58: POC Glucose 76 Physical Exam Const oriented x3 and no apparent distress Resp normal respiratory effort GI soft to palpation and non-tender Inspection: abdominal distention Assessment & Plan Assessment/Plan (1) Bowel obstruction: QUALIFIERS: Intestinal obstruction type: unspecified Intestinal obstruction extent: complete Qualified Code(s): K56.601 - Complete intestinal obstruction, unspecified as to cause PLAN: The patient reports that he had a bowel movement after suppository yesterday. There are no large bowel movement after fleets enema. He is not tender. He is still distended but it is less distended and softer than yesterday. The NG has had minimal output so I will remove it. I will try another suppository to see if we can stimulate some more bowel function. Patient is not having hypoactive bowel sounds instead of absent bowel sounds. Wali Saldaña MD Pager: [facility] [address] [place] [address], [address] [place] [address] Office:
[2025-02-17 07:52] LABS: Absolute Lymphocyte Count 1.58 X10^3/uL (0.83-4.51); Absolute Neutrophil Count 5.9 X10^3/uL (2.0-7.7); Basophil# 0.02 X10^3/uL; Basophil% 0.2 % (0-1); Eosinophil# 0.04 X10^3/uL; Eosinophils% 0.5 % (0-5); Hematocrit 37.4 % (40-54); Hemoglobin 12.8 g/dL (13.0-16.5); Lymphocyte # 1.58 X10^3/ul (0.83-4.51); Lymphocyte % 18.7 % (19-41); Mean Corp Hgb Conc 34.2 g/dL (32-36); Mean Corpuscular Hgb 30.8 pg (27.0-32.0); Mean Corpuscular Volume 90.1 fL (80-94); Mean Platelet Vol. 8.3 fl (6.2-12.0); Monocyte# 0.85 X10^3/uL; NRBC Flagged by Analyzer 0 % (0-5); Neutrophil # 5.93 X10^3/uL (2.7-7.7); Neutrophil % 70.1 % (47-70); Platelet Count 324 K/mm3 (150-450); RBC Distribution Width CV 13.4 % (11.6-14.6); RBC Distribution Width SD 44.2 fl (35.1-43.9); Red Blood Count 4.15 M/mm3 (4.6-6.2); White Blood Count 8.5 K/mm3 (4.4-11.0)
[2025-02-17 08:25] VITALS: BP 131/86; PULSE 96; RESP 14; TEMP 36.8; O2SAT 96
[2025-02-17 09:15] LABS: Bedside Glucose 84 mg/dL (74-106)
--- NOTE | 2025-02-17 09:26 | PN.HOSP_ITS ---
Reason for Visit Reason for Visit: Diagnoses Partial intestinal obstruction, unspecified as to cause (02/15/25) Complete intestinal obstruction, unspecified as to cause (02/15/25) Objective Data Objective Data Vital Signs: Vital Signs Temp Pulse Resp BP Pulse Ox O2 Del Method O2 Flow Rate 98.3 F 96 14 131/86 H 96 Room Air 2 02/17/25 08:25 02/17/25 08:25 02/17/25 08:25 02/17/25 08:02/17/25 08:02/17/25 08:02/17/25 07:30 Oxygen Flow Rate (L/min) 2 Oxygen Delivery Method Room Air Weight: 179 lb 3.773 oz Body Mass Index (BMI) 27.1 Intake & Output: Intake and Output for Last 24 Hours 02/15/25 02/16/25 02/17/25 23:59 23:59 23:59 Intake Total 1060 / 1060 2040 / 2040 40 / 40 Output Total 850 / 850 150 / 150 150 / 150 Balance 210 / 210 1890 / 1890 -110 / -110 Lab / Micro Data 02/17/25 07:20 02/17/25 09:10 Labs: Laboratory Results - last 24 hr 02/16/25 11:13: POC Glucose 195 H 02/16/25 16:14: POC Glucose 190 H 02/16/25 23:55: POC Glucose 100 02/17/25 05:58: POC Glucose 76 02/17/25 07:20: WBC 8.5, RBC 4.15 L, Hgb 12.8 L, Hct 37.4 L, MCV 90.1, MCH 30.8, MCHC 34.2, RDW Std Deviation 44.2 H, RDW Coeff of Leonel 13.4, Plt Count 324, MPV 8.3, Immature Gran % (Auto) 0.500, Neut % (Auto) 70.1 H, Lymph % (Auto) 18.7 L, [place] % (Auto) 10.0, Eos % (Auto) 0.5, Baso % (Auto) 0.2, Absolute Neuts (auto) 5.9, Absolute Lymphs (auto) 1.58, Nucleated RBC % 0, Sodium Cancelled, Potassium Cancelled, Chloride Cancelled, Carbon Dioxide Cancelled, Anion Gap Cancelled, BUN Cancelled, Creatinine Cancelled, Estim Creat Clear Calc Cancelled, Est GFR (MDRD) Non-Af Cancelled, BUN/Creatinine Ratio Cancelled, Glucose Cancelled, Calcium Cancelled 02/17/25 08:57: POC Glucose 84 Physical Exam Narrative Seen and examined. Patient stated that he passed several small BM yesterday night after Dulcolax suppository and enema. He not had BM today but going to have suppository. He said he is passing flatus Patient abdomen is still distended. Denies any abdominal pain. Physical exam General: Alert, Oriented x3, Cooperative HEENT: Wearing hard collar. Lateral cervical surgical dressing is dry. Atraumatic, PERRLA, EOMI, Normocephalic Oral: No Gingival or Mucosal Lesions/ Ulcerations Neck: Supple, No JVD, Negative Carotid Bruits Chest wall/Lungs: Air entry diminished in bilateral lung bases. No crepitation/rhonchi Cardiovascular: Regular rate, Regular Rhythm, Normal S1, Normal S2, No M/G/R Abdomen: Bowel Sounds absent. No tenderness but abdomen distended. No discrete surgical incision scar. : No dysuria. No renal angle tenderness. No suprapubic tenderness. Extremities: No edema, Capillary Refill Less than 3 Seconds Skin: No rashes, No breakdown Musculoskeletal: No Tenderness to Palpation of Joints or Extremities Neurological: Cranial nerves II-XII grossly intact, DTR 2+/4. No acute focal neurological deficit. Psych/Mental Status: Flat affect Assessment & Plan Assessment/Plan (1) Partial bowel obstruction: PLAN: Plan This is 74-year-old gentleman being admitted for abdominal distention, discomfort and nausea CT findings suggestive of partial small bowel and large bowel obstruction. 1. Small and large bowel partial obstruction with dilatation: CT abdomen initially reviewed and shows diffuse dilatation of his small and large bowel with air and fluid. No discrete transition point. No ascites. Colonic diverticulosis. ED physician consulted surgeon Dr. Saldaña. NG tube inserted and x-ray reviewed shows tube lying in the body of the stomach. NPO. IV fluid support. Monitor intake and output and abdominal exam 02/16: Overall it seems it is not going to resolve with conservative method but after discussion with Dr. Saldaña, patient does not want colostomy. He wanted second opinion with Dr. Leach. He will try Fleet enema and give 1 more day for conservative treatment to work otherwise prognosis is bad. 02/17: After review of the surgical note by Dr. Saldaña and second opinion by Dr. Leach, the patient is adamant about not having colostomy but rather of sepsis. For now seems small and the option of Dulcolax suppository and enema. 2. 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 Patient had elective cervical spine surgery on 02/04 and was electively admitted and discharged on 02/05. No acute issues. Wearing hard collar. Continue PT and OT 02/17: Patient walked around the nursing station with the help of PT. 3. Essential hypertension: BP 150/113. BP elevated hold oral but IV antihypertensive medication ordered 4. DM2: Glucose 302. ? Hold metformin. Accu-Chek every 6 hours with Humalog sliding scale coverage and hypoglycemia protocol. 02/16: Glucoses better 192 in BMP. 02/17: Patient glucose is low at about 78. IV fluids changed to D5W. Discussed with the nursing staff 5. CKD stage IIIa, hyponatremia and hypochloremia with increased anion gap probably due to third volume spacing from bowel distention/partial obstruction: IV fluid normal saline ordered. Usually creatinine stays around 1.05-1.12. BUN/creatinine elevated /1.29. On IV fluid resuscitation. Does not meet criteria for [place]. 02/17: Creatinine 1.13. 6. GERD/chronic constipation. As mentioned above. Does not need IV PPI 7. BPH with chronic bladder outlet obstruction: Hold Flomax. 8. Chronic anxiety/depression. DVT prophylaxis: Lovenox 40 mg subcu daily Living will/advanced directive/end of life care: Patient does not living will or advanced directive. His present in the ED is power of deputy county attorney for health. After discussion of benefits/risks procedures involved with full code, DNR CC arrest and DNR CC, the patient opted for DNR CC arrest with no intubation Patient doesn't want artificial life support including intubation, tube feed, ventilator and/chest compression, central venous catheter, vasopressor and DC shock if needed Clinical Impression(s) from Imaging Studies Abdomen/Pelvis CT 02/15/25 08:18 IMPRESSION: 1. Small and large bowel dilation without discrete transition point, which may be secondary to recent reported surgery or developing bowel obstruction. No pneumatosis or ascites. 2. Nonobstructing left lower pole renal calculi. Reading Location: [id number] Charges/Coding Visit Charges Inpatient E&M: 29917 Subs Hosp L2
[2025-02-17] MEDS: Bisacodyl 10 MG Suppository RC (09:42)
[2025-02-17 09:46] VITALS: BP 131/86; PULSE 96
[2025-02-17 10:38] LABS: Anion Gap 13 (5-15); BUN 33 mg/dL (4-19); BUN/Creat Ratio 28.8 RATIO (10-20); Calcium,Total 8.7 mg/dL (7.6-11.0); Carbon Dioxide 24.3 mmol/L (21.0-32.0); Chloride 100 mmol/L (98-108); Creatinine, Serum 1.13 mg/dL (0.70-1.20); EST Glomerular Filtration Rate 69 (>60); Estimated Creatinine Clearance 56.33 ml/min (50-250); Glucose 78 mg/dL (70-99); Potassium 3.6 mmol/L (3.3-5.1); Sodium Level 137 mmol/L (133-145)
[2025-02-17 11:54] LABS: Bedside Glucose 79 mg/dL (74-106)
[2025-02-17] MEDS: Enoxaparin 40 MG/0.4 ML Syringe SC (12:02)
[2025-02-17 13:55] LABS: Bedside Glucose 73 mg/dL (74-106)
[2025-02-17] MEDS: Potassium Chloride 20 MEQ in Dextrose 5%-Water (1000mL Bag) 1,000 ML 75 MEQ IV (15:16)
[2025-02-17] MEDS: 0.9% Saline Lock 10 ML Syringe IV ×2 (15:16→16:27)
[2025-02-17 15:34] VITALS: BP 139/81; PULSE 99; RESP 18; TEMP 36.5; O2SAT 95
[2025-02-17] MEDS: NYSTATIN 500,000 UNIT/5 ML UDC 500000 UNIT PO ×3 (16:27→21:20)
[2025-02-17 16:40] LABS: Bedside Glucose 81 mg/dL (74-106)
[2025-02-17] MEDS: Menthol/Lanolin/Calamine/Znox 113 GM Tube 1 APPLIC TOPICAL ×2 (17:56→21:14)
[2025-02-17 21:12] VITALS: BP 151/85; PULSE 105; RESP 18; TEMP 37.1; O2SAT 95
[2025-02-17 21:15] VITALS: BP 151/85; PULSE 105
[2025-02-17] MEDS: Tamsulosin HCl 0.4 MG Capsule 0.8 MG PO (21:15)
[2025-02-17] MEDS: Primidone 250 MG Tablet 125 MG PO (21:15)
[2025-02-17] MEDS: Metoprolol Tartrate 50 MG Tablet PO (21:15)
[2025-02-18 02:58] LABS: Bedside Glucose 143 mg/dL (74-106)
[2025-02-18] MEDS: Potassium Chloride 20 MEQ in Dextrose 5%-Water (1000mL Bag) 1,000 ML 75 MEQ IV (04:12)
[2025-02-18 05:35] VITALS: BP 134/80; PULSE 91; RESP 16; TEMP 36.9; O2SAT 96
[2025-02-18] MEDS: Insulin Lispro 100 UNIT/ML INSULN.PEN SC ×2 (05:39→11:37)
[2025-02-18 06:00] VITALS: BMI 27.0
[2025-02-18 06:07] LABS: Bedside Glucose 156 mg/dL (74-106)
[2025-02-18 07:53] VITALS: BP 138/83; PULSE 93; RESP 18; TEMP 36.8; O2SAT 97
--- NOTE | 2025-02-18 08:02 | PCM.PN.SRG ---
Objective Data Objective Data Vital Signs: Vital Signs Temp Pulse Resp BP Pulse Ox O2 Del Method O2 Flow Rate 98.3 F 93 18 138/83 H 97 Room Air 2 02/18/25 07:53 02/18/25 07:53 02/18/25 07:53 02/18/25 07:53 02/18/25 07:53 02/18/25 07:53 02/17/25 07:30 Oxygen Flow Rate (L/min) 2 Oxygen Delivery Method Room Air Weight: 178 lb 5 oz Body Mass Index (BMI) 27.0 Intake & Output: Intake and Output for Last 24 Hours 02/16/25 02/17/25 02/18/25 23:59 23:59 23:59 Intake Total 2040 / 2040 310 / 310 970 / 970 Output Total 150 / 150 150 / 150 Balance 1890 / 1890 160 / 160 970 / 970 Lab / Micro Data 02/17/25 07:20 02/17/25 09:10 Labs: Laboratory Results - last 24 hr 02/17/25 07:20: Sodium Cancelled, Potassium Cancelled, Chloride Cancelled, Carbon Dioxide Cancelled, Anion Gap Cancelled, BUN Cancelled, Creatinine Cancelled, Estim Creat Clear Calc Cancelled, Est GFR (MDRD) Non-Af Cancelled, BUN/Creatinine Ratio Cancelled, Glucose Cancelled, Calcium Cancelled 02/17/25 08:57: POC Glucose 84 02/17/25 09:10: Sodium 137, Potassium 3.6, Chloride 100, Carbon Dioxide 24.3, Anion Gap 13, BUN 33 H, Creatinine 1.13, Estim Creat Clear Calc 56.33, Est GFR (MDRD) Non-Af 69, BUN/Creatinine Ratio 28.8 H, Glucose 78, Calcium 8.7 02/17/25 11:29: POC Glucose 79 02/17/25 13:36: POC Glucose 73 L 02/17/25 16:21: POC Glucose 81 02/18/25 01:43: POC Glucose 143 H 02/18/25 05:38: POC Glucose 156 H
--- NOTE | 2025-02-18 08:58 | RAD_ITS ---
PROCEDURE: CERV SPINE 2 OR 3 VIEWS 02/18/2025 REASON FOR EXAM: S/P ACDF TECHNIQUE: 2 views of the cervical spine. COMPARISON: Comparison is made with prior study dated February 05, 2025. FINDINGS: Once again, the patient is status post anterior fusion with screw and plate fixation device and prosthetic disc at the C4-C5 C5-C6 and C6-C7 level. Stable examination. RAD/Cerv Spine 2 or 3 Views IMPRESSION: Stable multilevel fusion and prosthetic disc placement. Disclaimer: Reading Location: [place] [id number]
--- NOTE | 2025-02-18 09:51 | PCM.PN.SRG ---
Subjective Subjective Patient seen and evaluated on rounds this morning. Patient states that he is still passing flatus. He states that he has not had a bowel movement yet today but did have 2 documented yesterday. He states that the last bowel movement was basically hard pellets. He states that his abdomen is still slightly distended but still greatly improved compared to when he initially presented. He states that he is hungry and would be willing to try some clear liquid diet. He denies any significant abdominal pain or discomfort Objective Data Objective Data Vital Signs: Vital Signs Temp Pulse Resp BP Pulse Ox O2 Del Method O2 Flow Rate 98.3 F 93 18 138/83 H 97 Room Air 2 02/18/25 07:53 02/18/25 07:53 02/18/25 07:53 02/18/25 07:53 02/18/25 07:53 02/18/25 08:36 02/17/25 07:30 Oxygen Flow Rate (L/min) 2 Oxygen Delivery Method Room Air Weight: 178 lb 5 oz Body Mass Index (BMI) 27.0 Intake & Output: Intake and Output for Last 24 Hours 02/16/25 02/17/25 02/18/25 23:59 23:59 23:59 Intake Total 2040 / 2040 310 / 310 1315 / 1315 Output Total 150 / 150 150 / 150 Balance 1890 / 1890 160 / 160 1315 / 1315 Lab / Micro Data 02/17/25 07:20 02/17/25 09:10 Labs: Laboratory Results - last 24 hr 02/17/25 09:10: Sodium 137, Potassium 3.6, Chloride 100, Carbon Dioxide 24.3, Anion Gap 13, BUN 33 H, Creatinine 1.13, Estim Creat Clear Calc 56.33, Est GFR (MDRD) Non-Af 69, BUN/Creatinine Ratio 28.8 H, Glucose 78, Calcium 8.7 02/17/25 11:29: POC Glucose 79 02/17/25 13:36: POC Glucose 73 L 02/17/25 16:21: POC Glucose 81 02/18/25 01:43: POC Glucose 143 H 02/18/25 05:38: POC Glucose 156 H Radiography Diagnostic Testing: Radiology Impression Cervical Spine X-Ray 02/18/25 08:58 IMPRESSION: Stable multilevel fusion and prosthetic disc placement. Disclaimer: Reading Location: [facility] Physical Exam Narrative He is alert and oriented x 3. He is in no acute distress. Abdomen is soft and still somewhat distended. Really no significant tenderness to palpation. He does have bowel sounds Assessment & Plan Assessment/Plan (1) Bowel obstruction: QUALIFIERS: Intestinal obstruction type: unspecified Intestinal obstruction extent: complete Qualified Code(s): K56.601 - Complete intestinal obstruction, unspecified as to cause PLAN: Plan The patient is a 74-year-old male who presented with abdominal distention. Patient has a known history of recurring diverticulitis and has a very tortuous sigmoid colon which precluded colonoscopy earlier this year. From a surgical standpoint our greatest concern has remained possible obstruction due to diverticular stricture versus just constipation from his recent neck surgery. At this point he remains stable and seems to be slowly getting results with suppositories and enemas. I recommend that we continue with suppositories and enemas again today. He has tolerated NG tube removal. I think it is safe to go ahead and give him a trial of clear liquid diet. Patient is agreeable to this plan. All questions and concerns were addressed. Charges/Coding Visit Charges Inpatient E&M: 42440 Subs Hosp L2
[2025-02-18] MEDS: Bisacodyl 10 MG Suppository RC (10:17)
[2025-02-18] MEDS: Menthol/Lanolin/Calamine/Znox 113 GM Tube 1 APPLIC TOPICAL ×3 (10:17→21:00)
[2025-02-18] MEDS: Insulin Glargine-YFGN 100 UNIT/ML Pen 10 UNIT SC (10:18)
[2025-02-18 10:19] VITALS: PULSE 93
[2025-02-18] MEDS: NYSTATIN 500,000 UNIT/5 ML UDC 500000 UNIT PO ×2 (10:19→14:11)
[2025-02-18] MEDS: Metoprolol Tartrate 50 MG Tablet PO (10:19)
[2025-02-18 11:35] LABS: Osmolality, Urine 743 mOsm/KG
[2025-02-18] MEDS: Enoxaparin 40 MG/0.4 ML Syringe SC (11:36)
[2025-02-18 11:57] LABS: Bedside Glucose 155 mg/dL (74-106)
--- NOTE | 2025-02-18 12:45 | RAD_ITS ---
PROCEDURE: ABD INC DECUB AND/OR ERECT 02/18/2025 REASON FOR EXAM: BOWEL OBSTUCTION TECHNIQUE: Single view abdomen. COMPARISON: Abdominal radiographs 01/2025. FINDINGS: Bowel gas: Diffuse small and large bowel dilation with the small bowel measuring up to 4.2 cm, and the large bowel measuring up to 11.1 cm. This has slightly progressed since prior examination on 02/15/2025. Calcifications: Calcific densities overlying the prostate gland. Bones: There are degenerative changes of the spine. Other: Interval NG tube removal. RAD/Abd Inc Decub and/or Erect IMPRESSION: Diffuse small and large bowel dilation slightly progressed since prior examinat ion, compatible with bowel obstruction. Interval NG tube removal. Reading Location: [id number]
--- NOTE | 2025-02-18 13:52 | PCM.PN.HOSP ---
Reason for Visit Reason for Visit: Diagnoses Partial intestinal obstruction, unspecified as to cause (02/15/25) Complete intestinal obstruction, unspecified as to cause (02/15/25) Arthrodesis status (02/15/25) Objective Data Objective Data Vital Signs: Vital Signs Temp Pulse Resp BP Pulse Ox O2 Del Method O2 Flow Rate 98.3 F 93 18 138/83 H 97 Room Air 2 02/18/25 07:53 02/18/25 10:19 02/18/25 07:53 02/18/25 07:53 02/18/25 07:53 02/18/25 08:36 02/17/25 07:30 Oxygen Flow Rate (L/min) 2 Oxygen Delivery Method Room Air Weight: 178 lb 5 oz Body Mass Index (BMI) 27.0 Intake & Output: Intake and Output for Last 24 Hours 02/16/25 02/17/25 02/18/25 23:59 23:59 23:59 Intake Total 2040 / 2040 310 / 310 1315 / 1315 Output Total 150 / 150 150 / 150 Balance 1890 / 1890 160 / 160 1315 / 1315 Lab / Micro Data 02/17/25 07:20 02/17/25 09:10 Labs: Laboratory Results - last 24 hr 02/15/25 10:20: Urine Osmolality 743 02/17/25 13:36: POC Glucose 73 L 02/17/25 16:21: POC Glucose 81 02/18/25 01:43: POC Glucose 143 H 02/18/25 05:38: POC Glucose 156 H 02/18/25 11:35: POC Glucose 155 H Radiography Diagnostic Testing: Radiology Impression Cervical Spine X-Ray 02/18/25 08:58 IMPRESSION: Stable multilevel fusion and prosthetic disc placement. Disclaimer: Reading Location: [facility] Physical Exam Narrative Seen and examined. He did not had BM or passing flatus today but yesterday he had flatus and small corkscrew shaped small stool. Still getting suppository and enema. Physical exam General: Alert, Oriented x3, Cooperative HEENT: Wearing hard collar. Lateral cervical surgical dressing is dry. Atraumatic, PERRLA, EOMI, Normocephalic Oral: No Gingival or Mucosal Lesions/ Ulcerations Neck: Supple, No JVD, Negative Carotid Bruits Chest wall/Lungs: Air entry diminished in bilateral lung bases. No crepitation/rhonchi Cardiovascular: Regular rate, Regular Rhythm, Normal S1, Normal S2, No M/G/R Abdomen: Bowel Sounds absent. No tenderness but abdomen distended. No discrete surgical incision scar. : No dysuria. No renal angle tenderness. No suprapubic tenderness. Extremities: No edema, Capillary Refill Less than 3 Seconds Skin: No rashes, No breakdown Musculoskeletal: No Tenderness to Palpation of Joints or Extremities Neurological: Cranial nerves II-XII grossly intact, DTR 2+/4. No acute focal neurological deficit. Psych/Mental Status: Flat affect Assessment & Plan Assessment/Plan (1) Partial bowel obstruction: PLAN: Plan This is 74-year-old gentleman being admitted for abdominal distention, discomfort and nausea CT findings suggestive of partial small bowel and large bowel obstruction. 1. Small and large bowel partial obstruction with dilatation: CT abdomen initially reviewed and shows diffuse dilatation of his small and large bowel with air and fluid. No discrete transition point. No ascites. Colonic diverticulosis. ED physician consulted surgeon Dr. Saldaña. NG tube inserted and x-ray reviewed shows tube lying in the body of the stomach. NPO. IV fluid support. Monitor intake and output and abdominal exam 02/16: Overall it seems it is not going to resolve with conservative method but after discussion with Dr. Saldaña, patient does not want colostomy. He wanted second opinion with Dr. Leach. He will try Fleet enema and give 1 more day for conservative treatment to work otherwise prognosis is bad. 02/17: After review of the surgical note by Dr. Saldaña and second opinion by Dr. Leach, the patient is adamant about not having colostomy but rather of sepsis. For now seems small and the option of Dulcolax suppository and enema. 02/18: After discussion with the patient and his in the room, I talked to surgeon Dr. Leach. Abdominal x-ray ordered. Patient and his seems more amenable for loop colostomy. This was conveyed to Dr. Leach. 2. 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 Patient had elective cervical spine surgery on 02/04 and was electively admitted and discharged on 02/05. No acute issues. Wearing hard collar. Continue PT and OT 02/17: Patient walked around the nursing station with the help of PT. 3. Essential hypertension: BP 150/113. BP elevated hold oral but IV antihypertensive medication ordered 4. DM2: Glucose 302. ? Hold metformin. Accu-Chek every 6 hours with Humalog sliding scale coverage and hypoglycemia protocol. 02/16: Glucoses better 192 in BMP. 02/17: Patient glucose is low at about 78. IV fluids changed to D5W. Discussed with the nursing staff 5. CKD stage IIIa, hyponatremia and hypochloremia with increased anion gap probably due to third volume spacing from bowel distention/partial obstruction: IV fluid normal saline ordered. Usually creatinine stays around 1.05-1.12. BUN/creatinine elevated /.. On IV fluid resuscitation. Does not meet criteria for [place]IRA. 02/17: Creatinine 1.13. 6. GERD/chronic constipation. As mentioned above. Does not need IV PPI 7. BPH with chronic bladder outlet obstruction: Hold Flomax. 8. Chronic anxiety/depression. DVT prophylaxis: Lovenox 40 mg subcu daily Living will/advanced directive/end of life care: Patient does not living will or advanced directive. His present in the ED is power of toppiece cutter for health. After discussion of benefits/risks procedures involved with full code, DNR CC arrest and DNR CC, the patient opted for DNR CC arrest with no intubation Patient doesn't want artificial life support including intubation, tube feed, ventilator and/chest compression, central venous catheter, vasopressor and DC shock if needed Clinical Impression(s) from Imaging Studies Abdomen/Pelvis CT 02/15/25 08:18 IMPRESSION: 1. Small and large bowel dilation without discrete transition point, which may be secondary to recent reported surgery or developing bowel obstruction. No pneumatosis or ascites. 2. Nonobstructing left lower pole renal calculi. Reading Location: [id number] Charges/Coding Visit Charges Inpatient E&M: 28879 Subs Hosp L2
[2025-02-18 14:00] VITALS: BP 126/73; PULSE 82; RESP 18; TEMP 36.5; O2SAT 97
[2025-02-18] MEDS: Fleet Enema 133 ML RC (14:11)
--- NOTE | 2025-02-18 14:56 | RAD_ITS ---
PROCEDURE: ABDOMEN SINGLE VIEW (PORTABLE) 02/18/2025 REASON FOR EXAM: NG PLACEMENT TECHNIQUE: Single view abdomen. COMPARISON: Same day radiographs FINDINGS: See impression RAD/Abdomen Single View (Portable) IMPRESSION: Enteric tube coils within the stomach. Similar-appearing diffuse dilation of m ultiple large and small bowel loops throughout the abdomen consistent with bowel obstruction. Unchanged large ovoid fat density o verlying the right lung base. Reading Location: [facility]
--- NOTE | 2025-02-18 15:18 | CT_ITS ---
PROCEDURE: ABDOMEN/PELVIS WITH CONTRAST 02/18/2025 REASON FOR EXAM: POSS COLON OBSTRUCTION TECHNIQUE: Abdomen and pelvis CT with intravenous contrast. Coronal and Sagittal reconstruction series were provided. One or more dose reduction techniques were used (e.g., Automated exposure control, adjustment of the mA and/or kV according to patient size, use of iterative reconstruction technique. COMPARISON: None FINDINGS: Partially visualized ovoid fatty mass along the posterior right lung base pleura measuring 4.9 x 4.2 cm in axial dimensions with some peripheral haziness. Mild bibasilar scarring/atelectasis. Enteric tube terminates in the stomach. Liver, spleen, pancreas and adrenal glands are intact. Gallbladder is satisfactory. No significant biliary ductal dilation. Kidneys enhance symmetrically. Punctate nonobstructing left renal calculus. Multiple small bilateral renal cysts. No hydronephrosis. Urinary bladder is underdistended but grossly intact. 6.5 cm segment of moderate wall thickening and luminal narrowing at the mid sigmoid colon in the region of multiple diverticula with mild surrounding inflammatory changes which may relate to acute on chronic diverticulitis. No pericolonic abscess. Diffuse irregular peripheral filling defects within the descending colon which may relate to fecal matter versus colonic wall thickening. Mild diffuse dilation of the colon proximal to the narrowed sigmoid segment. Multiple dilated fluid-filled small bowel loops throughout the abdomen without a focal transition point. No pelvic free fluid. No free air or pneumatosis. Mildly calcified nonaneurysmal abdominal aorta. No suspicious adenopathy. No acute osseous abnormality. Degenerative changes of the thoracolumbar spine. CT/Abdomen/Pelvis WITH Contrast IMPRESSION: 1. Acute on chronic mid sigmoid diverticulitis as above resulting in large cici l obstruction. Underlying mass not excluded. Recommend direct visualization/colonoscopy after medical management. 2. Diffuse irregular peripheral filling defects throughout the descending colon which may relate to eccentric stool or less likely colonic wall thickening. Attention on colonoscopy. 3. Partially visualized ovoid fatty mass along the right posterior lung base pl eura. Some irregular attenuation peripherally. Recommend tissue sampling to exclude liposarcoma. 4. Additional incidental findings as above. Reading Location: [facility]
--- NOTE | 2025-02-18 15:21 | PCM.PN.BLA ---
Progress Note I was asked to speak with patient and family regarding the patient's hospital course and to answer questions about possible surgery. The patient and his expressed frustration with slow results from enemas and suppositories. I reassured him that we are slowly trying to follow a conservative approach to help resolve his current issue since he was initially very adamant against colostomy. Explained that he is producing some flatus and stool which is reassuring. However, after our conversation a x-ray was performed this afternoon as ordered by hospital medicine. Review of this x-ray did show what I felt to be worsening dilatation of the colon and small bowel. Another discussion was held to discuss the need for n.p.o. and we also recommended NG tube placement. This will be performed this afternoon. I did tentatively schedule him for surgery on Sunday afternoon for the diverting loop transverse colostomy (patient and want me to do the surgery) Another option is to consider colonic stenting by GI. We discussed this with Dr. Red. We agreed to do a CT abdomen pelvis with rectal contrast to better identify the anatomy to see if a stent is even an option. This was discussed with the patient and his and they seem agreeable to this. That does not guarantee that a stent will be able to be placed. I did discuss the fact that a stent could have complications such as perforation. Our plan is to again keep him n.p.o. and place a nasogastric tube and proceed with CT abdomen pelvis with rectal contrast to see if stenting is even an option and also to better identify the nature of this obstruction. I again stated that long-term he would most likely require a complete resection of his sigmoid colon and I would recommend highly that this be done at a tertiary center. He is agreeable to this plan. We also did reiterate the option of transfer to a tertiary center at this point if he wishes. At this point we will do the NG and rectal contrasted CT and proceed from there.
[2025-02-18] MEDS: Oxymetazoline 0.05% 1 SPRAY SPRAY.BTL 2 SPRAY NASAL (15:37)
--- NOTE | 2025-02-18 15:45 | NURSING ---
xray called for portable xray as NGT now in.
[2025-02-18 17:01] LABS: Bedside Glucose 131 mg/dL (74-106)
[2025-02-18 21:00] VITALS: BP 151/89; PULSE 95; RESP 15; TEMP 36.8; O2SAT 97
[2025-02-18 23:58] LABS: Bedside Glucose 113 mg/dL (74-106)
[2025-02-19] VITALS (7 sets, daily range): BP systolic 116–152; BP diastolic 82–96; PULSE 61–103; RESP 15–18; TEMP 36.4–36.8; O2SAT 94–98; BMI 27.0
[2025-02-19] MEDS: Ceftriaxone 1 GM/50 ML BAG IV ×3 (02:08→22:49)
[2025-02-19] MEDS: metroNIDAZOLE 500 MG/100 ML BAG 100 MG IV ×4 (02:56→20:56)
[2025-02-19 06:01] LABS: Absolute Lymphocyte Count 1.94 X10^3/uL (0.83-4.51); Absolute Neutrophil Count 5.2 X10^3/uL (2.0-7.7); Basophil# 0.02 X10^3/uL; Basophil% 0.2 % (0-1); Eosinophil# 0.09 X10^3/uL; Eosinophils% 1.1 % (0-5); Hematocrit 39.4 % (40-54); Hemoglobin 13.4 g/dL (13.0-16.5); Lymphocyte # 1.94 X10^3/ul (0.83-4.51); Lymphocyte % 23.9 % (19-41); Mean Corpuscular Hgb 31.3 pg (27.0-32.0); Mean Corpuscular Volume 92.1 fL (80-94); Mean Platelet Vol. 9.6 fl (6.2-12.0); Monocyte% 9.9 % (0-10); NRBC Flagged by Analyzer 0.2 % (0-5); Neutrophil # 5.24 X10^3/uL (2.7-7.7); Neutrophil % 64.5 % (47-70); POSITIVE COUNT YES; RBC Distribution Width CV 13.3 % (11.6-14.6); Red Blood Count 4.28 M/mm3 (4.6-6.2); White Blood Count 8.1 K/mm3 (4.4-11.0)
[2025-02-19 06:56] LABS: Bedside Glucose 139 mg/dL (74-106)
--- NOTE | 2025-02-19 08:05 | PN.SURG_ITS ---
Subjective Subjective Patient evaluated this morning resting comfortably in the chair. His is present in the room. Patient notes very little results of bowel function from the rectal contrast received yesterday for the CT scan. Patient notes he went four times, however very little stool balls came out. He notes lower abdominal cramping. He denies any nausea, vomiting, fever. He has an NG tube in again with approximately 450cc in the canister. He notes passing flatus. He notes being given the okay to remove the c-collar intermittently. CT scan of the ab/pel with rectal contrast demonstrated IMPRESSION: 1. Acute on chronic mid sigmoid diverticulitis as above resulting in large bowel obstruction. Underlying mass not excluded. Recommend direct visualization/colonoscopy after medical management. 2. Diffuse irregular peripheral filling defects throughout the descending colon which may relate to eccentric stool or less likely colonic wall thickening. Attention on colonoscopy. 3. Partially visualized ovoid fatty mass along the right posterior lung base pleura. Some irregular attenuation peripherally. Recommend tissue sampling to exclude liposarcoma. 4. Additional incidental findings as above. Objective Data Objective Data Vital Signs: Vital Signs Temp Pulse Resp BP Pulse Ox O2 Del Method O2 Flow Rate 98.3 F 61 15 142/85 H 94 Room Air 2 02/19/25 03:43 02/19/25 03:43 02/19/25 03:43 02/19/25 03:43 02/19/25 07:38 02/19/25 07:38 02/17/25 07:30 Oxygen Flow Rate (L/min) 2 Oxygen Delivery Method Room Air Weight: 178 lb 5 oz Body Mass Index (BMI) 27.0 Intake & Output: Intake and Output for Last 24 Hours 02/17/25 02/18/25 02/19/25 23:59 23:59 23:59 Intake Total 310 / 310 1979 250 / 250 Output Total 150 / 150 100 / 100 Balance 160 / 160 1979 150 / 150 Lab / Micro Data 02/19/25 05:28 02/19/25 08:25 Labs: Laboratory Results - last 24 hr 02/15/25 10:20: Urine Osmolality 743 02/18/25 11:35: POC Glucose 155 H 02/18/25 16:37: POC Glucose 131 H 02/18/25 23:37: POC Glucose 113 H 02/19/25 05:28: Sodium Cancelled, Potassium Cancelled, Chloride Cancelled, Carbon Dioxide Cancelled, Anion Gap Cancelled, BUN Cancelled, Creatinine Cancelled, Estim Creat Clear Calc Cancelled, Est GFR (MDRD) Non-Af Cancelled, BUN/Creatinine Ratio Cancelled, Glucose Cancelled, Calcium Cancelled 02/19/25 06:04: POC Glucose 139 H Radiography Diagnostic Testing: Radiology Impression Cervical Spine X-Ray 02/18/25 08:58 IMPRESSION: Stable multilevel fusion and prosthetic disc placement. Disclaimer: Reading Location: [facility] Abdomen X-Ray 02/18/25 12:45 IMPRESSION: Diffuse small and large bowel dilation slightly progressed since prior examination, compatible with bowel obstruction. Interval NG tube removal. Reading Location: [facility] X-Ray 02/18/25 14:56 IMPRESSION: Enteric tube coils within the stomach. Similar-appearing diffuse dilation of multiple large and small bowel loops throughout the abdomen consistent with bowel obstruction. Unchanged large ovoid fat density overlying the right lung base. Reading Location: [facility] Abdomen/Pelvis CT 02/18/25 15:18 IMPRESSION: 1. Acute on chronic mid sigmoid diverticulitis as above resulting in large bowel obstruction. Underlying mass not excluded. Recommend direct visualization/colonoscopy after medical management. 2. Diffuse irregular peripheral filling defects throughout the descending colon which may relate to eccentric stool or less likely colonic wall thickening. Attention on colonoscopy. 3. Partially visualized ovoid fatty mass along the right posterior lung base pleura. Some irregular attenuation peripherally. Recommend tissue sampling to exclude liposarcoma. 4. Additional incidental findings as above. Reading Location: [facility] Physical Exam GI GI Narrative: Abdomen- distended. Hypoactive bowel sounds Assessment & Plan Assessment/Plan (1) Bowel obstruction: QUALIFIERS: Intestinal obstruction type: unspecified Intestinal obstruction extent: complete Qualified Code(s): K56.601 - Complete intestinal obstruction, unspecified as to cause PLAN: I am following this patient in conjunction with Dr. Leach. Labs reviewed. Potassium low; being replaced Continue NG tube today After further discussion with Dr. Leach and Dr. Red, it was decided the safest procedure for the patient would be to pursue a diverting loop transverse colostomy with the intention of being referred to colorectal as an outpatient to have the diseased area of the sigmoid removed Dr. Leach has spoke with the patient on the phone. Patient and are in agreement to pursue a colostomy creation. They have had the opportunity to ask and have questions answered. Patient is scheduled for tomorrow around 2:30 pm Continue current IV antibiotics Consult Mariah to assist with education of colostomy and marking of the site of stoma We will continue to monitor this patient Charges/Coding Visit Charges Inpatient E&M: 24490 Subs Hosp L2
[2025-02-19 09:11] LABS: Differential Indicated SCAN CRITERIA MET
[2025-02-19 09:12] LABS: Platelet Estimate ADEQUATE (ADEQ)
[2025-02-19] MEDS: Menthol/Lanolin/Calamine/Znox 113 GM Tube 1 APPLIC TOPICAL ×4 (09:29→20:54)
[2025-02-19] MEDS: Metoprolol Tartrate 50 MG Tablet PO (09:29)
[2025-02-19] MEDS: NYSTATIN 500,000 UNIT/5 ML UDC 500000 UNIT PO ×2 (09:29→13:57)
[2025-02-19 10:00] LABS: Anion Gap 15 (5-15); BUN 18 mg/dL (4-19); BUN/Creat Ratio 18.8 RATIO (10-20); Calcium,Total 8.3 mg/dL (7.6-11.0); Carbon Dioxide 20.7 mmol/L (21.0-32.0); Chloride 97 mmol/L (98-108); Creatinine, Serum 0.97 mg/dL (0.70-1.20); EST Glomerular Filtration Rate 82 (>60); Estimated Creatinine Clearance 65.62 ml/min (50-250); Glucose 117 mg/dL (70-99); Potassium 3.1 mmol/L (3.3-5.1); Sodium Level 133 mmol/L (133-145)
[2025-02-19] MEDS: Enoxaparin 40 MG/0.4 ML Syringe SC (10:36)
[2025-02-19] MEDS: KCL 20MEQ in D5.45NS 20 MEQ/1,000 ML IV.SOLN. 75 MEQ IV (10:36)
[2025-02-19 12:50] LABS: Bedside Glucose 164 mg/dL (74-106)
--- NOTE | 2025-02-19 16:09 | PN.HOSP_ITS ---
Reason for Visit Reason for Visit: Diagnoses Partial intestinal obstruction, unspecified as to cause (02/15/25) Complete intestinal obstruction, unspecified as to cause (02/15/25) Arthrodesis status (02/15/25) Objective Data Objective Data Vital Signs: Vital Signs Temp Pulse Resp BP Pulse Ox O2 Del Method O2 Flow Rate 97.6 F L 92 18 116/93 H 97 Room Air 2 02/19/25 14:05 02/19/25 14:05 02/19/25 14:05 02/19/25 14:05 02/19/25 14:05 02/19/25 14:05 02/17/25 07:30 Oxygen Flow Rate (L/min) 2 Oxygen Delivery Method Room Air Weight: 178 lb 5 oz Body Mass Index (BMI) 27.0 Intake & Output: Intake and Output for Last 24 Hours 02/17/25 02/18/25 02/19/25 23:59 23:59 23:59 Intake Total 310 / 310 1979 430 / 430 Output Total 150 / 150 100 / 100 Balance 160 / 160 1979 330 / 330 Lab / Micro Data 02/19/25 05:28 02/19/25 08:25 Labs: Laboratory Results - last 24 hr 02/18/25 16:37: POC Glucose 131 H 02/18/25 23:37: POC Glucose 113 H 02/19/25 05:28: WBC 8.1, RBC 4.28 L, Hgb 13.4, Hct 39.4 L, MCV 92.1, MCH 31.3, MCHC 34.0, RDW Std Deviation 45.0 H, RDW Coeff of Leonel 13.3, Plt Count TNP, MPV 9.6, Immature Gran % (Auto) 0.400, Neut % (Auto) 64.5, Lymph % (Auto) 23.9, [place] % (Auto) 9.9, Eos % (Auto) 1.1, Baso % (Auto) 0.2, Absolute Neuts (auto) 5.2, Absolute Lymphs (auto) 1.94, Nucleated RBC % 0.2, Platelet Estimate ADEQUATE, Sodium Cancelled, Potassium Cancelled, Chloride Cancelled, Carbon Dioxide Cancelled, Anion Gap Cancelled, BUN Cancelled, Creatinine Cancelled, Estim Creat Clear Calc Cancelled, Est GFR (MDRD) Non-Af Cancelled, BUN/Creatinine Ratio Cancelled, Glucose Cancelled, Calcium Cancelled 02/19/25 06:04: POC Glucose 139 H 02/19/25 08:25: Sodium 133, Potassium 3.1 L, Chloride 97 L, Carbon Dioxide 20.7 L, Anion Gap 15, BUN 18, Creatinine 0.97, Estim Creat Clear Calc 65.62, Est GFR (MDRD) Non-Af 82, BUN/Creatinine Ratio 18.8, Glucose 117 H, Calcium 8.3 02/19/25 12:33: POC Glucose 164 H Radiography Diagnostic Testing: Radiology Impression KUB X-Ray 02/18/25 14:56 IMPRESSION: Enteric tube coils within the stomach. Similar-appearing diffuse dilation of multiple large and small bowel loops throughout the abdomen consistent with bowel obstruction. Unchanged large ovoid fat density overlying the right lung base. Reading Location: [facility] Abdomen/Pelvis CT 02/18/25 15:18 IMPRESSION: 1. Acute on chronic mid sigmoid diverticulitis as above resulting in large bowel obstruction. Underlying mass not excluded. Recommend direct visualization/colonoscopy after medical management. 2. Diffuse irregular peripheral filling defects throughout the descending colon which may relate to eccentric stool or less likely colonic wall thickening. Attention on colonoscopy. 3. Partially visualized ovoid fatty mass along the right posterior lung base pleura. Some irregular attenuation peripherally. Recommend tissue sampling to exclude liposarcoma. 4. Additional incidental findings as above. Reading Location: [facility] Physical Exam Narrative Seen and examined. He did not had BM or passing flatus today but yesterday he had flatus and small corkscrew shaped small stool. Still getting suppository and enema. Physical exam General: Alert, Oriented x3, Cooperative HEENT: Wearing hard collar. Lateral cervical surgical dressing is dry. Atraumatic, PERRLA, EOMI, Normocephalic Oral: NG tube. Not much drainage. Bilious apsirate Neck: Supple, No JVD, Negative Carotid Bruits Chest wall/Lungs: Air entry diminished in bilateral lung bases. No crepitation/rhonchi Cardiovascular: Regular rate, Regular Rhythm, Normal S1, Normal S2, No M/G/R Abdomen: Bowel Sounds absent. No tenderness but abdomen distended. No discrete surgical incision scar. : No dysuria. No renal angle tenderness. No suprapubic tenderness. Extremities: No edema, Capillary Refill Less than 3 Seconds Skin: No rashes, No breakdown Musculoskeletal: No Tenderness to Palpation of Joints or Extremities Neurological: Cranial nerves II-XII grossly intact, DTR 2+/4. No acute focal neurological deficit. Psych/Mental Status: Flat affect Assessment & Plan Assessment/Plan (1) Partial bowel obstruction: PLAN: Plan This is 74-year-old gentleman being admitted for abdominal distention, discomfort and nausea CT findings suggestive of partial small bowel and large bowel obstruction. 1. Small and large bowel partial obstruction with dilatation: CT abdomen initially reviewed and shows diffuse dilatation of his small and large bowel with air and fluid. No discrete transition point. No ascites. Colonic diverticulosis. ED physician consulted surgeon Dr. Saldaña. NG tube inserted and x-ray reviewed shows tube lying in the body of the stomach. NPO. IV fluid support. Monitor intake and output and abdominal exam 02/16: Overall it seems it is not going to resolve with conservative method but after discussion with Dr. Saldaña, patient does not want colostomy. He wanted second opinion with Dr. Leach. He will try Fleet enema and give 1 more day for conservative treatment to work otherwise prognosis is bad. 02/17: After review of the surgical note by Dr. Saldaña and second opinion by Dr. Leach, the patient is adamant about not having colostomy but rather of sepsis. For now seems small and the option of Dulcolax suppository and enema. 02/18: After discussion with the patient and his in the room, I talked to surgeon Dr. Leach. Abdominal x-ray ordered. Patient and his seems more amenable for loop colostomy. This was conveyed to Dr. Leach. 02/19: Patient had CT abdomen with rectal barium contrast which shows acute on chronic mid sigmoid diverticulitis, resulting into large bowel obstruction. Diffuse irregular peripheral filling defect throughout the descending colon. Related to eccentric stool less likely colonic wall thickening. Patient is going for surgery tomorrow at 2:30 PM. Still on enema and suppository. BP 116/93. 2. 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 Patient had elective cervical spine surgery on 02/04 and was electively admitted and discharged on 02/05. No acute issues. Wearing hard collar. Continue PT and OT 02/17: Patient walked around the nursing station with the help of PT. 3. Essential hypertension: BP 150/113. BP elevated hold oral but IV antihypertensive medication ordered 4. DM2: Glucose 302. ? Hold metformin. Accu-Chek every 6 hours with Humalog sliding scale coverage and hypoglycemia protocol. 02/16: Glucoses better 192 in BMP. 02/17: Patient glucose is low at about 78. IV fluids changed to D5W. Discussed with the nursing staff 5. CKD stage IIIa, hyponatremia and hypochloremia with increased anion gap probably due to third volume spacing from bowel distention/partial obstruction: IV fluid normal saline ordered. Usually creatinine stays around 1.05-1.12. BUN/creatinine elevated /.29. On IV fluid resuscitation. Does not meet criteria for PALMIRA. 02/17: Creatinine 1.13. 6. GERD/chronic constipation. As mentioned above. Does not need IV PPI 7. BPH with chronic bladder outlet obstruction: Hold Flomax. 8. Chronic anxiety/depression. DVT prophylaxis: Lovenox 40 mg subcu daily Living will/advanced directive/end of life care: Patient does not living will or advanced directive. His present in the ED is power of education professor for health. After discussion of benefits/risks procedures involved with full code, DNR CC arrest and DNR CC, the patient opted for DNR CC arrest with no intubation Patient doesn't want artificial life support including intubation, tube feed, ventilator and/chest compression, central venous catheter, vasopressor and DC shock if needed Clinical Impression(s) from Imaging Studies Abdomen/Pelvis CT 02/15/25 08:18 IMPRESSION: 1. Small and large bowel dilation without discrete transition point, which may be secondary to recent reported surgery or developing bowel obstruction. No pneumatosis or ascites. 2. Nonobstructing left lower pole renal calculi. Reading Location: [id number] Charges/Coding Visit Charges Inpatient E&M: 23085 Subs Hosp L2
--- NOTE | 2025-02-19 16:24 | RAD_ITS ---
PROCEDURE: CHEST 1 VIEW (PORTABLE) 02/19/2025 REASON FOR EXAM: PREOPERATIVE TECHNIQUE: Frontal view of the chest. COMPARISON: None FINDINGS: Cardiomediastinal silhouette is within normal limits. Enteric tube courses below the diaphragm with its distal tip out of view. Mild elevation of the left hemidiaphragm with adjacent atelectasis. Ovoid soft tissue density overlying the right mid lung. No sizable pleural effusion or pneumothorax. RAD/Chest 1 View (Portable) IMPRESSION: 1. No acute airspace abnormality. 2. Unchanged fat density mass overlying the right hemithorax. See recent CT re port for further details. Reading Location: [facility]
[2025-02-19 16:38] LABS: Bedside Glucose 168 mg/dL (74-106)
[2025-02-19] MEDS: Insulin Lispro 100 UNIT/ML INSULN.PEN SC (17:28)
[2025-02-19 23:39] LABS: Bedside Glucose 144 mg/dL (74-106)
[2025-02-20] VITALS (15 sets, daily range): BP systolic 118–160; BP diastolic 76–100; PULSE 77–103; RESP 15–16; TEMP 36.2–37; O2SAT 92–98; BMI 27.4
[2025-02-20] MEDS: KCL 20MEQ in D5.45NS 20 MEQ/1,000 ML IV.SOLN. 75 MEQ IV (03:04)
[2025-02-20 04:24] LABS: Absolute Lymphocyte Count 1.29 X10^3/uL (0.83-4.51); Absolute Neutrophil Count 5.3 X10^3/uL (2.0-7.7); Basophil# 0.02 X10^3/uL; Basophil% 0.3 % (0-1); Eosinophil# 0.03 X10^3/uL; Eosinophils% 0.4 % (0-5); Hematocrit 36.5 % (40-54); Hemoglobin 12.4 g/dL (13.0-16.5); Lymphocyte # 1.29 X10^3/ul (0.83-4.51); Lymphocyte % 17.3 % (19-41); Mean Corpuscular Hgb 30.9 pg (27.0-32.0); Mean Platelet Vol. 8.3 fl (6.2-12.0); Monocyte# 0.75 X10^3/uL; Monocyte% 10.1 % (0-10); NRBC Flagged by Analyzer 0 % (0-5); Neutrophil # 5.32 X10^3/uL (2.7-7.7); Neutrophil % 71.2 % (47-70); Platelet Count 272 K/mm3 (150-450); RBC Distribution Width CV 13.2 % (11.6-14.6); Red Blood Count 4.01 M/mm3 (4.6-6.2); White Blood Count 7.5 K/mm3 (4.4-11.0)
[2025-02-20 04:43] LABS: International Normalized Ratio 1.1; Partial Thromboplast Time 33.9 Seconds (24.1-36.2); Prothrombin Time (Protime)PT. 14.5 SECONDS (11.7-14.9)
[2025-02-20 05:05] LABS: Anion Gap 15 (5-15); BUN 17 mg/dL (4-19); BUN/Creat Ratio 17.1 RATIO (10-20); Calcium,Total 8.2 mg/dL (7.6-11.0); Carbon Dioxide 21.2 mmol/L (21.0-32.0); Chloride 98 mmol/L (98-108); Creatinine, Serum 0.97 mg/dL (0.70-1.20); EST Glomerular Filtration Rate 82 (>60); Estimated Creatinine Clearance 65.62 ml/min (50-250); Glucose 182 mg/dL (70-99); Sodium Level 135 mmol/L (133-145)
[2025-02-20] MEDS: metroNIDAZOLE 500 MG/100 ML BAG 100 MG IV (05:18)
[2025-02-20 06:00] LABS: AST(SGOT) 20 U/L (<=37); Alanine Aminotransfer ALT/SGPT 31 U/L (<=46); Albumin, Serum 3.1 g/dL (3.4-4.8); Alkaline Phosphatase 79 U/L (40-129); Bilirubin, Direct 0.23 mg/dL (0.00-0.30); Globulin 2.8 g/dL (2.2-4.2); Protein, Total 5.9 g/dL (5.9-8.4); Total Bilirubin 0.41 mg/dL (0.00-1.30)
[2025-02-20] MEDS: Insulin Lispro 100 UNIT/ML INSULN.PEN SC (06:38)
--- NOTE | 2025-02-20 06:43 | WOUNDNOTE ---
Had started ostomy education with patient and significant other yesterday. pt is scheduled for surgery today with Dr Ceballos. Reviewed the colostomy teaching booklet, ostomy appliances, etc. abdomen is distended but soft. patient states he had a few bowel movements after the barium test Sunday. marked abdomen for stoma to the left upper quadrant. site may need to be slightly higher than marked. plan is for transverse colostomy. had discussed with EVI Pacheco about arrenging home health care at discharge at home for more assistance with ostomy education and getting supplies. Pt and SO very appreciative of education, etc. will continue to follow.
[2025-02-20 07:08] LABS: Bedside Glucose 173 mg/dL (74-106)
[2025-02-20] MEDS: Potassium Chloride 10mEq/100mL 10 MEQ/100 ML IV.SOLN. 100 MEQ IV BOLUS ×2 (10:05→10:38)
[2025-02-20] MEDS: Menthol/Lanolin/Calamine/Znox 113 GM Tube 1 APPLIC TOPICAL ×3 (10:09→20:47)
[2025-02-20] MEDS: Ceftriaxone 1 GM/50 ML BAG IV ×2 (10:13→20:44)
[2025-02-20] MEDS: Metoprolol Tartrate 50 MG Tablet PO (10:15)
[2025-02-20] MEDS: NYSTATIN 500,000 UNIT/5 ML UDC 500000 UNIT PO ×2 (10:18→18:24)
[2025-02-20 11:41] LABS: Bedside Glucose 196 mg/dL (74-106)
[2025-02-20] MEDS: Insulin Glargine-YFGN 100 UNIT/ML Pen 10 UNIT SC (12:40)
[2025-02-20] MEDS: 0.9% Normal Saline (1000mL) 1,000 ML 15 ML IV (13:40)
--- NOTE | 2025-02-20 13:50 | PRE.ANES_ITS ---
ASA Classification* ASA Classification ASA Classification: 3 Assessment & Plan Anesthesia* Anesthesia Assessment Anesthesia Assessment: Discussed sedation and/or anesthesia options, risks, benefits, and alternatives with patient/parents/legal guardian/POA. Questions invited. The patient/parents/legal guardian/POA seems to understand and agrees to proceed with anesthesia plan. Reviewed the physical assessment, medical history, allergy history and patient home medications list prior to surgery/procedure/anesthetic and documented any changes. Performed airway and anesthesia risk assessments. Anesthesia Type Anesthesia Type: General History Source History Obtained from:: Patient and Chart Anesthesia Focused Assessment* Temperature: 98.3 F Pulse Rate: 82 Blood Pressure: 138/81 Respiratory Rate: 16 Pulse Ox: 96 Oxygen Delivery Method: Room Air Oxygen Flow Rate (L/min): 2 Airway Assessment Mouth opens: >3 cm Mallampati Score: II Teeth Condition: Intact Neck Range of motion (ROM): Limited ROM Focused Labs Anesthesia Preop lab: CBC WBC 7.5 K/mm3 (4.4-11.0) 02/20/25 04:05 02/20/25 RBC 4.01 M/mm3 (4.6-6.2) L 02/20/25 04:05 02/20/25 Hgb 12.4 g/dL (13.0-16.5) L 02/20/25 04:05 5 Hct 36.5 % (40-54) L 02/20/25 04:05 02/20/25 Plt Count 272 K/mm3 (150-450) 02/20/25 04:05 02/20/25 CHEMISTRY Potassium 3.0 mmol/L (3.3-5.1) L 02/20/25 04:05 02/20/25 Sodium 135 mmol/L (133-145) 02/20/25 04:05 02/20/25 Magnesium 2.3 mg/dL (1.5-2.2) H 02/15/25 08:40 02/15/25 Phosphorus 2.7 mg/dL (2.5-4.9) 07/27/20 12:04 07/27/20 BUN 17 mg/dL (4-19) 02/20/25 04:05 02/20/25 Creatinine 0.97 mg/dL (0.70-1.20) 02/20/25 04:05 02/20/25 Glucose 182 mg/dL (70-99) H 02/20/25 04:05 02/20/25 POC Glucose 196 mg/dL (74-106) H 02/20/25 11:23 02/20/25 TSH 0.845 uIU/mL (0.300-4.200) 02/16/25 06:57 04/2 11/22 COAG PT 14.5 SECONDS (11.7-14.9) 02/20/25 04:05 Pre-Assessment Diagnosis/Proposed Procedure Planned Operative Procedure(s): diagnostic laparoscopy, possible laparotomy, diverting transverse loop colostomy creation Anesthesia History Anesthesia History - 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 When Was Last Pacemaker Check QUESTION #4 FULL TEXT: You/Your Family Experience fever (hyperthermia) with Anesthesia Last Oral Intake Last Oral intake: Last Oral Intake NPO since 00:00 02/20/25 12:26 Meds taken in AM with sips of Yes 02/20/25 12:26 water? Meds patient instructed to metoprolol 02/20/25 12:26 take am of surgery PONV PONV - supervisor pig machine: PONV - supervisor pig machine Female HX of Motion Sickness HX of N/V After Surgery Non-Smoker Duration of Surgery greater than 60 minutes Number of Risk Factors PONV Score Height & Weight Height & Weight: Anesthesia: Height & Weight Height 5 ft 8.11 in 02/20/25 12:26 Weight: 82.1 kg 02/20/25 12:26 Body Mass Index (BMI) 27.4 02/20/25 12:26 Respiratory Assessment Respiratory Assessment - supervisor pig machine: Respiratory Tract Infection Hx - supervisor pig machine Hx Respiratory Tract Infection No 02/20/25 06:41 STOP Sleep Apnea STOP Sleep Apnea - supervisor pig machine: STOP Sleep Apnea - supervisor pig machine Hx Hypertension Yes 02/16/25 10:27 Hx Sleep Apnea No 02/15/25 11:01 CPAP BIPAP Do you snore loudly (louder No 02/15/25 11:01 than talking or can be heard Do you often feel tired/ No 02/15/25 11:01 fatigued/ sleepy during daytime? Has anyone observed you stop No 02/15/25 11:01 breathing during sleep? STOP Results Negative 02/15/25 11:01 QUESTION #5 FULL TEXT : Do you snore loudly (louder than talking or can be heard through closed doors)? 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 Specify any problems Hx of Preganancy in last 3 N/A 02/15/25 11:01 Months Nurse Filling Out Transfusion [id number] 02/15/25 11:01 & Questions: Date: 02/15/25 02/15/25 11:01 Time: 11:27 02/15/25 11:01 Patient unable to answer at this time (ie. confused, unrespo /Reproduction History /Reproductive History - supervisor pig machine: /Reproductive Hx- supervisor pig machine Hx Now Gestational Age (in weeks): EDC: Hx Hx Para Hx Section SAB No 01/21/25 09:19 Active Medications Active Medications: Current Medications Generic Name Dose Route Start Last Admin Trade Name Freq PRN Reason Stop Dose Admin Calamine/Phenol 1 applic 02/17/25 18:00 02/20/25 10:09 Menthol/Lanolin/Calamine/Znox 113 Gm Tube TOPICAL 1 applic 4X/DAY LEEANNE Administration Protocol Enoxaparin Sodium 40 mg 02/15/25 12:00 02/19/25 10:36 Enoxaparin 40 Mg/0.4 Ml Syringe SC 40 mg Q24H LEEANNE Administration Glucagon 1 mg 02/15/25 11:35 Glucagon 1 Mg/Ml Syringe IM X1 PRN Hypoglycemia Protocol Hydralazine HCl 10 mg 02/15/25 12:30 Hydralazine 20 Mg/Ml Vial IV Q4H PRN PRN SBP more than 180 mmHg Protocol Dextrose 250 mls @ 0 mls/hr 02/15/25 11:35 Dextrose 10%-Water IV .Q0M PRN HYPOGLYCEMIA Protocol As Directed Ceftriaxone Sodium 1 gm in 50 mls @ 100 mls/hr 02/19/25 00:45 02/20/25 10:45 Rocephin IV Infused Q12 LEEANNE Infusion Metronidazole 500 mg in 100 mls @ 100 mls/hr 02/19/25 00:45 02/20/25 06:20 Flagyl IV Infused Q8 LEEANNE Infusion Sodium Chloride 1,000 mls @ 15 mls/hr 02/20/25 13:40 IV .Q48H [facility] Insulin Glargine 10 unit 02/18/25 10:00 02/20/25 12:40 Insulin Glargine-Yfgn 100 Unit/Ml Pen SC 10 unit DAILY LEEANNE Administration Insulin Human Lispro 0 unit 02/15/25 12:00 02/20/25 06:38 Insulin Lispro 100 Unit/Ml Insuln.Pen SC 2 unit Q6 LEEANNE Administration Protocol Lorazepam 0.5 mg 02/15/25 18:30 02/15/25 18:32 Lorazepam 2 Mg/Ml [facility] Syringe IV 0.5 mg BID PRN PRN Administration ANXIETY Metoprolol Tartrate 5 mg 02/15/25 12:30 Metoprolol Tartrate 5 Mg/5 Ml Vial IV Q6 PRN HR>120/m Protocol Metoprolol Tartrate 50 mg 02/16/25 11:00 02/20/25 10:15 Metoprolol Tartrate 50 Mg Tablet PO 50 mg BID LEEANNE Administration Protocol Morphine Sulfate 2 - 4 mg 02/15/25 12:00 02/15/25 23:22 Morphine 2 Mg/Ml Syringe IV 4 mg Q4H PRN PRN Administration Pain Score 4-10 or Pre PT/OT Nystatin 500,000 unit 02/17/25 15:20 02/20/25 10:18 Nystatin 500,000 Unit/5 Ml Udc PO 500,000 unit 4X/DAY LEEANNE Administration Phenol/Menthol 3 spray 02/16/25 12:36 02/16/25 14:11 Phenol/Sodium Phenolate 180ml MUCOUS MEM 3 spray Q2H PRN PRN Administration SORE THROAT Primidone 125 mg 02/16/25 22:00 02/19/25 21:42 Primidone 250 Mg Tablet PO Not Given QHS [facility] Prochlorperazine Edisylate 5 mg 02/15/25 12:00 02/15/25 13:23 Prochlorperazine 10 Mg/2 Ml Vial IV 5 mg Q4H PRN PRN Administration Breakthrough nausea/vomiting Sodium Chloride 10 - 40 ml 02/15/25 11:33 02/17/25 16:27 0.9% Saline Lock 10 Ml Syringe IV 10 ml UD PRN Administration SALINE FLUSH Tamsulosin HCl 0.8 mg 02/16/25 22:00 02/19/25 21:42 Tamsulosin Hcl 0.4 Mg Capsule PO Not Given QHS LEEANNE PFSH Medical History Stuttering Wears hearing aid Wears glasses Complete edentulism, class III Depression Alcohol use Walker as ambulation aid Arthritis Prostate disease Easy bruising Back pain Injury of head and neck Dietary restriction Difficulty swallowing Chronic constipation Gastric reflux Former smoker Leg cramps History of pain when walking History of edema Vertigo Diabetes Hypokalemia Tremor Degeneration of cervical intervertebral disc Diverticulitis Essential hypertension Anxiety Home Medications ?Medication ?Instructions ?Recorded ?Last Taken ?Type metoprolol tartrate 50 mg tablet 50 mg PO BID hyperten ike 03/09/14 02/04/25 History tamsulosin 0.4 mg capsule 0.8 mg PO QHS urinary issues 01/26/15 02/03/25 History dexlansoprazole 30 mg 30 mg PO DAILY stomach 09/0302/04/25 History capsule,biphase delayed release linaclotide 290 mcg capsule 290 mcg PO DAILY bowels 02/03/25 History (Linzess) lorazepam 1 mg tablet (Ativan) 1 mg PO BID anxiety 02/04/25 History melatonin 5 mg capsule 5 mg PO QHS 01/19/21 5 History saw palmetto 450 mg capsule 450 mg PO BID 01/19/2106/22 History lactulose 10 gram/15 mL oral 20 g PO BID bowels 02/03/25 History solution (Constulose) metformin 500 mg tablet 500 mg PO BID blood glucose 11/07/24 02/03/25 History polyethylene glycol 3350 17 4 g PO BID 11/07/24 History gram/dose oral powder (Miralax) primidone 125 mg tablet 125 mg PO QHS seizures 11/0702/03/25 History triamterene 75 1 tab PO DAILY hypertension 02/04/25 02/03/25 History mg-hydrochlorothiazide 50 mg tablet hydrocodone-acetaminophen 5-325mg 1 tab PO Q6H PRN eduardo n 7 days #28 02/05/25 Unknown Rx 5mg-325mg tabs meloxicam 15 mg tablet 15 mg PO DAILY #30 tabs 01/27 Unknown Rx methocarbamol 500 mg tablet 750 mg (1.5 x 500 mg) PO T ID PRN 02/05/25 Unknown Rx pain/spasms #60 tabs sennosides 8.6 mg-docusate sodium 2 tab PO BID PRN con stipation #30 02/05/25 Unknown Rx 50 mg tablet (Stimulant Laxative tabs Plus) potassium chloride 20 mEq 20 meq PO TID supplement Unknown History tablet,extended release(part/cryst) Allergy/AdvReac Type Severity Reaction Status Date / Time sulfamethoxazole (From AdvReac Unknown Headache Verified 02/15/25 08:05 Bactrim) trimethoprim (From Bactrim) AdvReac Unknown Headache Verified 02/15/25 08:05 gabapentin (From Neurontin) AdvReac muscle Verified 02/15/25 08:05 stiffness ofloxacin (From Floxin) AdvReac Unknown Verified 02/15/25 08:05 Family History Mother Brain cancer Father Colon cancer Diabetes Surgical History Hx of colonoscopy History of cataract surgery Social History Smoking Status: Current every day smoker tobacco type: cigarettes Tobacco: How many years used: 4 how long ago did patient quit smoking: has been about 6 years second hand exposure: No alcohol intake: current alcohol intake frequency: holidays/special occasions only substance use type: does not use Review of Systems (Anesthesia) ROS Narrative System reviewed and no additional complaints, except as documented.
[2025-02-20 13:59] LABS: Potassium 3.2 mmol/L (3.3-5.1)
--- NOTE | 2025-02-20 14:45 | PCM.HP.STD ---
HPI - General General Date of Admission: 02/15/25 Date of Service: 02/20/25 Chief Complaint: colon obstruction HPI Narrative BRIANA ARIZMENDI, is a 74 M who presented to the emergency room about 5 days ago with abdominal distention and pain. He was found to likely have an obstruction. I have offered him a diverting loop transverse colostomy. We discussed the details of the planned procedure and he wishes to proceed. This will begin momentarily [facility] Medical History Stuttering Wears hearing aid Wears glasses Complete edentulism, class III Depression Alcohol use Walker as ambulation aid Arthritis Prostate disease Easy bruising Back pain Injury of head and neck Dietary restriction Difficulty swallowing Chronic constipation Gastric reflux Former smoker Leg cramps History of pain when walking History of edema Vertigo Diabetes Hypokalemia Tremor Degeneration of cervical intervertebral disc Diverticulitis Essential hypertension Anxiety Home Medications ?Medication ?Instructions ?Recorded ?Last Taken ?Type metoprolol tartrate 50 mg tablet 50 mg PO BID hypertension 03/09/14 02/04/25 History tamsulosin 0.4 mg capsule 0.8 mg PO QHS urinary issues 01/26/15 02/03/25 History dexlansoprazole 30 mg 30 mg PO DAILY stomach 09/03/19 02/04/25 History capsule,biphase delayed release linaclotide 290 mcg capsule 290 mcg PO DAILY bowels 01/19/21 02/03/25 History (Linzess) lorazepam 1 mg tablet (Ativan) 1 mg PO BID anxiety 01/19/21 02/04/25 History melatonin 5 mg capsule 5 mg PO QHS 01/19/21 02/03/25 History saw palmetto 450 mg capsule 450 mg PO BID 01/19/21 02/03/25 History lactulose 10 gram/15 mL oral 20 g PO BID bowels 11/07/24 02/03/25 History solution (Constulose) metformin 500 mg tablet 500 mg PO BID blood glucose 11/07/24 02/03/25 History polyethylene glycol 3350 17 4 g PO BID 11/07/24 02/03/25 History gram/dose oral powder (Miralax) primidone 125 mg tablet 125 mg PO QHS seizures 11/07/24 02/03/25 History triamterene 75 1 tab PO DAILY hypertension 02/04/25 02/03/25 History mg-hydrochlorothiazide 50 mg tablet hydrocodone-acetaminophen 5-325mg 1 tab PO Q6H PRN pain 7 days #28 02/05/25 Unknown Rx 5mg-325mg tabs meloxicam 15 mg tablet 15 mg PO DAILY #30 tabs 02/05/25 Unknown Rx methocarbamol 500 mg tablet 750 mg (1.5 x 500 mg) PO TID PRN 02/05/25 Unknown Rx pain/spasms #60 tabs sennosides 8.6 mg-docusate sodium 2 tab PO BID PRN constipation #30 02/05/25 Unknown Rx 50 mg tablet (Stimulant Laxative tabs Plus) potassium chloride 20 mEq 20 meq PO TID supplement 02/15/25 Unknown History tablet,extended release(part/cryst) Allergy/AdvReac Type Severity Reaction Status Date / Time sulfamethoxazole (From AdvReac Unknown Headache Verified 02/15/25 08:05 Bactrim) trimethoprim (From Bactrim) AdvReac Unknown Headache Verified 02/15/25 08:05 gabapentin (From Neurontin) AdvReac muscle Verified 02/15/25 08:05 stiffness ofloxacin (From Floxin) AdvReac Unknown Verified 02/15/25 08:05 Family History Mother Brain cancer Father Colon cancer Diabetes Surgical History Hx of colonoscopy History of cataract surgery Social History Smoking Status: Current every day smoker tobacco type: cigarettes Tobacco: How many years used: 4 how long ago did patient quit smoking: has been about 6 years second hand exposure: No alcohol intake: current alcohol intake frequency: holidays/special occasions only substance use type: does not use Vital Signs Vital Signs Vital Signs: 02/19/25 20:00 02/19/25 21:00 02/19/25 22:00 Temperature 97.8 F Temperature Source Oral Pulse Rate 100 Pulse Strength Normal (2+) Respiratory Rate 15 15 Respiratory Effort Normal Non-Labored Respiratory Depth Normal Respiratory Pattern Normal Blood Pressure 143/82 H Blood Pressure Mean 102 Blood Pressure Source Monitor Blood Pressure Position Semi-Fowlers Blood Pressure Location Left Arm Pulse Ox 96 Oxygen Delivery Method Room Air Room Air Oxygen Flow Rate (L/min) 02/20/25 02:42 02/20/25 08:00 02/20/25 10:15 Temperature 98.2 F Temperature Source Oral Pulse Rate 101 H 103 H Pulse Strength Respiratory Rate 15 Respiratory Effort Respiratory Depth Respiratory Pattern Blood Pressure 148/80 H Blood Pressure Mean 102 Blood Pressure Source Monitor Blood Pressure Position Semi-Fowlers Blood Pressure Location Left Arm Pulse Ox 96 Oxygen Delivery Method Room Air Room Air Oxygen Flow Rate (L/min) 02/20/25 12:26 02/20/25 14:02 Temperature 98.3 F 98.3 F Temperature Source Temporal Pulse Rate 82 82 Pulse Strength Respiratory Rate 16 16 Respiratory Effort Respiratory Depth Respiratory Pattern Blood Pressure 138/81 H 138/81 H Blood Pressure Mean 100 Blood Pressure Source Monitor Blood Pressure Position Semi-Fowlers Blood Pressure Location Right Arm Pulse Ox 96 96 Oxygen Delivery Method Room Air Room Air Oxygen Flow Rate (L/min) 2 Weight Weight: 180 lb 15.992 oz Body Mass Index (BMI) 27.4 Physical Exam Narrative He is alert and orient x 3. He is in no acute distress. NG tube is in place. Abdomen is soft, moderate distention. Minimal tenderness to palpation Results Lab / Micro Data 02/20/25 04:05 02/20/25 12:30 Labs: Laboratory Results - last 24 hr 02/19/25 16:20: POC Glucose 168 H 02/19/25 23:21: POC Glucose 144 H 02/20/25 04:05: WBC 7.5, RBC 4.01 L, Hgb 12.4 L, Hct 36.5 L, MCV 91.0, MCH 30.9, MCHC 34.0, RDW Std Deviation 44.0 H, RDW Coeff of Leonel 13.2, Plt Count 272, MPV 8.3, Immature Gran % (Auto) 0.700, Neut % (Auto) 71.2 H, Lymph % (Auto) 17.3 L, [place] % (Auto) 10.1 H, Eos % (Auto) 0.4, Baso % (Auto) 0.3, Absolute Neuts (auto) 5.3, Absolute Lymphs (auto) 1.29, Nucleated RBC % 0, PT 14.5, INR 1.1, APTT 33.9, Sodium 135, Potassium 3.0 L, Chloride 98, Carbon Dioxide 21.2, Anion Gap 15, BUN 17, Creatinine 0.97, Estim Creat Clear Calc 65.62, Est GFR (MDRD) Non-Af 82, BUN/Creatinine Ratio 17.1, Glucose 182 H, Hemoglobin A1c 7.0 H, Calcium 8.2, Total Bilirubin 0.41, Direct Bilirubin 0.23, AST 20, ALT 31, Alkaline Phosphatase 79, Total Protein 5.9, Albumin 3.1 L, Globulin 2.8 02/20/25 06:35: POC Glucose 173 H 02/20/25 11:23: POC Glucose 196 H 02/20/25 12:30: Potassium 3.2 L Imaging Radiology Impression Chest X-Ray 02/19/25 16:24 IMPRESSION: 1. No acute airspace abnormality. 2. Unchanged fat density mass overlying the right hemithorax. See recent CT report for further details. Reading [facility] Assessment & Plan Assessment/Plan (1) Bowel obstruction: QUALIFIERS: Intestinal obstruction type: unspecified Intestinal obstruction extent: complete Qualified Code(s): K56.601 - Complete intestinal obstruction, unspecified as to cause PLAN: Plan The patient is a 74-year-old male with a colonic obstruction secondary to chronic diverticulitis/stricture. I have offered him a diverting loop colostomy. We discussed the details of the planned procedure and he wishes to proceed. Surgery began momentarily.
[2025-02-20 14:53] LABS: Magnesium 1.9 mg/dL (1.5-2.2); Phosphorus 2.1 mg/dL (2.7-4.5)
--- NOTE | 2025-02-20 15:27 | PN.HOSP_ITS ---
Reason for Visit Reason for Visit: Diagnoses Partial intestinal obstruction, unspecified as to cause (02/15/25) Complete intestinal obstruction, unspecified as to cause (02/15/25) Arthrodesis status (02/15/25) Objective Data Objective Data Vital Signs: Vital Signs Temp Pulse Resp BP Pulse Ox O2 Del Method O2 Flow Rate 98.3 F 82 16 138/81 H 96 Room Air 2 02/20/25 14:02 02/20/25 14:02 02/20/25 14:02 02/20/25 14:02 02/20/25 14:02 02/20/25 14:02 02/20/25 14:02 Oxygen Flow Rate (L/min) 2 Oxygen Delivery Method Room Air Weight: 180 lb 15.992 oz Body Mass Index (BMI) 27.4 Intake & Output: Intake and Output for Last 24 Hours 02/18/25 02/19/25 02/20/25 23:59 23:59 23:59 Intake Total 1979 640 / 640 1235 / 1235 Output Total 900 / 900 200 / 200 Balance 1979 -260 / -260 1035 / 1035 Lab / Micro Data 02/20/25 04:05 02/20/25 12:30 Labs: Laboratory Results - last 24 hr 02/19/25 16:20: POC Glucose 168 H 02/19/25 23:21: POC Glucose 144 H 02/20/25 04:05: WBC 7.5, RBC 4.01 L, Hgb 12.4 L, Hct 36.5 L, MCV 91.0, MCH 30.9, MCHC 34.0, RDW Std Deviation 44.0 H, RDW Coeff of Leonel 13.2, Plt Count 272, MPV 8.3, Immature Gran % (Auto) 0.700, Neut % (Auto) 71.2 H, Lymph % (Auto) 17.3 L, [place] % (Auto) 10.1 H, Eos % (Auto) 0.4, Baso % (Auto) 0.3, Absolute Neuts (auto) 5.3, Absolute Lymphs (auto) 1.29, Nucleated RBC % 0, PT 14.5, INR 1.1, APTT 33.9, Sodium 135, Potassium 3.0 L, Chloride 98, Carbon Dioxide 21.2, Anion Gap 15, BUN 17, Creatinine 0.97, Estim Creat Clear Calc 65.62, Est GFR (MDRD) Non-Af 82, BUN/Creatinine Ratio 17.1, Glucose 182 H, Hemoglobin A1c 7.0 H, Calcium 8.2, Total Bilirubin 0.41, Direct Bilirubin 0.23, AST 20, ALT 31, Alkaline Phosphatase 79, Total Protein 5.9, Albumin 3.1 L, Globulin 2.8 02/20/25 06:35: POC Glucose 173 H 02/20/25 11:23: POC Glucose 196 H 02/20/25 12:30: Potassium 3.2 L, Phosphorus 2.1 L, Magnesium 1.9 Radiography Diagnostic Testing: Radiology Impression Chest X-Ray 02/19/25 16:24 IMPRESSION: 1. No acute airspace abnormality. 2. Unchanged fat density mass overlying the right hemithorax. See recent CT report for further details. Reading Location: [facility] Physical Exam Narrative Seen and examined. Patient had some bowel movement yesterday. Going for surgery in the afternoon. Still getting suppository and enema. Physical exam General: Alert, Oriented x3, Cooperative HEENT: Wearing hard collar. Lateral cervical surgical dressing is dry. Atraumatic, PERRLA, EOMI, Normocephalic Oral: NG tube. Not much drainage. Bilious apsirate Neck: Supple, No JVD, Negative Carotid Bruits Chest wall/Lungs: Air entry diminished in bilateral lung bases. No crepitation/rhonchi Cardiovascular: Regular rate, Regular Rhythm, Normal S1, Normal S2, No M/G/R Abdomen: Bowel Sounds present on left lower quadrant. Abdominal distention seems little better. No discrete surgical incision scar. : No dysuria. No renal angle tenderness. No suprapubic tenderness. Extremities: No edema, Capillary Refill Less than 3 Seconds Skin: No rashes, No breakdown Musculoskeletal: No Tenderness to Palpation of Joints or Extremities Neurological: Cranial nerves II-XII grossly intact, DTR 2+/4. No acute focal neurological deficit. Psych/Mental Status: Flat affect Assessment & Plan Assessment/Plan (1) Partial bowel obstruction: PLAN: Plan This is 74-year-old gentleman being admitted for abdominal distention, discomfort and nausea CT findings suggestive of partial small bowel and large bowel obstruction. 1. Small and large bowel partial obstruction with dilatation: CT abdomen initially reviewed and shows diffuse dilatation of his small and large bowel with air and fluid. No discrete transition point. No ascites. Colonic diverticulosis. ED physician consulted surgeon Dr. Saldaña. NG tube inserted and x-ray reviewed shows tube lying in the body of the stomach. NPO. IV fluid support. Monitor intake and output and abdominal exam 02/16: Overall it seems it is not going to resolve with conservative method but after discussion with Dr. Saldaña, patient does not want colostomy. He wanted second opinion with Dr. Leach. He will try Fleet enema and give 1 more day for conservative treatment to work otherwise prognosis is bad. 02/17: After review of the surgical note by Dr. Saldaña and second opinion by Dr. Leach, the patient is adamant about not having colostomy but rather of sepsis. For now seems small and the option of Dulcolax suppository and enema. 02/18: After discussion with the patient and his in the room, I talked to surgeon Dr. Leach. Abdominal x-ray ordered. Patient and his seems more amenable for loop colostomy. This was conveyed to Dr. Leach. 02/19: Patient had CT abdomen with rectal barium contrast which shows acute on chronic mid sigmoid diverticulitis, resulting into large bowel obstruction. Diffuse irregular peripheral filling defect throughout the descending colon. Related to eccentric stool less likely colonic wall thickening. Patient is going for surgery tomorrow at 2:30 PM. Still on enema and suppository. BP 116/93. 02/20: Patient had some bowel movement after enema and suppository. Abdomen still distention but seems slightly better. Bowel sounds present. Patient going for surgery in the afternoon. Discussion about the surgery, its risk and complications already explained by surgeon yesterday. Patient and his consented for proceeding with loop colostomy. 2. 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 Patient had elective cervical spine surgery on 02/04 and was electively admitted and discharged on 02/05. No acute issues. Wearing hard collar. Continue PT and OT 02/17: Patient walked around the nursing station with the help of PT. 3. Essential hypertension: BP 150/113. BP elevated hold oral but IV antihypertensive medication ordered 4. DM2: Glucose 302. ? Hold metformin. Accu-Chek every 6 hours with Humalog sliding scale coverage and hypoglycemia protocol. 02/16: Glucoses better 192 in BMP. 02/17: Patient glucose is low at about 78. IV fluids changed to D5W. Discussed with the nursing staff 02/20: Glucose 182. A1c 7.0%. Continue Accu-Cheks. Patient had low blood sugar last few days as mentioned above. 5. CKD stage IIIa, hyponatremia and hypochloremia with increased anion gap probably due to third volume spacing from bowel distention/partial obstruction: IV fluid normal saline ordered. Usually creatinine stays around 1.05-1.12. BUN/creatinine elevated /.. On IV fluid resuscitation. Does not meet criteria for [place]. 02/17: Creatinine 1.13. 02/20: Mild hypokalemia, potassium getting replaced. Magnesium 1.9. Phosphorus 2.1. 20 mEq IV KCl replacement potassium still 3.2. IV potassium phosphate and IV magnesium ordered. Monitor electrolytes. 6. GERD/chronic constipation. As mentioned above. Does not need IV PPI 7. BPH with chronic bladder outlet obstruction: Hold Flomax. 8. Chronic anxiety/depression. DVT prophylaxis: Lovenox 40 mg subcu daily Living will/advanced directive/end of life care: Patient does not living will or advanced directive. His present in the ED is power of securities attorney for health. After discussion of benefits/risks procedures involved with full code, DNR CC arrest and DNR CC, the patient opted for DNR CC arrest with no intubation Patient doesn't want artificial life support including intubation, tube feed, ventilator and/chest compression, central venous catheter, vasopressor and DC shock if needed Clinical Impression(s) from Imaging Studies Abdomen/Pelvis CT 02/15/25 08:18 IMPRESSION: 1. Small and large bowel dilation without discrete transition point, which may be secondary to recent reported surgery or developing bowel obstruction. No pneumatosis or ascites. 2. Nonobstructing left lower pole renal calculi. Reading Location: [id number] Charges/Coding Visit Charges Inpatient E&M: 63997 Subs Hosp L3
[2025-02-20] MEDS: Bupiv/Epi 0.25% 30 ML Vial (16:32)
--- NOTE | 2025-02-20 16:47 | PCM.POST.ANE ---
Anesthesia: Postop Eval I Current Vital Signs Temperature: 97.2 F Pulse Rate: 77 Blood Pressure: 146/85 Respiratory Rate: 16 Pulse Ox: 98 Assessment Airway patent: Yes Spontaneous unlabored respirations: Yes nausea: No Vomiting: No Anesthesia Complication: No Fluid Hydration Crystalloid volume administer (ml): 1,300 Total IV fluid infused: 1,300 Progress Note Anesthesia document: Postop Eval 1 completed: Yes
--- NOTE | 2025-02-20 16:59 | OP.PCM_ITS ---
Problems Associated Problem List Diagnoses (1) Bowel obstruction: Procedures Digestive [id number]: Other Procedure See Notes (10921) Operative Report (Standard) Operative Information Date of Procedure: 02/20/25 Pre-Operative Diagnosis: Obstructing sigmoid diverticular stricture Post-Operative Diagnosis: Same Surgery/Procedure Performed: Laparoscopic assisted transverse loop colostomy maintenance team leader: Yes Sap Technical Developer: Robb [place] Tasks completed by delivery assistant: Closing and Retracting Additional front end assistant?: No Type of Anesthesia: General and Local RN Documented Start/Stop Times: Operation Date: 02/20/25 14:30 Case Time Into Pre-Op 02/20/25 13:41 Out of Pre-Op 02/20/25 14:51 Anesthesia Start 02/20/25 14:54 Into Room 02/20/25 14:54 Procedure Start 02/20/25 15:28 Procedure End 02/20/25 16:35 Anesthesia End 02/20/25 16:39 Out of Room 02/20/25 16:39 Into Recovery 02/20/25 16:42 Procedure Start Time: 15:28 Procedure Stop Time: 16:35 Select all DRAINS/GRAFTS/IMPLANTS that apply: None Estimated Blood Loss: 15 mL Specimen collected: No Description of surgery: The patient is a 74-year-old male who presented with abdominal pain and distention. There was concern about a distal colon obstruction as he has a known history of a tortuous sigmoid colon along with many repeat bouts of diverticulitis over several decades. Patient also recently had cervical decompression surgery with fusion and hardware. The patient was admitted and was initially recommended to have a transverse colostomy however patient was extremely afraid of having a colostomy performed and basically refused initially. We attempted to stimulate bowel function in case that this was just constipation related from recent neck surgery. This failed to resolve and so we recommended again a transverse loop colostomy. Patient gave consent to proceed. He was brought to the operating room today following informed consent antibiotics were already being given. He was placed supine on the operative table with arms at his sides. The abdomen was then prepped and draped in the usual sterile manner. 11 blade was then used to make a 5 mm incision just above the umbilicus. Through this a 5 mm trocar was placed without difficulty. A 5 mm 0 degree scope was inserted there were no signs of bowel or vascular injury. Another 5 mm trocar was placed in the right lower quadrant. I was able to easily identify the dilated transverse colon. I was able to find the point of maximal mobility which was in the center of the transverse colon. I was able to bring this to the anterior abdominal wall. At this point we made a small circular incision in the upper midline. Bovie electrocautery was then used dissect down through subtendinous tissue. A cruciate incision was made this fascia was fairly thin along with his abdominal wall in this area. I was able to bring the selected segment of transverse colon up through this opening. This was then advanced through the aperture in the abdominal wall. I did need to excise some of the omentum so that the bowel could more easily come up through the opening in the abdominal wall. Once this was performed a plastic lawanda was placed under the loop. This was then secured to the abdominal wall using nylon suture. The two 5 mm trocar sites were then closed using 5-0 Vicryl. The transverse colon segment was then opened and quite a bit of air was able to be expressed and suctioned out. The ostomy was then matured using 3-0 Vicryl pop- off's. Once this was adequately performed an appliance was applied. He was awakened anesthesia and taken to recovery in good condition. Surgical Findings: See operative note Complications Complications: No Admit VTE Documentation VTE Present on Admission: No VTE Mechan Device Prophylaxis: SCD's VTE Pharm Prophylaxis ordered?: Yes
--- NOTE | 2025-02-20 17:03 | POSTOPAN2_ITS ---
Anesthesia Postop Eval I Sum Postop Eval Completion status Anesthesia document: Postop Eval 1 completed: Yes Anesthesia Postop Eval I Summary Anesthesia Postop Eval I Summary: Anesthesia Postop Eval I: Assessment Summary Airway patent Yes 02/20/25 16:47 ENGINEER [email or web address] Spontaneous unlabored Yes 02/20/25 16:47 ENGINEER [email or web address].TNES respirations Mental status nausea No 02/20/25 16:47 ENGINEER [email or web address].TNES Vomiting No 02/20/25 16:47 ENGINEER [email or web address].TNES Anesthesia Postop Eval I: Fluid Summary Crystalloid volume administer 1,300 02/20/25 16:47 ENGINEER SYSTEMS.TNES (ml) Colloids volume administered ( ml) Blood Product volume administered (ml) Total IV fluid infused 1,300 02/20/25 16:47 ENGINEER [email or web address].TNES Anesthesia Postop Eval I: Summary Notes Anesthesia Complication No 02/20/25 16:47 ENGINEER [email or web address].TNES Anesthesia Complication Comment: Post-operative progress note Anesthesia: Postop Eval II Evaluation Mental status: Awake and Calm Pain Level: 2 nausea: No Vomiting: No Complications Anesthesia Complication: No
--- NOTE | 2025-02-20 17:03 | PCM.POSTANE2 ---
Anesthesia Postop Eval I Sum Postop Eval Completion status Anesthesia document: Postop Eval 1 completed: Yes Anesthesia Postop Eval I Summary Anesthesia Postop Eval I Summary: Anesthesia Postop Eval I: Assessment Summary Airway patent Yes 02/20/25 16:47 CUSTOMER CARE TEAM [email or web address] Spontaneous unlabored Yes 02/20/25 16:47 CUSTOMER CARE TEAM COACH.[email or web address] respirations Mental status nausea No 02/20/25 16:47 CUSTOMER CARE TEAM COACH.TNES Vomiting No 02/20/25 16:47 CUSTOMER CARE TEAM [email or web address].[email or web address] Anesthesia Postop Eval I: Fluid Summary Crystalloid volume administer 1,300 02/20/25 16:47 CUSTOMER CARE TEAM COACH.TNES (ml) Colloids volume administered ( ml) Blood Product volume administered (ml) Total IV fluid infused 1,300 02/20/25 16:47 CUSTOMER CARE TEAM [email or web address] Anesthesia Postop Eval I: Summary Notes Anesthesia Complication No 02/20/25 16:47 CUSTOMER CARE TEAM COACH.TNES Anesthesia Complication Comment: Post-operative progress note Anesthesia: Postop Eval II Evaluation Mental status: Awake and Calm Pain Level: 2 nausea: No Vomiting: No Complications Anesthesia Complication: No
[2025-02-20] MEDS: Potassium Phosphate 30 MM in 0.9% Normal Saline (250mL Bag) 250 ML 42 MM IV (18:15)
[2025-02-20] MEDS: Lorazepam 2 MG/ML WCH Syringe 0.5 MG IV (18:22)
[2025-02-20 18:44] LABS: Bedside Glucose 164 mg/dL (74-106)
[2025-02-20] MEDS: Magnesium Sulfate 2 GM in Dextrose 5%-Water (100mL Bag) 100 ML IV (21:16)
[2025-02-21] MEDS: metroNIDAZOLE 500 MG/100 ML BAG 100 MG IV ×4 (00:08→22:33)
[2025-02-21] MEDS: Morphine 2 MG/ML Syringe IV ×3 (00:12→17:49)
[2025-02-21 00:39] LABS: Bedside Glucose 161 mg/dL (74-106)
[2025-02-21 01:47] VITALS: BMI 27.4
[2025-02-21 02:48] VITALS: BP 124/75; PULSE 94; RESP 15; TEMP 36.8; O2SAT 95
[2025-02-21 04:24] LABS: Absolute Lymphocyte Count 1.42 X10^3/uL (0.83-4.51); Absolute Neutrophil Count 5.9 X10^3/uL (2.0-7.7); Basophil# 0.02 X10^3/uL; Basophil% 0.2 % (0-1); Eosinophil# 0.02 X10^3/uL; Eosinophils% 0.2 % (0-5); Hematocrit 36.6 % (40-54); Hemoglobin 12.2 g/dL (13.0-16.5); Lymphocyte # 1.42 X10^3/ul (0.83-4.51); Lymphocyte % 17.2 % (19-41); Mean Corp Hgb Conc 33.3 g/dL (32-36); Mean Corpuscular Hgb 30.7 pg (27.0-32.0); Mean Platelet Vol. 8.4 fl (6.2-12.0); Monocyte# 0.82 X10^3/uL; NRBC Flagged by Analyzer 0 % (0-5); Neutrophil # 5.92 X10^3/uL (2.7-7.7); Neutrophil % 71.9 % (47-70); Platelet Count 286 K/mm3 (150-450); RBC Distribution Width CV 13.3 % (11.6-14.6); Red Blood Count 3.98 M/mm3 (4.6-6.2); White Blood Count 8.2 K/mm3 (4.4-11.0)
[2025-02-21 05:33] LABS: ALB/GLOB Ratio 1.1 RATIO (0.9-2.4); AST(SGOT) 19 U/L (<=37); Alanine Aminotransfer ALT/SGPT 24 U/L (<=46); Albumin, Serum 2.9 g/dL (3.4-4.8); Alkaline Phosphatase 71 U/L (40-129); Anion Gap 14 (5-15); BUN 12 mg/dL (4-19); BUN/Creat Ratio 13.7 RATIO (10-20); Carbon Dioxide 22.8 mmol/L (21.0-32.0); Chloride 101 mmol/L (98-108); EST Glomerular Filtration Rate 90 (>60); Estimated Creatinine Clearance 76.39 ml/min (50-250); Globulin 2.7 g/dL (2.2-4.2); Glucose 103 mg/dL (70-99); Magnesium 2.3 mg/dL (1.5-2.2); Phosphorus 3.4 mg/dL (2.7-4.5); Potassium 3.1 mmol/L (3.3-5.1); Protein, Total 5.6 g/dL (5.9-8.4); Sodium Level 137 mmol/L (133-145); Total Bilirubin 0.23 mg/dL (0.00-1.30)
[2025-02-21 05:48] VITALS: BMI 27.4
[2025-02-21 06:00] VITALS: BMI 27.3
[2025-02-21 07:15] LABS: Bedside Glucose 107 mg/dL (74-106)
[2025-02-21] MEDS: 0.9% Saline Lock 10 ML Syringe IV ×2 (07:48→17:49)
[2025-02-21] MEDS: Dext 5%-0.45% NS 1,000 ML 50 ML IV (07:48)
[2025-02-21] MEDS: Potassium Chloride 10mEq/100mL 10 MEQ/100 ML IV.SOLN. 100 MEQ IV BOLUS ×4 (07:54→10:49)
[2025-02-21 07:58] VITALS: PULSE 92
[2025-02-21] MEDS: Metoprolol Tartrate 50 MG Tablet PO ×2 (07:58→21:03)
[2025-02-21] MEDS: NYSTATIN 500,000 UNIT/5 ML UDC 500000 UNIT PO ×4 (07:58→21:03)
[2025-02-21 08:00] VITALS: BP 133/78; PULSE 92; RESP 14; TEMP 36.4; O2SAT 94
--- NOTE | 2025-02-21 08:35 | PN.SURG_ITS ---
Subjective Subjective Good output from loop transverse colostomy, NG canister about 3/4 full as well. Objective Data Objective Data Vital Signs: Vital Signs Temp Pulse Resp BP Pulse Ox O2 Del Method O2 Flow Rate 97.6 F L 92 14 133/78 H 94 Room Air 2 02/21/25 08:00 02/21/25 08:00 02/21/25 08:00 02/21/25 08:00 02/21/25 08:00 02/21/25 08:00 02/20/25 14:02 Oxygen Flow Rate (L/min) 2 Oxygen Delivery Method Room Air Weight: 180 lb 12.465 oz Body Mass Index (BMI) 27.3 Intake & Output: Intake and Output for Last 24 Hours 02/19/25 02/20/25 02/21/25 23:59 23:59 23:59 Intake Total 640 / 640 2215. / 2214. 490 / 490 Output Total 900 / 900 200 / 700 900 / 900 Balance -260 / -260 2015. / 1515. -410 / -410 Lab / Micro Data 02/21/25 04:01 02/21/25 04:01 Labs: Laboratory Results - last 24 hr 02/20/25 11:23: POC Glucose 196 H 02/20/25 12:30: Potassium 3.2 L, Phosphorus 2.1 L, Magnesium 1.9 02/20/25 18:25: POC Glucose 164 H 02/21/25 00:05: POC Glucose 161 H 02/21/25 04:01: WBC 8.2, RBC 3.98 L, Hgb 12.2 L, Hct 36.6 L, MCV 92.0, MCH 30.7, MCHC 33.3, RDW Std Deviation 45.0 H, RDW Coeff of Leonel 13.3, Plt Count 286, MPV 8.4, Immature Gran % (Auto) 0.500, Neut % (Auto) 71.9 H, Lymph % (Auto) 17.2 L, [place] % (Auto) 10.0, Eos % (Auto) 0.2, Baso % (Auto) 0.2, Absolute Neuts (auto) 5.9, Absolute Lymphs (auto) 1.42, Nucleated RBC % 0, Sodium 137, Potassium 3.1 L , Chloride 101, Carbon Dioxide 22.8, Anion Gap 14, BUN 12, Creatinine 0.90, Estim Creat Clear Calc 76.39, Est GFR (MDRD) Non-Af 90, BUN/Creatinine Ratio 13.7, Glucose 103 H, Calcium 8.0, Phosphorus 3.4, Magnesium 2.3 H, Total Bilirubin 0.23, AST 19, ALT 24, Alkaline Phosphatase 71, Total Protein 5.6 L, A lbumin 2.9 L, Globulin 2.7, Albumin/Globulin Ratio 1.1 02/21/25 06:47: POC Glucose 107 H Physical Exam Narrative NG in place Const oriented x3 and no apparent distress Resp normal respiratory effort GI soft to palpation GI Narrative: Tender near loop colostomy, beefy red, good liquid johnson output in bag Assessment & Plan Assessment/Plan (1) Status post colostomy: PLAN: Plan Postop day 1 status post laparoscopic loop transverse colon colostomy Patient's NG still in place we will plan to recheck at noon likely removal today as patient has had quite a bit of output from his loop colostomy. Hypokalemia?replace Continue IV antibiotics Anjelica Walker M.D. Pager: [phone] [facility] [address] [place] [address], [facility], [address] [place] [address] Office: [phone]
[2025-02-21] MEDS: Menthol/Lanolin/Calamine/Znox 113 GM Tube 1 APPLIC TOPICAL ×3 (09:46→21:04)
[2025-02-21] MEDS: Ceftriaxone 1 GM/50 ML BAG IV ×2 (09:46→21:29)
[2025-02-21 09:48] VITALS: BMI 27.4
[2025-02-21] MEDS: Insulin Glargine-YFGN 100 UNIT/ML Pen 10 UNIT SC (11:01)
[2025-02-21] MEDS: Insulin Lispro 100 UNIT/ML INSULN.PEN SC (11:02)
[2025-02-21] MEDS: Enoxaparin 40 MG/0.4 ML Syringe SC (11:03)
[2025-02-21] MEDS: BENZOCAINE/MENTHOL 1 LOZENGE MUCOUS MEM ×4 (11:10→22:33)
[2025-02-21 12:03] LABS: Bedside Glucose 158 mg/dL (74-106)
[2025-02-21 13:23] VITALS: BMI 27.4
[2025-02-21 14:00] VITALS: BP 138/85; PULSE 88; RESP 16; TEMP 36.2; O2SAT 95
--- NOTE | 2025-02-21 15:00 | PCM.PN.HOSP ---
Reason for Visit Reason for Visit: Diagnoses Partial intestinal obstruction, unspecified as to cause (02/15/25) Complete intestinal obstruction, unspecified as to cause (02/15/25) Colostomy status (02/15/25) Arthrodesis status (02/15/25) Objective Data Objective Data Vital Signs: Vital Signs Temp Pulse Resp BP Pulse Ox O2 Del Method O2 Flow Rate 97.6 F L 92 14 133/78 H 94 Room Air 2 02/21/25 08:00 02/21/25 08:00 02/21/25 08:00 02/21/25 08:00 02/21/25 08:00 02/21/25 08:00 02/20/25 14:02 Oxygen Flow Rate (L/min) 2 Oxygen Delivery Method Room Air Weight: 180 lb 12.465 oz Body Mass Index (BMI) 27.3 Intake & Output: Intake and Output for Last 24 Hours 02/19/25 02/20/25 02/21/25 23:59 23:59 23:59 Intake Total 640 / 640 2215.25 / 2215.25 965.00 / 965.00 Output Total 900 / 900 200 / 700 1125 / 1125 Balance -260 / -260 2015.25 / 1515.25 -160.00 / -160.00 Lab / Micro Data 02/21/25 04:01 02/21/25 04:01 Labs: Laboratory Results - last 24 hr 02/20/25 18:25: POC Glucose 164 H 02/21/25 00:05: POC Glucose 161 H 02/21/25 04:01: WBC 8.2, RBC 3.98 L, Hgb 12.2 L, Hct 36.6 L, MCV 92.0, MCH 30.7, MCHC 33.3, RDW Std Deviation 45.0 H, RDW Coeff of Leonel 13.3, Plt Count 286, MPV 8.4, Immature Gran % (Auto) 0.500, Neut % (Auto) 71.9 H, Lymph % (Auto) 17.2 L, [place] % (Auto) 10.0, Eos % (Auto) 0.2, Baso % (Auto) 0.2, Absolute Neuts (auto) 5.9, Absolute Lymphs (auto) 1.42, Nucleated RBC % 0, Sodium 137, Potassium 3.1 L, Chloride 101, Carbon Dioxide 22.8, Anion Gap 14, BUN 12, Creatinine 0.90, Estim Creat Clear Calc 76.39, Est GFR (MDRD) Non-Af 90, BUN/Creatinine Ratio 13.7, Glucose 103 H, Calcium 8.0, Phosphorus 3.4, Magnesium 2.3 H, Total Bilirubin 0.23, AST 19, ALT 24, Alkaline Phosphatase 71, Total Protein 5.6 L, Albumin 2.9 L, Globulin 2.7, Albumin/Globulin Ratio 1.1 02/21/25 06:47: POC Glucose 107 H 02/21/25 10:54: POC Glucose 158 H Physical Exam Narrative Seen and examined. Patient on the toilet having BM but had loop colostomy which is functioning. Liquid yellow stool in the bag. NG tube suction three fourths of canister, bilious content. Overall patient feels much better. Physical exam General: Alert, Oriented x3, Cooperative HEENT: Wearing hard collar. Lateral cervical incision, dry. Atraumatic, PERRLA, EOMI, Normocephalic Oral: NG tube. Not much drainage. Bilious apsirate Neck: Supple, No JVD, Negative Carotid Bruits Chest wall/Lungs: Air entry diminished in bilateral lung bases. No crepitation/rhonchi Cardiovascular: Sinus rhythm, Normal S1, Normal S2, No M/G/R Abdomen: Bowel Sounds present. Transverse loop colostomy, functioning. Colon wall edematous of colostomy. Abdominal distention seems better. No tenderness. : No dysuria. No renal angle tenderness. No suprapubic tenderness. Extremities: No edema, Capillary Refill Less than 3 Seconds Skin: No rashes, No breakdown Musculoskeletal: No Tenderness to Palpation of Joints or Extremities Neurological: Cranial nerves II-XII grossly intact, DTR 2+/4. No acute focal neurological deficit. Psych/Mental Status: Flat affect Assessment & Plan Assessment/Plan (1) Partial bowel obstruction: PLAN: Plan This is 74-year-old gentleman being admitted for abdominal distention, discomfort and nausea CT findings suggestive of partial small bowel and large bowel obstruction. 1. Small and large bowel partial obstruction with dilatation: CT abdomen initially reviewed and shows diffuse dilatation of his small and large bowel with air and fluid. No discrete transition point. No ascites. Colonic diverticulosis. ED physician consulted surgeon Dr. Saldaña. NG tube inserted and x-ray reviewed shows tube lying in the body of the stomach. NPO. IV fluid support. Monitor intake and output and abdominal exam 02/16: Overall it seems it is not going to resolve with conservative method but after discussion with Dr. Saldaña, patient does not want colostomy. He wanted second opinion with Dr. Leach. He will try Fleet enema and give 1 more day for conservative treatment to work otherwise prognosis is bad. 02/17: After review of the surgical note by Dr. Saldaña and second opinion by Dr. Leach, the patient is adamant about not having colostomy but rather of sepsis. For now seems small and the option of Dulcolax suppository and enema. 02/18: After discussion with the patient and his in the room, I talked to surgeon Dr. Leach. Abdominal x-ray ordered. Patient and his seems more amenable for loop colostomy. This was conveyed to Dr. Leach. 02/19: Patient had CT abdomen with rectal barium contrast which shows acute on chronic mid sigmoid diverticulitis, resulting into large bowel obstruction. Diffuse irregular peripheral filling defect throughout the descending colon. Related to eccentric stool less likely colonic wall thickening. Patient is going for surgery tomorrow at 2:30 PM. Still on enema and suppository. BP 116/93. 02/20: Patient had some bowel movement after enema and suppository. Abdomen still distention but seems slightly better. Bowel sounds present. Patient going for surgery in the afternoon. Discussion about the surgery, its risk and complications already explained by surgeon yesterday. Patient and his consented for proceeding with loop colostomy. 02/21: Patient had laparoscopic assisted loop colostomy on 02/20. Postop day 1. Colostomy functioning with edematous colonic wall. Hold for serum potassium more than 5.0, electrolytes and replacement. Serum magnesium and phosphorus normal. D5 half NS for nutritional purposes. 2. 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 Patient had elective cervical spine surgery on 02/04 and was electively admitted and discharged on 02/05. No acute issues. Wearing hard collar. Continue PT and OT 02/17: Patient walked around the nursing station with the help of PT. 3. Essential hypertension: BP 150/113. BP elevated hold oral but IV antihypertensive medication ordered 4. DM2: Glucose 302. ? Hold metformin. Accu-Chek every 6 hours with Humalog sliding scale coverage and hypoglycemia protocol. 02/16: Glucoses better 192 in BMP. 02/17: Patient glucose is low at about 78. IV fluids changed to D5W. Discussed with the nursing staff 02/20: Glucose 182. A1c 7.0%. Continue Accu-Cheks. Patient had low blood sugar last few days as mentioned above. 02/21: It was 158. 5. CKD stage IIIa, hyponatremia and hypochloremia with increased anion gap probably due to third volume spacing from bowel distention/partial obstruction: IV fluid normal saline ordered. Usually creatinine stays around 1.05-1.12. BUN/creatinine elevated /1.29. On IV fluid resuscitation. Does not meet criteria for PALMIRA. 02/17: Creatinine 1.13. 02/20: Mild hypokalemia, potassium getting replaced. Magnesium 1.9. Phosphorus 2.1. 20 mEq IV KCl replacement potassium still 3.2. IV potassium phosphate and IV magnesium ordered. Monitor electrolytes. 6. GERD/chronic constipation. As mentioned above. Does not need IV PPI 7. BPH with chronic bladder outlet obstruction: Hold Flomax. 8. Chronic anxiety/depression. DVT prophylaxis: Lovenox 40 mg subcu daily Laboratory Results 02/20/25 18:25: POC Glucose 164 H 02/21/25 00:05: POC Glucose 161 H 02/21/25 04:01: WBC 8.2, RBC 3.98 L, Hgb 12.2 L, Hct 36.6 L, MCV 92.0, MCH 30.7, MCHC 33.3, RDW Std Deviation 45.0 H, RDW Coeff of Leonel 13.3, Plt Count 286, MPV 8.4, Immature Gran % (Auto) 0.500, Neut % (Auto) 71.9 H, Lymph % (Auto) 17.2 L, [place] % (Auto) 10.0, Eos % (Auto) 0.2, Baso % (Auto) 0.2, Absolute Neuts (auto) 5.9, Absolute Lymphs (auto) 1.42, Nucleated RBC % 0, Sodium 137, Potassium 3.1 L, Chloride 101, Carbon Dioxide 22.8, Anion Gap 14, BUN 12, Creatinine 0.90, Estim Creat Clear Calc 76.39, Est GFR (MDRD) Non-Af 90, BUN/Creatinine Ratio 13.7, Glucose 103 H, Calcium 8.0, Phosphorus 3.4, Magnesium 2.3 H, Total Bilirubin 0.23, AST 19, ALT 24, Alkaline Phosphatase 71, Total Protein 5.6 L, Albumin 2.9 L, Globulin 2.7, Albumin/Globulin Ratio 1.1 02/21/25 06:47: POC Glucose 107 H 02/21/25 10:54: POC Glucose 158 H Living will/advanced directive/end of life care: Patient does not living will or advanced directive. His present in the ED is power of assistant prosecuting attorney for health. After discussion of benefits/risks procedures involved with full code, DNR CC arrest and DNR CC, the patient opted for DNR CC arrest with no intubation Patient doesn't want artificial life support including intubation, tube feed, ventilator and/chest compression, central venous catheter, vasopressor and DC shock if needed Clinical Impression(s) from Imaging Studies Abdomen/Pelvis CT 02/15/25 08:18 IMPRESSION: 1. Small and large bowel dilation without discrete transition point, which may be secondary to recent reported surgery or developing bowel obstruction. No pneumatosis or ascites. 2. Nonobstructing left lower pole renal calculi. Reading Location: [id number] Charges/Coding Visit Charges Inpatient E&M: 53710 Subs Hosp L2
[2025-02-21 17:59] LABS: Potassium 3.6 mmol/L (3.3-5.1)
[2025-02-21 18:02] LABS: Bedside Glucose 128 mg/dL (74-106)
[2025-02-21 20:41] VITALS: BP 136/79; PULSE 96; RESP 18; TEMP 37.2; O2SAT 94
[2025-02-21 20:52] VITALS: BMI 27.4
[2025-02-21 21:03] VITALS: BP 136/79; PULSE 96
[2025-02-21] MEDS: Primidone 250 MG Tablet 125 MG PO (21:03)
[2025-02-22] VITALS (7 sets, daily range): BP systolic 121–153; BP diastolic 75–89; PULSE 82–91; RESP 16; TEMP 36.3–37.2; O2SAT 96–97
[2025-02-22] MEDS: Morphine 2 MG/ML Syringe IV ×2 (00:12→10:58)
[2025-02-22 01:51] LABS: Bedside Glucose 138 mg/dL (74-106)
[2025-02-22] MEDS: BENZOCAINE/MENTHOL 1 LOZENGE MUCOUS MEM ×3 (02:51→23:27)
[2025-02-22 04:41] LABS: Absolute Lymphocyte Count 1.55 X10^3/uL (0.83-4.51); Absolute Neutrophil Count 5.2 X10^3/uL (2.0-7.7); Basophil# 0.02 X10^3/uL; Basophil% 0.3 % (0-1); Eosinophil# 0.07 X10^3/uL; Eosinophils% 0.9 % (0-5); Hematocrit 35.9 % (40-54); Lymphocyte # 1.55 X10^3/ul (0.83-4.51); Lymphocyte % 20.1 % (19-41); Mean Corp Hgb Conc 33.4 g/dL (32-36); Mean Corpuscular Hgb 30.9 pg (27.0-32.0); Mean Corpuscular Volume 92.5 fL (80-94); Mean Platelet Vol. 8.5 fl (6.2-12.0); Monocyte# 0.78 X10^3/uL; Monocyte% 10.1 % (0-10); NRBC Flagged by Analyzer 0 % (0-5); Neutrophil # 5.24 X10^3/uL (2.7-7.7); Platelet Count 280 K/mm3 (150-450); RBC Distribution Width CV 13.3 % (11.6-14.6); RBC Distribution Width SD 45.5 fl (35.1-43.9); Red Blood Count 3.88 M/mm3 (4.6-6.2); White Blood Count 7.7 K/mm3 (4.4-11.0)
[2025-02-22] MEDS: Dext 5%-0.45% NS 1,000 ML 50 ML IV (04:53)
[2025-02-22 05:07] LABS: ALB/GLOB Ratio 1.1 RATIO (0.9-2.4); AST(SGOT) 21 U/L (<=37); Alanine Aminotransfer ALT/SGPT 19 U/L (<=46); Albumin, Serum 2.9 g/dL (3.4-4.8); Alkaline Phosphatase 68 U/L (40-129); Anion Gap 11 (5-15); BUN 13 mg/dL (4-19); BUN/Creat Ratio 14.2 RATIO (10-20); Calcium,Total 8.1 mg/dL (7.6-11.0); Carbon Dioxide 26.7 mmol/L (21.0-32.0); Chloride 100 mmol/L (98-108); Creatinine, Serum 0.91 mg/dL (0.70-1.20); EST Glomerular Filtration Rate 89 (>60); Estimated Creatinine Clearance 69.95 ml/min (50-250); Globulin 2.7 g/dL (2.2-4.2); Glucose 136 mg/dL (70-99); Protein, Total 5.5 g/dL (5.9-8.4); Sodium Level 138 mmol/L (133-145); Total Bilirubin 0.27 mg/dL (0.00-1.30)
[2025-02-22] MEDS: metroNIDAZOLE 500 MG/100 ML BAG 100 MG IV ×2 (05:52→20:28)
[2025-02-22 06:47] LABS: Bedside Glucose 135 mg/dL (74-106)
[2025-02-22] MEDS: Metoprolol Tartrate 50 MG Tablet PO ×2 (08:01→23:23)
[2025-02-22] MEDS: NYSTATIN 500,000 UNIT/5 ML UDC 500000 UNIT PO ×4 (08:01→23:19)
[2025-02-22] MEDS: Menthol/Lanolin/Calamine/Znox 113 GM Tube 1 APPLIC TOPICAL ×3 (08:02→23:27)
[2025-02-22] MEDS: Potassium Chloride 10mEq/100mL 10 MEQ/100 ML IV.SOLN. 100 MEQ IV BOLUS ×4 (08:28→11:47)
--- NOTE | 2025-02-22 09:14 | PN.SURG_ITS ---
Subjective Subjective NG still has 150 cc out for 4 hours, + ostomy function Objective Data Objective Data Vital Signs: Vital Signs Temp Pulse Resp BP Pulse Ox O2 Del Method O2 Flow Rate 97.8 F 88 16 136/87 H 96 Room Air 2 02/22/25 08:00 02/22/25 08:01 02/22/25 08:00 02/22/25 08:00 02/22/25 08:00 02/22/25 08:00 02/20/25 14:02 Oxygen Flow Rate (L/min) 2 Oxygen Delivery Method Room Air Weight: 180 lb 12.465 oz Body Mass Index (BMI) 27.3 Intake & Output: Intake and Output for Last 24 Hours 02/20/25 02/21/25 02/22/25 23:59 23:59 23:59 Intake Total 2215.25 / 2215.25 1195.00 / 1195.00 1384.17 / 1384.17 Output Total 200 / 700 1725 / 1975 725 / 725 Balance 2015. / 1515.25 -530.00 / -780.00 659.17 / 659.17 Lab / Micro Data 02/22/25 04:13 02/22/25 04:13 Labs: Laboratory Results - last 24 hr 02/21/25 10:54: POC Glucose 158 H 02/21/25 17:07: Potassium 3.6 02/21/25 17:42: POC Glucose 128 H 02/22/25 00:11: POC Glucose 138 H 02/22/25 04:13: WBC 7.7, RBC 3.88 L, Hgb 12.0 L, Hct 35.9 L, MCV 92.5, MCH 30.9, MCHC 33.4, RDW Std Deviation 45.5 H, RDW Coeff of Leonel 13.3, Plt Count 280, MPV 8.5, Immature Gran % (Auto) 0.600, Neut % (Auto) 68.0, Lymph % (Auto) 20.1, [place] % (Auto) 10.1 H, Eos % (Auto) 0.9, Baso % (Auto) 0.3, Absolute Neuts (auto) 5.2, Absolute Lymphs (auto) 1.55, Nucleated RBC % 0, Sodium 138, Potassium 3.0 L, Chloride 100, Carbon Dioxide 26.7, Anion Gap 11, BUN 13, Creatinine 0.91, Estim Creat Clear Calc 69.95, Est GFR (MDRD) Non-Af 89, BUN/Creatinine Ratio 14.2, G lucose 136 H, Calcium 8.1, Total Bilirubin 0.27, AST 21, ALT 19, Alkaline Phosphatase 68, Total Protein 5.5 L, Albumin 2.9 L, Globulin 2.7, Albumin/Globulin Ratio 1.1 02/22/25 05:50: POC Glucose 135 H Physical Exam Narrative NG in place Const oriented x3 and no apparent distress Resp normal respiratory effort GI soft to palpation GI Narrative: Tender near loop colostomy, beefy red, good liquid johnson output in bag Assessment & Plan Assessment/Plan (1) Status post colostomy: PLAN: Plan Postop day 2 status post laparoscopic loop transverse colon colostomy Patient's NG still in place we will plan to recheck later today as it has still been putting out a decent amount this AM. Hypokalemia?replace--was on 20 mEq PO TID at home. Continue IV antibiotics Anjelica Walker M.D. Pager: [phone] [facility] [address] [place] [address], Outpatient [facility], [address] [place] [address] Office: [phone]
[2025-02-22] MEDS: Ceftriaxone 1 GM/50 ML BAG IV ×2 (10:40→23:15)
[2025-02-22] MEDS: Enoxaparin 40 MG/0.4 ML Syringe SC (10:42)
[2025-02-22] MEDS: Insulin Glargine-YFGN 100 UNIT/ML Pen 10 UNIT SC (10:42)
[2025-02-22] MEDS: 0.9% Saline Lock 10 ML Syringe IV ×2 (10:58→20:31)
[2025-02-22 11:48] LABS: Bedside Glucose 148 mg/dL (74-106)
--- NOTE | 2025-02-22 13:10 | PCM.PN.HOSP ---
Reason for Visit Reason for Visit: Diagnoses Partial intestinal obstruction, unspecified as to cause (02/15/25) Complete intestinal obstruction, unspecified as to cause (02/15/25) Colostomy status (02/15/25) Arthrodesis status (02/15/25) Objective Data Objective Data Vital Signs: Vital Signs Temp Pulse Resp BP Pulse Ox O2 Del Method O2 Flow Rate 97.8 F 88 16 136/87 H 96 Room Air 2 02/22/25 08:00 02/22/25 08:01 02/22/25 08:00 02/22/25 08:00 02/22/25 08:00 02/22/25 08:00 02/20/25 14:02 Oxygen Flow Rate (L/min) 2 Oxygen Delivery Method Room Air Weight: 180 lb 12.465 oz Body Mass Index (BMI) 27.3 Intake & Output: Intake and Output for Last 24 Hours 02/20/25 02/21/25 02/22/25 23:59 23:59 23:59 Intake Total 2215. / 2215.25 1195.00 / 1195.00 1911.67 / 1911.67 Output Total 200 / 700 1725 / 1975 1150 / 1150 Balance / 15103.22 -530.00 / -780.00 761.67 / 761.67 Lab / Micro Data 02/22/25 04:13 02/22/25 04:13 Labs: Laboratory Results - last 24 hr 02/21/25 17:07: Potassium 3.6 02/21/25 17:42: POC Glucose 128 H 02/22/25 00:11: POC Glucose 138 H 02/22/25 04:13: WBC 7.7, RBC 3.88 L, Hgb 12.0 L, Hct 35.9 L, MCV 92.5, MCH 30.9, MCHC 33.4, RDW Std Deviation 45.5 H, RDW Coeff of Leonel 13.3, Plt Count 280, MPV 8.5, Immature Gran % (Auto) 0.600, Neut % (Auto) 68.0, Lymph % (Auto) 20.1, [place] % (Auto) 10.1 H, Eos % (Auto) 0.9, Baso % (Auto) 0.3, Absolute Neuts (auto) 5.2, Absolute Lymphs (auto) 1.55, Nucleated RBC % 0, Sodium 138, Potassium 3.0 L, Chloride 100, Carbon Dioxide 26.7, Anion Gap 11, BUN 13, Creatinine 0.91, Estim Creat Clear Calc 69.95, Est GFR (MDRD) Non-Af 89, BUN/Creatinine Ratio 14.2, Glucose 136 H, Calcium 8.1, Total Bilirubin 0.27, AST 21, ALT 19, Alkaline Phosphatase 68, Total Protein 5.5 L, Albumin 2.9 L, Globulin 2.7, Albumin/Globulin Ratio 1.1 02/22/25 05:50: POC Glucose 135 H 02/22/25 10:39: POC Glucose 148 H Physical Exam Narrative Seen and examined. Patient overall doing well. Colostomy bag was changed by surgeon Dr. Walker. No abdominal distention. Liquid stool. Patient still has high NG tube output. Overall patient feels much better. Physical exam General: Alert, Oriented x3, Cooperative HEENT: Wearing hard collar. Incision is dry. Atraumatic, PERRLA, EOMI, Normocephalic Oral: NG tube. Not much drainage. Bilious apsirate Neck: Supple, No JVD, Negative Carotid Bruits Chest wall/Lungs: Air entry diminished in bilateral lung bases. No crepitation/rhonchi Cardiovascular: Sinus rhythm, Normal S1, Normal S2, No M/G/R Abdomen: Bowel Sounds present. Transverse loop colostomy, functioning. Colon wall edematous of colostomy. No abdominal distention no tenderness. : No dysuria. No renal angle tenderness. No suprapubic tenderness. Extremities: No edema, Capillary Refill Less than 3 Seconds Skin: No rashes, No breakdown Musculoskeletal: No Tenderness to Palpation of Joints or Extremities Neurological: Cranial nerves II-XII grossly intact, DTR 2+/4. No acute focal neurological deficit. Psych/Mental Status: Flat affect Assessment & Plan Assessment/Plan (1) Partial bowel obstruction: PLAN: Plan This is 74-year-old gentleman being admitted for abdominal distention, discomfort and nausea CT findings suggestive of partial small bowel and large bowel obstruction. 1. Small and large bowel partial obstruction with dilatation: CT abdomen initially reviewed and shows diffuse dilatation of his small and large bowel with air and fluid. No discrete transition point. No ascites. Colonic diverticulosis. ED physician consulted surgeon Dr. Saldaña. NG tube inserted and x-ray reviewed shows tube lying in the body of the stomach. NPO. IV fluid support. Monitor intake and output and abdominal exam 02/16: Overall it seems it is not going to resolve with conservative method but after discussion with Dr. Saldaña, patient does not want colostomy. He wanted second opinion with Dr. Leach. He will try Fleet enema and give 1 more day for conservative treatment to work otherwise prognosis is bad. 02/17: After review of the surgical note by Dr. Saldaña and second opinion by Dr. Leach, the patient is adamant about not having colostomy but rather of sepsis. For now seems small and the option of Dulcolax suppository and enema. 02/18: After discussion with the patient and his in the room, I talked to surgeon Dr. Leach. Abdominal x-ray ordered. Patient and his seems more amenable for loop colostomy. This was conveyed to Dr. Leach. 02/19: Patient had CT abdomen with rectal barium contrast which shows acute on chronic mid sigmoid diverticulitis, resulting into large bowel obstruction. Diffuse irregular peripheral filling defect throughout the descending colon. Related to eccentric stool less likely colonic wall thickening. Patient is going for surgery tomorrow at 2:30 PM. Still on enema and suppository. BP 116/93. 02/20: Patient had some bowel movement after enema and suppository. Abdomen still distention but seems slightly better. Bowel sounds present. Patient going for surgery in the afternoon. Discussion about the surgery, its risk and complications already explained by surgeon yesterday. Patient and his consented for proceeding with loop colostomy. 02/21: Patient had laparoscopic assisted loop colostomy on 02/20. Postop day 1. Colostomy functioning with edematous colonic wall. Hold for serum potassium more than 5.0, electrolytes and replacement. Serum magnesium and phosphorus normal. D5 half NS for nutritional purposes. 2. 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 Patient had elective cervical spine surgery on 02/04 and was electively admitted and discharged on 02/05. No acute issues. Wearing hard collar. Continue PT and OT 02/17: Patient walked around the nursing station with the help of PT. 3. Essential hypertension: BP 150/113. BP elevated hold oral but IV antihypertensive medication ordered 4. DM2: Glucose 302. ? Hold metformin. Accu-Chek every 6 hours with Humalog sliding scale coverage and hypoglycemia protocol. 02/16: Glucoses better 192 in BMP. 02/17: Patient glucose is low at about 78. IV fluids changed to D5W. Discussed with the nursing staff 02/20: Glucose 182. A1c 7.0%. Continue Accu-Cheks. Patient had low blood sugar last few days as mentioned above. 02/21: It was 158. 5. CKD stage IIIa, hyponatremia and hypochloremia with increased anion gap probably due to third volume spacing from bowel distention/partial obstruction: IV fluid normal saline ordered. Usually creatinine stays around 1.05-1.12. BUN/creatinine elevated /1.29. On IV fluid resuscitation. Does not meet criteria for [place]. 02/17: Creatinine 1.13. 02/20: Mild hypokalemia, potassium getting replaced. Magnesium 1.9. Phosphorus 2.1. 20 mEq IV KCl replacement potassium still 3.2. IV potassium phosphate and IV magnesium ordered. Monitor electrolytes. 6. GERD/chronic constipation. As mentioned above. Does not need IV PPI 7. BPH with chronic bladder outlet obstruction: Hold Flomax. 8. Chronic anxiety/depression. DVT prophylaxis: Lovenox 40 mg subcu daily Laboratory Results 02/20/25 18:25: POC Glucose 164 H 02/21/25 00:05: POC Glucose 161 H 02/21/25 04:01: WBC 8.2, RBC 3.98 L, Hgb 12.2 L, Hct 36.6 L, MCV 92.0, MCH 30.7, MCHC 33.3, RDW Std Deviation 45.0 H, RDW Coeff of Leonel 13.3, Plt Count 286, MPV 8.4, Immature Gran % (Auto) 0.500, Neut % (Auto) 71.9 H, Lymph % (Auto) 17.2 L, [place] % (Auto) 10.0, Eos % (Auto) 0.2, Baso % (Auto) 0.2, Absolute Neuts (auto) 5.9, Absolute Lymphs (auto) 1.42, Nucleated RBC % 0, Sodium 137, Potassium 3.1 L, Chloride 101, Carbon Dioxide 22.8, Anion Gap 14, BUN 12, Creatinine 0.90, Estim Creat Clear Calc 76.39, Est GFR (MDRD) Non-Af 90, BUN/Creatinine Ratio 13.7, Glucose 103 H, Calcium 8.0, Phosphorus 3.4, Magnesium 2.3 H, Total Bilirubin 0.23, AST 19, ALT 24, Alkaline Phosphatase 71, Total Protein 5.6 L, Albumin 2.9 L, Globulin 2.7, Albumin/Globulin Ratio 1.1 02/21/25 06:47: POC Glucose 107 H 02/21/25 10:54: POC Glucose 158 H Living will/advanced directive/end of life care: Patient does not living will or advanced directive. His present in the ED is power of nursing educator for health. After discussion of benefits/risks procedures involved with full code, DNR CC arrest and DNR CC, the patient opted for DNR CC arrest with no intubation Patient doesn't want artificial life support including intubation, tube feed, ventilator and/chest compression, central venous catheter, vasopressor and DC shock if needed Clinical Impression(s) from Imaging Studies Abdomen/Pelvis CT 02/15/25 08:18 IMPRESSION: 1. Small and large bowel dilation without discrete transition point, which may be secondary to recent reported surgery or developing bowel obstruction. No pneumatosis or ascites. 2. Nonobstructing left lower pole renal calculi. Reading Location: [id number] Charges/Coding Visit Charges Inpatient E&M: 19723 Subs Hosp L2
[2025-02-22] MEDS: Potassium Chloride Oral Tablet 20 MEQ PO (14:23)
[2025-02-22] MEDS: Potassium Chloride Oral Tablet 20 MEQ 40 MEQ PO (17:10)
[2025-02-22 17:44] LABS: Bedside Glucose 118 mg/dL (74-106)
[2025-02-22] MEDS: oxyCODONE 5 MG Tablet PO (18:37)
[2025-02-22] MEDS: LORazepam 1 MG Tablet PO (18:37)
[2025-02-22] MEDS: Primidone 250 MG Tablet 125 MG PO (23:23)
[2025-02-23] VITALS (8 sets, daily range): BP systolic 124–153; BP diastolic 72–89; PULSE 83–90; RESP 16–18; TEMP 36.6–37.1; O2SAT 95–98; BMI 27.3
[2025-02-23 00:05] LABS: Bedside Glucose 119 mg/dL (74-106)
[2025-02-23] MEDS: Morphine 2 MG/ML Syringe IV ×3 (01:47→11:10)
[2025-02-23] MEDS: BENZOCAINE/MENTHOL 1 LOZENGE MUCOUS MEM ×4 (05:28→19:48)
[2025-02-23] MEDS: metroNIDAZOLE 500 MG/100 ML BAG 100 MG IV (05:28)
[2025-02-23 07:10] LABS: Absolute Lymphocyte Count 1.71 X10^3/uL (0.83-4.51); Absolute Neutrophil Count 5.1 X10^3/uL (2.0-7.7); Basophil# 0.03 X10^3/uL; Basophil% 0.4 % (0-1); Eosinophil# 0.12 X10^3/uL; Eosinophils% 1.5 % (0-5); Hematocrit 35.5 % (40-54); Lymphocyte # 1.71 X10^3/ul (0.83-4.51); Mean Corp Hgb Conc 33.8 g/dL (32-36); Mean Corpuscular Hgb 31.3 pg (27.0-32.0); Mean Corpuscular Volume 92.7 fL (80-94); Mean Platelet Vol. 8.7 fl (6.2-12.0); Monocyte# 0.76 X10^3/uL; Monocyte% 9.8 % (0-10); NRBC Flagged by Analyzer 0 % (0-5); Neutrophil % 65.7 % (47-70); Platelet Count 285 K/mm3 (150-450); RBC Distribution Width CV 13.2 % (11.6-14.6); RBC Distribution Width SD 44.1 fl (35.1-43.9); Red Blood Count 3.83 M/mm3 (4.6-6.2); White Blood Count 7.8 K/mm3 (4.4-11.0)
[2025-02-23 07:28] LABS: Bedside Glucose 130 mg/dL (74-106)
[2025-02-23 07:50] LABS: Anion Gap 12 (5-15); BUN 12 mg/dL (4-19); BUN/Creat Ratio 14.4 RATIO (10-20); Calcium,Total 8.1 mg/dL (7.6-11.0); Carbon Dioxide 26.7 mmol/L (21.0-32.0); Chloride 99 mmol/L (98-108); Creatinine, Serum 0.86 mg/dL (0.70-1.20); EST Glomerular Filtration Rate 91 (>60); Estimated Creatinine Clearance 74.01 ml/min (50-250); Glucose 131 mg/dL (70-99); Potassium 2.8 mmol/L (3.3-5.1); Sodium Level 138 mmol/L (133-145)
--- NOTE | 2025-02-23 08:08 | PCM.PN.SRG ---
Subjective Subjective Patient evaluated resting comfortably in the chair. He notes feeling hungry this morning. He continues to have output into his ostomy. He continues to have output from his NG tube, approximately 750 overnight since 0100 AM. He denies any nausea. He notes minimal amount of abdominal discomfort. Objective Data Objective Data Vital Signs: Vital Signs Temp Pulse Resp BP Pulse Ox O2 Del Method O2 Flow Rate 97.8 F 89 16 153/89 H 95 Room Air 2 02/23/25 05:45 02/23/25 05:45 02/23/25 05:45 02/23/25 05:45 02/23/25 05:45 02/23/25 05:45 02/20/25 14:02 Oxygen Flow Rate (L/min) 2 Oxygen Delivery Method Room Air Weight: 180 lb 1.883 oz Body Mass Index (BMI) 27.3 Intake & Output: Intake and Output for Last 24 Hours 02/21/25 02/22/25 02/23/25 23:59 23:59 23:59 Intake Total 1195.00 / 1195.00 2281.67 / 2281.67 260 / 260 Output Total 1725 / 1975 1775 / 1775 950 / 950 Balance -530.00 / -780.00 506.67 / 506.67 -690 / -690 Lab / Micro Data 02/23/25 06:25 02/23/25 06:25 Labs: Laboratory Results - last 24 hr 02/22/25 10:39: POC Glucose 148 H 02/22/25 17:09: POC Glucose 118 H 02/22/25 23:28: POC Glucose 119 H 02/23/25 05:47: POC Glucose 130 H 02/23/25 06:25: WBC 7.8, RBC 3.83 L, Hgb 12.0 L, Hct 35.5 L, MCV 92.7, MCH 31.3, MCHC 33.8, RDW Std Deviation 44.1 H, RDW Coeff of Leonel 13.2, Plt Count 285, MPV 8.7, Immature Gran % (Auto) 0.600, Neut % (Auto) 65.7, Lymph % (Auto) 22.0, [place] % (Auto) 9.8, Eos % (Auto) 1.5, Baso % (Auto) 0.4, Absolute Neuts (auto) 5.1, Absolute Lymphs (auto) 1.71, Nucleated RBC % 0, Sodium 138, Potassium 2.8 L, Chloride 99, Carbon Dioxide 26.7, Anion Gap 12, BUN 12, Creatinine 0.86, Estim Creat Clear Calc 74.01, Est GFR (MDRD) Non-Af 91, BUN/Creatinine Ratio 14.4, Glucose 131 H, Calcium 8.1 Physical Exam GI GI Narrative: Abdomen- soft, nondistended. Ostomy with beefy red tissue. Moderate brown liquidy stool output was noted within the ostomy bag. Assessment & Plan Assessment/Plan (1) Status post colostomy: (2) Bowel obstruction: PLAN: Plan I am following this patient in conjunction with Dr. Leach. He will independently evaluate this patient. Labs ordered. Potassium replaced Continue NG tube. Re-evaluate later today to possibly remove. Okay for sips and chips Continue ambulation and I.S D/C IV antibiotics We will continue to monitor this patient Discharge date is pending Charges/Coding Visit Charges Inpatient E&M: 04567 Subs Hosp L1 (post-op)
[2025-02-23] MEDS: Potassium Chloride Oral Tablet 20 MEQ 40 MEQ PO (08:41)
[2025-02-23] MEDS: Potassium Chloride 10mEq/100mL 10 MEQ/100 ML IV.SOLN. 100 MEQ IV BOLUS ×4 (08:41→12:13)
[2025-02-23] MEDS: Menthol/Lanolin/Calamine/Znox 113 GM Tube 1 APPLIC TOPICAL ×4 (11:00→22:53)
[2025-02-23] MEDS: Metoprolol Tartrate 50 MG Tablet PO ×2 (11:03→22:54)
[2025-02-23] MEDS: Insulin Glargine-YFGN 100 UNIT/ML Pen 10 UNIT SC (11:04)
[2025-02-23] MEDS: NYSTATIN 500,000 UNIT/5 ML UDC 500000 UNIT PO ×4 (11:04→22:53)
--- NOTE | 2025-02-23 11:08 | PCM.PN.HOSP ---
Reason for Visit Reason for Visit: Diagnoses Partial intestinal obstruction, unspecified as to cause (02/15/25) Complete intestinal obstruction, unspecified as to cause (02/15/25) Unspecified intestinal obstruction, unspecified as to partial versus complete obstruction (02/15/25) Colostomy status (02/15/25) Arthrodesis status (02/15/25) Subjective Subjective Saw patient at bedside this morning. Patient was sitting up comfortably in bedside chair, conversing normally, in no acute distress. NG tube remained in place that was not connected to suction when I saw him as he was about to walk around the floor. Had been seen by surgery earlier this morning who noted that he could have ice chips and sips and he was happy about this. Denied any abdominal pain this morning. No other acute concerns. Objective Data Objective Data Vital Signs: Vital Signs Temp Pulse Resp BP Pulse Ox O2 Del Method O2 Flow Rate 98.7 F 87 16 142/82 H 95 Room Air 2 02/23/25 08:56 02/23/25 11:03 02/23/25 08:56 02/23/25 08:56 02/23/25 08:56 02/23/25 08:56 02/20/25 14:02 Oxygen Flow Rate (L/min) 2 Oxygen Delivery Method Room Air Weight: 81.7 kg Body Mass Index (BMI) 27.3 Intake & Output: Intake and Output for Last 24 Hours 02/21/25 02/22/25 02/23/25 23:59 23:59 23:59 Intake Total 1195.00 / 1195.00 2281.67 / 2281.67 460 / 460 Output Total 1725 / 1975 1775 / 1775 950 / 950 Balance -530.00 / -780.00 506.67 / 506.67 -490 / -490 Lab / Micro Data 02/23/25 06:25 02/23/25 14:07 Labs: Laboratory Results - last 24 hr 02/22/25 10:39: POC Glucose 148 H 02/22/25 17:09: POC Glucose 118 H 02/22/25 23:28: POC Glucose 119 H 02/23/25 05:47: POC Glucose 130 H 02/23/25 06:25: WBC 7.8, RBC 3.83 L, Hgb 12.0 L, Hct 35.5 L, MCV 92.7, MCH 31.3, MCHC 33.8, RDW Std Deviation 44.1 H, RDW Coeff of Leonel 13.2, Plt Count 285, MPV 8.7, Immature Gran % (Auto) 0.600, Neut % (Auto) 65.7, Lymph % (Auto) 22.0, [place] % (Auto) 9.8, Eos % (Auto) 1.5, Baso % (Auto) 0.4, Absolute Neuts (auto) 5.1, Absolute Lymphs (auto) 1.71, Nucleated RBC % 0, Sodium 138, Potassium 2.8 L, Chloride 99, Carbon Dioxide 26.7, Anion Gap 12, BUN 12, Creatinine 0.86, Estim Creat Clear Calc 74.01, Est GFR (MDRD) Non-Af 91, BUN/Creatinine Ratio 14.4, Glucose 131 H, Calcium 8.1 Physical Exam Const alert, oriented x3, no apparent distress and average body habitus Constitutional Narrative: Elderly male, mildly fatigued appearing but otherwise sitting up comfortably in bedside chair, conversing normally, in no acute distress. General Appearance: cooperative and comfortable HEENT normocephalic, head/scalp atraumatic, hearing grossly normal bilaterally, nasal mucous membranes and turbinates normal and moist oral mucous membranes HEENT Narrative: NG tube in place, not connected to suction currently. Eyes PERRL, EOMs intact bilaterally and conjunctivae normal Neck full ROM Chest inspection of chest normal Resp normal respiratory effort, normal air movement, no use of accessory muscles and clear to auscultation bilaterally Cardio regular rate, regular rhythm, no murmurs and peripheral pulses 2+ throughout GI GI Narrative: Abdomen mildly distended but otherwise soft and nontender to palpation. Colostomy bag noted with normal moderate brown liquidy stool output. Back/Spine normal ROM Extremity normal to inspection, full ROM and no pedal edema Skin no rashes or lesions noted Psych mental status grossly normal Assessment & Plan Assessment/Plan (1) Partial bowel obstruction: (2) Status post colostomy: PLAN: Plan Patient is a 74-year-old male who presented to [facility] ED on 02/15/25 with worsening abdominal pain. 1. Small and large bowel partial obstruction with dilatation ? General Surgery following. Presented with worsening abdominal pain with distention. Surgery suspected colonic obstruction due to diverticulitis or diverticular stricture. Initially refused surgery but then agreed to proceed. S/p laparoscopic-assisted transverse loop colostomy on 02/20. Tolerated procedure well. NG tube in place and patient continues to have output from NG tube. Having normal stool output from ostomy. Per surgery, hopeful output will subside enough to remove NG tube soon and start diet. Appreciate further surgery recommendations. 2. Hyponatremia and hypochloremia with anion gap metabolic acidosis, resolved ? Sodium 127, chloride 88 on admit with anion gap noted. Suspected secondary to third spacing in setting of bowel obstruction. Resolved by 02/19. 3. Hypokalemia ? Potassium intermittently low during hospitalization likely due to high ostomy output post ostomy placement. Replete potassium as needed. 4. Cervical spine stenosis with recent surgery ? Had C4-7 ACDF procedure done with Dr. Grullon on 02/05. Tolerated procedure well, no intraoperative complications. Dr. Grullon did follow briefly preoperatively and noted it was okay for patient to have collar removed for procedures, with plan to wean time off collar over the next few weeks. Okay for gentle range of motion of the neck with outpatient physical therapy after discharge. 5. Type 2 diabetes mellitus ? Treating with insulin glargine 10 units daily and Humalog sliding scale every 6 hours for now with good blood sugar control, adjust as needed. 6. GERD ? Continue home PPI. 7. BPH with obstructive symptoms ? Continue home Flomax. 8. Anxiety/depression ? Continue home Ativan as needed. 9. Hypertension ? Continue home Lopressor. DVT prophylaxis: Lovenox CODE STATUS: DNR CCA, DNI Expected disposition: Home, TBD Total clinical time spent by myself addressing the patient's medical issues, reviewing all the data, and collaborating with patient's care team: 35 minutes. Charges/Coding Visit Charges Inpatient E&M: 89381 Subs Hosp L2
[2025-02-23] MEDS: 0.9% Saline Lock 10 ML Syringe IV (11:11)
[2025-02-23] MEDS: Insulin Lispro 100 UNIT/ML INSULN.PEN SC (12:13)
[2025-02-23] MEDS: Enoxaparin 40 MG/0.4 ML Syringe SC (12:13)
--- NOTE | 2025-02-23 12:32 | CASEMGMT ---
Addendum entered by Tara Fuentes 02/23/25 13:55: Received tc from [facility]rina, she states they are able to accept pt when pt is ready for dc. Pt made aware. Original Note: RN CM into pt room, pt sitting up in chair with sig other at bedside. Discussed HHC at ok, pt agreeable to this. Will plan for SN and PT due to recent OR. Discussed expectations with pt and sig other. Pt home physical address is [address] [place] [address]. Patient was provided a list of [facility] providers including quality and resource use data and consistent with the patient?s preferred geographic region, medical needs, and insurance network were provided from the [employer] Guide. Pt asked sig other to choose. She chose 1. [facility] 2. [facility] 3. [facility]. TC to [facility], spoke with Sabrina, made referral and aware of physical address for pt. Will await decision for acceptance.
[2025-02-23 12:34] LABS: Bedside Glucose 153 mg/dL (74-106)
[2025-02-23] MEDS: LORazepam 1 MG Tablet PO (14:41)
[2025-02-23 14:52] LABS: Potassium 3.7 mmol/L (3.3-5.1)
[2025-02-23 18:06] LABS: Bedside Glucose 91 mg/dL (74-106)
[2025-02-23] MEDS: Tamsulosin HCl 0.4 MG Capsule 0.8 MG PO (22:53)
[2025-02-23] MEDS: Primidone 250 MG Tablet 125 MG PO (22:53)
[2025-02-23] MEDS: oxyCODONE 5 MG Tablet PO (23:11)
[2025-02-23] MEDS: Acetaminophen 325 MG Tablet 650 MG PO (23:11)
[2025-02-24] VITALS (7 sets, daily range): BP systolic 120–139; BP diastolic 69–84; PULSE 81–91; RESP 16–18; TEMP 36.2–37.2; O2SAT 95–100; BMI 27.3
[2025-02-24 00:08] LABS: Bedside Glucose 81 mg/dL (74-106)
[2025-02-24] MEDS: Dext 5%-0.45% NS 1,000 ML 50 ML IV (01:34)
[2025-02-24 07:06] LABS: Absolute Lymphocyte Count 1.62 X10^3/uL (0.83-4.51); Absolute Neutrophil Count 4.4 X10^3/uL (2.0-7.7); Basophil# 0.02 X10^3/uL; Basophil% 0.3 % (0-1); Eosinophil# 0.12 X10^3/uL; Eosinophils% 1.8 % (0-5); Hematocrit 34.7 % (40-54); Hemoglobin 11.6 g/dL (13.0-16.5); Lymphocyte # 1.62 X10^3/ul (0.83-4.51); Lymphocyte % 23.8 % (19-41); Mean Corp Hgb Conc 33.4 g/dL (32-36); Mean Corpuscular Hgb 30.9 pg (27.0-32.0); Mean Corpuscular Volume 92.3 fL (80-94); Mean Platelet Vol. 8.4 fl (6.2-12.0); Monocyte# 0.59 X10^3/uL; Monocyte% 8.7 % (0-10); NRBC Flagged by Analyzer 0 % (0-5); Neutrophil # 4.41 X10^3/uL (2.7-7.7); Neutrophil % 64.7 % (47-70); POSITIVE MORPHOLOGY YES; Platelet Count 255 K/mm3 (150-450); RBC Distribution Width CV 13.2 % (11.6-14.6); RBC Distribution Width SD 44.3 fl (35.1-43.9); Red Blood Count 3.76 M/mm3 (4.6-6.2); White Blood Count 6.8 K/mm3 (4.4-11.0)
[2025-02-24 07:18] LABS: Differential Indicated SCAN CRITERIA MET
--- NOTE | 2025-02-24 07:24 | PN.SURG_ITS ---
Subjective Subjective Patient evaluated resting comfortably in the chair. He notes his main concern this morning is the sore on his bottom. He states that his stoma output has increased yesterday evening into the night. Output from NG from 11:00 pm until this morning at 5:55 was 450 cc brown fluid. He notes muscle sorenss in his abdomen. No true abdominal pain. Objective Data Objective Data Vital Signs: Vital Signs Temp Pulse Resp BP Pulse Ox O2 Del Method O2 Flow Rate 98.2 F 84 16 126/72 H 95 Room Air 2 02/24/25 05:43 02/24/25 05:43 02/24/25 05:43 02/24/25 05:43 02/24/25 05:43 02/24/25 05:43 02/20/25 14:02 Oxygen Flow Rate (L/min) 2 Oxygen Delivery Method Room Air Weight: 180 lb 8.937 oz Body Mass Index (BMI) 27.3 Intake & Output: Intake and Output for Last 24 Hours 02/22/25 02/23/25 02/24/25 23:59 23:59 23:59 Intake Total 2281.67 / 2281.67 1858.33 / 1858.33 210 / 210 Output Total 1775 / 1775 3075 / 3075 650 / 650 Balance 506.67 / 506.67 -1216.67 / -1216.67 -440 / -440 Lab / Micro Data 02/24/25 06:56 02/23/25 14:07 Labs: Laboratory Results - last 24 hr 02/23/25 05:47: POC Glucose 130 H 02/23/25 06:25: Sodium 138, Potassium 2.8 L, Chloride 99, Carbon Dioxide 26.7, Anion Gap 12, BUN 12, Creatinine 0.86, Estim Creat Clear Calc 74.01, Est GFR (MDRD) Non-Af 91, BUN/Creatinine Ratio 14.4, Glucose 131 H, Calcium 8.1 02/23/25 12:12: POC Glucose 153 H 02/23/25 14:07: Potassium 3.7 02/23/25 17:44: POC Glucose 91 02/23/25 23:06: POC Glucose 81 02/24/25 06:56: WBC 6.8, RBC 3.76 L, Hgb 11.6 L, Hct 34.7 L, MCV 92.3, MCH 30.9, MCHC 33.4, RDW Std Deviation 44.3 H, RDW Coeff of Leonel 13.2, Plt Count 255, MPV 8.4, Immature Gran % (Auto) 0.700, Neut % (Auto) 64.7, Lymph % (Auto) 23.8, [place] % (Auto) 8.7, Eos % (Auto) 1.8, Baso % (Auto) 0.3, Absolute Neuts (auto) 4.4, Absolute Lymphs (auto) 1.62, Nucleated RBC % 0 Physical Exam GI GI Narrative: Abdomen- soft, nontender to palpation. Positive bowel sounds throughout. Stoma with minimal edema noted. Tissue is beefy, red. Dark brown output noted. Assessment & Plan Assessment/Plan (1) Status post colostomy: (2) Bowel obstruction: QUALIFIERS: Intestinal obstruction type: unspecified Intestinal obstruction extent: complete Qualified Code(s): K56.601 - Complete intestinal obstruction, unspecified as to cause PLAN: Plan I am following this patient in conjunction with Dr. Leach. He will independently evaluated this patient. Labs pending. Replace potassium if needed Recommend 4 Hr clamping trial today Consider starting TPN if clamping trial is unsuccessful Add PPI to IV regimen Discussed patient with Mariah, she will look at patient's sore on his bottom and recommended some type of padding if appropriate, Patient's ostomy will be changed with significant other today We will continue to monitor this patient No discharge date planned at this time Charges/Coding Visit Charges Inpatient E&M: 45425 Subs Hosp L1 (post-op)
[2025-02-24] MEDS: BENZOCAINE/MENTHOL 1 LOZENGE MUCOUS MEM (07:26)
[2025-02-24 07:45] LABS: Anion Gap 14 (5-15); BUN 12 mg/dL (4-19); BUN/Creat Ratio 13.2 RATIO (10-20); Calcium,Total 8.1 mg/dL (7.6-11.0); Carbon Dioxide 27.2 mmol/L (21.0-32.0); Chloride 99 mmol/L (98-108); EST Glomerular Filtration Rate 90 (>60); Estimated Creatinine Clearance 70.72 ml/min (50-250); Glucose 106 mg/dL (70-99); Potassium 2.8 mmol/L (3.3-5.1); Sodium Level 140 mmol/L (133-145)
[2025-02-24 08:03] LABS: Atypical Lymphocyte 1+ %
[2025-02-24 08:19] LABS: Bedside Glucose 119 mg/dL (74-106)
[2025-02-24] MEDS: Potassium Chloride Oral Tablet 20 MEQ 40 MEQ PO ×2 (09:33→15:58)
[2025-02-24] MEDS: Potassium Chloride 10mEq/100mL 10 MEQ/100 ML IV.SOLN. 100 MEQ IV BOLUS ×4 (09:37→13:10)
[2025-02-24] MEDS: Metoprolol Tartrate 50 MG Tablet PO ×2 (09:38→22:37)
[2025-02-24] MEDS: NYSTATIN 500,000 UNIT/5 ML UDC 500000 UNIT PO ×4 (09:39→22:36)
[2025-02-24] MEDS: Insulin Glargine-YFGN 100 UNIT/ML Pen 10 UNIT SC (09:39)
[2025-02-24] MEDS: Pantoprazole Sodium 40 MG in 0.9% Normal Saline (100mL MB+) 100 ML 330 MG IV ×2 (09:42→22:36)
--- NOTE | 2025-02-24 09:52 | WOUNDNOTE ---
In to assess the stoma. patient sitting up in chair. NG still in place. abdomen still slightly distended. stoma dark pink and moist. still edematous. pt has had output from the stoma. small amount of liquid stool noted in appliance at this time. patient states they had placed a larger appliance on this weekend. will change the appliance with pt and significant other sometime today.
--- NOTE | 2025-02-24 10:38 | PN.HOSP_ITS ---
Reason for Visit Reason for Visit: Diagnoses Partial intestinal obstruction, unspecified as to cause (02/15/25) Complete intestinal obstruction, unspecified as to cause (02/15/25) Unspecified intestinal obstruction, unspecified as to partial versus complete obstruction (02/15/25) Colostomy status (02/15/25) Arthrodesis status (02/15/25) Subjective Subjective Saw patient at bedside this morning. Patient appeared similar today to yesterday. NG tube remains in place but have been clamped off by surgery this morning. Patient continued to have some discomfort with the NG tube and remains hungry, denies any other new concerns morning. Objective Data Objective Data Vital Signs: Vital Signs Temp Pulse Resp BP Pulse Ox O2 Del Method O2 Flow Rate 97.1 F L 88 16 139/84 H 97 Room Air 2 02/24/25 08:01 02/24/25 09:38 02/24/25 08:01 02/24/25 09:38 02/24/25 08:01 02/24/25 08:01 02/20/25 14:02 Oxygen Flow Rate (L/min) 2 Oxygen Delivery Method Room Air Weight: 81.9 kg Body Mass Index (BMI) 27.3 Intake & Output: Intake and Output for Last 24 Hours 02/22/25 02/23/25 02/24/25 23:59 23:59 23:59 Intake Total 2281.67 / 2281.67 1858.33 / 1858.33 210 / 210 Output Total 1775 / 1775 3075 / 3075 650 / 650 Balance 506.67 / 506.67 -1216.67 / -1216.67 -440 / -440 Lab / Micro Data 02/24/25 06:56 02/24/25 06:56 Labs: Laboratory Results - last 24 hr 02/23/25 12:12: POC Glucose 153 H 02/23/25 14:07: Potassium 3.7 02/23/25 17:44: POC Glucose 91 02/23/25 23:06: POC Glucose 81 02/24/25 05:41: POC Glucose 119 H 02/24/25 06:56: WBC 6.8, RBC 3.76 L, Hgb 11.6 L, Hct 34.7 L, MCV 92.3, MCH 30.9, MCHC 33.4, RDW Std Deviation 44.3 H, RDW Coeff of Leonel 13.2, Plt Count 255, MPV 8.4, Immature Gran % (Auto) 0.700, Neut % (Auto) 64.7, Lymph % (Auto) 23.8, [place] % (Auto) 8.7, Eos % (Auto) 1.8, Baso % (Auto) 0.3, Absolute Neuts (auto) 4.4, Absolute Lymphs (auto) 1.62, Nucleated RBC % 0, Atypical Lymphocytes 1+, Sodium 140, Potassium 2.8 L, Chloride 99, Carbon Dioxide 27.2, Anion Gap 14, BUN 12, Creatinine 0.90, Estim Creat Clear Calc 70.72, Est GFR (MDRD) Non-Af 90, BUN/Creatinine Ratio 13.2, Glucose 106 H, Calcium 8.1 Physical Exam Const alert, oriented x3, no apparent distress and average body habitus Constitutional Narrative: Elderly male, mildly fatigued appearing but otherwise sitting up comfortably in bedside chair, conversing normally, in no acute distress. General Appearance: cooperative and comfortable HEENT normocephalic, head/scalp atraumatic, hearing grossly normal bilaterally, nasal mucous membranes and turbinates normal and moist oral mucous membranes HEENT Narrative: NG tube in place, clamped off. Eyes PERRL, EOMs intact bilaterally and conjunctivae normal Neck full ROM Chest inspection of chest normal Resp normal respiratory effort, normal air movement, no use of accessory muscles and clear to auscultation bilaterally Cardio regular rate, regular rhythm, no murmurs and peripheral pulses 2+ throughout GI GI Narrative: Abdomen mildly distended but otherwise soft and nontender to palpation. Colostomy bag noted with normal moderate brown liquidy stool output. Stable. Back/Spine normal ROM Extremity normal to inspection, full ROM and no pedal edema Skin no rashes or lesions noted Psych mental status grossly normal Assessment & Plan Assessment/Plan (1) Partial bowel obstruction: (2) Status post colostomy: PLAN: Plan Patient is a 74-year-old male who presented to [facility] ED on 02/15/25 with worsening abdominal pain. 1. Small and large bowel partial obstruction with dilatation ? General Surgery following. Presented with worsening abdominal pain with distention. Surgery suspected colonic obstruction due to diverticulitis or diverticular stricture. Initially refused surgery but then agreed to proceed. S/p laparoscopic-assisted transverse loop colostomy on 02/20. Tolerated procedure well. Having normal stool output from ostomy. NG tube remains in place. 4-hour clamping trial being done on morning of 02/24. If trial unsuccessful, will need to consider starting TPN per surgery. Will continue to monitor closely. 2. Hyponatremia and hypochloremia with anion gap metabolic acidosis, resolved ? Sodium 127, chloride 88 on admit with anion gap noted. Suspected secondary to third spacing in setting of bowel obstruction. Resolved by 02/19. 3. Hypokalemia ? Potassium intermittently low during hospitalization likely due to high ostomy output post ostomy placement. Replete potassium as needed. 4. Cervical spine stenosis with recent surgery ? Had C4-7 ACDF procedure done with Dr. Grullon on 02/05. Tolerated procedure well, no intraoperative complications. Dr. Grullon did follow briefly preoperatively and noted it was okay for patient to have collar removed for procedures, with plan to wean time off collar over the next few weeks. Okay for gentle range of motion of the neck with outpatient physical therapy after discharge. 5. Type 2 diabetes mellitus ? Treating with insulin glargine 10 units daily and Humalog sliding scale every 6 hours for now with good blood sugar control, adjust as needed. Chronic medical conditions: ? GERD: Treating with IV PPI twice daily for now. ? BPH with obstructive symptoms: Continue home Flomax once able to resume p.o. intake. ? Anxiety/depression: Continue IV Ativan as needed while NPO. ? Hypertension: Continue IV Lopressor as needed while NPO. DVT prophylaxis: Lovenox CODE STATUS: DNR CCA, DNI Expected disposition: Home with [facility], D Total clinical time spent by myself addressing the patient's medical issues, reviewing all the data, and collaborating with patient's care team: 35 minutes. Charges/Coding Visit Charges Inpatient E&M: 09492 Subs Hosp L2
[2025-02-24] MEDS: Menthol/Lanolin/Calamine/Znox 113 GM Tube 1 APPLIC TOPICAL ×4 (10:42→22:37)
[2025-02-24] MEDS: Enoxaparin 40 MG/0.4 ML Syringe SC (11:52)
[2025-02-24] MEDS: oxyCODONE 5 MG Tablet PO ×2 (13:14→17:59)
[2025-02-24 13:48] LABS: Bedside Glucose 114 mg/dL (74-106)
[2025-02-24 14:13] LABS: Potassium 3.6 mmol/L (3.3-5.1)
--- NOTE | 2025-02-24 15:28 | WOUNDNOTE ---
Ostomy appliance changed with with patient and . removed the appliance. there was a small amount of liquid stool noted in the appliance. stoma is dark pink and moist. still moderate edema noted. stomal bar in place. peristomal skin is intact. cleansed skin with warm water. pat dry. applied a new 2 piece flat Tha appliance with a small amount of stoma paste. pt tolerated well. will continue education with patient and significant other.
[2025-02-24] MEDS: LORazepam 1 MG Tablet PO (17:59)
[2025-02-24] MEDS: Insulin Lispro 100 UNIT/ML INSULN.PEN SC (17:59)
[2025-02-24 18:22] LABS: Bedside Glucose 273 mg/dL (74-106)
[2025-02-24] MEDS: Tamsulosin HCl 0.4 MG Capsule 0.8 MG PO (22:37)
[2025-02-24] MEDS: Primidone 250 MG Tablet 125 MG PO (22:37)
[2025-02-24 23:13] LABS: Bedside Glucose 115 mg/dL (74-106)
[2025-02-25] VITALS (7 sets, daily range): BP systolic 110–125; BP diastolic 65–81; PULSE 80–94; RESP 16–18; TEMP 36.6–36.9; O2SAT 97–100; BMI 27.3
[2025-02-25] MEDS: BENZOCAINE/MENTHOL 1 LOZENGE MUCOUS MEM ×3 (04:30→20:23)
[2025-02-25] MEDS: Insulin Lispro 100 UNIT/ML INSULN.PEN SC ×3 (06:05→21:45)
[2025-02-25 06:24] LABS: Bedside Glucose 196 mg/dL (74-106)
[2025-02-25 07:49] LABS: Hematocrit 33.1 % (40-54); Hemoglobin 10.9 g/dL (13.0-16.5); Mean Corp Hgb Conc 32.9 g/dL (32-36); Mean Corpuscular Hgb 30.4 pg (27.0-32.0); Mean Corpuscular Volume 92.2 fL (80-94); Mean Platelet Vol. 8.7 fl (6.2-12.0); Platelet Count 258 K/mm3 (150-450); RBC Distribution Width CV 13.1 % (11.6-14.6); RBC Distribution Width SD 44.4 fl (35.1-43.9); Red Blood Count 3.59 M/mm3 (4.6-6.2); White Blood Count 6.3 K/mm3 (4.4-11.0)
[2025-02-25 07:58] LABS: Anion Gap 9 (5-15); BUN 8 mg/dL (4-19); BUN/Creat Ratio 8.5 RATIO (10-20); Calcium,Total 7.6 mg/dL (7.6-11.0); Carbon Dioxide 25.4 mmol/L (21.0-32.0); Chloride 99 mmol/L (98-108); Creatinine, Serum 0.92 mg/dL (0.70-1.20); EST Glomerular Filtration Rate 88 (>60); Estimated Creatinine Clearance 69.18 ml/min (50-250); Glucose 173 mg/dL (70-99); Potassium 3.1 mmol/L (3.3-5.1); Sodium Level 133 mmol/L (133-145)
--- NOTE | 2025-02-25 08:12 | PCM.PN.SRG ---
Subjective Subjective Patient evaluated resting comfortably in bed. He denies any abdominal pain/discomfort. He denies any nausea, vomiting. He tolerated clear liquids. He had a small bowel movement per rectum. He notes stool output in his ostomy bag. He notes air within his bag. Objective Data Objective Data Vital Signs: Vital Signs Temp Pulse Resp BP Pulse Ox O2 Del Method O2 Flow Rate 98.4 F 85 16 125/65 H 97 Room Air 2 02/25/25 04:32 02/25/25 04:32 02/25/25 04:32 02/25/25 04:32 02/25/25 04:32 02/25/25 04:32 02/20/25 14:02 Oxygen Flow Rate (L/min) 2 Oxygen Delivery Method Room Air Weight: 180 lb 8.937 oz Body Mass Index (BMI) 27.3 Intake & Output: Intake and Output for Last 24 Hours 02/23/25 02/24/25 02/25/25 23:59 23:59 23:59 Intake Total 1858.33 / 1858.33 2330 / 2530 350 / 350 Output Total 3075 / 3075 1750 / 2000 450 / 450 Balance -1216.67 / -1216.67 580 / 530 -100 / -100 Lab / Micro Data 02/25/25 07:09 02/25/25 07:09 Labs: Laboratory Results - last 24 hr 02/24/25 05:41: POC Glucose 119 H 02/24/25 11:48: POC Glucose 114 H 02/24/25 13:00: Potassium 3.6 02/24/25 17:58: POC Glucose 273 H 02/24/25 22:55: POC Glucose 115 H 02/25/25 06:05: POC Glucose 196 H 02/25/25 07:09: WBC 6.3, RBC 3.59 L, Hgb 10.9 L, Hct 33.1 L, MCV 92.2, MCH 30.4, MCHC 32.9, RDW Std Deviation 44.4 H, RDW Coeff of Leonel 13.1, Plt Count 258, MPV 8.7, Sodium 133, Potassium 3.1 L, Chloride 99, Carbon Dioxide 25.4, Anion Gap 9, BUN 8, Creatinine 0.92, Estim Creat Clear Calc 69.18, Est GFR (MDRD) Non-Af 88, BUN/Creatinine Ratio 8.5 L, Glucose 173 H, Calcium 7.6 Physical Exam GI GI Narrative: Abdomen- soft, nondistended. Positive bowel sounds. Minimal amount of dark brown liquid within the stoma appliance. Assessment & Plan Assessment/Plan (1) Status post colostomy: (2) Bowel obstruction: QUALIFIERS: Intestinal obstruction extent: complete Intestinal obstruction type: unspecified Qualified Code(s): K56.601 - Complete intestinal obstruction, unspecified as to cause PLAN: Plan I am following this patient in conjunction with Dr. Leach. He will independently evaluate this patient. Labs reviewed. Potassium is 3.1. Will replace. Continue clear liquids this morning. Start Ensure clear. Possible progression of diet later today We will continue to monitor this patient Possible discharge or Sunday Charges/Coding Visit Charges Inpatient E&M: 46608 Subs Hosp L1 (Post-op)
[2025-02-25] MEDS: Potassium Chloride Oral Tablet 20 MEQ 40 MEQ PO (09:55)
[2025-02-25] MEDS: Menthol/Lanolin/Calamine/Znox 113 GM Tube 1 APPLIC TOPICAL ×4 (09:56→21:51)
[2025-02-25] MEDS: Insulin Glargine-YFGN 100 UNIT/ML Pen 10 UNIT SC (09:56)
[2025-02-25] MEDS: Metoprolol Tartrate 50 MG Tablet PO ×2 (09:57→21:44)
[2025-02-25] MEDS: NYSTATIN 500,000 UNIT/5 ML UDC 500000 UNIT PO ×4 (09:57→21:44)
[2025-02-25] MEDS: oxyCODONE 5 MG Tablet PO ×2 (09:58→15:22)
--- NOTE | 2025-02-25 10:42 | WOUNDNOTE ---
Pt has been up ambulating in the halls. has tolerated diet since NG tibe was removed yesterday. stoma functioning. possible discharge to home with home health care tomorrow. will continue education.
--- NOTE | 2025-02-25 11:26 | PN.HOSP_ITS ---
Reason for Visit Reason for Visit: Diagnoses Partial intestinal obstruction, unspecified as to cause (02/15/25) Complete intestinal obstruction, unspecified as to cause (02/15/25) Unspecified intestinal obstruction, unspecified as to partial versus complete obstruction (02/15/25) Colostomy status (02/15/25) Arthrodesis status (02/15/25) Subjective Subjective Saw patient at bedside this morning, present. Patient had NG tube removed yesterday afternoon. Has been tolerating clear liquid diets well since then. Was seen by surgery tomorrow who noted that his diet may be progressed later today with potential discharge in the next day or 2. He was encouraged by this information. Denied any nausea or abdominal discomfort currently. No other new concerns today. Objective Data Objective Data Vital Signs: Vital Signs Temp Pulse Resp BP Pulse Ox O2 Del Method O2 Flow Rate 98.1 F 92 16 119/66 98 Room Air 2 02/25/25 10:00 02/25/25 11:00 02/25/25 11:00 02/25/25 10:00 02/25/25 11:00 02/25/25 11:00 02/20/25 14:02 Oxygen Flow Rate (L/min) 2 Oxygen Delivery Method Room Air Weight: 81.9 kg Body Mass Index (BMI) 27.3 Intake & Output: Intake and Output for Last 24 Hours 02/23/25 02/24/25 02/25/25 23:59 23:59 23:59 Intake Total 1858.33 / 1858.33 2330 / 2530 775 / 775 Output Total 3075 / 3075 1750 / 2000 450 / 450 Balance -1216.67 / -1216.67 580 / 530 325 / 325 Lab / Micro Data 02/25/25 07:09 02/25/25 07:09 Labs: Laboratory Results - last 24 hr 02/24/25 11:48: POC Glucose 114 H 02/24/25 13:00: Potassium 3.6 02/24/25 17:58: POC Glucose 273 H 02/24/25 22:55: POC Glucose 115 H 02/25/25 06:05: POC Glucose 196 H 02/25/25 07:09: WBC 6.3, RBC 3.59 L, Hgb 10.9 L, Hct 33.1 L, MCV 92.2, MCH 30.4, MCHC 32.9, RDW Std Deviation 44.4 H, RDW Coeff of Leonel 13.1, Plt Count 258, MPV 8.7, Sodium 133, Potassium 3.1 L, Chloride 99, Carbon Dioxide 25.4, Anion Gap 9, BUN 8, Creatinine 0.92, Estim Creat Clear Calc 69.18, Est GFR (MDRD) Non-Af 88, BUN/Creatinine Ratio 8.5 L, Glucose 173 H, Calcium 7.6 Physical Exam Const alert, oriented x3, no apparent distress and average body habitus Constitutional Narrative: Elderly male, mildly fatigued appearing but otherwise sitting up comfortably in bedside chair, conversing normally, in no acute distress. Stable. General Appearance: cooperative and comfortable HEENT normocephalic, head/scalp atraumatic, hearing grossly normal bilaterally, nasal mucous membranes and turbinates normal and moist oral mucous membranes Eyes PERRL, EOMs intact bilaterally and conjunctivae normal Neck full ROM Chest inspection of chest normal Resp normal respiratory effort, normal air movement, no use of accessory muscles and clear to auscultation bilaterally Cardio regular rate, regular rhythm, no murmurs and peripheral pulses 2+ throughout GI GI Narrative: Abdomen mildly distended but otherwise soft and nontender to palpation. Colostomy bag noted with normal moderate brown liquidy stool output. Stable. Back/Spine normal ROM Extremity normal to inspection, full ROM and no pedal edema Skin no rashes or lesions noted Psych mental status grossly normal Assessment & Plan Assessment/Plan (1) Partial bowel obstruction: (2) Status post colostomy: PLAN: Plan Patient is a 74-year-old male who presented to [facility] ED on 02/15/25 with worsening abdominal pain. 1. Small and large bowel partial obstruction with dilatation ? General Surgery following. Presented with worsening abdominal pain with distention. Surgery suspected colonic obstruction due to diverticulitis or diverticular stricture. Initially refused surgery but then agreed to proceed. S/p laparoscopic-assisted transverse loop colostomy on 02/20. Tolerated procedure well. Having normal stool output from ostomy. Passed NG tube clamping trial on 02/24 and NG tube removed. Currently tolerating liquid diet well and per surgery will likely progress diet today, with hopeful plan for discharge either tomorrow or Sunday. 2. Hyponatremia and hypochloremia with anion gap metabolic acidosis, resolved ? Sodium 127, chloride 88 on admit with anion gap noted. Suspected secondary to third spacing in setting of bowel obstruction. Resolved by 02/19. 3. Hypokalemia ? Potassium intermittently low during hospitalization likely due to high ostomy output post ostomy placement. Replete potassium as needed. 4. Cervical spine stenosis with recent surgery ? Had C4-7 ACDF procedure done with Dr. Grullon on 02/05. Tolerated procedure well, no intraoperative complications. Dr. Grullon did follow briefly preoperatively and noted it was okay for patient to have collar removed for procedures, with plan to wean time off collar over the next few weeks. Okay for gentle range of motion of the neck with outpatient physical therapy after discharge. 5. Type 2 diabetes mellitus ? Treating with insulin glargine 10 units daily and Humalog sliding scale with meals for now with good blood sugar control, adjust as needed. Chronic medical conditions: ? GERD: Continue home PPI. ? BPH with obstructive symptoms: Continue home Flomax. ? Anxiety/depression: Continue home Ativan. ? Hypertension: Continue home Lopressor. DVT prophylaxis: Lovenox CODE STATUS: DNR CCA, DNI Expected disposition: Home with [facility], 1 to 2 days Total clinical time spent by myself addressing the patient's medical issues, reviewing all the data, and collaborating with patient's care team: 35 minutes. Charges/Coding Visit Charges Inpatient E&M: 30221 Subs Hosp L2
[2025-02-25 11:43] LABS: Bedside Glucose 226 mg/dL (74-106)
--- NOTE | 2025-02-25 12:14 | WOUNDNOTE ---
JEN Mcfarlane had asked this nurse to assess bottom since patient had c/o discomfort. Pt was able to stand for this nurse to assess. some mild redness noted to bilateral upper buttocks. no open areas noted. skin blanches. applied a foam dressing for comfort and protection. will monitor.
[2025-02-25] MEDS: Enoxaparin 40 MG/0.4 ML Syringe SC (12:40)
[2025-02-25] MEDS: Pantoprazole Sodium 40 MG Tablet PO (12:42)
[2025-02-25] MEDS: Acetaminophen 325 MG Tablet 650 MG PO (12:42)
--- NOTE | 2025-02-25 15:02 | CASEMGMT ---
Wound nurse gave 2 rx for appliances for pt. Sent both rx to via fax and made tc to Sabrina to make aware that the one rx is for the current appliance pt is using and the second is for the appliance if stoma shrinks down. Sabrina aware that pt may dc tomorrow. Will plan for a SOC following the day of dc if pt dc's on or Sunday. Pt to change appliance tomorrow with wound nurse.
[2025-02-25 17:32] LABS: Bedside Glucose 171 mg/dL (74-106)
[2025-02-25] MEDS: LORazepam 1 MG Tablet PO (17:53)
[2025-02-25] MEDS: Tamsulosin HCl 0.4 MG Capsule 0.8 MG PO (21:44)
[2025-02-25] MEDS: Primidone 250 MG Tablet 125 MG PO (21:44)
[2025-02-25] MEDS: 0.9% Saline Lock 10 ML Syringe IV (21:50)
[2025-02-25 22:14] LABS: Bedside Glucose 159 mg/dL (74-106)
[2025-02-26 02:33] VITALS: BP 108/65; PULSE 79; RESP 16; TEMP 36.6; O2SAT 96
[2025-02-26] MEDS: BENZOCAINE/MENTHOL 1 LOZENGE MUCOUS MEM ×3 (02:43→08:35)
[2025-02-26 05:41] VITALS: BMI 27.3
[2025-02-26] MEDS: Insulin Lispro 100 UNIT/ML INSULN.PEN SC ×2 (06:07→10:37)
[2025-02-26 06:16] LABS: Bedside Glucose 159 mg/dL (74-106)
--- NOTE | 2025-02-26 07:32 | PCM.PN.SRG ---
Subjective Subjective Patient evaluated resting comfortably in the chair. He denies any new concerns or complaints. He denies abdominal pain/discomfort. He denies any nausea, vomiting. He is passing flatus in his stoma bag and liquid light brown stool. He notes having 4 bowel movements per rectum overnight. He is tolerating full liquid diet. Objective Data Objective Data Vital Signs: Vital Signs Temp Pulse Resp BP Pulse Ox O2 Del Method O2 Flow Rate 97.9 F 79 16 108/65 96 Room Air 2 02/26/25 02:33 02/26/25 02:33 02/26/25 02:33 02/26/25 02:33 02/26/25 02:33 02/26/25 02:35 02/20/25 14:02 Oxygen Flow Rate (L/min) 2 Oxygen Delivery Method Room Air Weight: 180 lb 5.41 oz Body Mass Index (BMI) 27.3 Intake & Output: Intake and Output for Last 24 Hours 02/24/25 02/25/25 02/26/25 23:59 23:59 23:59 Intake Total 2330 / 2530 1225 / 1225 400 / 400 Output Total 1750 / 2000 550 / 550 270 / 270 Balance 580 / 530 675 / 675 130 / 130 Lab / Micro Data 02/25/25 07:09 02/25/25 07:09 Labs: Laboratory Results - last 24 hr 02/25/25 07:09: WBC 6.3, RBC 3.59 L, Hgb 10.9 L, Hct 33.1 L, MCV 92.2, MCH 30.4, MCHC 32.9, RDW Std Deviation 44.4 H, RDW Coeff of Leonel 13.1, Plt Count 258, MPV 8.7, Sodium 133, Potassium 3.1 L, Chloride 99, Carbon Dioxide 25.4, Anion Gap 9, BUN 8, Creatinine 0.92, Estim Creat Clear Calc 69.18, Est GFR (MDRD) Non-Af 88, BUN/Creatinine Ratio 8.5 L, Glucose 173 H, Calcium 7.6 02/25/25 11:09: POC Glucose 226 H 02/25/25 17:14: POC Glucose 171 H 02/25/25 21:43: POC Glucose 159 H 02/26/25 05:57: POC Glucose 159 H Physical Exam GI GI Narrative: Abdomen- soft, nontender. Stoma healthy beefy red. Air within the stoma bag along with liquid brown stool. Assessment & Plan Assessment/Plan (1) Status post colostomy: (2) Bowel obstruction: QUALIFIERS: Intestinal obstruction type: unspecified Intestinal obstruction extent: complete Qualified Code(s): K56.601 - Complete intestinal obstruction, unspecified as to cause PLAN: Plan I am following this patient in conjunction with Dr. Walker in Dr. Leach's absence. Labs pending Increase diet to transitional If tolerate diet well and following ostomy education, patient may be discharged to home on a transitional diet He will need to follow-up with our office in 2 weeks or sooner if needed We will continue to monitor this patient Charges/Coding Visit Charges Inpatient E&M: 71504 Subs Hosp L1 (post-op)
[2025-02-26 08:24] VITALS: BP 116/76; PULSE 84; RESP 16; TEMP 36.7; O2SAT 96
[2025-02-26] MEDS: Menthol/Lanolin/Calamine/Znox 113 GM Tube 1 APPLIC TOPICAL ×2 (08:26→14:18)
[2025-02-26 08:27] VITALS: PULSE 84
[2025-02-26] MEDS: NYSTATIN 500,000 UNIT/5 ML UDC 500000 UNIT PO ×2 (08:27→14:18)
[2025-02-26] MEDS: LORazepam 1 MG Tablet PO (08:27)
[2025-02-26] MEDS: Metoprolol Tartrate 50 MG Tablet PO (08:27)
[2025-02-26 08:48] LABS: Anion Gap 10 (5-15); BUN 5 mg/dL (4-19); BUN/Creat Ratio 5.8 RATIO (10-20); Calcium,Total 7.9 mg/dL (7.6-11.0); Carbon Dioxide 23.5 mmol/L (21.0-32.0); Chloride 100 mmol/L (98-108); Creatinine, Serum 0.87 mg/dL (0.70-1.20); EST Glomerular Filtration Rate 91 (>60); Estimated Creatinine Clearance 73.16 ml/min (50-250); Glucose 137 mg/dL (70-99); Sodium Level 134 mmol/L (133-145)
--- NOTE | 2025-02-26 09:34 | WOUNDNOTE ---
Per Dr Ceballos, the stomal bar will remain in place until pts follow up visit next week.
[2025-02-26] MEDS: oxyCODONE 5 MG Tablet PO (10:30)
[2025-02-26] MEDS: Potassium Chloride Oral Tablet 20 MEQ 60 MEQ PO (10:30)
--- NOTE | 2025-02-26 10:30 | DS.PCM_ITS ---
Providers Date of Admission: 02/15/25 Date of Discharge: 02/26/25 Primary Care Physician: Dr. Stuart Hawkins MD Consultations 02/15/25 10:25 Consult: General Surgery Routine Consulting Provider: Wali Saldaña Reason for Consult: partial small and large bowel obstuction EMERGENT Consult: No Notified: Yes Date Notified: 02/15/25 Time Notified: 10:25 Method of Notification: ED Physician Initiated 02/15/25 11:25 Consult: General Surgery Routine Consulting Provider: Wali Saldaña Reason for Consult: small bowel obstruction EMERGENT Consult: No Notified: Yes Date Notified: 02/15/25 Time Notified: 11:12 Method of Notification: ED Physician Initiated 02/19/25 10:38 Consult: Onc/Wound/humanities division chair Routine Comment: Reason for Consult:: New diverting transverse colostomy creation Comments:: Procedure martha for 02/20 with Haylee Reason For Visit: PARTIAL SMALL BOWEL OBSTRUCTION Diagnosis Discharge Diagnosis (1) Status post colostomy: Status: Acute Code(s): Z93.3 - Colostomy status (2) Bowel obstruction: Status: Acute Code(s): K56.609 - Unspecified intestinal obstruction, unspecified as to partial versus complete obstruction Qualifiers: Intestinal obstruction extent: complete Intestinal obstruction type: u nspecified Qualified Code(s): K56.601 - Complete intestinal obstruction, unspecified as to cause Medications at Discharge Home Medications metoprolol tartrate 50 mg tablet 50 mg PO BID hypertension 03/09/14 tamsulosin 0.4 mg capsule 0.8 mg PO QHS urinary issues 01/26/15 dexlansoprazole 30 mg capsule,biphase delayed release 30 mg PO DAILY stomach 09/03/19 lorazepam 1 mg tablet (Ativan) 1 mg PO BID anxiety 01/19/21 melatonin 5 mg capsule 5 mg PO QHS 01/19/21 saw palmetto 450 mg capsule 450 mg PO BID 01/19/21 metformin 500 mg tablet 500 mg PO BID blood glucose 11/07/24 primidone 125 mg tablet 125 mg PO QHS seizures 11/07/24 triamterene 75 mg-hydrochlorothiazide 50 mg tablet 1 tab PO DAILY hypertension 02/04/25 Held on 02/26/25. Instructions: Resume on 03/09/25. Please discuss with PCP prior to resuming. meloxicam 15 mg tablet 15 mg PO DAILY #30 tabs 02/05/25 methocarbamol 500 mg tablet 750 mg (1.5 x 500 mg) PO TID PRN pain/spasms #60 tabs 02/05/25 sennosides 8.6 mg-docusate sodium 50 mg tablet (Stimulant Laxative Plus) 2 tab PO BID PRN constipation #30 tabs 02/05/25 potassium chloride 20 mEq tablet,extended release(part/cryst) 40 meq (2 x 20 mEq) PO DAILY supplement 30 days #60 tabs 02/26/25 Hospital Course Operations - (Laparoscopic assisted transverse loop colostomy) Procedures EKG and - (CT abdomen pelvis x 2, KUB x 3, chest x-ray, C-spine x-ray) Summary of Care Provided Minutes Spent on Discharge: 35 Hospital Course: Patient is a 74-year-old male who presented to [facility] ED on 02/15/25 with worsening abdominal pain. Hospital course as noted below. Patient discharged home with home health care in stable condition on 02/26. 1. Small and large bowel partial obstruction with dilatation ? General Surgery followed. Presented with worsening abdominal pain with distention. Surgery suspected colonic obstruction due to diverticulitis or diverticular stricture. Initially refused surgery but then agreed to proceed. S/p laparoscopic-assisted transverse loop colostomy on 02/20. Tolerated procedure well. Had normal stool output from ostomy. Passed NG tube clamping trial on 02/24 and NG tube removed. Advanced diet after NG tube removal and patient did well. Per surgery, stable for discharge home on transitional diet on 02/26 with plan to advance diet in the next day or 2 and outpatient follow-up with surgery in 1 week. 2. Hyponatremia and hypochloremia with anion gap metabolic acidosis, resolved ? Sodium 127, chloride 88 on admit with anion gap noted. Suspected secondary to third spacing in setting of bowel obstruction. Resolved by 02/19. 3. Hypokalemia ? Potassium intermittently low during hospitalization likely due to high ostomy output post ostomy placement. Repleted potassium as needed. Given frequent drops while inpatient, will discharge patient on potassium 40 mEq daily. Recommend repeat BMP in 5 to 7 days to monitor potassium level. 4. Cervical spine stenosis with recent surgery ? Had C4-7 ACDF procedure done with Dr. Grullon on 02/05. Tolerated procedure well, no intraoperative complications. Dr. Grullon did follow briefly preoperatively and noted it was okay for patient to have collar removed for procedures, with plan to wean time off collar over the next few weeks. Okay for gentle range of motion of the neck with outpatient physical therapy after discharge. 5. Type 2 diabetes mellitus ? Treated with insulin glargine 10 units daily and Humalog sliding scale with meals for now with good blood sugar control. Okay to resume home metformin on discharge. 6. Acute debility ? PT/OT/case management followed. Patient with weakness and debility in setting of prolonged hospitalization. Discharged home with home health care in stable condition on 02/26. Chronic medical conditions: ? GERD: Continue home PPI. ? BPH with obstructive symptoms: Continue home Flomax. ? Anxiety/depression: Continue home Ativan. ? Hypertension: Continue home Lopressor. Held triamterene?hydrochlorothiazide while hospitalized and blood pressure remained low normal, will continue to hold on discharge and recommend outpatient follow-up with PCP to determine if/when to restart. Total clinical time spent by myself addressing the patient's medical issues, reviewing all the data, and collaborating with patient's care team: 35 minutes. Physical Exam Const alert, oriented x3, no apparent distress and average body habitus Constitutional Narrative: Elderly male, mildly fatigued appearing but otherwise sitting up comfortably in bedside chair, conversing normally, in no acute distress. Stable. General Appearance: cooperative and comfortable HEENT normocephalic, head/scalp atraumatic, hearing grossly normal bilaterally, nasal mucous membranes and turbinates normal and moist oral mucous membranes Eyes PERRL, EOMs intact bilaterally and conjunctivae normal Neck full ROM Chest inspection of chest normal Resp normal respiratory effort, normal air movement, no use of accessory muscles and clear to auscultation bilaterally Cardio regular rate, regular rhythm, no murmurs and peripheral pulses 2+ throughout GI GI Narrative: Abdomen mildly distended but otherwise soft and nontender to palpation. Colostomy bag noted with normal moderate brown liquidy stool output. Stable. Back/Spine normal ROM Extremity normal to inspection, full ROM and no pedal edema Skin no rashes or lesions noted Psych mental status grossly normal Weight / BMI Weight Weight: 81.8 kg Body Mass Index (BMI) 27.3 ABG / Lab / Microbiology Data 02/25/25 07:09 02/26/25 06:34 Laboratory: Laboratory Results - last 24 hr 02/25/25 11:09: POC Glucose 226 H 02/25/25 17:14: POC Glucose 171 H 02/25/25 21:43: POC Glucose 159 H 02/26/25 05:57: POC Glucose 159 H 02/26/25 06:34: Sodium 134, Potassium 3.0 L, Chloride 100, Carbon Dioxide 23.5, Anion Gap 10, BUN 5, Creatinine 0.87, Estim Creat Clear Calc 73.16, Est GFR (MDRD) Non-Af 91, BUN/Creatinine Ratio 5.8 L, Glucose 137 H, Calcium 7.9 D/C Instructions DC O2, CPAP, BIPAP Needs Home O2 Discharge instructions: No Meaningful Use Info Meaningful Use Meaningful Use Diagnoses (Choose all that apply): None applicable Ischemic Stroke Statin Dosing Therapy Reference: STATIN DOSE THERAPY REFERENCE: * Patients > 75 years receive moderate or high dose statin therapy. * Patients 75 years or YOUNGER should receive HIGH intensity statin dose unless contraindicated. You will be required to document reason for non-treatment if statin daily dose does not meet guidelines. HIGH DOSE STATIN THERAPY DAILY Atorvastatin > than or = to 40 mg Rosuvastatin > than or = to 20 mg Amlodipine + Atorvastatin > than or = to 2.5/40 mg Ezetimibe + Simvastatin 10/80 mg Simvastatin 80mg Discharge Plan Admission Admit Date/Time: 02/15/25 10:24 Primary Reason for Your Visit: Abdominal pain and distention Attending Provider: Gama Lopez Primary Care Provider: Stuart Hawkins Chi Consulting Providers: Wali Saldaña; Roberto Martin Instructions Additional Instructions / Restrictions: Hold off on taking your triamterene?hydrochlorothiazide blood pressure medication for now as your blood pressures have been borderline low while here. Take your other home indications as normal. Follow-up with surgery in the office in 1 week. Discharge Orders/Prescriptions Prescriptions: Continued lorazepam [Ativan] 1 mg tablet 1 mg PO BID melatonin 5 mg capsule 5 mg PO QHS saw palmetto 450 mg capsule 450 mg PO BID Rx Instructions: give with food (meal/snack) metformin 500 mg tablet 500 mg PO BID primidone 125 mg tablet 125 mg PO QHS metoprolol tartrate 50 MG tablet 50 mg PO BID Patient Comments: Blood Pressure, Heart tamsulosin 0.4 MG capsule 0.8 mg PO QHS Patient Comments: Enlarge prostate dexlansoprazole 30 MG capsule,biphase delayed releas 30 mg PO DAILY meloxicam 15 mg Tablet 15 mg PO DAILY Qty: 30 0RF Rx Instructions: take once daily methocarbamol 500 mg Tablet 750 mg PO TID PRN (Reason: pain/spasms) Qty: 60 0RF sennosides-docusate sodium [Stimulant Laxative Plus] 8.6-50 mg Tablet 2 tab PO BID PRN (Reason: constipation) Qty: 30 0RF Changed potassium chloride 20 MEQ tablet 40 meq PO DAILY 30 Days Qty: 60 0RF Patient Comments: potassium supplement Held triamterene-hydrochlorothiazid 75 MG-50MG tablet 1 tab PO DAILY Hold Instructions: Resume on 03/09/25. Please discuss with PCP prior to resuming. Discontinued Linzess 290 mcg capsule 290 mcg PO DAILY lactulose [Constulose] 10 gram/15 mL solution 20 g PO BID Rx Instructions: 2 TBSP BY MOUTH TWICE DAILY polyethylene glycol 3350 [Miralax] 17 gram/dose powder 4 g PO BID hydrocodone-acetaminophen 5-325 mg Tablet 1 tab PO Q6H PRN (Reason: pain) 7 Days Qty: 28 0RF Referrals / Follow Up: Marquez Leach MD [Med Staff - Active Staff] - Stuart Hawkins Chi, MD [Primary Care Provider] - Disposition Disposition (needs filled in before D/C Order can be placed): Home Health Service Charges/Coding Visit Charges Inpatient E&M: 53046 Disch Hosp >30min
[2025-02-26] MEDS: Pantoprazole Sodium 40 MG Tablet PO (10:34)
[2025-02-26] MEDS: Insulin Glargine-YFGN 100 UNIT/ML Pen 10 UNIT SC (10:38)
[2025-02-26] MEDS: Enoxaparin 40 MG/0.4 ML Syringe SC (10:39)
--- NOTE | 2025-02-26 11:27 | CASEMGMT ---
Addendum entered by Tara Fuentes 02/26/25 12:02: JESUS STEVE into pt room, pt sig other just finished changing ostomy. She reports she feels comfortable with this and ostomy nurse states she did very well. Pt feels comfortable to dc home and is ready. Pt has rollator at home. He is aware that [facility] will be out to see him tomorrow and they will order supplies. Pt also given some to take home. Pt and sig other deny further needs at this time. Original Note: TC brooklyn Bennett at [facility], she is aware pt will dc today. Plan for SOC tomorrow. She states she did not receive ostomy supply sheet. Sent via [employer] at this time.
[2025-02-26 11:35] LABS: Bedside Glucose 204 mg/dL (74-106)
--- NOTE | 2025-02-26 12:55 | WOUNDNOTE ---
was able to change the entire ostomy appliance with very minimal assistance. has been assisting with emptying and cleaning the end of the appliance as well. stoma remains dark pink and edematous. stomal bar remains in place and will be removed at patient's follow up appointment. 3 appliances will be sent home with patient until home health care is able to order his supplies. pt should have samples coming from [place], [employer], and [facility] as well. Pt and deny further questions or concerns. very appreciative of care.
[2025-02-26 14:50] VITALS: BP 126/75; PULSE 85; RESP 16; TEMP 36.6; O2SAT 99
== END 2025-02-26 15:24 | disposition home health service (06) | DRG 330 ==
LOC: ED 10:09 → MS3 10:43
PROVIDERS: Anesthesiology; Physician Assistant; Surgery; Admitting Provider Internal Medicine; Emergency Provider Emergency Medicine; PCP Family Medicine Geriatric Medicine; Visit Provider Hospitalist
PROC: 0D1L0Z4 Bypass Transverse Colon to Cutaneous, Open Approach (ICD-10-PCS; CPT 49320; principal; 2025-02-20 14:15)
DX: K56.601 Complete intestinal obstruction, unspecified as to cause (principal); K57.32 Diverticulitis of large intestine without perforation or abscess without bleeding; E87.1 Hypo-osmolality and hyponatremia; E87.20 Acidosis, unspecified; N13.8 Other obstructive and reflux uropathy; Z66 Do not resuscitate; E11.9 Type 2 diabetes mellitus without complications; I10 Essential (primary) hypertension; F32.A Depression, unspecified; K21.9 Gastro-esophageal reflux disease without esophagitis; M48.02 Spinal stenosis, cervical region; M50.320 Other cervical disc degeneration, mid-cervical region, unspecified level; E87.6 Hypokalemia; E87.8 Other disorders of electrolyte and fluid balance, not elsewhere classified; F41.9 Anxiety disorder, unspecified; F17.210 Nicotine dependence, cigarettes, uncomplicated; N32.0 Bladder-neck obstruction; R79.89 Other specified abnormal findings of blood chemistry; Z98.1 Arthrodesis status; Z79.2 Long term (current) use of antibiotics; Z79.84 Long term (current) use of oral hypoglycemic drugs; R00.0 Tachycardia, unspecified; N20.0 Calculus of kidney; Z83.3 Family history of diabetes mellitus; N40.1 Benign prostatic hyperplasia with lower urinary tract symptoms; Z99.89 Dependence on other enabling machines and devices
CPT/HCPCS: 36415; 71045; 72040; 74018; 74019; 74177; 80048; 80053; 80076; 82962; 83036; 83735; 83930; 83935; 84100; 84132; 84443; 85025; 85027; 85610; 85730; 93005; 94668; 97162; 97165; 97802; 99252; 99285; Q9967; A4216; G0463; J0666; J2405

== ENCOUNTER → 2025-03-03 | Outpatient (CLI) | payer MEDICARE, OTHER, SELFPAY ==
--- NOTE | 2025-03-03 15:42 | VDLE_ITS ---
Reason For Study Reason For Study: Bilateral leg edema RIGHT LEFT GSV is normal. GSV is normal. CFV is compressible, spontaneous, phasic, competent CFV is compressible, spontaneous, phasic, competent, and demonstrates normal augmentation. and demonstrates normal augmentation. FV is compressible, spontaneous, phasic, competent FV is compressible, spontaneous, phasic, competent and demonstrates normal augmentation. and demonstrates normal augmentation. POP V is compressible, spontaneous, phasic, competent POP V is compressible, spontaneous, phasic, competent and demonstrates normal augmentation. and demonstrates normal augmentation. T/P Trunk is compressible. T/P Trunk is compressible. PTV is compressible. PTV is compressible. RT PerV is compressible. LT PerV is compressible. Procedure This is a venous duplex using B-mode, color flow and spectral Doppler. Exam performed in department. A preliminary report was called and/or faxed to Dr. Hawkins. VL/Venous Duplex US - James Extrem Interpretation Summary Deep veins of the lower extremities are bilaterally patent and compressible seg mentally. There is no evidence of deep vein thrombosis on either side. Valvular competence appears intact within the p roximal deep venous systems bilaterally. The great saphenous veins appear bilaterally patent and compressible segmentall y. Ordering Physician: Stuart Hawkins Chi Referring Physician: Stuart Hawkins Chi Performed By: Kae Echeverria RVT
[2025-03-03 17:39] LABS: Absolute Lymphocyte Count 1.69 X10^3/uL (0.83-4.51); Absolute Neutrophil Count 5.5 X10^3/uL (2.0-7.7); Basophil# 0.03 X10^3/uL; Basophil% 0.4 % (0-1); Eosinophil# 0.16 X10^3/uL; Hematocrit 36.2 % (40-54); Hemoglobin 12.1 g/dL (13.0-16.5); Lymphocyte # 1.69 X10^3/ul (0.83-4.51); Lymphocyte % 20.7 % (19-41); Mean Corp Hgb Conc 33.4 g/dL (32-36); Mean Corpuscular Hgb 31.1 pg (27.0-32.0); Mean Corpuscular Volume 93.1 fL (80-94); Mean Platelet Vol. 9.1 fl (6.2-12.0); Monocyte# 0.78 X10^3/uL; Monocyte% 9.5 % (0-10); NRBC Flagged by Analyzer 0 % (0-5); Neutrophil # 5.45 X10^3/uL (2.7-7.7); Neutrophil % 66.5 % (47-70); Platelet Count 350 K/mm3 (150-450); RBC Distribution Width CV 13.9 % (11.6-14.6); RBC Distribution Width SD 46.8 fl (35.1-43.9); Red Blood Count 3.89 M/mm3 (4.6-6.2); White Blood Count 8.2 K/mm3 (4.4-11.0)
[2025-03-03 17:56] LABS: Anion Gap 12 (5-15); BUN 10 mg/dL (4-19); BUN/Creat Ratio 12.1 RATIO (10-20); Calcium,Total 8.8 mg/dL (7.6-11.0); Carbon Dioxide 23.1 mmol/L (21.0-32.0); Chloride 102 mmol/L (98-108); Creatinine, Serum 0.81 mg/dL (0.70-1.20); EST Glomerular Filtration Rate 93 (>60); Glucose 93 mg/dL (70-99); Potassium 3.8 mmol/L (3.3-5.1); Sodium Level 137 mmol/L (133-145)
== END | disposition home or self-care (01) ==
LOC: CVS 15:41
PROVIDERS: PCP Family Medicine Geriatric Medicine; Referring Provider Family Medicine Geriatric Medicine; Visit Provider Family Medicine Geriatric Medicine
DX: R60.0 Localized edema (principal); I10 Essential (primary) hypertension
CPT/HCPCS: 36415; 80048; 85025; 93970

== ENCOUNTER → 2025-03-18 | Outpatient (CLI) | payer MEDICARE, OTHER, SELFPAY ==
[2025-03-18 17:14] LABS: Absolute Lymphocyte Count 1.85 X10^3/uL (0.83-4.51); Absolute Neutrophil Count 5.7 X10^3/uL (2.0-7.7); Basophil# 0.03 X10^3/uL; Basophil% 0.4 % (0-1); Eosinophils% 2.3 % (0-5); Hematocrit 37.8 % (40-54); Hemoglobin 12.2 g/dL (13.0-16.5); Lymphocyte # 1.85 X10^3/ul (0.83-4.51); Lymphocyte % 21.7 % (19-41); Mean Corp Hgb Conc 32.3 g/dL (32-36); Mean Corpuscular Hgb 30.2 pg (27.0-32.0); Mean Corpuscular Volume 93.6 fL (80-94); Mean Platelet Vol. 9.6 fl (6.2-12.0); Monocyte# 0.69 X10^3/uL; Monocyte% 8.1 % (0-10); NRBC Flagged by Analyzer 0 % (0-5); Neutrophil % 66.9 % (47-70); Platelet Count 230 K/mm3 (150-450); RBC Distribution Width CV 13.6 % (11.6-14.6); RBC Distribution Width SD 46.6 fl (35.1-43.9); Red Blood Count 4.04 M/mm3 (4.6-6.2); White Blood Count 8.5 K/mm3 (4.4-11.0)
[2025-03-19 11:20] LABS: ALB/GLOB Ratio 1.2 RATIO (0.9-2.4); AST(SGOT) 17 U/L (<=37); Alanine Aminotransfer ALT/SGPT 17 U/L (<=46); Albumin, Serum 3.7 g/dL (3.4-4.8); Alkaline Phosphatase 81 U/L (40-129); Anion Gap 11 (5-15); BUN 13 mg/dL (4-19); BUN/Creat Ratio 14.2 RATIO (10-20); Calcium,Total 8.4 mg/dL (7.6-11.0); Carbon Dioxide 22.7 mmol/L (21.0-32.0); Chloride 104 mmol/L (98-108); Creatinine, Serum 0.93 mg/dL (0.70-1.20); EST Glomerular Filtration Rate 87 (>60); Globulin 3.1 g/dL (2.2-4.2); Glucose 99 mg/dL (70-99); Potassium 4.3 mmol/L (3.3-5.1); Protein, Total 6.8 g/dL (5.9-8.4); Sodium Level 138 mmol/L (133-145); Total Bilirubin 0.27 mg/dL (0.00-1.30); Vitamin D,25 Hydroxy 18.1 ng/mL (30-100)
== END | disposition home or self-care (01) ==
LOC: LAB 15:46
PROVIDERS: PCP Family Medicine Geriatric Medicine; Referring Provider Family Medicine Geriatric Medicine; Visit Provider Family Medicine Geriatric Medicine
DX: E11.65 Type 2 diabetes mellitus with hyperglycemia (principal); I10 Essential (primary) hypertension; E55.9 Vitamin D deficiency, unspecified
CPT/HCPCS: 36415; 80053; 82306; 84443; 85025

== ENCOUNTER → 2025-03-20 | Outpatient (CLI) | payer MEDICARE, OTHER, SELFPAY ==
--- NOTE | 2025-03-20 12:33 | RAD_ITS ---
EXAM: XR Cervical Spine Flexion/Extension Only, 2 or 3 Views CLINICAL INDICATION: S/P DISC FUSION TECHNIQUE: Lateral flexion/extension views of the cervical spine. COMPARISON: XR Cervical Spine Flexion Extension dated 02/18/2025 FINDINGS: VERTEBRAE: Multilevel endplate degenerative changes of the cervical spine from C3-C7. No acute fracture. Normal alignment. No instability. DISC SPACES: Status post anterior fusion at C4-C7 with disc spacers. Intact hardware. Anatomic position. SOFT TISSUES: Unremarkable. RAD/Cerv Spine 2 or 3 Views IMPRESSION: 1. Postoperative changes as above. 2. No significant change from the prior exam. Reading Location: [facility]
== END | disposition home or self-care (01) ==
LOC: MTRAD 12:33
PROVIDERS: PCP Family Medicine Geriatric Medicine; Referring Provider Orthopaedic Surgery Orthopaedic Surgery of the Spine; Visit Provider Orthopaedic Surgery Orthopaedic Surgery of the Spine
DX: Z98.1 Arthrodesis status (principal)
CPT/HCPCS: 72040

== ENCOUNTER → 2025-04-02 | Outpatient (CLI) | payer MEDICARE, OTHER, SELFPAY ==
[2025-04-02] VITALS (14 sets, daily range): BP systolic 121–159; BP diastolic 65–87; PULSE 66–76; RESP 16–18; TEMP 36.3; O2SAT 98–100; BMI 65.1
--- NOTE | 2025-04-02 07:31 | RAD_ITS ---
EXAM: AP UPRIGHT INSPIRATION AND EXPIRATION PORTABLE CHEST CLINICAL HISTORY: Post right lung biopsy. COMPARISON: CT abdomen and pelvis dated 02/18/2025. TECHNIQUE: Inspiration and expiration AP upright chest. FINDINGS: No evidence of pneumothorax following right lung biopsy. The soft tissue mass in the right dayan thorax is redemonstrated. No signs of surrounding hemorrhage. Heart mediastinum and great vessels are stable. Status post cervical fusion. RAD/Chest Insp/Exp 2 View IMPRESSION: No evidence of pneumothorax or other abnormalities following right lung biopsy. Reading Location: [place] [id number]
--- NOTE | 2025-04-02 08:53 | CT_ITS ---
PROCEDURE: BIOPSY/INJ OR NEEDLE PLACEMENT 04/02/2025 REASON FOR EXAM: RLL LUNG MASS TECHNIQUE: Contiguous axial scans of mm slice thicknesses. Sagittal and coronal reconstruction images were obtained. One or more dose reduction techniques were used (e.g., automated exposure control, adjustment of mA and/or kv according to patient size, use of iterative reconstruction technique). RADIATION DOSE SUMMARY: DLP: 1267.41 mGycm COMPARISON: EARLIER CT ABDOMEN DATED 02/18 2025. FINDINGS: Informed consent was obtained from the patient. Patient was given opportunity to ask questions. The patient was thin transferred to the CT suite and placed on the gantry table in a right lateral decubitus position. SEDATION: Start time: 1015 hours. Stop time: 1048 hours. Versed: 2 mg intravenously. Fentanyl: 50 mcg intravenously. PROCEDURE: Following localization of the biopsy site, sterile preparation of the skin was performed in the usual fashion. Local anesthesia was accomplished with lidocaine 2%. A CorIn Flow at core biopsy device was utilized to accomplish the biopsy. A 4.5 cm guiding needle was advanced through the pleural-based lesion. The 10 cm core biopsy device was then utilized to obtain 4 biopsy specimens. Smears were made and reviewed by the pathologist at the time of biopsy. Specimens were also preserved in formalin. Final cytologic results are pending. The guiding needle was then removed and post biopsy scan showed no signs of pneumothorax or post biopsy hemorrhage. CT/Biopsy/Inj or Needle Placement IMPRESSION: 1. Successful core biopsy of a well-circumscribed mass in the right dayan thora x. 2. Final pathologic results are pending. 3. Patient tolerated the procedure well. No post biopsy complications. Thank you for this referral. Reading Location: [place] [id number]
[2025-04-02 08:54] LABS: Absolute Neutrophil Count 6.3 X10^3/uL (2.0-7.7); Basophil# 0.02 X10^3/uL; Basophil% 0.2 % (0-1); Eosinophil# 0.18 X10^3/uL; Hematocrit 37.4 % (40-54); Hemoglobin 12.2 g/dL (13.0-16.5); Lymphocyte % 21.7 % (19-41); Mean Corp Hgb Conc 32.6 g/dL (32-36); Mean Corpuscular Hgb 30.8 pg (27.0-32.0); Mean Corpuscular Volume 94.4 fL (80-94); Mean Platelet Vol. 8.7 fl (6.2-12.0); Monocyte# 0.66 X10^3/uL; Monocyte% 7.2 % (0-10); NRBC Flagged by Analyzer 0 % (0-5); Neutrophil # 6.32 X10^3/uL (2.7-7.7); Neutrophil % 68.7 % (47-70); Platelet Count 230 K/mm3 (150-450); RBC Distribution Width CV 13.7 % (11.6-14.6); RBC Distribution Width SD 47.3 fl (35.1-43.9); Red Blood Count 3.96 M/mm3 (4.6-6.2); White Blood Count 9.2 K/mm3 (4.4-11.0)
[2025-04-02 09:14] LABS: International Normalized Ratio 0.9; Prothrombin Time (Protime)PT. 12.1 SECONDS (11.7-14.9)
[2025-04-02 09:15] LABS: Partial Thromboplast Time 26.8 Seconds (24.1-36.2)
[2025-04-02] MEDS: 0.9% Saline Lock 10 ML Syringe IV (09:30)
[2025-04-02] MEDS: 0.9% Normal Saline (250mL Bag) 250 ML 15 ML IV (09:30)
[2025-04-02] MEDS: Midazolam 2 MG/2 ML Syringe IV (10:15)
[2025-04-02] MEDS: fentaNYL 100 MCG/2 ML Ampul IV (10:15)
--- NOTE | 2025-04-02 10:15 | ASPIGT_PTH ---
PATIENT: BRIANA ARIZMENDI LOC: [place] U#:[id number] AGE/SX: 74/M ROOM: RE04/02/[address]: Dr. Stuart Hawkins MD : 1950 BED: DIS: 04/02/2025 SPEC #: [id number] RECD: 04/02/25 10:45 STATUS: LUZ ELENA REMendoza #: [id number] MARIE: 04/02/25 10:[address]: Stuart Hawkins [facility] DEPT: SURGICAL PATHOLOGY RECD BY: Dmitri Barahona Tissues: A - Lung, NOS Procedures: FNA Specimen Adequacy Special Stain Group II Surgery Specimen Level IV Imprint (control) HEADER OPERATION: CT guided lung biopsy PRE-OP DIAGNOSIS: Right lower lobe lung mass TISSUE SUBMITTED: Lung biopsy - 20 gauge x 4 cores MICROSCOPIC DIAGNOSIS A. Right lung, lower lobe, mass, CT-guided core biopsy: * Scant fibroadipose tissue. * Negative for malignancy in these sections - see note. * Note: If this biopsy only a portion of the lesion, the findings may not be leasing representative. Recommend correlation with clinical and imaging findings. COMMENT The specimen is evaluated at the time of biopsy by Dr. Castellanos. Immediate Evaluation = 1. Cells with foamy cytoplasm, suggestive of fat. 2. Few cells, blood. 3. Adequate. MICROSCOPIC DESCRIPTION Slides are reviewed. GROSS DESCRIPTION A. Received in formalin in a container labeled with the patient's name, date of , and with the accompanying paperwork indicating, right lower lobe lung mass, CT-guided lung biopsy is a scant amount of white-ruano, wispy soft tissue measuring approximately 0.2 x 0.2 x 0.1 cm in aggregate. The specimen is submitted in toto in A1. [facility] 04-02-2025 CPT:90143,79113
[2025-04-02] MEDS: Lidocaine 2% (20 ml mdv) 20 ML Vial INFILT (10:20)
== END | disposition home or self-care (01) ==
LOC: CT 08:43
PROVIDERS: Radiology Nuclear Radiology; PCP Family Medicine Geriatric Medicine; Referring Provider Family Medicine Geriatric Medicine; Visit Provider Family Medicine Geriatric Medicine
DX: Z01.818 Encounter for other preprocedural examination (principal); R91.8 Other nonspecific abnormal finding of lung field
CPT/HCPCS: 32408; 36415; 71046; 77012; 85025; 85610; 85730; 88172; 88305; 88313; 99156; 99157; A4216

== ENCOUNTER → 2025-06-11 | Outpatient (CLI) | payer MEDICARE, OTHER, SELFPAY ==
[2025-06-11 15:10] LABS: Hematocrit 42.0 % (40-54); Hemoglobin 14.0 g/dL (13.0-16.5); Immature Granulocytes Count 0.030 X10^3/uL (0.0-0.0); Mean Corp Hgb Conc 33.3 g/dL (32-36); Mean Corpuscular Volume 89.4 fL (80-94); Mean Platelet Vol. 9.6 fl (6.2-12.0); NRBC Flagged by Analyzer 0 % (0-5); Platelet Count 197 K/mm3 (150-450); RBC Distribution Width CV 13.3 % (11.6-14.6); RBC Distribution Width SD 43.8 fl (35.1-43.9); Red Blood Count 4.70 M/mm3 (4.6-6.2); White Blood Count 6.8 K/mm3 (4.4-11.0)
[2025-06-11 16:14] LABS: AST(SGOT) 17 U/L (<=37); Alanine Aminotransfer ALT/SGPT 15 U/L (<=46); Albumin, Serum 3.9 g/dL (3.4-4.8); Alkaline Phosphatase 98 U/L (40-129); Anion Gap 17 (5-15); BUN 18 mg/dL (4-19); BUN/Creat Ratio 18.0 RATIO (10-20); Calcium,Total 9.4 mg/dL (7.6-11.0); Carbon Dioxide 19.9 mmol/L (21.0-32.0); Chloride 101 mmol/L (98-108); Globulin 3.1 g/dL (2.2-4.2); Glucose 171 mg/dL (70-99); Potassium 4.1 mmol/L (3.3-5.1); Vitamin D,25 Hydroxy 28.2 ng/mL (30-100)
[2025-06-11 22:04] LABS: Xtra Tube Kwok EXTRA TUBE
== END | disposition home or self-care (01) ==
LOC: POLAB3 14:04
PROVIDERS: PCP Family Medicine Geriatric Medicine; Visit Provider Family Medicine Geriatric Medicine
DX: E11.22 Type 2 diabetes mellitus with diabetic chronic kidney disease (principal); E11.65 Type 2 diabetes mellitus with hyperglycemia; I12.9 Hypertensive chronic kidney disease with stage 1 through stage 4 chronic kidney disease, or unspecified chronic kidney disease; N18.9 Chronic kidney disease, unspecified; E55.9 Vitamin D deficiency, unspecified
CPT/HCPCS: 36415; 80053; 82306; 84443; 85025

== ENCOUNTER → 2025-07-29 | Outpatient (CLI) | payer MEDICARE, OTHER, SELFPAY ==
--- NOTE | 2025-07-29 16:23 | RAD_ITS ---
PROCEDURE: SHOULDER MIN 2 VIEWS 07/29/2025 REASON FOR EXAM: PAIN IN RIGHT SHOULDER TECHNIQUE: Procedure Code: RADSH Modality: DX Procedure: SHOULDER MIN 2 VIEWS Laterality: FINDINGS: No evidence of acute fracture or dislocation. [id number] acromioclavicular degenerative changes. The glenohumeral joint spaces are maintained. RAD/Shoulder min 2 Views IMPRESSION: Acromioclavicular osteoarthrosis. Reading Location: [id number]
--- NOTE | 2025-07-29 16:23 | RAD_ITS ---
PROCEDURE: SHOULDER MIN 2 VIEWS 07/29/2025 REASON FOR EXAM: PAIN IN RIGHT SHOULDER TECHNIQUE: Procedure Code: RADSH Modality: DX Procedure: SHOULDER MIN 2 VIEWS Laterality: FINDINGS: No evidence of acute fracture or dislocation. [id number] acromioclavicular degenerative changes. The glenohumeral joint spaces are maintained. RAD/Shoulder min 2 Views IMPRESSION: Acromioclavicular osteoarthrosis. Reading Location: [id number]
== END | disposition home or self-care (01) ==
LOC: RAD 16:06
PROVIDERS: PCP Family Medicine Geriatric Medicine; Referring Provider Family Medicine Geriatric Medicine; Visit Provider Family Medicine Geriatric Medicine
DX: M25.511 Pain in right shoulder (principal)
CPT/HCPCS: 73030